=== PATIENT | female | born 1970 | race Caucasian/White ===

== ENCOUNTER → 2020-07-29 09:02 | Outpatient (BNVA) | payer MEDICARE, MEDICAID, SELFPAY | PROVIDERS: PCP Internal Medicine; Visit Provider Physician Assistant | DX: Z76.89 Persons encountering health services in other specified circumstances (principal) ==

== ENCOUNTER → 2020-07-31 08:09 | Outpatient (BNVA) | payer MEDICARE, MEDICAID, SELFPAY | PROVIDERS: PCP Internal Medicine; Visit Provider Surgery | DX: E66.9 Obesity, unspecified (principal); I10 Essential (primary) hypertension; K21.9 Gastro-esophageal reflux disease without esophagitis | CPT/HCPCS: Q3014 ==

== ENCOUNTER 2020-08-05 08:13 | Outpatient (REF) | payer MEDICARE, MEDICAID, SELFPAY ==
--- NOTE | 2020-08-05 08:52 | ECG_ITS ---
Test Reason : SOB, PREOP Blood Pressure : / mmHG Vent. Rate : 091 BPM Atrial Rate : 091 BPM P-R Int : 160 ms QRS Dur : 078 ms QT Int : 362 ms P-R-T Axes : 064 051 046 degrees QTc Int : 445 ms Normal sinus rhythm Normal ECG When compared with ECG of 02-MAR-2019 20:12, Heart rate has increased Referred By: Vasiliy Hardwick Electronically Signed By:ALMAZ GONZALEZ MD
--- NOTE | 2020-08-05 09:08 | XR_ITS ---
EXAMINATION: XR CHEST CLINICAL INFORMATION: Bariatric service evaluation. COMPARISON: Chest radiographs 03/02/2019, 02/25/2010 TECHNIQUE: 2 views of the chest were obtained. FINDINGS: Lungs are clear. The vascularity is normal. The heart is normal in size. The costophrenic sulci are well-defined. The hilar and mediastinal contours are normal. There are spinal stimulator electrodes overlying lower thoracic spine. XR/XR chest 2V IMPRESSION: Unremarkable examination.
[2020-08-05 10:33] LABS: Basophils Absolute Auto 0.1 X10*3/uL (0.0-0.2); Basophils Percent Auto 0.4 % (0-2); Eosinophils Absolute Auto 0.1 X10*3/uL (0.0-0.4); Eosinophils Percent Auto 0.6 % (0-4); Hematocrit 39.1 % (37-47); Hemoglobin 12.8 g/dl (12.0-16.0); Imm Gran Abs Auto 0.06 X10*3/uL (0.00-0.03); Imm Gran Pct Auto 0.4 % (0.0-0.4); Lymphocytes Absolute Auto 5.6 X10*3/uL (1.2-4.9); Lymphocytes Percent Auto 34.4 % (20-40); MANUAL DIFF FLAG SCAN; Mean Corpuscular HGB Conc 32.7 g/dl (31.0-35.0); Mean Corpuscular Hemoglobin 30.8 pg (27.0-33.0); Mean Corpuscular Volume 94.2 fL (80-98); Mean Platelet Volume 10.3 fL (9.4-12.3); Monocytes Absolute Auto 0.8 X10*3/uL (0.1-1.2); Monocytes Percent Auto 4.6 % (2-11); Neutrophils Absolute Auto 9.7 X10*3/uL (2.0-8.3); Neutrophils Percent Auto 59.6 % (45-73); Platelet Count 461 X10*3/uL (160-400); Red Blood Count 4.15 X10*6/uL (4.20-5.50); Red Cell Distribution Width 13.2 % (11.0-16.0); SCAN SMEAR FLAG 1; White Blood Count 16.3 X10*3/uL (4.8-10.8)
[2020-08-05 10:46] LABS: Estimated Average Glucose 114 mg/dL; Hemoglobin A1c % 5.6 %
[2020-08-05 11:20] LABS: Alanine Aminotransferase 28 U/L (0-31); Albumin Level 4.2 g/dL (3.5-5.0); Alkaline Phosphatase 104 U/L (39-117); Anion Gap 13 (12-20); Aspartate Amino Transferase 19 U/L (5-31); Bilirubin Total 0.5 mg/dL (0.0-1.0); Blood Urea Nitrogen 10 mg/dL (9-16); C Reactive Protein 2.08 mg/dL (< or = 0.50); Calcium 8.6 mg/dL (8.4-10.2); Carbon Dioxide 30 mmol/L (22-29); Chloride 102 mmol/L (96-108); Cholesterol 215 mg/dL; Estimated Glomerular Filt Rate > 60; Glucose Random 92 mg/dL (60-115); HDL Cholesterol 58 mg/dL; LDL Cholesterol Calculated 144 mg/dl; Potassium 4.4 mmol/l (3.3-5.1); Sodium 141 mmol/L (135-145); Total Protein 7.4 g/dL (6.5-8.0); Triglycerides 67 mg/dL
[2020-08-05 11:23] LABS: SLIDE REVIEW VERIFIED
[2020-08-05 11:41] LABS: TSH reflex Free T4 1.22 mIU/mL (0.32-4.0)
[2020-08-05 11:44] LABS: Folate 7.4 ng/mL (> or = 4.0); Vitamin B12 339 pg/mL (200-900)
[2020-08-06 12:08] LABS: Insulin Level Total 13.2 uIU/mL
[2020-08-06 12:33] LABS: PTHI 73 pg/mL (14-64)
[2020-08-09 11:19] LABS: Vitamin B1 6 nmol/L (8-30)
[2020-08-09 17:57] LABS: Vitamin A 44 mcg/dL (38-98)
== END 2020-08-05 08:14 | disposition home or self-care (01) ==
LOC: HO.LAB 08:13
PROVIDERS: PCP Internal Medicine; Visit Provider Surgery
DX: E66.9 Obesity, unspecified (principal); I10 Essential (primary) hypertension; K21.9 Gastro-esophageal reflux disease without esophagitis
CPT/HCPCS: 36415; 71046; 80053; 80061; 82607; 82746; 83036; 83525; 83970; 84425; 84443; 84590; 85025; 86140; 93005

== ENCOUNTER 2020-08-21 08:41 | Outpatient (REF) | payer MEDICARE, MEDICAID, SELFPAY ==
--- NOTE | 2020-08-21 08:54 | FL_ITS ---
EXAMINATION: XR GI SERIES CLINICAL INFORMATION: Obesity COMPARISON: None TECHNIQUE: Routine upper GI air-contrast study was performed. FINDINGS: Following oral administration of thick barium and effervescent granules in upright view there is normal propagation of bolus from the oral cavity through the pharynx and esophagus into stomach without any evidence of obstruction, narrowing or stricture. On placing patient prone and supine-lying, the course, caliber and peristalsis of the stomach, duodenal bulb and the sweep is normal. The mucosal pattern of the stomach, duodenal bulb and sweep is normal. There is transient gastroesophageal reflux but no hiatal hernia. FLUOROSCOPY TIME: 1.8 minutes DOSE AREA PRODUCT: 36.995 uGy-m2 (microgray-meter squared) Images: 50 FL/FL upper GI series IMPRESSION: Transient gastroesophageal reflux but no hiatal hernia. The rest of the upper GI exam appears unremarkable.
--- NOTE | 2020-08-21 08:54 | US_ITS ---
EXAMINATION: US COMPLETE ABDOMEN WITH LIVER ELASTOGRAPHY CLINICAL INFORMATION: Obesity. Preop. COMPARISON: None. TECHNIQUE: Real-time imaging of the abdominal viscera. Noninvasive ultrasound liver fibrosis assessment is performed using Ciarra ElastPQ point quantification shear wave elastography (pSWE) with a 5 MHz transducer. Multiple elastography samples are obtained. FINDINGS: PANCREAS: The visualized pancreatic head and body are normal in appearance. The pancreatic tail is obscured from visualization by the overlying bowel gas. ABDOMINAL AORTA: The proximal, middle, and distal aortic segments are normal in caliber. INFERIOR VENA CAVA: Visualized portions are normal. LIVER: The liver demonstrates normal size, contour and increased echogenicity. No focal lesion or intrahepatic biliary duct dilatation. The right lobe measures 13.5 cm in length. The left lobe measures 9.3 cm in length. Hepatopedal flow is seen in the portal vein on Doppler exam. Shear wave elastography provides a median stiffness of 1.30 m/s (reference: normal median stiffness is 0.81 - 1.22 m/s). The IQR/median stiffness to assess sampling precision is 0.28 (reference: optimal IQR/median stiffness is under 0.3). GALLBLADDER: There is a small dependent echogenic mobile stone measuring 0.8 x 0.5 0.8 cm. There is no wall thickening or pericholecystic fluid collection. COMMON BILE DUCT: Normal in caliber measuring 0.36 cm in diameter. RIGHT KIDNEY: Normal. No hydronephrosis. No renal calculi or focal parenchymal lesions. The kidney measures 10.4 cm in maximum dimension. LEFT KIDNEY: Normal. No hydronephrosis. No renal calculi or focal parenchymal lesions. The kidney measures 10.0 cm in maximum dimension. SPLEEN: Normal. The spleen measures 7.3 cm in maximum dimension. FREE FLUID: None. US/US abdomen comp w elastography IMPRESSION: 1. Diffusely echogenic liver without focal lesion. 2. Cholelithiasis without wall thickening. 3. Elastography: [id number] fibrosis.
== END 2020-08-21 08:42 | disposition home or self-care (01) ==
LOC: HO.US 08:41
PROVIDERS: PCP Internal Medicine; Visit Provider Surgery
DX: Z01.818 Encounter for other preprocedural examination (principal); K21.9 Gastro-esophageal reflux disease without esophagitis; E66.9 Obesity, unspecified; I10 Essential (primary) hypertension
CPT/HCPCS: 74240; 76705; 76981; Q3014

== ENCOUNTER 2020-08-23 08:04 | Outpatient (REF) | payer MEDICARE, MEDICAID, SELFPAY ==
[2020-08-23 09:06] LABS: MANUAL DIFF FLAG NO
[2020-08-23 09:15] LABS: Basophils Absolute Auto 0.1 X10*3/uL (0.0-0.2); Basophils Percent Auto 0.5 % (0-2); Eosinophils Absolute Auto 0.2 X10*3/uL (0.0-0.4); Eosinophils Percent Auto 1.7 % (0-4); Hematocrit 38.1 % (37-47); Hemoglobin 12.6 g/dl (12.0-16.0); Imm Gran Abs Auto 0.04 X10*3/uL (0.00-0.03); Imm Gran Pct Auto 0.4 % (0.0-0.4); Lymphocytes Absolute Auto 3.9 X10*3/uL (1.2-4.9); Lymphocytes Percent Auto 34.8 % (20-40); Mean Corpuscular HGB Conc 33.1 g/dl (31.0-35.0); Mean Corpuscular Hemoglobin 30.9 pg (27.0-33.0); Mean Corpuscular Volume 93.4 fL (80-98); Monocytes Absolute Auto 0.6 X10*3/uL (0.1-1.2); Monocytes Percent Auto 5.3 % (2-11); Neutrophils Absolute Auto 6.4 X10*3/uL (2.0-8.3); Neutrophils Percent Auto 57.3 % (45-73); Platelet Count 416 X10*3/uL (160-400); Red Blood Count 4.08 X10*6/uL (4.20-5.50); Red Cell Distribution Width 12.6 % (11.0-16.0); White Blood Count 11.2 X10*3/uL (4.8-10.8)
[2020-08-23 09:23] LABS: INTERNATIONAL NORM RATIO 1.1 (0.9-1.1); Prothrombin Time 13.4 SEC (10.8-13.0)
[2020-08-23 09:26] LABS: Partial Thromboplastin Time 34.5 SEC (24.1-38.0)
[2020-08-23 09:46] LABS: Alanine Aminotransferase 30 U/L (0-31); Albumin Level 3.8 g/dL (3.5-5.0); Alkaline Phosphatase 108 U/L (39-117); Anion Gap 9 (12-20); Aspartate Amino Transferase 19 U/L (5-31); Bilirubin Total 0.6 mg/dL (0.0-1.0); Blood Urea Nitrogen 12 mg/dL (9-16); C Reactive Protein 2.15 mg/dL (< or = 0.50); Calcium 8.9 mg/dL (8.4-10.2); Carbon Dioxide 33 mmol/L (22-29); Chloride 101 mmol/L (96-108); Estimated Glomerular Filt Rate > 60; Glucose Random 119 mg/dL (60-115); Potassium 3.8 mmol/l (3.3-5.1); Sodium 139 mmol/L (135-145)
[2020-08-24 15:28] LABS: H Pylori Breath Test DETECTED (NOT DETECTED)
== END 2020-08-23 08:05 | disposition home or self-care (01) ==
LOC: HO.LAB 08:04
PROVIDERS: PCP Internal Medicine; Visit Provider Surgery
DX: K80.20 Calculus of gallbladder without cholecystitis without obstruction (principal); E66.9 Obesity, unspecified; Z68.35 Body mass index [BMI] 35.0-35.9, adult; I10 Essential (primary) hypertension; K21.9 Gastro-esophageal reflux disease without esophagitis
CPT/HCPCS: 36415; 80053; 83013; 85025; 85610; 85730; 86140; 86850; 99211; 99212

== ENCOUNTER 2020-08-27 08:26 | Day surgery (SDC) | payer MEDICARE, MEDICAID, SELFPAY ==
--- NOTE | 2020-08-26 10:22 | HO.ANESPROP2 ---
Documented by User: Shelly Madera 08/26/20 10:30 HPI - Anesthesia Eval Consult details Narrative: 49yo F for Cholecystectomy Laparoscopic PMFSH Past Medical History Medical History (Updated 08/27/20 @ 10:32 by Cara Feldman) Anxiety BMI over 35 Depression Frequent headaches GERD (gastroesophageal reflux disease) Hypertension Obesity Sciatica Spinal cord stimulator status Family History Family History Mother Hypertension Osteoporosis Father Epilepsia Atrophic emphysema Son Asthma Daughter Asthma Daughter Panic attacks Anxiety Thyroid adenoma Surgical History Surgical History H/O arthroscopy of knee H/O laparoscopy S/P endometrial ablation Tubal ligation status Social History Social History Alcohol intake: never Smoking Status: Never smoker Use of substances other than those prescribed or required for medical reasons: No Have you been hit, kicked, punched, or otherwise hurt by someone within the past year? If so, by whom?: No Advance Directives: No Advance Directives Information Provided: No Meds Allergies Allergy/AdvReac Type Severity Reaction Status Date / Time amoxicillin Allergy Severe hives Verified 08/23/20 09:00 penicillin G Allergy Unknown hives all Verified 08/23/20 09:00 over body penicillin G procaine Allergy Unknown hives Verified 08/23/20 09:00 No Known Allergies Allergy Verified 08/23/20 09:00 [No Known Allergies*] Home Medications Medication Instructions Recorded Confirmed Type amitriptyline 75 mg tablet 75 mg PO BEDTIME 07/31/20 08/23/20 History Exam Exam Date and Time: August 26, 2020 1022 Pertinent Lab Results Pertinent Lab Results: Laboratory Tests 08/23/20 08:40 Blood Type A Positive Antibody Screen NEGATIVE Laboratory Tests 08/23/20 08/23/20 08:40 08:40 WBC 11.2 H Hgb 12.6 Hct 38.1 Plt Count 416 H Sodium 139 Potassium 3.8 Chloride 101 Carbon Dioxide 33 H BUN 12 Creatinine 0.68 Laboratory Tests 08/23/20 08/23/20 08:40 08:40 PT 13.4 H INR 1.1 APTT 34.5 Total Bilirubin 0.6 AST 19 ALT 30 Alkaline Phosphatase 108 C-Reactive Protein 2.15 H Total Protein 7.0 Albumin 3.8 Narrative Narrative: EKG 07/2020: Normal sinus rhythm Normal ECG Assessment and Plan Assessment Anesthesia Assessment: Chart Reviewed Documented by User: Cara Feldman 08/27/20 10:41 [facility] Past Medical History Medical History (Updated 08/27/20 @ 10:32 by Cara Feldman) Anxiety BMI over 35 Depression Frequent headaches GERD (gastroesophageal reflux disease) Hypertension Obesity Sciatica Spinal cord stimulator status Family History Family History Mother Hypertension Osteoporosis Father Epilepsia Atrophic emphysema Son Asthma Daughter Asthma Daughter Panic attacks Anxiety Thyroid adenoma Family history of problems with anesthesia: No Surgical History Surgical History H/O arthroscopy of knee H/O laparoscopy S/P endometrial ablation Tubal ligation status History of Problems with Anesthesia: No Social History Social History Alcohol intake: never Smoking Status: Never smoker Use of substances other than those prescribed or required for medical reasons: No Have you been hit, kicked, punched, or otherwise hurt by someone within the past year? If so, by whom?: No Advance Directives: No Advance Directives Information Provided: No Meds Allergies Allergy/AdvReac Type Severity Reaction Status Date / Time amoxicillin Allergy Severe hives Verified 08/23/20 09:00 penicillin G Allergy Unknown hives all Verified 08/23/20 09:00 over body penicillin G procaine Allergy Unknown hives Verified 08/23/20 09:00 No Known Allergies Allergy Verified 08/23/20 09:00 [No Known Allergies*] Home Medications Medication Instructions Recorded Confirmed Type amitriptyline 75 mg tablet 75 mg PO BEDTIME 07/31/20 08/23/20 History Exam Height,Weight and Vital Signs: Vital Signs Temp Pulse Resp BP Pulse Ox 08/27/20 08:44 97 F 73 18 124/78 99 Airway Mallampati Class: III TM Dist: >3cm Neck ROM: Limited Loose/Missing/Broken Teeth: No Heart: RRR Lungs: CTAB Assessment and Plan Assessment Anesthesia Assessment: Anesthesia Plan Discussed and Chart Reviewed Final Anesthetic Review NPO: Yes ASA Class: II Final Preanesthetic Review: No Changes in Pt Med Stat, Meds/Allgs Chart Reviewed, Consent Obtained/Reviewed and Anes Risks/Benef Reviewed Patient Risk: Intermediate Procedure Risk: Intermediate Anesthetic Plan Anesthetic Plan: GA Disposition: Standard PACU
--- NOTE | 2020-08-26 15:00 | MHC.SHP ---
Pre-Procedural Eval Section A The patient is an INPATIENT: No The History & Physical has been completed within 30 days and I have reviewed it.: No Section B Chief Complaint: cholecystitis Details of Present Illness: Cholelithiasis Relevant Family History (Specify if Yes): No Relevant Social History: None Present Medications: see Short Stay Collaborative assessment Medical History: No relevant PMH History of Previous Operations: No relevant previous surgery Allergies: Allergies Allergy/AdvReac Type Severity Reaction Status Date / Time amoxicillin Allergy Severe hives Verified 08/23/20 09:00 penicillin G Allergy Unknown hives all Verified 08/23/20 09:00 over body penicillin G procaine Allergy Unknown hives Verified 08/23/20 09:00 No Known Allergies Allergy Verified 08/23/20 09:00 [No Known Allergies*] Review of Systems Sugical H&P ROS: Negative: Constitution, Cardiovascular, Respiratory, Neurological, Psychiatric, Hem-Onc, Allergic/Immunologic, Gastrointestinal, Genitourinary, Musculoskeletal, Integumentary, Endocrine and Eyes/Ears/Nose/Throat Exam Surgical H&P Exam: Normal: HEENT, Normal: Heart, Normal: Lungs, Normal: Extremities, Normal: Abdomen, Normal: Skin and Normal: Neurological Plan Diagnosis/Plan: Unchanged I have reviewed the history and physical and performed a pertinent physical examination on my patient. No changes have occurred unless specified.
[2020-08-27] VITALS (11 sets, daily range): BP systolic 123–149; BP diastolic 74–90; PULSE 73–88; RESP 16–20; TEMP 36.1–36.7; O2SAT 97–100; BMI 35.2
[2020-08-27] MEDS: levoFLOXacin/D5W 500 MG/100 ML PIGGYBACK 100 MG IV (09:01)
[2020-08-27] MEDS: Lactated Ringers 1,000 ML 100 ML IVCONT (09:01)
--- NOTE | 2020-08-27 12:48 | P.BOP_ITS ---
Brief Operative Note Date of Service: 08/27/20 Pre-op diagnosis: Symptomatic cholelithiasis and comorbidities Post-op diagnosis: same Procedure: PROCEDURE DATE: 08/27/2020 PREOPERATIVE DIAGNOSIS: Symptomatic cholelithiasis, severe obesity with a body mass index of 35.9 kg/sq. meters and comorbidities including hypertension, GERD, headaches, spinal cord stenosis, depression, anxiety, liver steatosis, liver fibrosis POSTOPERATIVE DIAGNOSIS: Same as above and abdominal adhesions PROCEDURE: Laparoscopic cholecystectomy and laparoscopic lysis of adhesions Surgeon: Angel Hardwick M.D., Ph.D. Paper Cleaner: Hemalatha Martin PA-C Anesthesia: General endotracheal anesthesia Estimated blood loss: Minimal FINDINGS AND PROCEDURE: OPERATIVE INDICATIONS: The patient is a 49 year old female known to me who was initially seen in my office for evaluation for refractory morbid obesity. During the preoperative workup, the patient was found to have cholelithiasis which appears to be symptomatic. I recommended cholecystectomy before the gastric sleeve resection due to the higher risks of acute cholecystitis after bariatric surgery as a result of the rapid weight loss and secondly due to the potential complications of laparoscopic cholecystectomy or of the cholelithiasis itself. Risks and complications of the surgery were discussed with the patient in advance, particularly the postoperative bleeding, infection, DVT or PE, bile leak, major bile duct injury that may require additional surgical intervention, cardiac, pulmonary or renal complications among others. The patient understood the risks and was in agreement with the plan. PROCEDURE: After informed consent was obtained by the patient, the patient was transferred to the Operating Room and was placed in the supine position. The patient was given preoperative antibiotics and after successful induction of general anesthesia, pneumatic compression devices were placed. The patient was then prepped and draped in the usual sterile manner and abdominal access was established with [place]. The abdomen was insufflated with C02 to a pressure of 15 mmHg. A 5 mm Versi-step port was placed, slightly to the right and superior from the umbilicus. The 5 mm camera was introduced. I inspected the area where the port had been placed and there was no injury. The patient was then placed initially in a steep reverse Trendelenburg position and three additional ports were placed, specifically a 12 mm Versi-step port just to the right of the midline below the xiphoid process and two 5 mm Versi-step ports at the right upper quadrant and right flank. At that point the patient was placed in a steep reverse Trendelenburg position tilted to the left side. The gallbladder was retracted cephalad and laterally. There were adhesions between the omentum and the gallbladder wall that were taken down. The peritoneal attachments of the gallbladder at the triangle of Calot posteriorly and anteriorly were taken down. The cystic duct and artery were both seen. They were completely dissected free, skeletonized all the way to the infundibulum of the gallbladder . In a similar fashion we also cleaned the liver bed just behind the cystic artery to make sure there was no additional structures in this area. Once I confirmed that both structures were entering into the gallbladder and there were no other structures in the area, they were both clipped with two clips proximally, one distally and were cut in-between. I then using the electrocautery we slowly took down the gallbladder from the liver bed. Small areas of bleeding from the liver parenchyma were controlled with the cautery. After the gallbladder was completely detached from the liver bed, it was placed in an EndoCatch bag and was removed without difficulty from the xiphoid port. We then inspected the clips at the cystic duct and artery and were both in place. There was no active bleeding from the liver bed. At that point the patient was placed in supine position, we deflated the abdomen and we removed all ports under direct vision and no bleeding was noted from any of the port sites. The fascia of the 12 mm port was closed using a #1 Polysorb suture. 100cc 0.25% Bupivacaine and 10mg of Dexamethasone were used to infiltrate the fascial closure as well as all skin incisions. The wounds were irrigated with saline mixed with antibiotic solution and then the skin was closed with 4-0 Monnocryl subcuticular sutures antibiotic-coated. Steri-strips and OpSites were used to cover all incisions. The patient extubated and was transferred in stable condition to the Recovery Room for further care. I was present and performed all steps of the procedure. 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 There were no residents to assist with this case. Vasiliy Hardwick M.D., Ph.D. Surgeon: Vasiliy Hardwick MD Anesthesia: GETA, local and other (TAP block) Paper Cleaner: Hemalatha Martin Estimated blood loss (mL): 10 IV fluids (mL): 1,000 Urine output (mL): 0 (No [place] to record) Pathology: other (Gallbladder) Condition: stable Disposition: PACU
[2020-08-27] MEDS: fentaNYL citrate/PF 100 MCG/2 ML VIAL 50 MCG IVPUSH ×2 (13:23→13:28)
[2020-08-27] MEDS: oxyCODONE HCl Immed Release 5 MG TABLET PO (13:50)
--- NOTE | 2020-08-27 15:03 | PC.NURSE ---
DRESSING CDI PER REPORT, DENIES PAIN AT PRESENT AWARE OF ACETAMINOPHEN SCHEDULING AND NEXT DOSE DUE
== END 2020-08-27 14:55 ==
LOC: HO.SSS 08:27
PROVIDERS: PCP Internal Medicine; Visit Provider Surgery
PROC: 0FT44ZZ Resection of Gallbladder, Percutaneous Endoscopic Approach (ICD-10-PCS; CPT 47562; principal; 2020-08-27 10:00)
DX: K80.10 Calculus of gallbladder with chronic cholecystitis without obstruction (principal); K66.0 Peritoneal adhesions (postprocedural) (postinfection); E66.9 Obesity, unspecified; Z68.35 Body mass index [BMI] 35.0-35.9, adult; I10 Essential (primary) hypertension; K21.9 Gastro-esophageal reflux disease without esophagitis; K76.0 Fatty (change of) liver, not elsewhere classified; K74.00 Hepatic fibrosis, unspecified; M48.00 Spinal stenosis, site unspecified; F32.9 Major depressive disorder, single episode, unspecified; Z79.899 Other long term (current) drug therapy; Z88.0 Allergy status to penicillin
CPT/HCPCS: 47562; 86850; 86900; 86901; 88304; J0131; J1100; J1956; J2250; J2370; J2405; J3010

== ENCOUNTER → 2020-09-04 08:10 | Outpatient (BNVA) | payer MEDICARE, MEDICAID, SELFPAY | PROVIDERS: PCP Internal Medicine; Visit Provider Surgery | DX: E66.9 Obesity, unspecified (principal); Z68.34 Body mass index [BMI] 34.0-34.9, adult | CPT/HCPCS: 99212 ==

== ENCOUNTER → 2020-09-12 08:05 | Outpatient (BNVA) | payer OTHER, MEDICARE, SELFPAY | PROVIDERS: PCP Internal Medicine; Visit Provider Dietitian, Registered | DX: Z76.89 Persons encountering health services in other specified circumstances (principal) ==

== ENCOUNTER → 2020-09-19 08:05 | Outpatient (BNVA) | payer OTHER, SELFPAY | PROVIDERS: PCP Internal Medicine; Visit Provider Surgery | DX: A04.8 Other specified bacterial intestinal infections (principal); E66.9 Obesity, unspecified; Z68.34 Body mass index [BMI] 34.0-34.9, adult | CPT/HCPCS: Q3014 ==

== ENCOUNTER → 2020-10-11 08:15 | Outpatient (BNVA) | payer OTHER, SELFPAY | PROVIDERS: Visit Provider Surgery | DX: E66.9 Obesity, unspecified (principal); Z68.34 Body mass index [BMI] 34.0-34.9, adult | CPT/HCPCS: Q3014 ==

== ENCOUNTER → 2020-10-15 08:03 | Outpatient (BNVA) | payer MEDICARE, OTHER, SELFPAY | PROVIDERS: Visit Provider Dietitian, Registered ==

== ENCOUNTER → 2020-10-24 08:12 | Outpatient (BNVA) | payer MEDICARE, OTHER, SELFPAY | PROVIDERS: Visit Provider Dietitian, Registered ==

== ENCOUNTER → 2020-11-04 08:24 | Outpatient (BNVA) | payer OTHER, SELFPAY | PROVIDERS: Visit Provider Surgery | DX: E66.9 Obesity, unspecified (principal); Z68.34 Body mass index [BMI] 34.0-34.9, adult | CPT/HCPCS: Q3014 ==

== ENCOUNTER 2020-11-05 10:21 | Outpatient (REF) | payer OTHER, SELFPAY ==
[2020-11-06 15:27] LABS: H Pylori Breath Test NOT DETECTED (NOT DETECTED)
== END 2020-11-05 10:22 | disposition home or self-care (01) ==
LOC: HO.LNP 10:21
PROVIDERS: PCP Internal Medicine; Visit Provider Physician Assistant
DX: Z11.0 Encounter for screening for intestinal infectious diseases (principal); E66.9 Obesity, unspecified; I10 Essential (primary) hypertension; K21.9 Gastro-esophageal reflux disease without esophagitis
CPT/HCPCS: 83013; 99211

== ENCOUNTER → 2020-11-20 09:26 | Outpatient (BNVA) | payer OTHER, SELFPAY | PROVIDERS: PCP Internal Medicine; Visit Provider Dietitian, Registered ==

== ENCOUNTER → 2020-11-29 08:14 | Outpatient (BNVA) | payer OTHER, SELFPAY | PROVIDERS: PCP Internal Medicine; Visit Provider Surgery | DX: E66.9 Obesity, unspecified (principal); Z68.34 Body mass index [BMI] 34.0-34.9, adult; Z71.3 Dietary counseling and surveillance | CPT/HCPCS: Q3014 ==

== ENCOUNTER → 2020-12-12 13:37 | Outpatient (BNVA) | payer OTHER, SELFPAY | PROVIDERS: PCP Internal Medicine; Visit Provider Internal Medicine Endocrinology, Diabetes & Metabolism | DX: N25.81 Secondary hyperparathyroidism of renal origin (principal); E06.3 Autoimmune thyroiditis; E66.9 Obesity, unspecified | CPT/HCPCS: 99202 ==

== ENCOUNTER 2020-12-13 08:12 | Outpatient (REF) | payer OTHER, SELFPAY ==
[2020-12-13 10:03] LABS: Free T4 (Free Thyroxine) 0.83 ng/dL (0.71-1.85); Thyroid Stimulating Hormone 0.79 uIU/mL (0.32-4.0); Vitamin D 25-OH Total 41.7 ng/mL (>30)
[2020-12-13 10:04] LABS: Alanine Aminotransferase 22 U/L (0-31); Albumin Level 4.1 g/dL (3.5-5.0); Alkaline Phosphatase 106 U/L (39-117); Anion Gap 12 (12-20); Aspartate Amino Transferase 18 U/L (5-31); Blood Urea Nitrogen 13 mg/dL (9-16); Calcium 9.2 mg/dL (8.4-10.2); Carbon Dioxide 32 mmol/L (22-29); Chloride 100 mmol/L (96-108); Estimated Glomerular Filt Rate > 60; Glucose Random 112 mg/dL (60-115); Magnesium 2.1 mg/dL (1.6-2.6); Sodium 140 mmol/L (135-145); Total Protein 7.4 g/dL (6.5-8.0)
[2020-12-13 10:16] LABS: Bilirubin Total 0.5 mg/dL (0.0-1.0)
[2020-12-14 09:52] LABS: Sex Hormone Binding Globulin 19 nmol/L (17-124)
[2020-12-14 13:51] LABS: Immunoglobulin A 263 mg/dL (47-310)
[2020-12-15 02:32] LABS: Follicle Stimulating Hormone 87.9 mIU/mL; Prolactin 7.6 ng/mL
[2020-12-15 22:37] LABS: Transglutaminase Ab IgG 4 U/mL
[2020-12-16 14:02] LABS: Calcium (PTHI) 9.4 mg/dL (8.6-10.4); PTHI 72 pg/mL (14-64)
[2020-12-16 16:27] LABS: Adrenocorticotropic Hormone 17 pg/mL (6-50)
[2020-12-19 11:07] LABS: Alkaline Phosphatase Bone 16.9 mcg/L (5.6-29.0)
[2020-12-19 13:12] LABS: IGF-1 (Somatomedin C) 82 ng/mL (50-317); IGF-1 Z Score (Female) -1.1 SD (-2.0 - +2.0)
[2020-12-22 02:16] LABS: Estradiol Free 0.33 pg/mL; Estradiol, Ultrasensitive 14 pg/mL
[2020-12-22 23:06] LABS: Endomysial IgA Antibody Negative (Negative)
== END 2020-12-13 08:13 | disposition home or self-care (01) ==
LOC: HO.10HDL 08:12
PROVIDERS: Visit Provider Internal Medicine Endocrinology, Diabetes & Metabolism
DX: N25.81 Secondary hyperparathyroidism of renal origin (principal); E06.3 Autoimmune thyroiditis; E66.9 Obesity, unspecified
CPT/HCPCS: 36415; 80053; 81382; 82024; 82306; 82533; 82670; 82681; 82784; 83001; 83002; 83516; 83735; 83970; 84075; 84100; 84146; 84270; 84305; 84439; 84443; 86255; 86256

== ENCOUNTER → 2020-12-18 08:36 | Outpatient (BNVA) | payer OTHER, SELFPAY | PROVIDERS: PCP Internal Medicine; Visit Provider Surgery | DX: E66.9 Obesity, unspecified (principal); Z68.34 Body mass index [BMI] 34.0-34.9, adult | CPT/HCPCS: Q3014 ==

== ENCOUNTER 2020-12-24 09:01 | Outpatient (REF) | payer OTHER, SELFPAY ==
--- NOTE | ~2020-12-24 | US_ITS ---
EXAMINATION: US THYROID CLINICAL INFORMATION: Autoimmune thyroiditis. COMPARISON: None. TECHNIQUE: Linear transducer grayscale and color Doppler examination with attention to the region of the thyroid. FINDINGS: SIZE: Measurements of the thyroid lobes and nodules are given in sagittal, anteroposterior and transverse dimensions respectively. Right Thyroid Lobe: 4.7 x 2.1 x 2.1 cm, volume 10.4 mL. Parenchyma: The gland echotexture is homogeneous. Thyroid vascularity is increased. Left Thyroid Lobe: 4.8 x 1.7 x 2.1 cm, volume 9.1 mL. Parenchyma: The gland echotexture is homogeneous. Thyroid vascularity is increased. Isthmus: 0.5 cm in maximum AP dimension. Estimated total number of nodules greater than or equal to 1 cm: 1. Supply Chain Associate nodules are described as follows: 1. Location: Right inferior. Size: 0.4 x 0.3 x 0.4 cm, volume 0.024 mL. Nodule characteristics: Composition: Solid (2). Echogenicity: Hyperechoic (1). Shape: Not taller than wide (0). Margins: Smooth (0). Echogenic Foci: Peripheral calcifications (2). ACR TI-RADS total points: 5 ACR TI-RADS category: 4 2. Location: Right mid. Size: 1.1 x 0.6 x 0.9 cm, volume 0.31 mL. Nodule characteristics: Composition: Solid/almost completely solid (2). Echogenicity: Hypoechoic (2). Shape: Not taller than wide (0). Margins: Smooth (0). Echogenic Foci: None (0). ACR TI-RADS total points: 4 ACR TI-RADS category: 4 3. Location: Left superior. Size: 0.6 x 0.5 x 0.7 cm, volume 0.70 mL. Nodule characteristics: Composition: Solid (2). Echogenicity: Hypoechoic (2). Shape: Not taller than wide (0). Margins: Smooth (0). Echogenic Foci: None (0). ACR TI-RADS total points: 4 ACR TI-RADS category: 4 4. Location: Left mid. Size: 0.4 x 0.3 x 0.3 cm, volume 0.017 mL. Nodule characteristics: Composition: Solid (2). Echogenicity: Hypoechoic (2). Shape: Not taller than wide (0). Margins: Smooth (0). Echogenic Foci: None (0). ACR TI-RADS total points: 4 ACR TI-RADS category: 4 5. Location: Left mid. Size: 0.7 x 0.6 x 0.6 cm, volume 0.13 mL. Nodule characteristics: Composition: Solid (2). Echogenicity: Hypoechoic (2). Shape: Not taller than wide (0). Margins: Smooth (0). Echogenic Foci: None (0). ACR TI-RADS total points: 4 ACR TI-RADS category: 4 NODES: No lymphadenopathy is seen in the tissue surrounding the thyroid gland. US/US thyroid IMPRESSION: Homogeneous thyroid parenchyma appears slightly increased vascularity. Findings can be seen in the setting of an infectious or inflammatory process. Multiple small bilateral thyroid nodules. The largest nodule measures up to 1.1 cm within the mid right thyroid lobe with ultrasound characteristics consistent with TI-RADS Category 4. The additional smaller thyroid nodules also have ultrasound characteristics consistent with TI-RADS Category 4. ACR TI-RADS RECOMMENDATION REFERENCE: Ultrasound-guided fine-needle aspiration, followup ultrasound, no further follow up. * TR4 (4-6 points): FNA if more than or equal to 1.5 cm in maximum dimension, followup ultrasound in 1, 2, 3 and 5 years if 1 to 1.4 cm in maximum dimension. * TR3, TR4 or TR5 nodules that are below the size threshold for follow up receive no follow up.
== END 2020-12-24 09:02 | disposition home or self-care (01) ==
LOC: HO.US 09:01
PROVIDERS: PCP Internal Medicine; Visit Provider Internal Medicine Endocrinology, Diabetes & Metabolism
DX: E06.3 Autoimmune thyroiditis (principal)
CPT/HCPCS: 76536

== ENCOUNTER 2020-12-26 14:05 | Outpatient (REF) | payer OTHER, SELFPAY ==
[2020-12-26 15:14] LABS: MANUAL DIFF FLAG NO
[2020-12-26 15:26] LABS: Basophils Absolute Auto 0.1 X10*3/uL (0.0-0.2); Basophils Percent Auto 0.5 % (0-2); Eosinophils Absolute Auto 0.2 X10*3/uL (0.0-0.4); Eosinophils Percent Auto 1.8 % (0-4); Hematocrit 39.6 % (37-47); Hemoglobin 12.6 g/dl (12.0-16.0); Imm Gran Abs Auto 0.03 X10*3/uL (0.00-0.03); Imm Gran Pct Auto 0.2 % (0.0-0.4); Lymphocytes Absolute Auto 4.4 X10*3/uL (1.2-4.9); Lymphocytes Percent Auto 33.6 % (20-40); Mean Corpuscular HGB Conc 31.8 g/dl (31.0-35.0); Mean Corpuscular Hemoglobin 29.9 pg (27.0-33.0); Mean Corpuscular Volume 93.8 fL (80-98); Mean Platelet Volume 10.4 fL (9.4-12.3); Monocytes Absolute Auto 0.9 X10*3/uL (0.1-1.2); Monocytes Percent Auto 6.7 % (2-11); Neutrophils Absolute Auto 7.5 X10*3/uL (2.0-8.3); Neutrophils Percent Auto 57.2 % (45-73); Platelet Count 401 X10*3/uL (160-400); Red Blood Count 4.22 X10*6/uL (4.20-5.50); Red Cell Distribution Width 12.9 % (11.0-16.0); White Blood Count 13.1 X10*3/uL (4.8-10.8)
[2020-12-26 15:44] LABS: C Reactive Protein 1.71 mg/dL (< or = 0.50); Rheumatoid Factor < 15.0 IU/mL (<15.0)
[2020-12-26 16:25] LABS: Erythrocyte Sedimentation Rate 51 MM/HR (0-20)
[2020-12-27 08:51] LABS: Lyme Abs Screen <0.90 index
[2020-12-27 12:33] LABS: Antibody to SS-A Antigen <1.0 NEG AI (<1.0 NEG); Antibody to SS-B Antigen <1.0 NEG AI (<1.0 NEG)
[2020-12-27 14:57] LABS: IgA 270 mg/dL (47-310); IgG 1505 mg/dL (600-1640); IgM 115 mg/dL (50-300)
[2020-12-27 15:22] LABS: Cyclic Citrullinated Peptide <16 UNITS
[2020-12-27 22:11] LABS: Prot Elec - Alpha1 0.3 g/dL (0.2-0.3); Prot Elec - Alpha2 0.8 g/dL (0.5-0.9); Prot Elec - Beta 1 0.5 g/dL (0.4-0.6); Prot Elec - Beta 2 0.5 g/dL (0.2-0.5); Prot Elec - Gamma 1.4 g/dL (0.8-1.7); Prot Elec - Total Protein 7.5 g/dL (6.1-8.1)
[2020-12-27 22:42] LABS: Anti Nuclear Antibody Screen POSITIVE (NEGATIVE); Anti Nuclear Antibody Titer 1:40 titer
== END 2020-12-26 14:06 | disposition home or self-care (01) ==
LOC: HO.LAB 14:05
PROVIDERS: Visit Provider Student in an Organized Health Care Education/Training Program
DX: R79.82 Elevated C-reactive protein (CRP) (principal)
CPT/HCPCS: 36415; 82784; 84155; 84165; 85025; 85652; 86038; 86039; 86140; 86200; 86235; 86334; 86431; 86617; 86618; 99202

== ENCOUNTER 2020-12-27 10:34 | Outpatient (REF) | payer OTHER, SELFPAY ==
--- NOTE | ~2020-12-27 | XR_ITS ---
EXAMINATION: XR HAND, RIGHT XR HAND, LEFT CLINICAL INFORMATION: Elevated C-reactive protein COMPARISON: None TECHNIQUE: 3 views of each hand FINDINGS: Right Hand: Interphalangeal Joints: There is either a subchondral cyst or enthesopathic cyst along the radial head of the proximal phalanx at the PIP joint of the index finger. Favor enthesopathic. No marginal erosions. Remaining bones, joints and soft tissues unremarkable. Left Hand: The bones, joints and soft tissues are normal without erosions. XR/XR hand LT min 3V IMPRESSION: No evidence for inflammatory arthropathy. No definite osteoarthritis. Suspect enthesopathic cyst rather than subchondral cyst at the PIP joint of the index finger.
--- NOTE | ~2020-12-27 | XR_ITS ---
EXAMINATION: XR HAND, RIGHT XR HAND, LEFT CLINICAL INFORMATION: Elevated C-reactive protein COMPARISON: None TECHNIQUE: 3 views of each hand FINDINGS: Right Hand: Interphalangeal Joints: There is either a subchondral cyst or enthesopathic cyst along the radial head of the proximal phalanx at the PIP joint of the index finger. Favor enthesopathic. No marginal erosions. Remaining bones, joints and soft tissues unremarkable. Left Hand: The bones, joints and soft tissues are normal without erosions. XR/XR hand RT min 3V IMPRESSION: No evidence for inflammatory arthropathy. No definite osteoarthritis. Suspect enthesopathic cyst rather than subchondral cyst at the PIP joint of the index finger.
== END 2020-12-27 10:35 | disposition home or self-care (01) ==
LOC: HO.XRAY 10:34
PROVIDERS: PCP Internal Medicine; Visit Provider Student in an Organized Health Care Education/Training Program
DX: R79.82 Elevated C-reactive protein (CRP) (principal)
CPT/HCPCS: 73130

== ENCOUNTER 2021-01-09 07:09 | Outpatient (REF) | payer OTHER, SELFPAY ==
[2021-01-10 21:07] LABS: Adrenocorticotropic Hormone <5 pg/mL (6-50)
[2021-01-15 12:44] LABS: Dexamethasone 620 ng/dL
== END 2021-01-09 07:10 | disposition home or self-care (01) ==
LOC: HO.LAB 07:09
PROVIDERS: PCP Internal Medicine; Visit Provider Internal Medicine Endocrinology, Diabetes & Metabolism
DX: E66.9 Obesity, unspecified (principal)
CPT/HCPCS: 36415; 80299; 82024; 82533

== ENCOUNTER → 2021-01-10 12:11 | Outpatient (BNVA) | payer OTHER, SELFPAY | PROVIDERS: PCP Internal Medicine; Visit Provider Physician Assistant | DX: E66.9 Obesity, unspecified (principal); E06.3 Autoimmune thyroiditis; G47.33 Obstructive sleep apnea (adult) (pediatric); K21.9 Gastro-esophageal reflux disease without esophagitis; Z68.34 Body mass index [BMI] 34.0-34.9, adult | CPT/HCPCS: 99212 ==

== ENCOUNTER 2021-01-16 06:33 | Inpatient (IN) | payer OTHER, SELFPAY ==
[2021-01-10 14:11] VITALS: BMI 34.4
[2021-01-11 10:07] LABS: MANUAL DIFF FLAG NO
[2021-01-11 10:15] LABS: Basophils Absolute Auto 0.1 X10*3/uL (0.0-0.2); Basophils Percent Auto 0.6 % (0-2); Eosinophils Absolute Auto 0.3 X10*3/uL (0.0-0.4); Eosinophils Percent Auto 2.6 % (0-4); Hematocrit 38.7 % (37-47); Hemoglobin 12.2 g/dl (12.0-16.0); Imm Gran Abs Auto 0.02 X10*3/uL (0.00-0.03); Imm Gran Pct Auto 0.2 % (0.0-0.4); Lymphocytes Absolute Auto 4.1 X10*3/uL (1.2-4.9); Lymphocytes Percent Auto 37.7 % (20-40); Mean Corpuscular HGB Conc 31.5 g/dl (31.0-35.0); Mean Corpuscular Hemoglobin 29.5 pg (27.0-33.0); Mean Corpuscular Volume 93.7 fL (80-98); Mean Platelet Volume 10.9 fL (9.4-12.3); Monocytes Absolute Auto 0.6 X10*3/uL (0.1-1.2); Monocytes Percent Auto 5.2 % (2-11); Neutrophils Absolute Auto 5.8 X10*3/uL (2.0-8.3); Neutrophils Percent Auto 53.7 % (45-73); Platelet Count 380 X10*3/uL (160-400); Red Blood Count 4.13 X10*6/uL (4.20-5.50); White Blood Count 10.8 X10*3/uL (4.8-10.8)
[2021-01-11 10:16] LABS: INTERNATIONAL NORM RATIO 1.1 (0.9-1.1); Prothrombin Time 13.3 SEC (10.8-13.0)
[2021-01-11 10:19] LABS: Partial Thromboplastin Time 34.1 SEC (24.1-38.0)
[2021-01-11 10:29] LABS: Alanine Aminotransferase 20 U/L (0-31); Alkaline Phosphatase 95 U/L (39-117); Anion Gap 11 (12-20); Aspartate Amino Transferase 19 U/L (5-31); Bilirubin Total 0.2 mg/dL (0.0-1.0); Blood Urea Nitrogen 14 mg/dL (9-16); C Reactive Protein 1.63 mg/dL (< or = 0.50); Calcium 9.4 mg/dL (8.4-10.2); Carbon Dioxide 32 mmol/L (22-29); Chloride 102 mmol/L (96-108); Cholesterol 201 mg/dL; Estimated Average Glucose 120 mg/dL; Estimated Glomerular Filt Rate > 60; Glucose Random 105 mg/dL (60-115); HDL Cholesterol 48 mg/dL; Hemoglobin A1c % 5.8 %; LDL Cholesterol Calculated 133 mg/dl; Potassium 4.2 mmol/L (3.3-5.1); Sodium 141 mmol/L (135-145); Total Protein 7.2 g/dL (6.5-8.0); Triglycerides 104 mg/dL
[2021-01-11 10:52] LABS: TSH reflex Free T4 0.69 uIU/mL (0.32-4.0)
[2021-01-13 15:17] LABS: Insulin Level Total 14.5 uIU/mL
--- NOTE | 2021-01-14 10:01 | P.CONAN_ITS ---
Documented by User: Shelly Madera 01/14/21 10:03 HPI - Anesthesia Eval Consult details Narrative: 50yo F for Gastrectomy Sleeve s/p lap bhavya with GA-ETT 7 08/2020 [facility] Active Problems Active Problems: All Active Problems (Updated 01/10/21 @ 14:13 by Beryl Shepard) Vitamin B12 deficiency (Acute) Vitamin B1 deficiency (Acute) Vitamin D deficiency (Acute) Cholelithiasis (Acute) BMI 34.0-34.9,adult (Acute) H. pylori infection (Acute) BMI 34.0-34.9,adult (Acute) Obesity (BMI 30-39.9) (Acute) Jeannette's disease (Acute) Secondary hyperparathyroidism (Acute) MITZY (obstructive sleep apnea) (Acute) Autoimmune thyroiditis (Acute) Hyperparathyroidism (Acute) Leukocytosis (Acute) Elevated C-reactive protein (CRP) (Acute) BMI over 35 (Acute) Anxiety (Acute) Depression (Acute) Sciatica (Acute) GERD (gastroesophageal reflux disease) (Acute) Frequent headaches (Acute) Hypertension (Acute) Obesity (Acute) Past Medical History Medical History Anxiety Autoimmune thyroiditis BMI over 35 Depression Elevated C-reactive protein (CRP) Frequent headaches GERD (gastroesophageal reflux disease) Jeannette's disease Hyperparathyroidism Hypertension Leukocytosis Obesity Obesity (BMI 30-39.9) MITZY (obstructive sleep apnea) Sciatica Secondary hyperparathyroidism Spinal cord stimulator status Family History Family History Mother Hypertension Osteoporosis Father Epilepsia Atrophic emphysema Son Asthma Daughter Asthma Daughter Panic attacks Anxiety Thyroid adenoma Family history of problems with anesthesia: No Surgical History Surgical History H/O arthroscopy of knee H/O laparoscopy History of cholecystectomy Hx of mammogram S/P endometrial ablation Tubal ligation status History of Problems with Anesthesia: No Social History Social History Household Members: Family Are you a primary health care social worker to a significant other at home: No Do you presently have visiting nurse or other home services: No Alcohol intake: never Smoking Status: Never smoker Use of substances other than those prescribed or required for medical reasons: No Have you been hit, kicked, punched, or otherwise hurt by someone within the past year? If so, by whom?: No Are you DNR?: No Advance Directives Information Provided: No Recently lost weight without trying: No Eating poorly because of decreased appetite: No Nutrition Risks: No Nutritional Risk Patient : No Poor oral hygiene: No Meds Allergies Allergy/AdvReac Type Severity Reaction Status Date / Time amoxicillin Allergy Severe severe Verified 01/10/21 14:11 hives-total body penicillin G Allergy Severe severe Verified 01/10/21 14:11 hives-total body Home Medications Medication Instructions Recorded Confirmed Last Taken Type amitriptyline 75 mg tablet 75 mg PO BEDTIME 07/31/20 01/10/21 Unknown History Exam Exam Date and Time: January 14, 2021 1001 Height,Weight and Vital Signs: Height 5 ft 2 in Weight 85.275 kg Pertinent Lab Results Pertinent Lab Results: Laboratory Tests 01/11/21 01/11/21 01/11/21 09:10 09:10 09:10 WBC 10.8 RBC 4.13 L Hgb 12.2 Hct 38.7 MCV 93.7 MCH 29.5 MCHC 31.5 RDW 13.0 Plt Count 380 MPV 10.9 Immature Gran % (Auto) 0.2 Neut % (Auto) 53.7 Lymph % (Auto) 37.7 [facility] % (Auto) 5.2 Eos % (Auto) 2.6 Baso % (Auto) 0.6 Lymph # (Auto) 4.1 [facility] # (Auto) 0.6 Eos # (Auto) 0.3 Baso # (Auto) 0.1 Abs Immat Gran (auto) 0.02 Absolute Neuts (auto) 5.8 Absolute Nucleated RBC 0.000 Nucleated RBC % (auto) 0.0 PT 13.3 H INR 1.1 APTT 34.1 Sodium 141 Potassium 4.2 Chloride 102 Carbon Dioxide 32 H Anion Gap 11 L BUN 14 Creatinine 0.71 Estim Creat Clear Calc 96.0 Estimated GFR > 60 Random Glucose 105 Estimat Average Glucose Hemoglobin A1c % Total Insulin Calcium 9.4 Total Bilirubin 0.2 AST 19 ALT 20 Alkaline Phosphatase 95 C-Reactive Protein 1.63 H Total Protein 7.2 Albumin 4.0 Triglycerides 104 Cholesterol 201 LDL Cholesterol, Calc 133 HDL Cholesterol 48 TSH 0.69 Blood Type Antibody Screen 01/11/21 01/11/21 01/11/21 09:10 09:10 09:10 WBC RBC Hgb Hct MCV MCH MCHC RDW Plt Count MPV Immature Gran % (Auto) Neut % (Auto) Lymph % (Auto) [facility] % (Auto) Eos % (Auto) Baso % (Auto) Lymph # (Auto) [facility] # (Auto) Eos # (Auto) Baso # (Auto) Abs Immat Gran (auto) Absolute Neuts (auto) Absolute Nucleated RBC Nucleated RBC % (auto) PT INR APTT Sodium Potassium Chloride Carbon Dioxide Anion Gap BUN Creatinine Estim Creat Clear Calc Estimated GFR Random Glucose Estimat Average Glucose 120 Hemoglobin A1c % 5.8 Total Insulin 14.5 Calcium Total Bilirubin AST ALT Alkaline Phosphatase C-Reactive Protein Total Protein Albumin Triglycerides Cholesterol LDL Cholesterol, Calc HDL Cholesterol TSH Blood Type A Positive Antibody Screen NEGATIVE Narrative Narrative: EKG 07/2020 Vent. Rate : 091 BPM Atrial Rate : 091 BPM P-R Int : 160 ms QRS Dur : 078 ms QT Int : 362 ms P-R-T Axes : 064 051 046 degrees QTc Int : 445 ms Normal sinus rhythm Normal ECG When compared with ECG of 02-MAR-2019 20:12, Heart rate has increased Assessment and Plan Assessment Anesthesia Assessment: Chart Reviewed Documented by User: Kellee Allen 01/16/21 07:37 [facility] Past Medical History Medical History Anxiety Autoimmune thyroiditis BMI over 35 Depression Elevated C-reactive protein (CRP) Frequent headaches GERD (gastroesophageal reflux disease) Jeannette's disease Hyperparathyroidism Hypertension Leukocytosis Obesity Obesity (BMI 30-39.9) MITZY (obstructive sleep apnea) Sciatica Secondary hyperparathyroidism Spinal cord stimulator status Family History Family History Mother Hypertension Osteoporosis Father Epilepsia Atrophic emphysema Son Asthma Daughter Asthma Daughter Panic attacks Anxiety Thyroid adenoma Surgical History Surgical History H/O arthroscopy of knee H/O laparoscopy History of cholecystectomy Hx of mammogram S/P endometrial ablation Tubal ligation status Social History Social History Household Members: Family Are you a primary health care social worker to a significant other at home: No Do you presently have visiting nurse or other home services: No Alcohol intake: never Smoking Status: Never smoker Use of substances other than those prescribed or required for medical reasons: No Have you been hit, kicked, punched, or otherwise hurt by someone within the past year? If so, by whom?: No Are you DNR?: No Advance Directives Information Provided: No Recently lost weight without trying: No Eating poorly because of decreased appetite: No Nutrition Risks: No Nutritional Risk Patient : No Poor oral hygiene: No Meds Allergies Allergy/AdvReac Type Severity Reaction Status Date / Time amoxicillin Allergy Severe severe Verified 01/10/21 14:11 hives-total body penicillin G Allergy Severe severe Verified 01/10/21 14:11 hives-total body Home Medications Medication Instructions Recorded Confirmed Last Taken Type amitriptyline 75 mg tablet 75 mg PO BEDTIME 07/31/20 01/10/21 Unknown History Exam Airway Mallampati Class: II TM Dist: >3cm Loose/Missing/Broken Teeth: No Heart: RRR Lungs: CTA Assessment and Plan Assessment Anesthesia Assessment: Anesthesia Plan Discussed and Chart Reviewed Final Anesthetic Review NPO: Yes ASA Class: III Final Preanesthetic Review: Meds/Allgs Chart Reviewed, Consent Obtained/Reviewed and Anes Risks/Benef Reviewed Patient Risk: Intermediate Procedure Risk: Intermediate Anesthetic Plan Anesthetic Plan: GA Disposition: Standard PACU
--- NOTE | 2021-01-15 19:40 | MHC.SHP ---
Pre-Procedural Eval Section A The patient is an INPATIENT: Yes The History & Physical has been completed within 30 days and I have reviewed it.: Yes Section B Chief Complaint: obesity Details of Present Illness: Obesity Relevant Family History (Specify if Yes): No Relevant Social History: None Present Medications: see Short Stay Collaborative assessment Medical History: No relevant PMH History of Previous Operations: Relevant previous surgery/procedure and date(s) Allergies: Allergies Allergy/AdvReac Type Severity Reaction Status Date / Time amoxicillin Allergy Severe severe Verified 01/10/21 14:11 hives-total body penicillin G Allergy Severe severe Verified 01/10/21 14:11 hives-total body Review of Systems Sugical H&P ROS: Negative: Constitution, Cardiovascular, Respiratory, Neurological, Psychiatric, Hem-Onc, Allergic/Immunologic, Gastrointestinal, Genitourinary, Musculoskeletal, Integumentary, Endocrine and Eyes/Ears/Nose/Throat Exam Surgical H&P Exam: Normal: HEENT, Normal: Heart, Normal: Lungs, Normal: Extremities, Normal: Abdomen, Normal: Skin and Normal: Neurological Plan Diagnosis/Plan: Unchanged I have reviewed the history and physical and performed a pertinent physical examination on my patient. No changes have occurred unless specified.
[2021-01-16] VITALS (13 sets, daily range): BP systolic 108–180; BP diastolic 67–97; PULSE 69–94; RESP 12–20; TEMP 36–36.7; O2SAT 95–100
[2021-01-16 06:34] LABS: COVID-19 Test Negative (Negative)
[2021-01-16] MEDS: Lactated Ringers 1,000 ML 999 ML IV (06:51)
[2021-01-16] MEDS: Lactated Ringers 1,000 ML 100 ML IVCONT (06:52)
[2021-01-16] MEDS: levoFLOXacin/D5W 500 MG/100 ML PIGGYBACK 100 MG IV (06:56)
--- NOTE | 2021-01-16 07:41 | PC.NURSE ---
Patient came into [facility] with one leilani ring. Removed, placed in labeled patient clear bag, and put in her personal black duffel bag.
--- NOTE | 2021-01-16 10:36 | P.BOP_ITS ---
Brief Operative Note Date of Service: 01/16/21 Pre-op diagnosis: Obesity and comorbidities Post-op diagnosis: same (& diaphragmatic hernia) Procedure: INITIAL PATIENT BMI ON PRESENTATION AT OUR OFFICE: 35.9 kg/m2 LAST BMI BEFORE SURGERY: 35 kg/m2 COMORBIDITIES: The patient participated in an intensive weekly lifestyle intervention and exercise program during which the patient has lost between the initial office visit and the last preoperative visit 9 lbs, or 4.58% of initial actual body weight. The patient met the BMI-criteria for bariatric surgery based on the BMI on initial presentation. The patient should not be penalized for achieving such weight loss because it is not sustainable long-term without surgical intervention and it was achieved in preparation for bariatric surgery under my direction and based on my published research ([email or web address] and [email or web address]) that a 10% preoperative weight loss improves long-term weight loss after surgery and reduces perioperative complications. Insurance carriers such as [facility] have endorsed my recommendations and have included in their policies criteria to include a 10% preoperative weight loss requirement. PROCEDURE: Esophago-gastroscopy, laparoscopic repair of incarcerated diaphragmatic hernia, laparoscopic sleeve gastrectomy and laparoscopic gastropexy INDICATIONS: This is a 50 year-old female who was electively scheduled for laparoscopic, possibly open sleeve gastrectomy. The risks and complications of the procedure were discussed with the patient in advance, particularly the possibility of ; pulmonary embolism; staple line leak; bleeding; GERD; cardiac, pulmonary, or renal complications; as well as long-term problems such as insufficient weight loss, vitamin deficiency, strictures, or ulcers. The patient understood all the risks, and was in agreement to proceed with surgery. DESCRIPTION OF PROCEDURE: After informed consent was obtained from the patient, the patient was given preoperative antibiotics, and was transferred to the operating room. After successful induction of general anesthesia, pneumatic compressive devices were placed on both lower extremities. An upper endoscopy was performed next. The oropharynx and esophagus appeared to be within normal limits. There was a diaphragmatic hernia present of moderate size consistent with the findings of the preoperative upper GI. The stomach was entered. Then after all fluid and air were suctioned and the stomach was fully decompressed, the scope was withdrawn and secured in the mid esophagus. The patient was then prepped and draped in the usual sterile manner, and abdominal access was established at the right upper quadrant with the Cortney technique. A 12 mm blunt port was inserted, and the abdomen was insufflated with CO2 to a pressure of 15 mmHg. Under direct visualization, additional ports were placed, specifically two 5 mm Versi-step ports to the left upper quadrant, and a 5 mm Versi-Step port to the right upper quadrant. 1% lidocaine plan was used to infiltrate all port sites as well as all fascia defects. Following that, the patient was placed in a steep reverse Trendelenburg po sition. An additional 5 mm port was placed to the right flank for the Mediflex retractor that was used to retract the left lobe of the liver. The gastro-esophageal fat pad was opened with the ultrasonic device (Thunderbeat, Olympus) and the anterior esophagus and hiatus were exposed. The angle of His was opened with the ultrasonic device the fundus of the stomach from any diaphragmatic and splenic attachments. I then opened the gastrocolic ligament between the transverse colon and the greater curvature of the stomach with the ultrasonic device to enter the lesser sac and facilitate the ligation of the short gastric vessels. I started at a mid-point along the greater curvature and using the Thunderbeat, all short gastric vessels were divided all the way to the angle of His until the left jimenez was completely dissected at its entirety. I then divided the gastro-colic ligament distally to a distance of about 3-4 cm proximal to the esophagus. There was an obvious significant-sized hiatal hernia. I continued dissecting along the hiatus toward the left jimenez and the angle of His. I fully mobilized the fat pad that was incarcerated in the hernia. I then continued by dissecting even further into the posterior retro-esophageal space all the way to the angle of His. I continued to mobilize the esophagus into the mediastinum circumferentially. Both vagal nerves were seen and preserved. The right jimenez was also dissected free at its entirety. At that point, I was able to have at least 3 to 5 cm of esophagus into the abdomen. After I completely mobilized the esophagus from both the left and right jimenez and I had a good mobilization of the esophagus circumferentially, I closed the hernia defect with three interrupted #0 Surgidac sutures using the Endo Stitch device, two of which were placed posterior and one anterior to the esophagus. The stomach was then divided transversely with one Endo DULCE-45 purple and five DULCE-60 articulating orange loads using the AEON stapler and loads. Every effort was made that the gastric sleeve had a tubular shape and an even caliber throughout. Once the sleeve resection was completed, the staple line of the gastric sleeve was reinforced with Hemoclips. The resected stomach was retrieved without difficulty from the Cortney port. A gastropexy was then performed in order to prevent postoperative GERD and partial gastric volvulus. Several interrupted 2.0 Surgidac sutures were placed between the sleeve's staple line and the previously divided greater omentum and gastro-colic ligament using the Endo-Stitch device. An upper endoscopy was performed. There was no narrowing at the GE junction. The scope was easily advanced all the way to the pylorus which was clearly visualized. There was no narrowing anywhere and the sleeve's caliber was even throughout. The sleeve's staple line was inspected and there was no evidence of ischemia, bleeding or dehiscence. At that point the gastroscope was withdrawn from the patient?s mouth while we were decompressing the bowel and the stomach from any remaining air. I looked into the lesser sac to see how the sleeve was situating and it was situating well. There was no bleeding from the staple line, spleen, or short gastric vessels. The Mediflex retractor was removed, and the undersurface of the liver was inspected and there was no bleeding. The patient was placed in supine position. I closed the fascial defect of the 12 mm port site with a figure of eight #1 Polysorb suture. Then 100 cc 0.25 % Marcaine plain with 10 mg of Dexamethasone were used to infiltrate the fascial closure as well as all skin incisions. At this point, the abdomen was deflated, all ports were removed under direct vision, and no bleeding was noted from any of the port sites. The skin incisions were irrigated with saline and were closed with 4-0 absorbable monofilament sutures. Steri-Strips and OpSites were used to cover all incisions. The patient was extubated and was transferred in stable condition to the recovery room for further care. I was present and performed all jimenez parts of the procedure. Ms. Martin was the first responder. There were no residents to assist with this case. Angel Hardwick MD, PhD, FACS Surgeon: Vasiliy Hardwick MD Anesthesia: GETA, local and other (TAP block) Was an Voip Network Engineer used for this Procedure?: Yes Voip Network Engineer: Hemalatha Martin Estimated blood loss (mL): 10 IV fluids (mL): 2,500 Urine output (mL): 0 (No [place] to record) Pathology: other (Stomach) Condition: stable Disposition: PACU
--- NOTE | 2021-01-16 10:44 | PM.PNGS ---
Subjective Subjective Date of Service: 01/17/21 Interval history: Patient has mild incisional pain but was able to ambulate and use the incentive spirometer. Is tolerating phase 1 bariatric diet. Physical Exam Vital Signs: Vital Signs: Last Vital Signs Temp 98.1 F 01/16/21 06:23 Pulse 69 01/16/21 06:23 Resp 16 01/16/21 06:23 BP 108/67 01/16/21 06:23 Pulse Ox 98 01/16/21 06:23 Body Mass Index 34.4 GI: Inspection: Yes normal to inspection and Yes incision (clean, dry and intact) Extrem: Right lower extremity: normal to inspection (no calf tenderness) Left lower extremity: normal to inspection (no calf tenderness) Progress Note: A&P Assessment and plan (1) Obesity: (2) BMI over 35: Status: Acute (3) GERD (gastroesophageal reflux disease): Problem details: taking omeprazole Status: Acute (4) MITZY (obstructive sleep apnea): Problem details: uses CPAP Status: Acute (5) Hypertension: Status: Acute (6) Diaphragmatic hernia: Status: Acute (7) S/P laparoscopic sleeve gastrectomy: Status: Acute Assessment and Plan: s/p laparoscopic sleeve gastrectomy, diaphragmatic hernia repair and gastropexy Doing well. Tolerating phase 1 bariatric home. Will discharge home if am labs are OK (8) S/P repair of paraesophageal hernia: Status: Acute (9) Jeannette's disease: Status: Acute (10) Anxiety: Status: Acute (11) Depression: Status: Acute (12) Sciatica: (13) Liver fibrosis: Status: Acute (14) Frequent headaches: (15) Spinal stenosis: Fall Risk Details Current Medications: Current Medications Generic Name Dose Route Start Last Admin Trade Name Freq PRN Reason Stop Dose Admin Albuterol Sulfate 2.5 mg 01/16/21 07:37 Albuterol Sulfate (0.083%) 2.5 Mg/3 Ml Vial.Neb INHALE ONCE PRN Wheezing Fentanyl 50 mcg 01/16/21 07:37 Fentanyl Citrate/Pf 100 Mcg/2 Ml Vial IVPUSH Q5M PRN Pain, Severe (Pain Scale 7-10) Fentanyl 25 mcg 01/16/21 07:37 Fentanyl Citrate/Pf 100 Mcg/2 Ml Vial IVPUSH Q5M PRN Pain, Moderate (Pain Scale 4-6 Lactated Ringer's 1,000 mls @ 100 mls/hr 01/16/21 06:15 01/16/21 06:52 Lr IVCONT 100 mls/hr .Q10H JONN Administration Oxycodone HCl 10 mg 01/16/21 07:37 Oxycodone Hcl Immed Release 5 Mg Tablet PO ONCE PRN Pain, Severe (Pain Scale 7-10) Oxycodone HCl 5 mg 01/16/21 07:37 Oxycodone Hcl Immed Release 5 Mg Tablet PO ONCE PRN Pain, Severe (Pain Scale 7-10) Time Spent With Patient Time: Total time spent is greater than 50% in coordination of care (as documented) at patient's floor/unit and/or counseling patient: Time with patient: less than 15 minutes
--- NOTE | 2021-01-16 10:55 | P.DS_ITS ---
DS: Providers Provider Date of Service: 01/17/21 Date of admission: 01/16/21 06:33 Primary care physician: Nicki Rose MD DS: Diagnosis Discharge Diagnosis (1) BMI over 35: Status: Acute (2) GERD (gastroesophageal reflux disease): Status: Acute Problem details: taking omeprazole (3) MITZY (obstructive sleep apnea): Status: Acute Problem details: uses CPAP (4) Hypertension: Status: Acute (5) Diaphragmatic hernia: Status: Acute (6) S/P laparoscopic sleeve gastrectomy: Status: Acute (7) S/P repair of paraesophageal hernia: Status: Acute (8) Jeannette's disease: Status: Acute (9) Anxiety: Status: Acute (10) Depression: Status: Acute (11) Liver fibrosis: Status: Acute DS: Medications Discharge Medications Home Medications: Home Medications Medication Instructions Recorded Confirmed amitriptyline 75 mg tablet 75 mg PO BEDTIME 07/31/20 01/10/21 Previous Rx's Medication Instructions Recorded losartan 100 1 tab PO DAILY #90 tab 07/27/20 mg-hydrochlorothiazide 25 mg tablet atenolol 50 mg tablet 50 mg PO DAILY #90 tab 08/03/20 mecobalamin (vitamin B12) 1,000 1,000 mcg SUBLINGUAL DAILY #30 tab 08/21/20 mcg disintegrating tablet,sublingual thiamine HCl (vitamin B1) 100 mg 100 mg PO DAILY #30 tab 08/21/20 tablet ondansetron HCl 4 mg tablet 4 mg PO Q6H PRN #30 tab 08/22/20 omeprazole 40 mg capsule,delayed 40 mg PO DAILY #30 cap 09/19/20 release cholecalciferol (vitamin D3) 125 125 mcg PO DAILY #30 cap 12/12/20 mcg (5,000 unit) capsule calcium citrate 500 mg PO BID 30 Days #120 tab 01/06/21 dexamethasone 1 mg tablet 1 mg PO ONCE 1 Days #1 tab 01/06/21 pantoprazole 40 mg tablet,delayed 40 mg PO DAILY #30 tab 01/10/21 release polyethylene glycol 3350 17 gram 17 g PO DAILY #14 ea 01/10/21 oral powder packet sucralfate 100 mg/mL oral 10 ml PO BID #400 ml 01/10/21 suspension DS: Summary Time Spent with Patient Time attestation: ADMITTING DIAGNOSIS: morbid obesity, HTn, Hashimotos, GERD, MITZY, hyperparathyroid, depression/anxiety DISCHARGE DIAGNOSIS: same, s/p laparoscopic sleeve gastrectomy and repair diaphragmatic hernia PAST SURGICAL HISTORY: PROCEDURE: upper endoscopy, laparoscopic sleeve gastrectomy and repair of diaphragmatic hernia hernia DISCHARGE SUMMARY: History of Present Illness: The patient is a 50 year-old woman with a BMI of 35.9 kg/m2 and associated co- morbidities as described above. The patient had extensive work-up,lost 9 lbs preoperatively and was electively scheduled for laparoscopic, possible open sleeve gastrectomy and gastropexy. Risks and complications of the surgery were discussed with the patient in advance, particularly the possibility of , pulmonary embolism, anastomotic leak, bleeding, bowel injury, GERD, cardiac, renal or pulmonary complications. The patient understood all the risks and was in agreement with the surgical plan. Hospital Course: The patient underwent an uneventful laparoscopic sleeve gastrectomy with gastr opexy and repair of diaphragmatic hernia on the day of admission. Postoperatively, the patient was transferred to the surgical floor. The patient was on IV Acetaminophen and IV dilaudid for pain control. Patient was started on bariatric phase 1 diet POD #0. On postoperative day one, the patient was feeling well without nausea, vomiting, fevers, or tachycardia. The patient had some mild incisional pain. The abdomen was soft. On the morning of postoperative day one, the patient was continued on 1 ounce of water or ice every half hour. During the first day, the patient did fairly well, having some incisional pain, but able to ambulate adequately and to tolerate liquids well. Since the patient is doing well, we decided that the patient was ready to be discharged. The patient was given instructions to follow-up with me next week and to call my office for any fever over 101, persistent abdominal pain, nausea, vomiting, GERD, symptoms of DVT such as calf tenderness, or leg swelling, or pul monary embolism such as chest pain or shortness of breath. The patient was also instructed to drink 40-60 ounces of liquids per day using the 1-ounce cups. The patient was given prescription for Tylenol for pain, Zofran prn for nausea, and pantoprazole and carafate. The patient was encouraged to ambulate and use the incentive spirometer. The patient was allowed to shower, but no baths, and encouraged to stay active at home. All of these instructions were given to the patient personally. All questions were answered and the patient understood all instructions, the instructions were also given to the patient in print. Total time spent providing and/or coordinating discharge services: 15 Discharge coordination time: Less than 30 minutes Quality: Stroke Does the patient have a stroke diagnosis?: No Physical Exam Vital Signs: Vital Signs: Last Vital Signs Temp 97.9 F 01/16/21 10:35 Pulse 82 01/16/21 10:45 Resp 12 01/16/21 10:45 BP 162/91 H 01/16/21 10:45 Pulse Ox 95 01/16/21 10:45 Body Mass Index 34.4 DS: Data Data Completed and Pending Pending studies at discharge: Pending at discharge 01/16/21 09:22 Surgical [PTH] Routine Labs on day of discharge: Laboratory Results - last 24 hr 01/16/21 06:07 COVID-19 (CESAR) Negative COVID-19 Clin Com See Note Discharge Plan Discharge Anticipated Discharge Date/Time: 01/17/21 11:50 Patient Disposition: Home, Self-Care Discharge Diagnosis: POD # 1 S/P SLEEVE GASTRECTOMY Referrals: Nicki Carlos MD [Primary Care Provider] - 1 Week Discharge Medications: Continued losartan-hydrochlorothiazide 100-25 mg tablet 1 tab PO DAILY Qty: 90 RF: 1 Hold Instructions: Doctor's Order atenolol 50 mg tablet 50 mg PO DAILY Qty: 90 RF: 3 ondansetron HCl [Zofran] 4 mg tablet 4 mg PO Q6H PRN (Reason: nausea and vomiting) Qty: 30 RF: 0 amitriptyline 75 mg tablet 75 mg PO BEDTIME RF: 0 pantoprazole 40 mg tablet,delayed release (DR/EC) 40 mg PO DAILY Qty: 30 RF: 2 sucralfate 100 mg/mL suspension 10 ml PO BID Qty: 400 RF: 2 Held dexamethasone 1 mg tablet 1 mg PO ONCE 1 Days Qty: 1 RF: 0 Hold Instructions: Discuss when to restart with Dr Hardwick Discontinued calcium citrate 250 mg calcium tablet 500 mg PO BID 30 Days Qty: 120 RF: 4 mecobalamin (vitamin B12) 1,000 mcg tablet,disintegrating 1,000 mcg sublingual DAILY Qty: 30 RF: 2 thiamine HCl (vitamin B1) 100 mg tablet 100 mg PO DAILY Qty: 30 RF: 2 omeprazole 40 mg capsule,delayed release(DR/EC) 40 mg PO DAILY Qty: 30 RF: 2 cholecalciferol (vitamin D3) 125 mcg (5,000 unit) capsule 125 mcg PO DAILY Qty: 30 RF: 2 polyethylene glycol 3350 [Miralax] 17 gram powder in packet 17 g PO DAILY Qty: 14 RF: 0 Discharge Orders: Discharge Order (Routine); Ordered 01/17/21 Ordered By: Vasiliy Hardwick Diet: other Activity on Discharge: No heavy lifting Stand Alone Forms: Patient Portal Discharge page Activity Restrictions/Additional Instructions: No tub baths, sex or returning to work until discussed at first post op appointment. No exercise, alcohol, tobacco or illegal drug use. Continue to use incentive spirometer hourly while awake. Walk in home for 5- 10 minutes every 2 hours during the first week. Continue phase 1 diet today and start phase 2 diet tomorrow morning. Follow all instructions in the bariatric handbook and call with any questions. Care Plan Goals: weight loss Health Concerns: obesity Plan of Treatment: see idischarge instructions Assessment: stable after sleeve gastrectomy Discharge Date/Time: 01/17/21 10:32
[2021-01-16] MEDS: Famotidine/PF 20 MG/2 ML VIAL IVPUSH ×2 (10:56→21:03)
[2021-01-16 11:09] LABS: Hematocrit 37.7 % (37-47); Hemoglobin 12.1 g/dl (12.0-16.0)
[2021-01-16] MEDS: Lactated Ringers 1,000 ML 125 ML IVCONT ×2 (12:22→19:40)
[2021-01-16 13:16] LABS: Anion Gap 18 (12-20); Blood Urea Nitrogen 9 mg/dL (9-16); Calcium 8.7 mg/dL (8.4-10.2); Carbon Dioxide 23 mmol/L (22-29); Chloride 100 mmol/L (96-108); Creatinine Clr Calc Pharmacy 100.2; Estimated Glomerular Filt Rate > 60; Glucose Random 143 mg/dL (60-115); Potassium 3.8 mmol/L (3.3-5.1); Sodium 137 mmol/L (135-145)
[2021-01-16] MEDS: HYDROmorphone HCl 0.5 MG/0.5 ML SYRINGE 0.25 MG IVPUSH (16:52)
[2021-01-16] MEDS: ondansetron HCL 4 MG/2 ML VIAL IVPUSH (19:27)
[2021-01-16] MEDS: hydrALAZINE HCl 20 MG/ML VIAL 10 MG IVPUSH (19:40)
[2021-01-16] MEDS: 0.9 % Sodium Chloride Flush 3 ML SYRINGE IVFLUSH (21:03)
[2021-01-16] MEDS: Amitriptyline HCl 25 MG TABLET 75 MG PO (21:03)
[2021-01-17 00:08] VITALS: BP 177/79; PULSE 98; RESP 20; TEMP 36.5; O2SAT 100
[2021-01-17] MEDS: HYDROmorphone HCl 0.5 MG/0.5 ML SYRINGE 0.25 MG IVPUSH (00:22)
[2021-01-17] MEDS: hydrALAZINE HCl 20 MG/ML VIAL 10 MG IVPUSH (00:23)
[2021-01-17 01:23] VITALS: BP 113/53
[2021-01-17] MEDS: ondansetron HCL 4 MG/2 ML VIAL IVPUSH (03:39)
[2021-01-17] MEDS: Lactated Ringers 1,000 ML 125 ML IVCONT (03:39)
[2021-01-17 03:43] VITALS: BP 129/71; PULSE 95; RESP 20; TEMP 36.3; O2SAT 97
[2021-01-17 05:13] LABS: MANUAL DIFF FLAG NO
[2021-01-17 05:15] LABS: Basophils Percent Auto 0.1 % (0-2); Eosinophils Percent Auto 0.2 % (0-4); Hematocrit 38.2 % (37-47); Hemoglobin 12.4 g/dl (12.0-16.0); Imm Gran Abs Auto 0.05 X10*3/uL (0.00-0.03); Imm Gran Pct Auto 0.3 % (0.0-0.4); Lymphocytes Absolute Auto 2.6 X10*3/uL (1.2-4.9); Lymphocytes Percent Auto 16.6 % (20-40); Mean Corpuscular HGB Conc 32.5 g/dl (31.0-35.0); Mean Corpuscular Hemoglobin 30.2 pg (27.0-33.0); Mean Corpuscular Volume 92.9 fL (80-98); Mean Platelet Volume 10.5 fL (9.4-12.3); Monocytes Percent Auto 6.5 % (2-11); Neutrophils Absolute Auto 11.8 X10*3/uL (2.0-8.3); Neutrophils Percent Auto 76.3 % (45-73); Platelet Count 433 X10*3/uL (160-400); Red Blood Count 4.11 X10*6/uL (4.20-5.50); Red Cell Distribution Width 12.8 % (11.0-16.0); White Blood Count 15.5 X10*3/uL (4.8-10.8)
[2021-01-17 05:39] LABS: Anion Gap 18 (12-20); Blood Urea Nitrogen 7 mg/dL (9-16); Calcium 9.1 mg/dL (8.4-10.2); Carbon Dioxide 25 mmol/L (22-29); Chloride 100 mmol/L (96-108); Creatinine Clr Calc Pharmacy 104.9; Estimated Glomerular Filt Rate > 60; Glucose Random 105 mg/dL (60-115); Potassium 4.2 mmol/L (3.3-5.1); Sodium 139 mmol/L (135-145)
[2021-01-17] MEDS: levoFLOXacin/D5W 500 MG/100 ML PIGGYBACK 100 MG IV (06:27)
[2021-01-17 07:37] VITALS: O2SAT 99
[2021-01-17] MEDS: atenoloL 50 MG TABLET PO (07:39)
[2021-01-17] MEDS: Losartan Potassium 50 MG TABLET 100 MG PO (07:39)
[2021-01-17] MEDS: Famotidine/PF 20 MG/2 ML VIAL IVPUSH (07:39)
[2021-01-17 08:00] VITALS: BP 140/70; PULSE 90; RESP 16; TEMP 36.4; O2SAT 99
--- NOTE | 2021-01-17 09:02 | MHC.CM.PN ---
IMM 01/17/21, EMR REVIEWED, PT ADMITTED S/P SLEEVE GASTRECTOMY, CM MET W/PT WHO REPORTS SHE LIVES W/ SPOUSE AND ONE CHILD, CPAP IS ONLY DME, NO HOME SERVICES, PT DOES NOT ANTICIPATE ANY NEEDS AFTER D/C AND REPORTS SHE HAS FAMILY TO ASSIST AROUND THE HOUSE. PT VERIFIES PCP [facility] ON [address], PT OFFERED ASSISTANCE COMPLETING A HCP AND PT WOULD LIKE TO COMPLETE PRIOR TO D/C. D/C HOME TODAY SELF-CARE, FAMILY FRO TRANSPORT.
--- NOTE | 2021-01-17 10:21 | HO.POSTANES ---
Post Anesthesia Evaluation Post Anesthesia Evaluation Vital Signs: Vital Signs Temp Pulse Resp BP Pulse Ox 01/17/21 08:00 97.5 F 90 16 140/70 H 99 01/17/21 07:37 99 01/17/21 03:43 97.4 F 95 20 129/71 97 01/17/21 01:23 113/53 L 01/17/21 00:08 97.7 F 98 20 177/79 H 100 Anesthesia: General Endotracheal-GETA Mental Status: Awake Pain Control: Satisfactory Nausea/Vomiting: None Hydration: Adequate Anesthesia-Related Issues: No Anes. Related Issues
== END 2021-01-17 10:32 | disposition home or self-care (01) | DRG 620 ==
LOC: HO.SSSA 06:35 → HO.S3 10:54
PROVIDERS: Physician Assistant; Admitting Provider Surgery; PCP Internal Medicine; Visit Provider Surgery
PROC: 0DB64Z3 Excision of Stomach, Percutaneous Endoscopic Approach, Vertical (ICD-10-PCS; CPT 43845; principal; 2021-01-16 07:30)
DX: E66.01 Morbid (severe) obesity due to excess calories (principal); K44.0 Diaphragmatic hernia with obstruction, without gangrene; K21.9 Gastro-esophageal reflux disease without esophagitis; Z68.35 Body mass index [BMI] 35.0-35.9, adult; G47.33 Obstructive sleep apnea (adult) (pediatric); I10 Essential (primary) hypertension; F32.9 Major depressive disorder, single episode, unspecified; E06.3 Autoimmune thyroiditis; M48.00 Spinal stenosis, site unspecified; F41.9 Anxiety disorder, unspecified; Z20.822 Contact with and (suspected) exposure to COVID-19; Z88.0 Allergy status to penicillin; Z99.89 Dependence on other enabling machines and devices; Z96.82 Presence of neurostimulator; Z79.899 Other long term (current) drug therapy
CPT/HCPCS: 36415; 80048; 80053; 80061; 83036; 83525; 84443; 85014; 85018; 85025; 85610; 85730; 86140; 86850; 86900; 86901; 87635; 88307; 88341; 88342; 88360; 99024; A4649; J0131; J1100; J1170; J1956; J2250; J2405; J3010

== ENCOUNTER → 2021-01-21 13:46 | Outpatient (BNVA) | payer OTHER, SELFPAY | PROVIDERS: PCP Internal Medicine; Visit Provider Surgery | DX: E66.9 Obesity, unspecified (principal); Z68.32 Body mass index [BMI] 32.0-32.9, adult | CPT/HCPCS: 99212 ==

== ENCOUNTER → 2021-01-23 09:57 | Outpatient (BNVA) | payer OTHER, SELFPAY | PROVIDERS: Visit Provider Student in an Organized Health Care Education/Training Program | DX: R79.82 Elevated C-reactive protein (CRP) (principal) | CPT/HCPCS: 99212 ==

== ENCOUNTER 2021-02-12 23:57 | Emergency (ER) | payer OTHER, SELFPAY ==
--- NOTE | ~2021-02-12 | CT_ITS ---
EXAMINATION: CT ABDOMEN AND PELVIS WITH CONTRAST CLINICAL INFORMATION: Abdominal pain COMPARISON: None TECHNIQUE: Multidetector volumetric images were obtained from the superior aspect of the liver through the pubic symphysis following administration 85 mL of Omnipaque 350 intravenous contrast. Sagittal and coronal reformatted images were obtained on the technologist's workstation. Oral contrast: No This CT examination was performed using dose optimization techniques as appropriate, variously including the following: *Automated exposure control *Adjustment of mA and/or kV according to patient size (this includes techniques or standardized protocols for targeted exams where dose is matched to indication/reason for exam; i.e. extremities or head) *Use of iterative reconstruction technique DLP: 589 mGy-cm FINDINGS: LUNG BASES: The visualized lung bases are unremarkable. LIVER, GALLBLADDER, AND BILIARY TREE: The liver is normal in size, shape, and attenuation. A small focal region of hypoattenuation adjacent to the falciform ligament could be due to focal fatty infiltration or alterations in hepatic perfusion. Subcentimeter hypodensity in the superior liver is suggestive of a cyst. No biliary ductal dilatation is present. Patient is status post cholecystectomy. PANCREAS: Unremarkable. SPLEEN: Unremarkable. ADRENAL GLANDS: Unremarkable. KIDNEYS AND URETERS: The kidneys are normal in size, shape, and attenuation. No hydronephrosis, hydroureter, or obstructing calculi seen. No perinephric stranding. BLADDER: Minimally distended and grossly unremarkable. GASTROINTESTINAL TRACT: Multiple clips are present along the stomach. No evidence of bowel obstruction. No significant bowel wall thickening is seen. The appendix is unremarkable. No free fluid or free air is seen. ABDOMINAL WALL: Generator device is present in the left gluteal subcutaneous tissues with leads extending to the spine. LYMPH NODES: Normal. VASCULAR: Unremarkable. PELVIC VISCERA: Unremarkable. OSSEOUS STRUCTURES: Unremarkable. CT/CT abdomen pelvis w con IMPRESSION: No acute findings identified in the abdomen/pelvis.
[2021-02-13 00:12] VITALS: BP 153/80; PULSE 53; PULSE 60; RESP 18; TEMP 37.3; O2SAT 100; BMI 31.8
[2021-02-13] MEDS: 0.9 % Sodium Chloride 1,000 ML 999 ML IV ×2 (00:23→01:51)
[2021-02-13 00:24] LABS: MANUAL DIFF FLAG NO
[2021-02-13 00:25] LABS: Basophils Absolute Auto 0.1 X10*3/uL (0.0-0.2); Basophils Percent Auto 0.5 % (0-2); Eosinophils Absolute Auto 0.1 X10*3/uL (0.0-0.4); Eosinophils Percent Auto 1.1 % (0-4); Hematocrit 39.4 % (37-47); Hemoglobin 13.2 g/dl (12.0-16.0); Imm Gran Abs Auto 0.04 X10*3/uL (0.00-0.03); Imm Gran Pct Auto 0.3 % (0.0-0.4); Mean Corpuscular HGB Conc 33.5 g/dl (31.0-35.0); Mean Corpuscular Hemoglobin 30.2 pg (27.0-33.0); Mean Corpuscular Volume 90.2 fL (80-98); Mean Platelet Volume 11.1 fL (9.4-12.3); Monocytes Absolute Auto 0.9 X10*3/uL (0.1-1.2); Neutrophils Absolute Auto 8.4 X10*3/uL (2.0-8.3); Neutrophils Percent Auto 67.1 % (45-73); Platelet Count 352 X10*3/uL (160-400); Red Blood Count 4.37 X10*6/uL (4.20-5.50); Red Cell Distribution Width 13.2 % (11.0-16.0); White Blood Count 12.6 X10*3/uL (4.8-10.8)
[2021-02-13 01:42] LABS: Alanine Aminotransferase 26 U/L (0-31); Alkaline Phosphatase 95 U/L (39-117); Anion Gap 16 (12-20); Aspartate Amino Transferase 27 U/L (5-31); Bilirubin Direct 0.2 mg/dL (0.0-0.5); Blood Urea Nitrogen 8 mg/dL (9-16); Calcium 9.7 mg/dL (8.4-10.2); Carbon Dioxide 28 mmol/L (22-29); Chloride 100 mmol/L (96-108); Estimated Glomerular Filt Rate > 60; Glucose Random 147 mg/dL (60-115); Lipase 75 U/L (8-78); Potassium 3.1 mmol/L (3.3-5.1); Sodium 141 mmol/L (135-145); Total Protein 7.3 g/dL (6.5-8.0)
[2021-02-13 01:50] LABS: Bilirubin Total 0.8 mg/dL (0.0-1.0)
[2021-02-13] MEDS: ondansetron HCL 4 MG/2 ML VIAL IVPUSH (01:51)
[2021-02-13 01:52] VITALS: BP 153/84; PULSE 51; RESP 18; O2SAT 100
--- NOTE | 2021-02-13 02:32 | PC.NURSE ---
PT AMB TO BATHROOM ATTEMPTING TO OBTAIN URINE SAMPLE- UNABLE TO OBTAIN. REPORTS DIARRHEA. IVF INFUSING WITHOUT DIFFICULTY, DRINKING PO CONTRAST, TOLERATING WELL. AWAITING CT SCAN.
[2021-02-13] MEDS: iohexoL 350 MG/ML 100 ML INFUS..BTL 85 ML IV (03:01)
[2021-02-13] MEDS: Diatrizoate Meglumine, Sodium 30 ML SOLUTION 15 ML PO (03:01)
[2021-02-13] MEDS: Metoclopramide HCl 10 MG/2 ML VIAL IVPUSH (04:26)
--- NOTE | 2021-02-13 04:27 | PC.NURSE ---
PT AMB TO BATHROOM STEADY GAIT. REPORTS CONTINUED VOMITING. MEDICATED WITH REGLAN IVP PER MD ORDER. AWAITING IMPROVEMENT IN SYMPTOMS.
[2021-02-13 05:28] VITALS: BP 134/69; PULSE 84; RESP 16; TEMP 36.9; O2SAT 99
--- NOTE | 2021-02-13 05:30 | PC.NURSE ---
pt resting in bed skin pwd respirations even unlabored, no further vomiting, states unable to obtain urine sample. vss. po challenge initiated, aware.
[2021-02-13 05:40] LABS: IDNOW Serial# 9DD0AD1C
[2021-02-13 05:44] LABS: COVID-19 Test Positive (Negative)
--- NOTE | 2021-02-13 06:02 | ED_ITS ---
HPI - Nausea/Vomiting/Diarrhea General Chief complaint: Nausea/Vomiting/Diarrhea Stated complaint: vomiting Time Seen by Provider: 02/13/21 01:05 History of Present Illness HPI Narrative: Patient is a 50-year-old female with a history of recent gastric bypass about a month ago. Presented today with having generalized malaise weakness nausea vomiting. Denies any coughing congestion upper respiratory symptoms. No diarrhea. Patient from home. No chest pain or shortness of breath. No abdominal pain. No diarrhea. No recent antibiotics. No travel history. Related Data Home Medications Medication Instructions Recorded Confirmed amitriptyline 75 mg tablet 75 mg PO BEDTIME 07/31/20 01/10/21 Previous Rx's Medication Instructions Recorded atenolol 50 mg tablet 50 mg PO DAILY #90 tab 08/03/20 ondansetron HCl 4 mg tablet 4 mg PO Q6H PRN #30 tab 08/22/20 dexamethasone 1 mg tablet 1 mg PO ONCE 1 Days #1 tab 01/06/21 pantoprazole 40 mg tablet,delayed 40 mg PO DAILY #30 tab 01/10/21 release sucralfate 100 mg/mL oral 10 ml PO BID #400 ml 01/10/21 suspension hydrochlorothiazide 25 mg tablet 25 mg PO DAILY #30 tab 01/21/21 ondansetron HCl [Zofran] 4 mg PO Q8H PRN #10 tab 02/13/21 Allergies Allergy/AdvReac Type Severity Reaction Status Date / Time amoxicillin Allergy Severe severe Verified 01/23/21 10:05 hives-total body penicillin G Allergy Severe severe Verified 01/23/21 10:05 hives-total body Review of Systems Review of Systems: Constitutional: No Weight loss, No Fever, No Chills, No Night Sweats, No Fatigue, No Malaise ENT/Mouth: No Hearing loss, No Ear Pain, No Nasal Congestion, No Sinus Pain, No Hoarseness, No sore throat, No Rhinorrhea, No Swallowing Difficulty Eyes: No Eye Pain, No Swelling, No Redness, No Foreign Body, No Discharge, No Vision Changes Cardiovascular: No Chest Pain, No SOB, No Dyspnea on Exertion, No Orthopnea, No Edema, No Palpitations Respiratory: No Cough, No Sputum, No Wheezing, No Smoke Exposure, No Dyspnea Gastrointestinal: Positive Nausea, positive Vomiting, No Diarrhea, No Constipation, No abdominal Pain, No Hematochezia, No Melena Genitourinary: no irregular bleeding, No Dysuria, No Urinary Frequency, No Hematuria, No Urinary Incontinence, No Urgency, No Flank Pain, No Urinary Flow Changes, No Hesitancy Musculoskeletal: No joint pain, No Myalgias, No Joint Swelling Skin: No Skin Lesions, No rash Neuro: No Weakness, No Numbness, No Paresthesias, No Loss of Consciousness, No Dizziness, No Headache Psych: No Anxiety/Panic, No Depression, No SI/HI/AH/VH, No Social Issues, Heme/Lymph: No Bruising, No Bleeding,No Lymphadenopathy Endocrine: No Polyuria, No Polydipsia, No Temperature Intolerance [facility] Past Medical History Medical History Anxiety Autoimmune thyroiditis BMI 34.0-34.9,adult BMI 34.0-34.9,adult BMI over 35 Depression Elevated C-reactive protein (CRP) Frequent headaches GERD (gastroesophageal reflux disease) H. pylori infection Jeannette's disease Hyperparathyroidism Hypertension Leukocytosis Liver fibrosis Obesity Obesity (BMI 30-39.9) MITZY (obstructive sleep apnea) Sciatica Secondary hyperparathyroidism Spinal cord stimulator status Spinal stenosis Vitamin B1 deficiency Vitamin B12 deficiency Vitamin D deficiency Surgical History Cholelithiasis H/O arthroscopy of knee H/O laparoscopy History of cholecystectomy Hx of mammogram S/P endometrial ablation Tubal ligation status Family History Family History Mother Hypertension Osteoporosis Father Epilepsia Atrophic emphysema Son Asthma Daughter Asthma Daughter Panic attacks Anxiety Thyroid adenoma Social History Social History Household Members: Family Are you a primary primary health care nurse to a significant other at home: No Do you presently have visiting nurse or other home services: No Alcohol intake: never Patient Tobacco Use Status: Never used Tobacco Advance Directives: No Advance Directives Information Provided: No Patient : No service: No 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al status: disabled Physical Exam Vital Signs: Vital Signs: Last Vital Signs Temp 98.4 F 02/13/21 05:28 Pulse 84 02/13/21 05:28 Resp 16 02/13/21 05:28 BP 134/69 02/13/21 05:28 Pulse Ox 99 02/13/21 05:28 Body Mass Index 31.8 Appearance: Alert. Oriented X3. No acute distress. Eyes: Pupils equal, round and reactive to light. ENT: Pharynx normal. Neck: Normal inspection. Neck supple. No lymph nodes noted. No crepitus CVS: Normal heart rate and rhythm. Pulses normal. Normal S1 and S2 Respiratory: No respiratory distress. Breath sounds normal. No Wheezing. No rales Abdomen: Soft and nontender. No rigidity. No distention. good BS x4 Skin: Skin warm and dry. Normal skin color. Normal skin turgor. Extremities: No lower extremity edema. Neurovascular intact to all extremities. No Lacerations. No Rash Neuro: Oriented X 3. No motor deficit. No sensory deficit. Moving all ex termities. No slurred speech MDM - Nausea/Vomiting/Diarrhea MDM Narrative Medical decision making narrative: Well-appearing no acute distress. Patient's BUN and creatinine was 8 and 0.79. Patient's potassium slightly low at 3.1. White count is 12.6. No distress. CT scan showed no obstruction no abscess no perforation. No acute findings. Patient's COVID test however came back positive. Likely explaining some patient's GI symptoms. Will have patient discharged home. Zofran for nausea. Fluids for hydration. Currently in stable condition. Patient's O2 sat was normal. Vital signs stable. Ambulated well in the emergency department. Will discharge patient Medical Records Attestation: I reviewed the patient's medical records. Lab Data Attestation: I reviewed the patient's lab results. Result diagrams: 02/13/21 00:21 02/13/21 00:21 Labs: Lab Results 02/13/21 02/13/21 02/13/21 Range/Units 00: 00:21 05:26 WBC 12.6 H (4.8-10.8) X10*3/uL RBC 4.37 (4.20-5.50) X10*6/uL Hgb 13.2 (12.0-16.0) g/dl Hct 39.4 (37-47) % MCV 90.2 (80-98) fL MCH 30.2 (27.0-33.0) pg MCHC 33.5 (31.0-35.0) g/dl RDW 13.2 (11.0-16.0) % Plt Count 352 (160-400) X10*3/uL MPV 11.1 (9.4-12.3) fL Immature Gran % (Auto) 0.3 (0.0-0.4) % Neut % (Auto) 67.1 (45-73) % Lymph % (Auto) 24.0 (20-40) % [place] % (Auto) 7.0 (2-11) % Eos % (Auto) 1.1 (0-4) % Baso % (Auto) 0.5 (0-2) % Lymph # (Auto) 3.0 (1.2-4.9) X10*3/uL [place] # (Auto) 0.9 (0.1-1.2) X10*3/uL Eos # (Auto) 0.1 (0.0-0.4) X10*3/uL Baso # (Auto) 0.1 (0.0-0.2) X10*3/uL Abs Immat Gran (auto) 0.04 H (0.00-0.03) X10*3/uL Absolute Neuts (auto) 8.4 H (2.0-8.3) X10*3/uL Absolute Nucleated RBC 0.000 (0.0-0.012) X10*3/uL Nucleated RBC % (auto) 0.0 (0.0-0.2) /100WBC Sodium 141 (135-145) mmol/L Potassium 3.1 L D (3.3-5.1) mmol/L Chloride 100 (96-108) mmol/L Carbon Dioxide 28 (22-29) mmol/L Anion Gap 16 (12-20) BUN 8 L (9-16) mg/dL Creatinine 0.78 (0.5-1.4) mg/dL Estim Creat Clear Calc 84.0 Estimated GFR > 60 Random Glucose 147 H D (60-115) mg/dL Calcium 9.7 D (8.4-10.2) mg/dL Total Bilirubin 0.8 (0.0-1.0) mg/dL Direct Bilirubin 0.2 (0.0-0.5) mg/dL AST 27 D (5-31) U/L ALT 26 (0-31) U/L Alkaline Phosphatase 95 (39-117) U/L Total Protein 7.3 (6.5-8.0) g/dL Albumin 4.0 (3.5-5.0) g/dL Lipase 75 (8-78) U/L COVID-19 (CESAR) Positive A (Negative) COVID-19 Clin Com See Note Discharge Plan Discharge Clinical Impression: Vomiting, COVID-19 Patient Disposition: Home, Self-Care Instructions: Acute Nausea and Vomiting (ED), COVID-19 (Coronavirus Disease 2019) (ED) Prescriptions: New ondansetron HCl [Zofran] 4 mg tablet 4 mg PO Q8H PRN (Reason: nausea and vomiting) Qty: 10 RF: 0 No Action atenolol 50 mg tablet 50 mg PO DAILY Qty: 90 RF: 3 ondansetron HCl [Zofran] 4 mg tablet 4 mg PO Q6H PRN (Reason: nausea and vomiting) Qty: 30 RF: 0 dexamethasone 1 mg tablet 1 mg PO ONCE 1 Days Qty: 1 RF: 0 Hold Instructions: Discuss when to restart with Dr Hardwick amitriptyline 75 mg tablet 75 mg PO BEDTIME RF: 0 pantoprazole 40 mg tablet,delayed release (DR/EC) 40 mg PO DAILY Qty: 30 RF: 2 sucralfate 100 mg/mL suspension 10 ml PO BID Qty: 400 RF: 2 hydrochlorothiazide 25 mg tablet 25 mg PO DAILY Qty: 30 RF: 2
== END 2021-02-13 06:48 | disposition home or self-care (01) ==
PROVIDERS: Emergency Provider Emergency Medicine Emergency Medical Services
DX: U07.1 COVID-19 (principal); R53.1 Weakness; R11.2 Nausea with vomiting, unspecified
CPT/HCPCS: 36415; 74177; 80048; 80076; 83690; 85025; 87635; 96361; 96374; 96375; 99284; J2405; J2765; Q9967

== ENCOUNTER 2021-02-15 18:33 | Emergency (ER) | payer OTHER, SELFPAY ==
[2021-02-15 19:21] VITALS: BP 139/81; PULSE 77; RESP 20; TEMP 37.7; O2SAT 98; BMI 32.9
--- NOTE | 2021-02-15 21:09 | ED_ITS ---
HPI - General Adult General Chief complaint: Upper Respiratory Symptoms Stated complaint: DEHYDRATED, HIGH BP Time Seen by Provider: 02/15/21 21:04 Source: patient Mode of arrival: ambulatory Limitations: no limitations History of Present Illness HPI narrative: Patient diagnosed with COVID-19 yesterday for symptoms body aches nausea for last 2 days comes here as not able to eat anything or drink anything for last 24 hours called her PCP was her to go to a hospital to get IV patient denies any shortness of breath or significant cough saturating 98% at room air patient had a CT scan abdomen done yesterday which was negative Related Data Home Medications Medication Instructions Recorded Confirmed amitriptyline 75 mg tablet 75 mg PO BEDTIME 07/31/20 01/10/21 Previous Rx's Medication Instructions Recorded atenolol 50 mg tablet 50 mg PO DAILY #90 tab 08/03/20 ondansetron HCl 4 mg tablet 4 mg PO Q6H PRN #30 tab 08/22/20 dexamethasone 1 mg tablet 1 mg PO ONCE 1 Days #1 tab 01/06/21 pantoprazole 40 mg tablet,delayed 40 mg PO DAILY #30 tab 01/10/21 release sucralfate 100 mg/mL oral 10 ml PO BID #400 ml 01/10/21 suspension hydrochlorothiazide 25 mg tablet 25 mg PO DAILY #30 tab 01/21/21 ondansetron HCl [Zofran] 4 mg PO Q8H PRN #10 tab 02/13/21 Allergies Allergy/AdvReac Type Severity Reaction Status Date / Time amoxicillin Allergy Severe severe Verified 01/23/21 10:05 hives-total body penicillin G Allergy Severe severe Verified 01/23/21 10:05 hives-total body Review of Systems Review of Systems: Constitutional : No Weight loss, No Fever, No Chills ENT/Mouth : No sore throat, No Rhinorrhea Eyes: No Eye Pain, No Swelling Cardiovascular : No Chest Pain, no palpitations Respiratory : No Cough, No Sputum, no shortness of breath Gastrointestinal : + Nausea, No Vomiting, No Diarrhea, No abdominal Pain, no black stools Genitourinary : No Dysuria, No Urinary Frequency Musculoskeletal : No joint pain, No Myalgias, No Joint Swelling Skin : No Skin Lesions, No rash Neuro : ++ Weakness, No Numbness, No Dizziness, No Headache Psych : No Anxiety/Panic, No Depression Heme/Lymph: No Bruising, No Lymphadenopathy Endocrine : No Polyuria, No Polydipsia All other systems reviewed and are negative [facility] Past Medical History Medical History Anxiety Autoimmune thyroiditis BMI 34.0-34.9,adult BMI 34.0-34.9,adult BMI over 35 Depression Elevated C-reactive protein (CRP) Frequent headaches GERD (gastroesophageal reflux disease) H. pylori infection Jeannette's disease Hyperparathyroidism Hypertension Leukocytosis Liver fibrosis Obesity Obesity (BMI 30-39.9) MITZY (obstructive sleep apnea) Sciatica Secondary hyperparathyroidism Spinal cord stimulator status Spinal stenosis Vitamin B1 deficiency Vitamin B12 deficiency Vitamin D deficiency Surgical History Cholelithiasis H/O arthroscopy of knee H/O laparoscopy History of cholecystectomy Hx of mammogram S/P endometrial ablation Tubal ligation status Family History Family History Mother Hypertension Osteoporosis Father Epilepsia Atrophic emphysema Son Asthma Daughter Asthma Daughter Panic attacks Anxiety Thyroid adenoma Social History Social History Household Members: Family Are you a primary adult care provider to a significant other at home: No Do you presently have visiting nurse or other home services: No Alcohol intake: never Patient Tobacco Use Status: Never used Tobacco Advance Directives: No Advance Directives Information Provided: No Patient : No service: No 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al status: disabled Physical Exam Vital Signs: Vital Signs: Last Vital Signs Temp 97.3 F 02/15/21 22:00 Pulse 63 02/15/21 22:00 Resp 16 02/15/21 22:00 BP 169/80 H 02/15/21 22:00 Pulse Ox 100 02/15/21 22:00 Body Mass Index 32.9 Appearance: Alert. Oriented X3. No acute distress. Eyes: PERRLA, No Nystagmus ENT: Pharynx normal. Oral Mucosa dry Neck: Normal inspection. Neck supple. CVS: Normal heart rate and rhythm. Pulses normal. Respiratory: No respiratory distress. Equal air entry bilateral, no wheezing/rales/rhonchi Abdomen: Soft and nontender. Bowel sounds are present, no mass palpable, no CVA tenderness Skin: Skin warm and dry. Normal skin color. Normal skin turgor. Extremities: No lower extremity edema. No calf tenderness Neuro: Oriented X 3. No motor deficit. No sensory deficit.No cerebellar signs , cranial nerves II-XII intact Medical Decision Making MDM Narrative Medical decision making narrative: Patient with mild hypokalemia after vomiting from COVID which was replaced in the ER. Will discharge patient home advised to take extra bananas or OJ Lab Data Lab results reviewed: Yes I reviewed the patient's lab results. Result diagrams: 02/15/21 21:24 02/15/21 21:24 Labs: Lab Results 02/15/21 02/15/21 Range/Units 21:24 21:24 WBC 14.1 H (4.8-10.8) X10*3/uL RBC 4.71 (4.20-5.50) X10*6/uL Hgb 14.2 (12.0-16.0) g/dl Hct 41.5 (37-47) % MCV 88.1 (80-98) fL MCH 30.1 (27.0-33.0) pg MCHC 34.2 (31.0-35.0) g/dl RDW 13.0 (11.0-16.0) % Plt Count 330 (160-400) X10*3/uL MPV 10.4 (9.4-12.3) fL Immature Gran % (Auto) 0.3 (0.0-0.4) % Neut % (Auto) 71.4 (45-73) % Lymph % (Auto) 20.2 (20-40) % Glascock % (Auto) 7.5 (2-11) % Eos % (Auto) 0.2 (0-4) % Baso % (Auto) 0.4 (0-2) % Lymph # (Auto) 2.9 (1.2-4.9) X10*3/uL Glascock # (Auto) 1.1 (0.1-1.2) X10*3/uL Eos # (Auto) 0.0 (0.0-0.4) X10*3/uL Baso # (Auto) 0.1 (0.0-0.2) X10*3/uL Abs Immat Gran (auto) 0.04 H (0.00-0.03) X10*3/uL Absolute Neuts (auto) 10.1 H (2.0-8.3) X10*3/uL Absolute Nucleated RBC 0.000 (0.0-0.012) X10*3/uL Nucleated RBC % (auto) 0.0 (0.0-0.2) /100WBC Sodium 139 (135-145) mmol/L Potassium 2.9 L (3.3-5.1) mmol/L Chloride 95 L (96-108) mmol/L Carbon Dioxide 30 H (22-29) mmol/L Anion Gap 17 (12-20) BUN 9 (9-16) mg/dL Creatinine 0.80 (0.5-1.4) mg/dL Estim Creat Clear Calc 83.3 Estimated GFR > 60 Random Glucose 118 H (60-115) mg/dL Calcium 8.9 D (8.4-10.2) mg/dL Magnesium 1.6 (1.6-2.6) mg/dL Discharge Plan Discharge Clinical Impression: Acute hypokalemia, COVID-19 Patient Disposition: Home, Self-Care Instructions: Acute Nausea and Vomiting (ED), COVID-19 (Coronavirus Disease 2019) (ED) Additional Instructions: Drink plenty of fluids take medication for nausea Have extra bananas and orange juice daily 3 Follow-up with PCP if not better Prescriptions: No Action atenolol 50 mg tablet 50 mg PO DAILY Qty: 90 RF: 3 ondansetron HCl [Zofran] 4 mg tablet 4 mg PO Q6H PRN (Reason: nausea and vomiting) Qty: 30 RF: 0 dexamethasone 1 mg tablet 1 mg PO ONCE 1 Days Qty: 1 RF: 0 Hold Instructions: Discuss when to restart with Dr Hardwick ondansetron HCl [Zofran] 4 mg tablet 4 mg PO Q8H PRN (Reason: nausea and vomiting) Qty: 10 RF: 0 amitriptyline 75 mg tablet 75 mg PO BEDTIME RF: 0 pantoprazole 40 mg tablet,delayed release (DR/EC) 40 mg PO DAILY Qty: 30 RF: 2 sucralfate 100 mg/mL suspension 10 ml PO BID Qty: 400 RF: 2 hydrochlorothiazide 25 mg tablet 25 mg PO DAILY Qty: 30 RF: 2
[2021-02-15] MEDS: ondansetron HCL 4 MG/2 ML VIAL IVPUSH (21:25)
[2021-02-15] MEDS: 0.9 % Sodium Chloride 1,000 ML 999 ML IVCONT (21:25)
[2021-02-15 21:30] LABS: MANUAL DIFF FLAG NO
[2021-02-15 21:33] LABS: Basophils Absolute Auto 0.1 X10*3/uL (0.0-0.2); Basophils Percent Auto 0.4 % (0-2); Eosinophils Percent Auto 0.2 % (0-4); Hematocrit 41.5 % (37-47); Hemoglobin 14.2 g/dl (12.0-16.0); Imm Gran Abs Auto 0.04 X10*3/uL (0.00-0.03); Imm Gran Pct Auto 0.3 % (0.0-0.4); Lymphocytes Absolute Auto 2.9 X10*3/uL (1.2-4.9); Lymphocytes Percent Auto 20.2 % (20-40); Mean Corpuscular HGB Conc 34.2 g/dl (31.0-35.0); Mean Corpuscular Hemoglobin 30.1 pg (27.0-33.0); Mean Corpuscular Volume 88.1 fL (80-98); Mean Platelet Volume 10.4 fL (9.4-12.3); Monocytes Absolute Auto 1.1 X10*3/uL (0.1-1.2); Monocytes Percent Auto 7.5 % (2-11); Neutrophils Absolute Auto 10.1 X10*3/uL (2.0-8.3); Neutrophils Percent Auto 71.4 % (45-73); Platelet Count 330 X10*3/uL (160-400); Red Blood Count 4.71 X10*6/uL (4.20-5.50); White Blood Count 14.1 X10*3/uL (4.8-10.8)
[2021-02-15 21:59] LABS: Anion Gap 17 (12-20); Blood Urea Nitrogen 9 mg/dL (9-16); Calcium 8.9 mg/dL (8.4-10.2); Carbon Dioxide 30 mmol/L (22-29); Chloride 95 mmol/L (96-108); Creatinine Clr Calc Pharmacy 83.3; Estimated Glomerular Filt Rate > 60; Glucose Random 118 mg/dL (60-115); Potassium 2.9 mmol/L (3.3-5.1); Sodium 139 mmol/L (135-145)
[2021-02-15 22:00] VITALS: BP 169/80; PULSE 63; RESP 16; TEMP 36.3; O2SAT 100
[2021-02-15] MEDS: Potassium Bicarbonate/Cit AC 25 MEQ TABLET.EFF 50 MEQ PO (22:51)
[2021-02-15 22:54] LABS: Magnesium 1.6 mg/dL (1.6-2.6)
== END 2021-02-16 00:03 | disposition home or self-care (01) ==
PROVIDERS: Emergency Provider Internal Medicine; PCP Internal Medicine
DX: U07.1 COVID-19 (principal); E87.6 Hypokalemia
CPT/HCPCS: 36415; 80048; 83735; 85025; 96361; 96374; 99284; J2405

== ENCOUNTER → 2021-02-21 06:47 | Outpatient (BNVA) | payer OTHER, SELFPAY | PROVIDERS: PCP Internal Medicine; Visit Provider Surgery | DX: E66.9 Obesity, unspecified (principal); Z68.30 Body mass index [BMI] 30.0-30.9, adult | CPT/HCPCS: 99212 ==

== ENCOUNTER 2021-03-11 06:33 | Outpatient (REF) | payer OTHER, SELFPAY ==
[2021-03-11 07:01] LABS: MANUAL DIFF FLAG NO
[2021-03-11 07:03] LABS: Basophils Percent Auto 0.4 % (0-2); Eosinophils Absolute Auto 0.2 X10*3/uL (0.0-0.4); Hematocrit 35.8 % (37-47); Hemoglobin 11.9 g/dl (12.0-16.0); Imm Gran Abs Auto 0.03 X10*3/uL (0.00-0.03); Imm Gran Pct Auto 0.3 % (0.0-0.4); Lymphocytes Absolute Auto 4.2 X10*3/uL (1.2-4.9); Lymphocytes Percent Auto 41.1 % (20-40); Mean Corpuscular HGB Conc 33.2 g/dl (31.0-35.0); Mean Corpuscular Hemoglobin 30.4 pg (27.0-33.0); Mean Corpuscular Volume 91.3 fL (80-98); Monocytes Absolute Auto 0.5 X10*3/uL (0.1-1.2); Monocytes Percent Auto 4.4 % (2-11); Neutrophils Absolute Auto 5.3 X10*3/uL (2.0-8.3); Neutrophils Percent Auto 51.8 % (45-73); Platelet Count 392 X10*3/uL (160-400); Red Blood Count 3.92 X10*6/uL (4.20-5.50); Red Cell Distribution Width 14.2 % (11.0-16.0); White Blood Count 10.2 X10*3/uL (4.8-10.8)
[2021-03-11 07:30] LABS: Alanine Aminotransferase 54 U/L (0-31); Albumin Level 3.7 g/dL (3.5-5.0); Alkaline Phosphatase 89 U/L (39-117); Anion Gap 15 (12-20); Aspartate Amino Transferase 37 U/L (5-31); Bilirubin Total 0.7 mg/dL (0.0-1.0); Blood Urea Nitrogen 11 mg/dL (9-16); Calcium 9.5 mg/dL (8.4-10.2); Carbon Dioxide 30 mmol/L (22-29); Chloride 104 mmol/L (96-108); Cholesterol 189 mg/dL; Estimated Glomerular Filt Rate > 60; Glucose Random 133 mg/dL (60-115); HDL Cholesterol 50 mg/dL; LDL Cholesterol Calculated 121 mg/dl; Potassium 3.7 mmol/L (3.3-5.1); Sodium 145 mmol/L (135-145); Total Protein 6.9 g/dL (6.5-8.0); Triglycerides 94 mg/dL
[2021-03-11 07:35] LABS: Osmolality, Serum 306 mosm/kg (281-305)
[2021-03-11 08:02] LABS: SARS COV2 IgG Negative (Negative)
[2021-03-11 08:44] LABS: Potassium Urine Random 40.9 mmol/L
[2021-03-11 08:53] LABS: Osmolality Urine 873 mosm/kg (373-1093)
[2021-03-14 05:31] LABS: Vitamin B1 <6 nmol/L (8-30)
== END 2021-03-11 06:34 | disposition home or self-care (01) ==
LOC: HO.LAB 06:33
PROVIDERS: PCP Internal Medicine; Visit Provider Internal Medicine
DX: Z20.822 Contact with and (suspected) exposure to COVID-19 (principal); D64.9 Anemia, unspecified; E78.5 Hyperlipidemia, unspecified; E51.9 Thiamine deficiency, unspecified; E87.6 Hypokalemia
CPT/HCPCS: 36415; 80053; 80061; 83930; 83935; 84133; 84425; 85025; 86769

== ENCOUNTER 2021-03-14 08:51 | Outpatient (REF) | payer OTHER, SELFPAY ==
[2021-03-14 10:55] LABS: Alanine Aminotransferase 53 U/L (0-31); Albumin Level 3.8 g/dL (3.5-5.0); Alkaline Phosphatase 84 U/L (39-117); Anion Gap 15 (12-20); Aspartate Amino Transferase 33 U/L (5-31); Bilirubin Total 0.5 mg/dL (0.0-1.0); Blood Urea Nitrogen 11 mg/dL (9-16); Calcium 9.1 mg/dL (8.4-10.2); Carbon Dioxide 30 mmol/L (22-29); Chloride 103 mmol/L (96-108); Estimated Glomerular Filt Rate > 60; Glucose Random 118 mg/dL (60-115); Magnesium 1.9 mg/dL (1.6-2.6); Phosphorus 2.6 mg/dL (2.7-4.5); Potassium 3.5 mmol/L (3.3-5.1); Sodium 144 mmol/L (135-145)
[2021-03-14 11:09] LABS: Vitamin D 25-OH Total 34.8 ng/mL (>30)
[2021-03-18 08:38] LABS: Calcium (PTHI) 7.6 mg/dL (8.6-10.4); PTHI 91 pg/mL (14-64)
[2021-03-19 02:27] LABS: VITAMIN D (1,25 OH) D3 30 pg/mL; Vit D (1,25-Dihydroxy) Total 30 pg/mL (18-72); Vitamin D (1,25 OH) D2 <8 pg/mL
[2021-03-19 15:46] LABS: Alkaline Phosphatase Bone 13.6 mcg/L (5.6-29.0)
== END 2021-03-14 08:52 | disposition home or self-care (01) ==
LOC: HO.LAB 08:51
PROVIDERS: PCP Internal Medicine; Visit Provider Internal Medicine Endocrinology, Diabetes & Metabolism
DX: E06.3 Autoimmune thyroiditis (principal); N25.81 Secondary hyperparathyroidism of renal origin; E66.9 Obesity, unspecified; Z68.31 Body mass index [BMI] 31.0-31.9, adult; Z71.3 Dietary counseling and surveillance
CPT/HCPCS: 36415; 80053; 82306; 82652; 83735; 83970; 84075; 84100; 99212

== ENCOUNTER 2021-03-17 11:34 | Outpatient (REF) | payer OTHER, SELFPAY ==
[2021-03-17 13:24] LABS: Creatinine, mg/dL 187.42
[2021-03-17 15:45] LABS: Creatinine, 24Hr Urine 0.8 G/Day (1.0-2.0); Total Volume 24 Hour Urine 425 mL
[2021-03-19 18:36] LABS: Calcium, 24 Hr Urine 15 mg/24 h; Calcium/Creatinine Ratio 20 mg/g creat (30-275); Creatinine 24Hr Urine 0.76 g/24 h (0.50-2.15)
== END 2021-03-17 11:35 | disposition home or self-care (01) ==
LOC: HO.LNP 11:34
PROVIDERS: Visit Provider Internal Medicine Endocrinology, Diabetes & Metabolism
DX: N25.81 Secondary hyperparathyroidism of renal origin (principal)
CPT/HCPCS: 82340; 82570

== ENCOUNTER → 2021-04-02 06:59 | Outpatient (BNVA) | payer OTHER, SELFPAY | PROVIDERS: PCP Internal Medicine; Visit Provider Surgery | DX: E66.3 Overweight (principal); Z68.29 Body mass index [BMI] 29.0-29.9, adult | CPT/HCPCS: 99212 ==

== ENCOUNTER → 2021-05-21 08:01 | Outpatient (BNVA) | payer OTHER, SELFPAY | PROVIDERS: PCP Internal Medicine; Visit Provider Surgery ==

== ENCOUNTER 2021-06-11 11:34 | Outpatient (REF) | payer OTHER, SELFPAY | END 2021-06-11 11:35 | disposition home or self-care (01) | LOC: HO.LAB 11:34 | PROVIDERS: Visit Provider Internal Medicine | DX: Z20.822 Contact with and (suspected) exposure to COVID-19 (principal) | CPT/HCPCS: C9803; U0003; U0005 ==

== ENCOUNTER 2021-07-16 09:35 | Outpatient (REF) | payer OTHER, SELFPAY ==
--- NOTE | ~2021-07-16 | MM_ITS ---
EXAMINATION: MM SCREENING DIGITAL BREAST TOMOSYNTHESIS, BILATERAL CLINICAL INFORMATION: Screening. Asymptomatic. The lifetime risk of breast cancer based on the Tyrer-Cuzick Model is 6%. COMPARISON: Mammography: 04/08/2020, 11/08/2018, 10/27/2017 TECHNIQUE: Digital breast tomosynthesis is performed in both the craniocaudal and mediolateral oblique views along with computer-aided detection (CAD). Synthesized 2D images are generated from the tomosynthesis. FINDINGS: There are scattered areas of fibroglandular density (ACR BI-RADS breast composition Category b). There are no significant masses, abnormal calcifications, or other abnormalities. MM/MM tomosynthesis screening BI IMPRESSION: No mammographic evidence of malignancy. ASSESSMENT: BI-RADS 1: Negative RECOMMENDATION: Routine annual mammography screening. This patient's information was entered into a reminder system with a target due date for their next mammogram.
== END 2021-07-16 09:36 | disposition home or self-care (01) ==
LOC: HO.MAMMO 09:35
PROVIDERS: Visit Provider Internal Medicine
DX: Z12.31 Encounter for screening mammogram for malignant neoplasm of breast (principal)
CPT/HCPCS: 77063; 77067

== ENCOUNTER 2021-08-26 09:07 | Outpatient (REF) | payer OTHER, SELFPAY ==
[2021-08-26 10:49] LABS: T4 Thyroxine 5.5 ug/dL (4.5-12.0); TSH reflex Free T4 0.62 uIU/mL (0.32-4.0); Vitamin D 25-OH Total 29.5 ng/mL (>30)
[2021-08-26 11:06] LABS: Alanine Aminotransferase 45 U/L (0-31); Albumin Level 3.8 g/dL (3.5-5.0); Alkaline Phosphatase 106 U/L (39-117); Anion Gap 13 (12-20); Aspartate Amino Transferase 32 U/L (5-31); Bilirubin Total 0.5 mg/dL (0.0-1.0); Blood Urea Nitrogen 7 mg/dL (9-16); Calcium 9.6 mg/dL (8.4-10.2); Carbon Dioxide 30 mmol/L (22-29); Chloride 105 mmol/L (96-108); Estimated Glomerular Filt Rate > 60; Glucose Random 97 mg/dL (60-115); Potassium 4.7 mmol/L (3.3-5.1); Sodium 143 mmol/L (135-145); Total Protein 6.9 g/dL (6.5-8.0)
[2021-09-04 17:27] LABS: Renin 0.21 ng/mL/h (0.25-5.82)
== END 2021-08-26 09:08 | disposition home or self-care (01) ==
LOC: HO.10HDL 09:07
PROVIDERS: Absent Provider Internal Medicine Hypertension Specialist; Visit Provider Registered Nurse
DX: Z79.899 Other long term (current) drug therapy (principal)
CPT/HCPCS: 36415; 80053; 82088; 82306; 84244; 84436; 84443

== ENCOUNTER 2021-08-26 10:13 | Outpatient (REF) | payer OTHER, SELFPAY ==
--- NOTE | ~2021-08-26 | XR_ITS ---
EXAMINATION: XR SINUSES CLINICAL INFORMATION: Sinusitis. COMPARISON: None TECHNIQUE: 3 views of the sinuses were obtained. FINDINGS: Paranasal sinuses appear clear without air-fluid levels. No fractures are identified. No radiodense foreign bodies. XR/XR sinus min 3V IMPRESSION: Unremarkable examination.
== END 2021-08-26 10:14 | disposition home or self-care (01) ==
LOC: HO.XRAY 10:13
PROVIDERS: PCP Internal Medicine; Visit Provider Otolaryngology
DX: J32.9 Chronic sinusitis, unspecified (principal)
CPT/HCPCS: 70220

== ENCOUNTER → 2021-10-06 15:10 | Outpatient (BNVA) | payer OTHER, SELFPAY | PROVIDERS: PCP Internal Medicine; Visit Provider Nurse Practitioner Family | DX: M47.27 Other spondylosis with radiculopathy, lumbosacral region (principal); M46.1 Sacroiliitis, not elsewhere classified; M54.50 Low back pain, unspecified; M51.36 Other intervertebral disc degeneration, lumbar region; G89.4 Chronic pain syndrome; Z96.82 Presence of neurostimulator | CPT/HCPCS: 99212 ==

== ENCOUNTER → 2021-10-13 10:41 | Outpatient (BNVA) | payer OTHER, SELFPAY | PROVIDERS: PCP Internal Medicine; Visit Provider Anesthesiology | DX: M47.27 Other spondylosis with radiculopathy, lumbosacral region (principal); M46.1 Sacroiliitis, not elsewhere classified; M54.50 Low back pain, unspecified; M51.36 Other intervertebral disc degeneration, lumbar region; G89.4 Chronic pain syndrome; Z96.82 Presence of neurostimulator | CPT/HCPCS: 99212 ==

== ENCOUNTER 2021-11-04 06:07 | Outpatient (REF) | payer OTHER, SELFPAY ==
--- NOTE | ~2021-11-04 | FL_ITS ---
EXAMINATION: XR FLUOROSCOPY WITH IMAGES CLINICAL INFORMATION: M51.36 - Other intervertebral disc degeneration, lumbar COMPARISON: CT pelvis 02/13/2021 TECHNIQUE: Fluoroscopy performed by Dr. Marc Bonilla. Fluoroscopy time: 0.2 minutes DAP: 2.57 Gycm2 Images: 5 FINDINGS: Initial spot images demonstrate spinal needle entering sacral hiatus with contrast in the sacral epidural space. Other spot images demonstrate a separate spinal needle seen extending beyond the anterior cortex lower coccyx with contrast along the anterior coccygeal contour. No visible vascular communication. FL/FL guidance in treatment room IMPRESSION: Fluoroscopy for pain management procedures.
== END 2021-11-04 06:08 | disposition home or self-care (01) ==
LOC: HO.RADIR 06:07
PROVIDERS: Visit Provider Anesthesiology
DX: M51.36 Other intervertebral disc degeneration, lumbar region (principal); M54.50 Low back pain, unspecified; M47.27 Other spondylosis with radiculopathy, lumbosacral region; M46.1 Sacroiliitis, not elsewhere classified; G89.4 Chronic pain syndrome; I10 Essential (primary) hypertension; E06.3 Autoimmune thyroiditis; E21.3 Hyperparathyroidism, unspecified; E51.9 Thiamine deficiency, unspecified; E53.8 Deficiency of other specified B group vitamins; E55.9 Vitamin D deficiency, unspecified; R79.82 Elevated C-reactive protein (CRP); F41.8 Other specified anxiety disorders; Z96.82 Presence of neurostimulator; Z88.1 Allergy status to other antibiotic agents; Z88.0 Allergy status to penicillin
CPT/HCPCS: 62323; 64999; J3300; Q9967

== ENCOUNTER 2021-11-28 06:31 | Outpatient (REF) | payer OTHER, SELFPAY ==
[2021-11-28 06:54] LABS: MANUAL DIFF FLAG NO
[2021-11-28 07:25] LABS: Basophils Percent Auto 0.4 % (0-2); Eosinophils Absolute Auto 0.1 X10*3/uL (0.0-0.4); Eosinophils Percent Auto 0.8 % (0-4); Hematocrit 37.5 % (37.0-47.0); Hemoglobin 11.8 g/dl (12.0-16.0); Imm Gran Abs Auto 0.02 X10*3/uL (0.00-0.03); Imm Gran Pct Auto 0.2 % (0.0-0.4); Lymphocytes Absolute Auto 4.5 X10*3/uL (1.2-4.9); Lymphocytes Percent Auto 41.9 % (20-40); Mean Corpuscular HGB Conc 31.5 g/dl (31.0-35.0); Mean Corpuscular Hemoglobin 30.6 pg (27.0-33.0); Mean Corpuscular Volume 97.2 fL (80.0-98.0); Mean Platelet Volume 9.8 fL (9.4-12.3); Monocytes Absolute Auto 0.5 X10*3/uL (0.1-1.2); Monocytes Percent Auto 4.6 % (2-11); Neutrophils Absolute Auto 5.5 x10*3/uL (2.0-8.3); Neutrophils Percent Auto 52.1 % (45-73); Platelet Count 362 X10*3/uL (160-400); Red Blood Count 3.86 X10*6/uL (4.20-5.50); Red Cell Distribution Width 13.1 % (11.0-16.0); White Blood Count 10.6 X10*3/uL (4.8-10.8)
[2021-11-28 07:51] LABS: Albumin Level 3.8 g/dL (3.5-5.0); C Reactive Protein 0.59 mg/dL (< or = 0.50)
[2021-11-28 07:56] LABS: Rheumatoid Factor < 15.0 IU/mL (<15.0)
[2021-11-28 07:58] LABS: Alanine Aminotransferase 36 U/L (0-31); Albumin Level 3.7 g/dL (3.5-5.0); Alkaline Phosphatase 101 U/L (39-117); Anion Gap 10 (12-20); Aspartate Amino Transferase 22 U/L (5-31); Bilirubin Total 0.6 mg/dL (0.0-1.0); Blood Urea Nitrogen 14 mg/dL (9-16); Calcium 8.9 mg/dL (8.4-10.2); Carbon Dioxide 33 mmol/L (22-29); Chloride 102 mmol/L (96-108); Cholesterol 175 mg/dL; Estimated Glomerular Filt Rate > 60; Glucose Fasting 93 mg/dL (60-99); HDL Cholesterol 53 mg/dL; LDL Cholesterol Calculated 107 mg/dl; Phosphorus 3.6 mg/dL (2.7-4.5); Potassium 4.2 mmol/L (3.3-5.1); Sodium 141 mmol/L (135-145); Total Protein 6.5 g/dL (6.5-8.0); Triglycerides 76 mg/dL
[2021-11-28 08:02] LABS: Erythrocyte Sedimentation Rate 29 MM/HR (0-20)
[2021-11-28 08:12] LABS: Free T4 (Free Thyroxine) 0.94 ng/dL (0.71-1.85); Thyroid Stimulating Hormone 0.92 uIU/mL (0.32-4.0)
[2021-11-28 08:24] LABS: Vitamin D 25-OH Total 33.1 ng/mL (>30)
[2021-11-28 08:43] LABS: Folate 4.3 ng/mL (> or = 4.0); Vitamin B12 282 pg/mL (200-900)
[2021-11-28 09:00] LABS: Phosphorus Urine Random 170.7 mg/dL
[2021-12-01 09:32] LABS: Calcium, Ionized 4.7 mg/dL (4.8-5.6)
[2021-12-01 13:25] LABS: Calcium (PTHI) 9.1 mg/dL (8.6-10.4); PTHI 86 pg/mL (16-77)
[2021-12-01 14:52] LABS: Anti Nuclear Antibody Screen NEGATIVE (NEGATIVE)
[2021-12-01 17:46] LABS: Cyclic Citrullinated Peptide <16 UNITS
[2021-12-03 13:41] LABS: Vitamin D 25-OH, D2 <4 ng/mL; Vitamin D 25-OH, D3 34 ng/mL; Vitamin D 25-OH, Total 34 ng/mL (30-100)
[2021-12-03 23:22] LABS: Intrinsic Factor Antibodies Negative (Negative)
[2021-12-06 13:35] LABS: Parietal Cell Antibody <=20.0 Unit (<=20.0)
== END 2021-11-28 06:32 | disposition home or self-care (01) ==
LOC: HO.LAB 06:31
PROVIDERS: Absent Provider Internal Medicine Endocrinology, Diabetes & Metabolism; PCP Internal Medicine; Visit Provider Internal Medicine
DX: E06.3 Autoimmune thyroiditis (principal); N25.81 Secondary hyperparathyroidism of renal origin; E78.5 Hyperlipidemia, unspecified; I10 Essential (primary) hypertension; K21.9 Gastro-esophageal reflux disease without esophagitis; R79.82 Elevated C-reactive protein (CRP); E53.8 Deficiency of other specified B group vitamins; E21.3 Hyperparathyroidism, unspecified; E55.9 Vitamin D deficiency, unspecified
CPT/HCPCS: 36415; 80053; 80061; 82040; 82306; 82310; 82330; 82607; 82746; 83516; 83970; 84100; 84105; 84439; 84443; 85025; 85652; 86038; 86039; 86140; 86200; 86340; 86431

== ENCOUNTER → 2021-12-01 09:06 | Outpatient (BNVA) | payer OTHER, SELFPAY | PROVIDERS: PCP Internal Medicine; Visit Provider Internal Medicine Endocrinology, Diabetes & Metabolism | DX: N25.81 Secondary hyperparathyroidism of renal origin (principal) | CPT/HCPCS: 99212 ==

== ENCOUNTER → 2021-12-05 09:56 | Outpatient (BNVA) | payer OTHER, SELFPAY | PROVIDERS: PCP Internal Medicine; Referring Provider Internal Medicine; Visit Provider Nurse Practitioner | DX: Z01.818 Encounter for other preprocedural examination (principal); K59.04 Chronic idiopathic constipation | CPT/HCPCS: 99202 ==

== ENCOUNTER → 2021-12-09 08:48 | Outpatient (BNVA) | payer OTHER, SELFPAY | PROVIDERS: PCP Internal Medicine; Visit Provider Orthopaedic Surgery | DX: G56.03 Carpal tunnel syndrome, bilateral upper limbs (principal) | CPT/HCPCS: 99202 ==

== ENCOUNTER → 2021-12-15 09:18 | Outpatient (BNVA) | payer OTHER, SELFPAY | PROVIDERS: PCP Internal Medicine; Visit Provider Anesthesiology | DX: M47.27 Other spondylosis with radiculopathy, lumbosacral region (principal); M46.1 Sacroiliitis, not elsewhere classified; M54.50 Low back pain, unspecified; M51.36 Other intervertebral disc degeneration, lumbar region; G89.4 Chronic pain syndrome; Z96.82 Presence of neurostimulator | CPT/HCPCS: 99212 ==

== ENCOUNTER 2021-12-29 09:51 | Day surgery (SDC) | payer OTHER, SELFPAY ==
[2021-12-29 10:04] VITALS: BP 148/91; PULSE 70; RESP 16; TEMP 36.4; O2SAT 98; BMI 28.1
--- NOTE | 2021-12-29 10:50 | MHC.SHP ---
Pre-Procedural Eval Section A Date of Service: 12/29/21 The patient is an INPATIENT: No Changes since office visit: No Cold of Flu in the past 2 weeks, No New Medical Problems, No Changes in Medication and No Patient answered all questions The History & Physical has been completed within 30 days and I have reviewed it.: Yes Section B Chief Complaint: carpal tunnel Allergies: Allergies Allergy/AdvReac Type Severity Reaction Status Date / Time amoxicillin Allergy Severe severe Verified 12/15/21 09:30 hives-total body penicillin G Allergy Severe severe Verified 12/15/21 09:30 hives-total body Penicillins AdvReac Mild Abdominal Verified 12/15/21 09:30 Pain Plan I have reviewed the history and physical and performed a pertinent physical examination on my patient. No changes have occurred unless specified.
--- NOTE | 2021-12-29 10:50 | W.PM.OPN ---
Operative Note Operative Note Date of Service: 12/29/21 Narrative: Preop diagnosis: 1. right Carpal tunnel syndrome Postop diagnosis: same Procedure: 1. right Carpal tunnel release Surgeon: Roxanne De León MD Anesthesia: local block using 1% lidocaine with epinephrine Findings: Thickened transverse carpal ligament. EBL: Less than 5 mL Specimens: None Complications: None Disposition: Brought to recovery room in stable condition Plan: Follow-up for 10-14 days for wound check and suture removal Indications: The patient is 51 years old, with right carpal tunnel syndrome that has been unresponsive to nonoperative management. The risks and benefits of operative treatment including but not limited to risk of damage to blood vessels, nerves, tendons, infection, persistent pain, persistent symptoms, or possible need for additional surgery were discussed with the patient and the patient wishes to proceed with surgery. Procedure: Once consent was obtained a local block was performed using a combination of 1% lidocaine with epinephrine. The patient was then brought back to the operating suite and placed on the operative table in supine position. A tourniquet was applied to the proximal aspect of the right upper extremity and the limb was prepped and draped in a standard surgical fashion. Once assured that we had a good block, a 1.5 cm longitudinal incision was made centered over the carpal tunnel. The incision was made through the skin to the subcutaneous tissues using a #15 blade. Dissection was made down to the level of the transverse carpal ligament with care being taken to protect the palmar cutaneous nerve. Once the transverse carpal ligament was clearly visualized, a longitudinal incision was made in the transverse carpal ligament 1st using a #15 blade, then using tenotomy scissors under direct visualization. Care was taken to look for and protect the motor branch of the median nerve when seen in this area. Once satisfied with our carpal tunnel release the wound was copiously irrigated with normal saline and hemostasis was obtained with a brief period of local pressure. The skin edges were reapproximated with some 5.0 nylon suture material and a sterile dressing was applied. The patient appears to have tolerated the procedure well and with no complications. All digits were well vascularized at the conclusion of the case.
[2021-12-29 11:24] VITALS: BP 184/96; PULSE 69; RESP 20; TEMP 36.6; O2SAT 97
[2021-12-29 11:37] VITALS: BP 163/92
== END 2021-12-29 11:37 | disposition home or self-care (01) ==
PROVIDERS: PCP Internal Medicine; Visit Provider Orthopaedic Surgery
PROC: (CPT 64721; principal; 2021-12-29 11:20)
DX: G56.01 Carpal tunnel syndrome, right upper limb (principal); G47.33 Obstructive sleep apnea (adult) (pediatric); R20.0 Anesthesia of skin; I10 Essential (primary) hypertension; K74.00 Hepatic fibrosis, unspecified; K21.9 Gastro-esophageal reflux disease without esophagitis; Z88.0 Allergy status to penicillin; E06.3 Autoimmune thyroiditis; E87.6 Hypokalemia; F33.0 Major depressive disorder, recurrent, mild; E66.9 Obesity, unspecified; Z68.28 Body mass index [BMI] 28.0-28.9, adult; Z98.84 Bariatric surgery status
CPT/HCPCS: 64721; J0171

== ENCOUNTER 2022-01-01 09:41 | Outpatient (REF) | payer OTHER, SELFPAY ==
[2022-01-02 13:10] LABS: BV Int Neg Control Negative (Negative); BV Int Pos Control Positive (Positive)
== END 2022-01-01 09:42 | disposition home or self-care (01) ==
LOC: HO.LAB 09:41
PROVIDERS: PCP Internal Medicine; Visit Provider Advanced Practice Midwife
DX: Z20.2 Contact with and (suspected) exposure to infections with a predominantly sexual mode of transmission (principal); N89.8 Other specified noninflammatory disorders of vagina; R23.2 Flushing
CPT/HCPCS: 87480; 87510; 87660; 99212

== ENCOUNTER → 2022-01-13 08:52 | Outpatient (BNVA) | payer OTHER, SELFPAY | PROVIDERS: PCP Internal Medicine; Visit Provider Orthopaedic Surgery | DX: G56.03 Carpal tunnel syndrome, bilateral upper limbs (principal) | CPT/HCPCS: 99212 ==

== ENCOUNTER → 2022-01-21 12:30 | Outpatient (BNVA) | payer OTHER, SELFPAY | PROVIDERS: PCP Internal Medicine; Visit Provider Physician Assistant | DX: G56.01 Carpal tunnel syndrome, right upper limb (principal) | CPT/HCPCS: 99212 ==

== ENCOUNTER → 2022-02-05 13:02 | Outpatient (BNVA) | payer OTHER, SELFPAY | PROVIDERS: PCP Internal Medicine; Visit Provider Nurse Practitioner | DX: Z12.11 Encounter for screening for malignant neoplasm of colon (principal); K59.04 Chronic idiopathic constipation; K21.9 Gastro-esophageal reflux disease without esophagitis | CPT/HCPCS: 99212 ==

== ENCOUNTER 2022-02-18 10:52 | Outpatient (REF) | payer OTHER, SELFPAY ==
[2022-02-18 15:56] LABS: CT PCR NOT DETECTED (Not Detect.); NG PCR NOT DETECTED (Not Detect.)
[2022-02-19 08:22] LABS: BV Int Neg Control Negative (Negative); BV Int Pos Control Positive (Positive)
== END 2022-02-18 10:53 | disposition home or self-care (01) ==
LOC: HO.LAB 10:52
PROVIDERS: Visit Provider Advanced Practice Midwife
DX: R10.2 Pelvic and perineal pain (principal); Z20.2 Contact with and (suspected) exposure to infections with a predominantly sexual mode of transmission
CPT/HCPCS: 87480; 87491; 87510; 87591; 87660

== ENCOUNTER → 2022-03-02 08:03 | Outpatient (BNVA) | payer OTHER, SELFPAY | PROVIDERS: PCP Internal Medicine; Visit Provider Anesthesiology | DX: M47.27 Other spondylosis with radiculopathy, lumbosacral region (principal); M46.1 Sacroiliitis, not elsewhere classified; M51.36 Other intervertebral disc degeneration, lumbar region; G89.4 Chronic pain syndrome; Z96.82 Presence of neurostimulator | CPT/HCPCS: 99212 ==

== ENCOUNTER 2022-04-21 06:19 | Outpatient (REF) | payer OTHER, SELFPAY ==
--- NOTE | ~2022-04-21 | FL_ITS ---
EXAMINATION: XR FLUOROSCOPY WITH IMAGES CLINICAL INFORMATION: Caudal ROJAS injection. COMPARISON: 11/04/2021. TECHNIQUE: Fluoroscopy performed by Dr. Marc Bonilla. Fluoroscopy time: 0.5 minutes. Cumulative Dose: 13.1 mGy. DAP: 3.54 Gy-cm2. Images: 5. FINDINGS: Images demonstrate needles in place both caudal to the sacrococcygeal region and anterior to the coccyx. FL/FL guidance in treatment room IMPRESSION: Intraoperative fluoroscopy for pain management procedure.
== END 2022-04-21 06:20 | disposition home or self-care (01) ==
LOC: HO.RADIR 06:19
PROVIDERS: Visit Provider Anesthesiology
DX: M47.27 Other spondylosis with radiculopathy, lumbosacral region (principal); M46.1 Sacroiliitis, not elsewhere classified; M54.50 Low back pain, unspecified; M51.36 Other intervertebral disc degeneration, lumbar region; G89.4 Chronic pain syndrome; Z96.82 Presence of neurostimulator; M19.049 Primary osteoarthritis, unspecified hand; M16.9 Osteoarthritis of hip, unspecified; M35.00 Sjogren syndrome, unspecified; M17.0 Bilateral primary osteoarthritis of knee
CPT/HCPCS: 62321; 64999; 99202; 99212; J3300

== ENCOUNTER 2022-05-28 10:09 | Outpatient (REF) | payer OTHER, SELFPAY ==
--- NOTE | ~2022-05-28 | XR_ITS ---
EXAMINATION: BILATERAL KNEE. CLINICAL INFORMATION: Myopathy, unspecified COMPARISON: None TECHNIQUE: Standing AP view of both knees. Standing bilateral lateral view. Riva view of bilateral patella. FINDINGS: The right and left knee show minor degenerative lipping of the femur and tibia at the medial femoral tibial joint with slight narrowing of the medial femoral tibial joint. The patellofemoral joints are normal. No bone erosion. No soft tissue calcification. No joint effusion. XR/XR knee standing BI IMPRESSION: Minor degenerative change of the medial femoral tibial joint of both knees.
--- NOTE | ~2022-05-28 | XR_ITS ---
EXAMINATION: BILATERAL KNEE. CLINICAL INFORMATION: Myopathy, unspecified COMPARISON: None TECHNIQUE: Standing AP view of both knees. Standing bilateral lateral view. [place] view of bilateral patella. FINDINGS: The right and left knee show minor degenerative lipping of the femur and tibia at the medial femoral tibial joint with slight narrowing of the medial femoral tibial joint. The patellofemoral joints are normal. No bone erosion. No soft tissue calcification. No joint effusion. XR/XR knee RT 2V IMPRESSION: Minor degenerative change of the medial femoral tibial joint of both knees.
--- NOTE | ~2022-05-28 | XR_ITS ---
EXAMINATION: BILATERAL KNEE. CLINICAL INFORMATION: Myopathy, unspecified COMPARISON: None TECHNIQUE: Standing AP view of both knees. Standing bilateral lateral view. Fill[place] view of bilateral patella. FINDINGS: The right and left knee show minor degenerative lipping of the femur and tibia at the medial femoral tibial joint with slight narrowing of the medial femoral tibial joint. The patellofemoral joints are normal. No bone erosion. No soft tissue calcification. No joint effusion. XR/XR knee LT 2V IMPRESSION: Minor degenerative change of the medial femoral tibial joint of both knees.
--- NOTE | ~2022-05-28 | XR_ITS ---
EXAMINATION: XR BILATERAL HIPS WITH AP PELVIS CLINICAL INFORMATION: Myopathy, unspecified COMPARISON: None TECHNIQUE: Cone-down AP and oblique view of each hip FINDINGS: No fracture. No dislocation. No focal bone lesion. The left hip has minor degenerative spurring of the superior lateral acetabular rim. Right hip joint space is normal. No bone erosion. No soft tissue calcification. XR/XR hips SUREKHA min 3V IMPRESSION: Minor degenerative change of the left hip. Normal right hip.
== END 2022-05-28 10:10 | disposition home or self-care (01) ==
LOC: HO.XRAY 10:09
PROVIDERS: PCP Internal Medicine; Visit Provider Student in an Organized Health Care Education/Training Program
DX: M17.0 Bilateral primary osteoarthritis of knee (principal); R79.82 Elevated C-reactive protein (CRP); M35.00 Sjogren syndrome, unspecified; M16.9 Osteoarthritis of hip, unspecified; G72.9 Myopathy, unspecified
CPT/HCPCS: 73522; 73560; 73565

== ENCOUNTER → 2022-05-29 08:05 | Outpatient (BNVA) | payer OTHER, SELFPAY | PROVIDERS: PCP Internal Medicine; Visit Provider Student in an Organized Health Care Education/Training Program | DX: G62.9 Polyneuropathy, unspecified (principal); M25.50 Pain in unspecified joint; M35.00 Sjogren syndrome, unspecified | CPT/HCPCS: 99212 ==

== ENCOUNTER 2022-05-29 08:59 | Outpatient (REF) | payer OTHER, SELFPAY ==
[2022-05-29 10:36] LABS: MANUAL DIFF FLAG NO
[2022-05-29 10:48] LABS: Basophils Absolute Auto 0.1 X10*3/uL (0.0-0.2); Basophils Percent Auto 0.8 % (0-2); Eosinophils Absolute Auto 0.1 X10*3/uL (0.0-0.4); Eosinophils Percent Auto 1.3 % (0-4); Hematocrit 39.3 % (37.0-47.0); Hemoglobin 12.6 g/dl (12.0-16.0); Imm Gran Abs Auto 0.03 X10*3/uL (0.00-0.03); Imm Gran Pct Auto 0.3 % (0.0-0.4); Lymphocytes Absolute Auto 4.8 X10*3/uL (1.2-4.9); Lymphocytes Percent Auto 44.2 % (20-40); Mean Corpuscular HGB Conc 32.1 g/dl (31.0-35.0); Mean Corpuscular Hemoglobin 30.7 pg (27.0-33.0); Mean Corpuscular Volume 95.9 fL (80.0-98.0); Mean Platelet Volume 10.2 fL (9.4-12.3); Monocytes Absolute Auto 0.7 X10*3/uL (0.1-1.2); Monocytes Percent Auto 6.5 % (2-11); Neutrophils Absolute Auto 5.1 x10*3/uL (2.0-8.3); Neutrophils Percent Auto 46.9 % (45-73); Platelet Count 436 X10*3/uL (160-400); Red Cell Distribution Width 13.1 % (11.0-16.0); White Blood Count 10.8 X10*3/uL (4.8-10.8)
[2022-05-29 10:53] LABS: Appearance Urine Clear; Color Urine Yellow; Glucose Urine UA Negative (Negative); Leukocyte Esterase Urine Trace (Negative); Nitrite Urine Negative (Negative); UMIC TRIGGER UA YES; Urine Blood Negative (Negative); Urine Ketones Trace mg/dL (Negative); Urine Protein Negative (Neg-Trace)
[2022-05-29 10:59] LABS: C Reactive Protein 0.14 mg/dL (< or = 0.50); Rheumatoid Factor < 15.0 IU/mL (<15.0)
[2022-05-29 11:08] LABS: Bacteria Urine None Seen (None Seen); Calcium Oxalate Crystals Urine Present; Hyaline Casts Urine 0-2 /LPF (0-2); WBC Urine 0-5 /HPF (0-5)
[2022-05-29 11:12] LABS: Creatinine Urine 228.08 mg/dL; Protein/Creatinine Ratio, Ur 0.09 (<0.2); Total Protein Urine Random 20 mg/dL (<12)
[2022-05-29 11:35] LABS: Erythrocyte Sedimentation Rate 21 MM/HR (0-20)
[2022-06-01 16:21] LABS: Anti Nuclear Antibody Screen NEGATIVE (NEGATIVE)
[2022-06-01 17:01] LABS: Cyclic Citrullinated Peptide <16 UNITS
[2022-06-02 22:52] LABS: Anti DNA DS Antibody <1 IU/mL; Antibody to SS-A Antigen <1.0 NEG AI (<1.0 NEG); Antibody to SS-B Antigen <1.0 NEG AI (<1.0 NEG); SM/Ribonucleoprotein Ab <1.0 NEG AI (<1.0 NEG); Smith Protein <1.0 NEG AI (<1.0 NEG)
== END 2022-05-29 09:00 | disposition home or self-care (01) ==
LOC: HO.10HDL 08:59
PROVIDERS: Visit Provider Student in an Organized Health Care Education/Training Program
DX: G72.9 Myopathy, unspecified (principal); M16.9 Osteoarthritis of hip, unspecified; M35.00 Sjogren syndrome, unspecified; M17.0 Bilateral primary osteoarthritis of knee; R79.82 Elevated C-reactive protein (CRP)
CPT/HCPCS: 36415; 81001; 82550; 84156; 85025; 85652; 86038; 86039; 86140; 86200; 86225; 86235; 86431

== ENCOUNTER 2022-06-03 09:17 | Outpatient (REF) | payer OTHER, SELFPAY ==
[2022-06-03 11:08] LABS: Alanine Aminotransferase 36 U/L (0-31); Albumin Level 3.9 g/dL (3.5-5.0); Alkaline Phosphatase 104 U/L (39-117); Anion Gap 16 (12-20); Aspartate Amino Transferase 22 U/L (5-31); Bilirubin Total 0.4 mg/dL (0.0-1.0); Blood Urea Nitrogen 10 mg/dL (9-16); Carbon Dioxide 29 mmol/L (22-29); Chloride 101 mmol/L (96-108); Cholesterol 225 mg/dL; Estimated Glomerular Filt Rate > 60; Glucose Fasting 64 mg/dL (60-99); HDL Cholesterol 79 mg/dL; LDL Cholesterol Calculated 124 mg/dl; Sodium 142 mmol/L (135-145); Total Protein 6.9 g/dL (6.5-8.0); Triglycerides 113 mg/dL
[2022-06-03 11:18] LABS: Thyroid Stimulating Hormone 0.62 uIU/mL (0.32-4.0); Vitamin D 25-OH Total 17.4 ng/mL (>30)
[2022-06-04 12:22] LABS: Calcium (PTHI) 9.4 mg/dL (8.6-10.4); PTHI 75 pg/mL (16-77)
== END 2022-06-03 09:18 | disposition home or self-care (01) ==
LOC: HO.10HDL 09:17
PROVIDERS: Absent Provider Internal Medicine; Visit Provider Internal Medicine Endocrinology, Diabetes & Metabolism
DX: Z00.00 Encounter for general adult medical examination without abnormal findings (principal); E21.0 Primary hyperparathyroidism; N25.81 Secondary hyperparathyroidism of renal origin; E78.5 Hyperlipidemia, unspecified; E06.3 Autoimmune thyroiditis
CPT/HCPCS: 36415; 80053; 80061; 82306; 83970; 84443

== ENCOUNTER 2022-06-03 10:19 | Outpatient (REF) | payer OTHER, SELFPAY ==
--- NOTE | ~2022-06-03 | US_ITS ---
EXAMINATION: US PELVIS CLINICAL INFORMATION: Pelvic and perineal pain. COMPARISON: CT 02/13/2021. Ultrasound 01/03/2020 TECHNIQUE: Ultrasound of the pelvis is performed using both transabdominal and transvaginal transducers along with Doppler. Transvaginal imaging is performed due to inadequate visualization transabdominally. FINDINGS: Uterus: The uterus is anteverted, retroflexed and measures 6.8 x 4.8 x 4.9 cm. Nabothian cysts are noted. The double wall endometrial thickness is 5 mm. The uterus is smooth in contour and has somewhat heterogeneous echogenicity. Fibroids are again noted. 1. Anterior uterine body measuring 2.3 x 1.6 x 1.8 cm. This remains heterogeneous, similar to prior. 2. Anterior uterine body measuring 1.5 x 1.2 x 1.5 cm. This is similar. 3. Uterine fundus, not previously characterized. This measures 1.2 x 1 x 1 cm. Adnexa: The right ovary is not visualized. The left ovary is seen measuring 1.6 x 1.2 x 1.5 cm. No adnexal mass. No pelvic free fluid. US/US pelvic and transvaginal IMPRESSION: Multiple small uterine fibroids are again noted. No endometrial thickening. No adnexal mass.
== END 2022-06-03 10:20 | disposition home or self-care (01) ==
LOC: HO.US 10:19
PROVIDERS: Visit Provider Advanced Practice Midwife
DX: R10.2 Pelvic and perineal pain (principal); N25.81 Secondary hyperparathyroidism of renal origin
CPT/HCPCS: 76830; 76856; 99212

== ENCOUNTER → 2022-06-08 08:33 | Outpatient (BNVA) | payer OTHER, SELFPAY | PROVIDERS: PCP Internal Medicine; Visit Provider Anesthesiology | DX: M47.27 Other spondylosis with radiculopathy, lumbosacral region (principal); M46.1 Sacroiliitis, not elsewhere classified; M54.50 Low back pain, unspecified; M51.36 Other intervertebral disc degeneration, lumbar region; Z96.82 Presence of neurostimulator; G89.4 Chronic pain syndrome | CPT/HCPCS: Q3014 ==

== ENCOUNTER 2022-06-22 07:21 | Day surgery (SDC) | payer OTHER, SELFPAY ==
[2022-06-16 12:56] VITALS: BMI 27.6
--- NOTE | 2022-06-19 12:19 | HO.ANESPROP2 ---
Documented by User: Shelly Madera NP 06/19/22 12:24 HPI - Anesthesia Eval Consult details Narrative: 51yo F for Colonoscopy s/p gastric sleeve 2020 with GA-ETT 7 PMFSH Active Problems Active Problems: All Active Problems (Updated 06/16/22 @ 12:55 by Beryl Shepard RN) BMI over 35 (Acute) Diaphragmatic hernia (Acute) S/P laparoscopic sleeve gastrectomy (Acute) S/P repair of paraesophageal hernia (Acute) BMI 32.0-32.9,adult (Acute) COVID-19 (Acute) COVID-19 (Acute) Obesity (Acute) BMI greater than 30 (Acute) Overweight (Acute) Myofascial low back pain (Acute) Sacroiliitis (Acute) Lumbosacral spondylosis with radiculopathy (Acute) Chronic pain syndrome (Acute) Presence of neurostimulator (Acute) Degenerative disc disease, lumbar (Acute) Chronic idiopathic constipation (Acute) Carpal tunnel syndrome of right wrist (Acute) Carpal tunnel syndrome of left wrist (Acute) Vaginal odor (Acute) Vaginal discharge (Acute) Hot flashes (Acute) Allergies (Acute) Bilateral primary osteoarthritis of knee (Acute) Hip osteoarthritis (Acute) Sicca syndrome (Acute) CRP elevated (Acute) Myopathy (Acute) Osteoarthritis, hand (Acute) Peripheral neuropathy (Acute) 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) Polyarthralgia (Acute) Physical exam (Acute) Screen for colon cancer (Acute) Left knee pain (Acute) Positive ALLISON (antinuclear antibody) (Acute) Essential hypertension (Acute) Mild recurrent major depression (Acute) Hypophosphatemia (Acute) Hypokalemia (Acute) Liver fibrosis (Acute) Jeannette's disease (Acute) Secondary hyperparathyroidism (Acute) MITZY (obstructive sleep apnea) (Acute) Autoimmune thyroiditis (Acute) Anxiety (Acute) Depression (Acute) GERD (gastroesophageal reflux disease) (Acute) Hypertension (Acute) Past Medical History Medical History Anxiety Autoimmune thyroiditis BMI 34.0-34.9,adult BMI 34.0-34.9,adult BMI over 35 Depression Elevated C-reactive protein (CRP) Essential hypertension Frequent headaches GERD (gastroesophageal reflux disease) H. 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 Hypertension Hypokalemia Hypophosphatemia Left knee pain Leukocytosis Liver fibrosis Mild recurrent major depression Obesity (BMI 30-39.9) MITZY (obstructive sleep apnea) Physical exam Polyarthralgia Positive ALLISON (antinuclear antibody) Sciatica Screen for colon cancer Secondary hyperparathyroidism Spinal cord stimulator status Spinal stenosis Vitamin B1 deficiency Vitamin B12 deficiency Vitamin D deficiency Family History Family History Mother Hypertension Osteoporosis Father Epilepsia Atrophic emphysema Son Asthma Daughter Asthma Daughter Panic attacks Anxiety Thyroid adenoma Maternal Aunt History of breast cancer Family/Other Colon cancer Paternal Aunt Uterine cancer Family history of problems with anesthesia: No Surgical History Surgical History Cholelithiasis H/O arthroscopy of knee H/O gastric sleeve H/O laparoscopy History of carpal tunnel release History of cholecystectomy Hx of mammogram S/P endometrial ablation Tubal ligation status History of Problems with Anesthesia: No Social History Social History (Updated 06/16/22 @ 13:01 by Beryl Shepard RN) Household Members: Family Housing: Apartment Are you a primary dialysis patient care technician to a significant other at home: No Do you presently have visiting nurse or other home services: No Alcohol intake: never Patient Tobacco Use Status: Never used Tobacco e-Cigarette/Vaping Use: Never Used Second Hand Smoke Exposure: No Advance Directives: No Advance Directives Information Provided: Yes service: No 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al status: disabled 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 Meds Allergies Allergy/AdvReac Type Severity Reaction Status Date / Time amoxicillin Allergy Severe severe Verified 06/08/22 08:34 hives-total body Penicillins AdvReac Mild Abdominal Verified 06/08/22 08:34 Pain Home Medications Medication Instructions Recorded Confirmed Last Taken Type amitriptyline 75 mg tablet 75 mg PO BEDTIME 07/31/20 04/21/22 Unknown History propylene glycol 1 %-glycerin 0.3 1 drp ophthalmic (eye) BID 02/05/22 04/21/22 Unknown History % eye drops (Artificial Tears (glycerin-peg)) venlafaxine 37.5 mg 37.5 mg PO DAILY 04/21/22 04/21/22 Unknown History capsule,extended release 24 hr (Effexor XR) magnesium oxide 400 mg (241.3 mg 400 mg PO DAILY 06/03/22 Unknown History magnesium) tablet prednisone 10 mg tablet 0 mg PO 06/03/22 Unknown History Exam Exam Date and Time: June 19, 2022 1219 Height,Weight and Vital Signs: Height 5 ft 3 in Weight 70.76 kg Pertinent Lab Results Pertinent Lab Results: Laboratory Tests 05/29/22 06/03/22 09:00 09:20 WBC 10.8 Hgb 12.6 Hct 39.3 Plt Count 436 H Sodium 142 Potassium 4.0 Chloride 101 Carbon Dioxide 29 BUN 10 Creatinine 0.69 Assessment and Plan Assessment Anesthesia Assessment: Chart Reviewed Final Anesthetic Review Family History of Problems with Anesthesia: No History of Problems with Anesthesia: No Documented by User: Soumya Rojas MD 06/22/22 07:56 [facility] Past Medical History Medical History Anxiety Autoimmune thyroiditis BMI 34.0-34.9,adult BMI 34.0-34.9,adult BMI over 35 Depression Elevated C-reactive protein (CRP) Essential hypertension Frequent headaches GERD (gastroesophageal reflux disease) H. 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 Hypertension Hypokalemia Hypophosphatemia Left knee pain Leukocytosis Liver fibrosis Mild recurrent major depression Obesity (BMI 30-39.9) MITZY (obstructive sleep apnea) Physical exam Polyarthralgia Positive ALLISON (antinuclear antibody) Sciatica Screen for colon cancer Secondary hyperparathyroidism Spinal cord stimulator status Spinal stenosis Vitamin B1 deficiency Vitamin B12 deficiency Vitamin D deficiency Functional capacity: independent ambulation Patient : No Family History Family History Mother Hypertension Osteoporosis Father Epilepsia Atrophic emphysema Son Asthma Daughter Asthma Daughter Panic attacks Anxiety Thyroid adenoma Maternal Aunt History of breast cancer Family/Other Colon cancer Paternal Aunt Uterine cancer Surgical History Surgical History Cholelithiasis H/O arthroscopy of knee H/O gastric sleeve H/O laparoscopy History of carpal tunnel release History of cholecystectomy Hx of mammogram S/P endometrial ablation Tubal ligation status Social History Social History (Updated 06/16/22 @ 13:01 by Beryl Shepard RN) Household Members: Family Housing: Apartment Are you a primary dialysis patient care technician to a significant other at home: No Do you presently have visiting nurse or other home services: No Alcohol intake: never Patient Tobacco Use Status: Never used Tobacco e-Cigarette/Vaping Use: Never Used Second Hand Smoke Exposure: No Advance Directives: No Advance Directives Information Provided: Yes service: No 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al status: disabled 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 Meds Allergies Allergy/AdvReac Type Severity Reaction Status Date / Time amoxicillin Allergy Severe severe Verified 06/08/22 08:34 hives-total body Penicillins AdvReac Mild Abdominal Verified 06/08/22 08:34 Pain Home Medications Medication Instructions Recorded Confirmed Last Taken Type amitriptyline 75 mg tablet 75 mg PO BEDTIME 07/31/20 04/21/22 Unknown History propylene glycol 1 %-glycerin 0.3 1 drp ophthalmic (eye) BID 02/05/22 04/21/22 Unknown History % eye drops (Artificial Tears (glycerin-peg)) venlafaxine 37.5 mg 37.5 mg PO DAILY 04/21/22 04/21/22 Unknown History capsule,extended release 24 hr (Effexor XR) magnesium oxide 400 mg (241.3 mg 400 mg PO DAILY 06/03/22 Unknown History magnesium) tablet prednisone 10 mg tablet 0 mg PO 06/03/22 Unknown History
[2022-06-22 07:52] VITALS: BMI 29.2
--- NOTE | 2022-06-22 08:03 | P.HPSUR_ITS ---
Pre-Procedural Eval Section A Date of Service: 06/22/22 The patient is an INPATIENT: No The History & Physical has been completed within 30 days and I have reviewed it.: No Section B Chief Complaint: screening,constipation Details of Present Illness: Colon cancer screening from a chronic constipation Relevant Family History (Specify if Yes): Yes Relevant Social History: None Present Medications: see Short Stay Collaborative assessment Medical History: Significant History (Anxiety Autoimmune thyroiditis BMI 34.0- 34.9,adult BMI 34.0-34.9,adult BMI over 35 Depression Elevated C-reactive protein (CRP) Essential hypertension Frequent headaches GERD (gastroesophageal reflux disease) H. pylori infection Jeannette's disease Hyperparathyroidism Hypertension Hypokalemia Hypoph) History of Previous Operations: Relevant previous surgery/procedure and date(s) (Cholelithiasis H/O arthroscopy of knee H/O gastric sleeve H/O laparoscopy History of carpal tunnel release History of cholecystectomy Hx of mammogram S/P endometrial ablation Tubal ligation status) Allergies: Allergies Allergy/AdvReac Type Severity Reaction Status Date / Time amoxicillin Allergy Severe severe Verified 06/08/22 08:34 hives-total body Penicillins AdvReac Mild Abdominal Verified 06/08/22 08:34 Pain Review of Systems Sugical H&P ROS: Negative: Constitution, Cardiovascular and Respiratory and Yes, Specify: Gastrointestinal (Chronic constipation) Exam Surgical H&P Exam: Normal: Heart, Normal: Lungs and Normal: Extremities Plan Diagnosis/Plan: Unchanged I have reviewed the history and physical and performed a pertinent physical examination on my patient. No changes have occurred unless specified.
[2022-06-22 08:08] VITALS: BP 163/93; PULSE 81; RESP 16; TEMP 36.2; O2SAT 98
[2022-06-22] MEDS: Lactated Ringers 1,000 ML 100 ML IVCONT (08:21)
--- NOTE | 2022-06-22 08:46 | P.BOP_ITS ---
Brief Operative Note Date of Service: 06/22/22 Pre-op diagnosis: Colon cancer screening, chronic constipation Post-op diagnosis: other (Melanosis coli, hemorrhoids) Procedure: COLONOSCOPY TILL CECUM WITH BIOPSIES Consent: Indications for the procedure and potential complications of bleeding, perforation, reaction to medications and missed diagnosis were discussed with the patient and informed consent was obtained. Instrument: Olympus PCF H 190 L variable stiffness pediatric colonoscope Monitoring: Vital signs and clinical assessment, intermittent blood pressure monitoring, continuous EKG monitoring, Pulse oximetry and Carbon Dioxide monitoring were done throughout the procedure. Colon withdrawl time was 18 minutes. Procedure: The patient was placed in the left lateral decubitis position and pre-procedure medications were administered. After a digital rectal examination of the ano-rectum, the video colonoscope was inserted into the rectum and advanced through the colon to the cecum. The colonoscope was slowly withdrawn in a retrograde panoramic fashion and the colon mucosa was carefully examined including a retroflexed view of the rectum. Findings and interventions are described below. Procedure Difficulty: Colon was long and tortuous and there was spasm and some loop formation. No maneuvers were required Findings: Terminal Ileum: Not evaluated Cecum: Normal Ascending Colon: Mild diffuse melanosis coli throughout the colon. Transverse Colon: Mild diffuse melanosis coli throughout the colon. A focal area of erythema overying a fold at 110 cms - biopsied. Descending Colon: Mild diffuse melanosis coli throughout the colon - random biopsies obtained from the left colon. Sigmoid Colon: Mild diffuse melanosis coli throughout the colon. Rectum: Normal Ano-rectum: Moderate internal hemorrhoids Colon preparation: Good after some irrigation Impression and Post Procedure Diagnosis: Colonoscopy Findings: No polyps were detected. A focal area of erythema overying a fold at 110 cms - biopsied. Mild diffuse melanosis coli throughout the colon - random biopsies obtained from the left colon. Moderate hemorrhoids on retroflexed exam. Plan: Await pathology results Patient has an appointment on 07/10/22 in the [facility] with Mary Goncalves NP.. Repeat Colonoscopy interval based on path results - in 5 years due to positive family hx (adult colonoscope for future colonoscopies). Above findings were reviewed with the patient and Melanosis Coli handout was given in the discharge area Surgeon: Felicity Tatum MD Anesthesia: MAC (Dr Ortiz & Dr Rojas) Was an Masonry Contractor used for this Procedure?: Yes Masonry Contractor: Rose Mary Lott Estimated blood loss (mL): 0 Pathology: other (A. transverse colon bxs @ 110 cm, R/O polyp B. random left colon bxs, R/O melanosis coli) Condition: stable Disposition: PACU
--- NOTE | 2022-06-22 08:55 | W.PM.OPN ---
Operative Note Operative Note Date of Service: 06/22/22 Narrative: Pre-op diagnosis: Colon cancer screening, chronic constipation Post-op diagnosis:?other (Melanosis coli, hemorrhoids) Procedure: COLONOSCOPY TILL CECUM WITH BIOPSIES Consent: Indications for the procedure and potential complications of bleeding, perforation, reaction to medications and missed diagnosis were discussed with the patient and informed consent was obtained. Instrument: Olympus PCF H 190 L variable stiffness pediatric colonoscope Monitoring: Vital signs and clinical assessment, intermittent blood pressure monitoring, continuous EKG monitoring, Pulse oximetry and Carbon Dioxide monitoring were done throughout the procedure. Colon withdrawl time was 18 minutes. Procedure: The patient was placed in the left lateral decubitis position and pre-procedure medications were administered. After a digital rectal examination of the ano-rectum, the video colonoscope was inserted into the rectum and advanced through the colon to the cecum. The colonoscope was slowly withdrawn in a retrograde panoramic fashion and the colon mucosa was carefully examined including a retroflexed view of the rectum. Findings and interventions are described below. Procedure Difficulty:? Colon was long and tortuous and there was spasm and some loop formation.? No maneuvers were required Findings: Terminal Ileum: Not evaluated Cecum:? Normal Ascending Colon:? Mild diffuse melanosis coli throughout the colon. Transverse Colon:? Mild diffuse melanosis coli throughout the colon. A focal area of erythema overying a fold at 110 cms - biopsied. Descending Colon:? Mild diffuse melanosis coli throughout the colon - random biopsies obtained from the left colon. Sigmoid Colon:? Mild diffuse melanosis coli throughout the colon. Rectum:? Normal Ano-rectum:? Moderate internal hemorrhoids Colon preparation:? Good after some irrigation Impression and Post Procedure Diagnosis: Colonoscopy Findings: No polyps were detected. A focal area of erythema overying a fold at 110 cms - biopsied. Mild diffuse melanosis coli throughout the colon - random biopsies obtained from the left colon. Moderate hemorrhoids on retroflexed exam. Plan: Await pathology results Patient has an appointment on 07/10/22 in the GI Clinic with Mary Goncalves NP.. Repeat Colonoscopy interval based on path results - in 5 years due to positive family hx (adult colonoscope for future colonoscopies). Above findings were reviewed with the patient and Melanosis Coli handout was given in the discharge area Surgeon: Felicity Tatum MD Anesthesia:?MAC (Dr Ortiz & Dr Rojas) Was an Telesales Supervisor used for this Procedure?:?Yes Telesales Supervisor:?Rose Mary Lott Estimated blood loss (mL):?0 Pathology:?other (A. transverse colon bxs @ 110 cm, R/O polyp? B. random left colon bxs, R/O melanosis coli) Condition:?stable Disposition:?PACU
--- NOTE | 2022-06-22 09:30 | HO.ANESPROP2 ---
[facility] Active Problems Active Problems: All Active Problems (Updated 06/16/22 @ 12:55 by Beryl Shepard RN) BMI over 35 (Acute) Diaphragmatic hernia (Acute) S/P laparoscopic sleeve gastrectomy (Acute) S/P repair of paraesophageal hernia (Acute) BMI 32.0-32.9,adult (Acute) COVID-19 (Acute) COVID-19 (Acute) Obesity (Acute) BMI greater than 30 (Acute) Overweight (Acute) Myofascial low back pain (Acute) Sacroiliitis (Acute) Lumbosacral spondylosis with radiculopathy (Acute) Chronic pain syndrome (Acute) Presence of neurostimulator (Acute) Degenerative disc disease, lumbar (Acute) Chronic idiopathic constipation (Acute) Carpal tunnel syndrome of right wrist (Acute) Carpal tunnel syndrome of left wrist (Acute) Vaginal odor (Acute) Vaginal discharge (Acute) Hot flashes (Acute) Allergies (Acute) Bilateral primary osteoarthritis of knee (Acute) Hip osteoarthritis (Acute) Sicca syndrome (Acute) CRP elevated (Acute) Myopathy (Acute) Osteoarthritis, hand (Acute) Peripheral neuropathy (Acute) 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) Polyarthralgia (Acute) Physical exam (Acute) Screen for colon cancer (Acute) Left knee pain (Acute) Positive ALLISON (antinuclear antibody) (Acute) Essential hypertension (Acute) Mild recurrent major depression (Acute) Hypophosphatemia (Acute) Hypokalemia (Acute) Liver fibrosis (Acute) Jeannette's disease (Acute) Secondary hyperparathyroidism (Acute) MITZY (obstructive sleep apnea) (Acute) Autoimmune thyroiditis (Acute) Anxiety (Acute) Depression (Acute) GERD (gastroesophageal reflux disease) (Acute) Hypertension (Acute) Past Medical History Medical History Anxiety Autoimmune thyroiditis BMI 34.0-34.9,adult BMI 34.0-34.9,adult BMI over 35 Depression Elevated C-reactive protein (CRP) Essential hypertension Frequent headaches GERD (gastroesophageal reflux disease) H. 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 Hypertension Hypokalemia Hypophosphatemia Left knee pain Leukocytosis Liver fibrosis Mild recurrent major depression Obesity (BMI 30-39.9) MITZY (obstructive sleep apnea) Physical exam Polyarthralgia Positive ALLISON (antinuclear antibody) Sciatica Screen for colon cancer Secondary hyperparathyroidism Spinal cord stimulator status Spinal stenosis Vitamin B1 deficiency Vitamin B12 deficiency Vitamin D deficiency Functional capacity: independent ambulation Patient : No Family History Family History Mother Hypertension Osteoporosis Father Epilepsia Atrophic emphysema Son Asthma Daughter Asthma Daughter Panic attacks Anxiety Thyroid adenoma Maternal Aunt History of breast cancer Family/Other Colon cancer Paternal Aunt Uterine cancer Family history of problems with anesthesia: No Surgical History Surgical History Cholelithiasis H/O arthroscopy of knee H/O gastric sleeve H/O laparoscopy History of carpal tunnel release History of cholecystectomy Hx of mammogram S/P endometrial ablation Tubal ligation status History of Problems with Anesthesia: No Social History Social History (Updated 06/16/22 @ 13:01 by Beryl Shepard RN) Household Members: Family Housing: Apartment Are you a primary pet care technician to a significant other at home: No Do you presently have visiting nurse or other home services: No Alcohol intake: never Patient Tobacco Use Status: Never used Tobacco e-Cigarette/Vaping Use: Never Used Second Hand Smoke Exposure: No Use of substances other than those prescribed or required for medical reasons: No Are you DNR?: No Advance Directives: No Advance Directives Information Provided: Yes Patient : No service: No 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al status: disabled 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 Meds Allergies Allergy/AdvReac Type Severity Reaction Status Date / Time amoxicillin Allergy Severe severe Verified 06/08/22 08:34 hives-total body Penicillins AdvReac Mild Abdominal Verified 06/08/22 08:34 Pain Active Medications: Current Medications Lactated Ringer's (Lr) 1,000 mls @ 100 mls/hr IVCONT .Q10H JONN Last Admin: 06/22/22 08:21 Dose: 100 mls/hr Home Medications Medication Instructions Recorded Confirmed Last Taken Type amitriptyline 75 mg tablet 75 mg PO BEDTIME 07/31/20 04/21/22 Unknown History propylene glycol 1 %-glycerin 0.3 1 drp ophthalmic (eye) BID 02/05/22 04/21/22 Unknown History % eye drops (Artificial Tears (glycerin-peg)) venlafaxine 37.5 mg 37.5 mg PO DAILY 04/21/22 04/21/22 06/22/22 History capsule,extended release 24 hr (Effexor XR) magnesium oxide 400 mg (241.3 mg 400 mg PO DAILY 06/03/22 Unknown History magnesium) tablet prednisone 10 mg tablet 0 mg PO 06/03/22 Unknown History Exam Exam Date and Time: June 22, 2022 0930 Height,Weight and Vital Signs: Height 5 ft 3 in Weight 74.843 kg Last Vital Signs Temp 97.1 F 06/22/22 08:08 Pulse 81 06/22/22 08:08 Resp 16 06/22/22 08:08 BP 163/93 H 06/22/22 08:08 Pulse Ox 98 06/22/22 08:08 O2 Del Method 06/22/22 08:08 Airway Mallampati Class: III TM Dist: >3cm Heart: RRR Lungs: CTA Assessment and Plan Final Anesthetic Review Family History of Problems with Anesthesia: No History of Problems with Anesthesia: No ASA Class: III Final Preanesthetic Review: No Changes in Pt Med Stat, Meds/Allgs Chart Reviewed and Consent Obtained/Reviewed Patient Risk: Intermediate Procedure Risk: Low Anesthetic Plan Anesthetic Plan: MAC: Disposition: Standard PACU
[2022-06-22 09:41] VITALS: BP 146/92; PULSE 98; RESP 16; TEMP 36.3; O2SAT 96
--- NOTE | 2022-06-22 09:43 | HO.POSTANES ---
Post Anesthesia Evaluation Post Anesthesia Evaluation Vital Signs: Vital Signs Temp Pulse Resp BP Pulse Ox O2 Del Method 06/22/22 08:08 97.1 F 81 16 163/93 H 98 Room Air Anesthesia: Monitored Mental Status: Awake Nausea/Vomiting: None Hydration: Adequate Anesthesia-Related Issues: No Anes. Related Issues
[2022-06-22 09:56] VITALS: BP 156/86; PULSE 84; RESP 16; O2SAT 96
[2022-06-22 10:12] VITALS: BP 156/86; PULSE 85; RESP 16; TEMP 36.7; O2SAT 98
== END 2022-06-22 10:55 | disposition home or self-care (01) ==
PROVIDERS: PCP Internal Medicine; Visit Provider Internal Medicine Gastroenterology
PROC: 0DJD8ZZ Inspection of Lower Intestinal Tract, Via Natural or Artificial Opening Endoscopic (ICD-10-PCS; CPT 45378; principal; 2022-06-22 08:50)
DX: Z12.11 Encounter for screening for malignant neoplasm of colon (principal); K59.04 Chronic idiopathic constipation; K63.89 Other specified diseases of intestine; K64.8 Other hemorrhoids; I10 Essential (primary) hypertension; K21.9 Gastro-esophageal reflux disease without esophagitis; E06.3 Autoimmune thyroiditis; G47.33 Obstructive sleep apnea (adult) (pediatric); E66.9 Obesity, unspecified; E87.6 Hypokalemia; R79.82 Elevated C-reactive protein (CRP); F33.0 Major depressive disorder, recurrent, mild; F41.1 Generalized anxiety disorder; Z68.34 Body mass index [BMI] 34.0-34.9, adult; Z79.899 Other long term (current) drug therapy; Z88.0 Allergy status to penicillin; Z90.49 Acquired absence of other specified parts of digestive tract; Z98.84 Bariatric surgery status
CPT/HCPCS: 45380; 88305

== ENCOUNTER → 2022-07-10 07:58 | Outpatient (BNVA) | payer OTHER, SELFPAY | PROVIDERS: PCP Internal Medicine; Visit Provider Student in an Organized Health Care Education/Training Program | DX: K21.9 Gastro-esophageal reflux disease without esophagitis (principal); K59.04 Chronic idiopathic constipation; R11.2 Nausea with vomiting, unspecified; M70.62 Trochanteric bursitis, left hip | CPT/HCPCS: 20610; 99212 ==

== ENCOUNTER 2022-07-20 09:06 | Outpatient (REF) | payer OTHER, SELFPAY ==
--- NOTE | ~2022-07-20 | MM_ITS ---
EXAMINATION: MM SCREENING DIGITAL BREAST TOMOSYNTHESIS, BILATERAL CLINICAL INFORMATION: Screening. Asymptomatic. COMPARISON: Mammography: 07/16/2021, 04/08/2020, 11/08/2018 TECHNIQUE: Digital breast tomosynthesis is performed in both the craniocaudal and mediolateral oblique views along with computer-aided detection (CAD). Synthesized 2D images are generated from the tomosynthesis. FINDINGS: There are scattered areas of fibroglandular density (ACR BI-RADS breast composition Category b). There are no significant masses, abnormal calcifications, or other abnormalities. Breast tissue composition borders on predominantly fatty. Background stromal markings are normal. No developing density. No architectural abnormality. No significant changes. MM/MM tomosynthesis screening BI IMPRESSION: No mammographic evidence of malignancy. ASSESSMENT: BI-RADS 1: Negative RECOMMENDATION: Routine annual mammography screening. This patient's information was entered into a reminder system with a target due date for their next mammogram.
== END 2022-07-20 09:07 | disposition home or self-care (01) ==
LOC: HO.MAMMO 09:06
PROVIDERS: PCP Internal Medicine; Visit Provider Internal Medicine
DX: Z12.31 Encounter for screening mammogram for malignant neoplasm of breast (principal)
CPT/HCPCS: 77063; 77067

== ENCOUNTER → 2022-07-21 11:31 | Outpatient (BNVA) | payer OTHER, SELFPAY | PROVIDERS: PCP Internal Medicine; Visit Provider Advanced Practice Midwife | DX: R10.2 Pelvic and perineal pain (principal); R23.2 Flushing; D21.9 Benign neoplasm of connective and other soft tissue, unspecified; Z71.2 Person consulting for explanation of examination or test findings | CPT/HCPCS: 99212 ==

== ENCOUNTER → 2022-08-04 08:17 | Outpatient (BNVA) | payer OTHER, SELFPAY | PROVIDERS: PCP Internal Medicine; Visit Provider Physician Assistant Surgical | DX: E66.9 Obesity, unspecified (principal); Z98.84 Bariatric surgery status; Z68.30 Body mass index [BMI] 30.0-30.9, adult | CPT/HCPCS: 99212 ==

== ENCOUNTER → 2022-08-13 08:07 | Outpatient (BNVA) | payer OTHER, SELFPAY | PROVIDERS: PCP Internal Medicine; Visit Provider Student in an Organized Health Care Education/Training Program | DX: M79.7 Fibromyalgia (principal); M70.62 Trochanteric bursitis, left hip; R35.1 Nocturia | CPT/HCPCS: 99212 ==

== ENCOUNTER 2022-08-21 07:57 | Outpatient (REF) | payer OTHER, SELFPAY ==
[2022-08-21 10:53] LABS: Appearance Urine Clear; Color Urine Yellow; Glucose Urine UA Negative (Negative); Leukocyte Esterase Urine Small (1+) (Negative); Nitrite Urine Negative (Negative); Specific Gravity - Urine 1.015 (1.005-1.025); UMIC TRIGGER UACC YES; Urine Blood Negative (Negative); Urine Ketones Negative (Negative); Urine Protein Negative (Neg-Trace)
[2022-08-21 10:55] LABS: MANUAL DIFF FLAG NO
[2022-08-21 11:00] LABS: Basophils Absolute Auto 0.1 X10*3/uL (0.0-0.2); Basophils Percent Auto 0.8 % (0-2); Eosinophils Absolute Auto 0.2 X10*3/uL (0.0-0.4); Eosinophils Percent Auto 1.7 % (0-4); Hematocrit 36.7 % (37.0-47.0); Hemoglobin 11.8 g/dl (12.0-16.0); Imm Gran Abs Auto 0.01 X10*3/uL (0.00-0.03); Imm Gran Pct Auto 0.1 % (0.0-0.4); Lymphocytes Absolute Auto 3.4 X10*3/uL (1.2-4.9); Lymphocytes Percent Auto 35.4 % (20-40); Mean Corpuscular HGB Conc 32.2 g/dl (31.0-35.0); Mean Corpuscular Hemoglobin 31.1 pg (27.0-33.0); Mean Corpuscular Volume 96.8 fL (80.0-98.0); Mean Platelet Volume 9.9 fL (9.4-12.3); Monocytes Absolute Auto 0.6 X10*3/uL (0.1-1.2); Monocytes Percent Auto 6.5 % (2-11); Neutrophils Absolute Auto 5.3 x10*3/uL (2.0-8.3); Neutrophils Percent Auto 55.5 % (45-73); Platelet Count 377 X10*3/uL (160-400); Red Blood Count 3.79 X10*6/uL (4.20-5.50); Red Cell Distribution Width 12.9 % (11.0-16.0); White Blood Count 9.5 X10*3/uL (4.8-10.8)
[2022-08-21 11:11] LABS: Bacteria Urine None Seen (None Seen); Hyaline Casts Urine 0-2 /LPF (0-2); RBC Urine 0-2 /HPF (0-2); Squamous Epithelial Cell Urine 0-2 /HPF (0-2); UACC Culture Trigger YES; WBC Urine 0-5 /HPF (0-5)
[2022-08-21 11:48] LABS: Erythrocyte Sedimentation Rate 26 MM/HR (0-20)
[2022-08-21 14:25] LABS: Alanine Aminotransferase 30 U/L (0-31); Albumin Level 3.8 g/dL (3.5-5.0); Alkaline Phosphatase 110 U/L (39-117); Anion Gap 10 (12-20); Aspartate Amino Transferase 30 U/L (5-31); Bilirubin Total 0.4 mg/dL (0.0-1.0); Blood Urea Nitrogen 11 mg/dL (9-16); C Reactive Protein 0.27 mg/dL (< or = 0.50); Calcium 8.9 mg/dL (8.4-10.2); Carbon Dioxide 31 mmol/L (22-29); Chloride 103 mmol/L (96-108); Cholesterol 211 mg/dL; Estimated Glomerular Filt Rate > 60; Glucose Fasting 95 mg/dL (60-99); HDL Cholesterol 57 mg/dL; LDL Cholesterol Calculated 129 mg/dl; Potassium 4.3 mmol/L (3.3-5.1); Sodium 140 mmol/L (135-145); TSH reflex Free T4 0.87 uIU/mL (0.32-4.0); Total Protein 6.5 g/dL (6.5-8.0); Triglycerides 127 mg/dL; Vitamin D 25-OH Total 17.3 ng/mL (>30)
[2022-08-24 23:28] LABS: Calcium (PTHI) 6.1 mg/dL (8.6-10.4); PTHI 59 pg/mL (16-77)
== END 2022-08-21 07:58 | disposition home or self-care (01) ==
LOC: HO.10HDL 07:57
PROVIDERS: Absent Provider Internal Medicine Endocrinology, Diabetes & Metabolism; Visit Provider Internal Medicine
DX: E55.9 Vitamin D deficiency, unspecified (principal); M79.7 Fibromyalgia; N25.81 Secondary hyperparathyroidism of renal origin; I10 Essential (primary) hypertension; E78.00 Pure hypercholesterolemia, unspecified
CPT/HCPCS: 36415; 80053; 80061; 81001; 82306; 83970; 84443; 85025; 85652; 86140; 87086

== ENCOUNTER → 2022-10-02 08:16 | Outpatient (BNVA) | payer OTHER, SELFPAY | PROVIDERS: PCP Internal Medicine; Visit Provider Internal Medicine Endocrinology, Diabetes & Metabolism | DX: N25.81 Secondary hyperparathyroidism of renal origin (principal) | CPT/HCPCS: 99212 ==

== ENCOUNTER 2022-10-02 08:58 | Outpatient (REF) | payer OTHER, SELFPAY ==
[2022-10-02 12:01] LABS: Albumin Level 3.8 g/dL (3.5-5.0)
[2022-10-02 12:17] LABS: Vitamin D 25-OH Total 16.1 ng/mL (>30)
[2022-10-05 13:23] LABS: Calcium (PTHI) 9.2 mg/dL (8.6-10.4); PTHI 64 pg/mL (16-77)
== END 2022-10-02 08:59 | disposition home or self-care (01) ==
LOC: HO.10HDL 08:58
PROVIDERS: Visit Provider Internal Medicine Endocrinology, Diabetes & Metabolism
DX: N25.81 Secondary hyperparathyroidism of renal origin (principal)
CPT/HCPCS: 36415; 82040; 82306; 83970

== ENCOUNTER → 2022-10-13 08:23 | Outpatient (REF) | payer OTHER, SELFPAY ==
--- NOTE | ~2022-10-13 | NM_ITS ---
EXAMINATION: RADIONUCLIDE SOLID FOOD GASTRIC EMPTYING 4-HOUR STUDY CLINICAL INFORMATION: Nausea with vomiting, unspecified. COMPARISON: No previous gastric emptying study is available for comparison. TECHNIQUE: A standard meal consisting of 4 oz of Egg Beaters brand tagged with 880 microcuries Tc-99m Sulfur Colloid, 8 oz water and 2 slices of toast with jelly was administered orally to the patient. Images were obtained using a dual head gamma camera in the anterior and posterior projections over of the stomach immediately post ingestion and at hourly intervals up to 3 hours post ingestion. Images were not obtained at 4 hours due to the minimal retention at 3 hours. The anterior and posterior counts at each time interval were averaged using the geometric mean and expressed as percentage of the immediate post ingestion counts. FINDINGS: There is good visualization of activity in the stomach immediately post ingestion. As the study progresses, there is good clearance of activity from the stomach and visualization of progressively increasing small bowel activity. By the end of the study, there is almost no retention noted in the stomach. Retention in the stomach at each time interval was: 1 hour 23% (normal 37%-90%) 2 hours 3% (normal 30%-60%) 3 hours 2% 4 hours (Not Obtained) (normal 0%-10%) NM/NM gastric emptying study IMPRESSION: No abnormal retention of solid food is noted. Gastric emptying is more rapid than normal, a finding of uncertain clinical significance.
== END ==
LOC: HO.NUCMED 08:23
PROVIDERS: PCP Internal Medicine; Visit Provider Nurse Practitioner
DX: R11.2 Nausea with vomiting, unspecified (principal)
CPT/HCPCS: 78264; A9541

== ENCOUNTER 2022-11-10 08:59 | Outpatient (REF) | payer OTHER, SELFPAY ==
--- NOTE | ~2022-11-10 | XR_ITS ---
EXAMINATION: XR HAND, LEFT CLINICAL INFORMATION: Pain. COMPARISON: Radiographs dated 04/28/2021. TECHNIQUE: PA, lateral, and oblique views of the left hand. FINDINGS: The bones and soft tissues are normal. No fracture. Alignment is anatomic. Joint spaces are maintained. No erosions or soft tissue calcifications. XR/XR hand LT min 3V IMPRESSION: Normal left hand.
== END 2022-11-10 09:00 | disposition home or self-care (01) ==
LOC: HO.HOSX 08:59
PROVIDERS: Visit Provider Physician Assistant
DX: G56.02 Carpal tunnel syndrome, left upper limb (principal)
CPT/HCPCS: 73130; 99212

== ENCOUNTER 2022-12-11 10:08 | Emergency (ER) | payer OTHER, SELFPAY ==
[2022-12-11 10:20] VITALS: BP 142/80; PULSE 79; RESP 16; TEMP 36.6; O2SAT 99; BMI 32.7
--- NOTE | 2022-12-11 11:08 | ED.GENADULT ---
HPI - General Adult General Chief complaint: General Medical Stated complaint: dehydration Time Seen by Provider: 12/11/22 10:39 Source: patient Mode of arrival: ambulatory Limitations: no limitations History of Present Illness HPI narrative: 52-year-old female with a PMHx of Jeannette's disease, carpal tunnel, and fibromyalgia presents to the ED c/o dehydration and worsening left wrist carpal tunnel pain x few days. Reports has been having increased thirst & decreased urination with concentrated urine. Also reports feeling fatigued. Admits has known carpal tunnel in left wrist, scheduled for outpatient stimulation testing. Reports has been helping with washing dishes at restaurant which exacerbated her left wrist pain. Denies urinary urgency, frequency, dysuria, hematuria, chest pain, SOB, fever, chills, change in bowel habits, nausea/vomiting/diarrhea. Denies known history of diabetes Onset (ago): day(s) Related Data Home Medications Medication Instructions Recorded Confirmed amitriptyline 75 mg tablet 75 mg PO BEDTIME 07/31/20 10/02/22 propylene glycol 1 %-glycerin 0.3 1 drp ophthalmic (eye) BID 02/05/22 08/14/22 % eye drops (Artificial Tears (glycerin-peg)) magnesium oxide 400 mg (241.3 mg 400 mg PO DAILY 06/03/22 10/02/22 magnesium) tablet venlafaxine 150 mg 150 mg PO QAM 07/10/22 10/02/22 capsule,extended release 24 hr lurasidone 20 mg tablet (Latuda) 20 mg PO DAILY PRN 07/21/22 10/02/22 Previous Rx's Medication Instructions Recorded calcium citrate 500 mg PO BID 30 days #120 tabs 01/19/22 meclizine 25 mg tablet 25 mg PO DAILY PRN motion sickness 07/06/22 30 days #30 tabs linaclotide 290 mcg capsule 290 mcg PO QAM #30 caps 07/22/22 (Linzess) celecoxib 100 mg capsule See Rx Instructions .Route 09/23/22 .COMPLEX #60 caps ergocalciferol (vitamin D2) 1,250 1,250 mcg PO QWEEK #4 caps 10/02/22 mcg (50,000 unit) capsule GRAB BAR for bathroom with suction #1 ea 10/05/22 cups tizanidine 2 mg tablet 2 mg PO Q8H PRN for muscle spasm 10/12/22 #270 tabs atenolol 50 mg tablet 50 mg PO DAILY #90 tabs 11/01/22 losartan 50 mg tablet 50 mg PO DAILY 90 days #90 tabs 11/01/22 pantoprazole 40 mg tablet,delayed 40 mg PO DAILY #90 tabs 11/04/22 release Allergies Allergy/AdvReac Type Severity Reaction Status Date / Time amoxicillin Allergy Severe severe Verified 11/10/22 09:31 hives-total body lamotrigine [From Lamictal] AdvReac Intermediate Itching Verified 11/10/22 09:31 Penicillins AdvReac Mild Abdominal Verified 11/10/22 09:31 Pain prednisone AdvReac Mild Itching Verified 11/10/22 09:31 Review of Systems Review of Systems: Constitutional: No Fever, No Chills ENT/Mouth: No Ear Pain, No Sinus Pain, No sore throat, No Rhinorrhea, No Swallowing Difficulty Cardiovascular: No Chest Pain, No SOB Respiratory: No Cough, No Sputum Gastrointestinal: No Nausea, No Vomiting, No Diarrhea, No Constipation, No Abdominal pain Genitourinary: No Dysuria, No Urinary Frequency, No Hematuria, No Urinary Incontinence/retention, No Flank Pain Musculoskeletal: + joint pain, No Myalgias, + Joint Swelling Skin: No Skin Lesions, No rash Neuro: No Weakness, No Numbness, + Paresthesias of left palm Yes all other systems are reviewed and are negative Constitutional: Constitutional: Reports as per [facility] Past Medical History Attestation statement: The following information was validated with the patient. Medical History Anxiety Autoimmune thyroiditis Depression Elevated C-reactive protein (CRP) Essential hypertension Fibroids Frequent headaches GERD (gastroesophageal reflux disease) H. 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 Hypokalemia Hypophosphatemia Left knee pain Leukocytosis Liver fibrosis Migraine Obesity (BMI 30-39.9) MITZY (obstructive sleep apnea) Polyarthralgia Positive ALLISON (antinuclear antibody) Sciatica Secondary hyperparathyroidism Spinal cord stimulator status Spinal stenosis Vitamin B1 deficiency Vitamin B12 deficiency Vitamin D deficiency Surgical History Cholelithiasis H/O arthroscopy of knee H/O gastric sleeve H/O laparoscopy History of carpal tunnel release History of cholecystectomy Hx of mammogram S/P endometrial ablation Tubal ligation status Family History Family History Mother Hypertension Osteoporosis Father Epilepsia Atrophic emphysema Son Asthma Daughter Asthma Daughter Panic attacks Anxiety Thyroid adenoma Maternal Aunt History of breast cancer Family/Other Colon cancer Paternal Aunt Uterine cancer Social History Social History Household Members: Family Housing: Apartment Are you a primary housekeeper caregiver to a significant other at home: No Do you presently have visiting nurse or other home services: No Alcohol intake: never Patient Tobacco Use Status: Never used Tobacco e-Cigarette/Vaping Use: Never Used Second Hand Smoke Exposure: No Advance Directives: No Advance Directives Information Provided: Yes service: No 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al status: disabled 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 Physical Exam ED Vital Signs: Vital Signs - 24 hr 12/11/22 10:20 Temperature 97.9 F Pulse Rate 79 Respiratory Rate 16 Blood Pressure 142/80 H Pulse Oximetry 99 Oxygen Delivery Method Room Air BMI result Body Mass Index 32.7 Const General: cooperative, healthy appearing and no acute distress Orientation/consciousness: patient oriented x3 Limitations: no limitations HENMT Head: Yes normal to inspection and Yes atraumatic Ears: hearing grossly normal bilaterally General nose exam: Normal external nose present Face and sinus: Yes normal facial exam Eyes General: appearance normal, both eyes and all related structures EOM: EOMs intact bilaterally Neck Neck: Yes normal visual inspection and Yes no meningeal signs Resp Effort & Inspection: normal respiratory effort and no respiratory distress Auscultation: clear to auscultation bilaterally Cardio Rate: regular rate Heart sounds: S1 normal heart sound present and S2 normal heart sound present Peripheral pulses: radial pulses present GI Inspection: Yes normal to inspection Palpation (GI): Soft to palpation, nontender, no guarding and not rigid Skin Rashes: no rashes Wounds: no wounds Neuro General: patient oriented x3, tone normal, moves all extremities, no meningeal signs, no focal motor deficits and CN's II-XI intact bilaterally Cranial nerves: Yes CN's II-XII intact bilaterally Gait exam (Neuro): Normal gait present Extrem Other: left wrist without noted deformity. No erythema/warmth. Mildly tender to palpation. ROM intact. Strength intact. Neurovascular intact General: Yes normal to inspection Course Course Course Narrative: -[id number]--no leukocytosis. H&H stable. Labs otherwise reassuring. Hemoglobin A1c 5.6 -UA not infected Results discussed with patient including worrisome signs and symptoms and strict return precautions, and when to return to the emergency department. They verbalized understanding and feel safe for discharge at this time. Medications Administered Discontinued Medications Generic Name Dose Route Start Last Admin Trade Name Freq PRN Reason Stop Dose Admin Sodium Chloride 1,000 mls @ 999 mls/hr 12/11/22 11:30 12/11/22 13:10 Ns IV 12/11/22 12:30 Infused .Q1H1M JONN Infusion Ketorolac Tromethamine 15 mg 12/11/22 11:17 12/11/22 11:51 Ketorolac Tromethamine 15 Mg/Ml Vial IVPUSH 12/11/22 11:18 15 mg ONCE ONE Administration Medical Decision Making Medical Decision Making [place] Narrative: 52-year-old female with a PMHx of Jeannette's disease, carpal tunnel, and fibromyalgia presents to the ED c/o dehydration with increased thirst and decreased urination and worsening left wrist pain x few days. On exam vital signs stable, NAD, nontoxic appearing the physical exams above. Concern for dehydration vs viral syndrome vs ? Diabetes. Concern for carpal tunnel flare. Low suspicion for septic joint/arthritis or fracture Plan: Labs, UA, IVF, Toradol, re-evaluate Please refer to course for remaining clinical decision making, interpretation of labs/imaging results, and discussions with consultants and/or family members. Differential Diagnosis Differential Diagnoses: The differential diagnosis associated with the presentation includes As above Admission/Observation Consideration of admission/observation: Escalation of care including admission/observation considered Lab Data [place] Lab Attestation statement: I reviewed the patient's lab results. 12/11/22 11:52 12/11/22 11:52 Labs: Lab Results 12/11/22 12/11/22 12/11/22 Range/Units 11:52 11:52 11:52 WBC 9.1 (4.8-10.8) X10*3/uL RBC 3.70 L (4.20-5.50) X10*6/uL Hgb 11.3 L (12.0-16.0) g/dl Hct 35.1 L (37.0-47.0) % MCV 94.9 (80.0-98.0) fL MCH 30.5 (27.0-33.0) pg MCHC 32.2 (31.0-35.0) g/dl RDW 13.2 (11.0-16.0) % Plt Count 345 (160-400) X10*3/uL MPV 10.0 (9.4-12.3) fL Immature Gran % (Auto) 0.2 (0.0-0.4) % Neut % (Auto) 48.3 (45-73) % Lymph % (Auto) 39.7 (20-40) % [place] % (Auto) 7.9 (2-11) % Eos % (Auto) 3.1 (0-4) % Baso % (Auto) 0.8 (0-2) % Lymph # (Auto) 3.6 (1.2-4.9) X10*3/uL [place] # (Auto) 0.7 (0.1-1.2) X10*3/uL Eos # (Auto) 0.3 (0.0-0.4) X10*3/uL Baso # (Auto) 0.1 (0.0-0.2) X10*3/uL Abs Immat Gran (auto) 0.02 (0.00-0.03) X10*3/uL Absolute Neuts (auto) 4.4 (2.0-8.3) x10*3/uL Absolute Nucleated RBC 0.000 (0.0-0.012) X10*3/uL Nucleated RBC % (auto) 0.0 (0.0-0.2) /100WBC Sodium 140 (135-145) mmol/L Potassium 4.7 (3.3-5.1) mmol/L Chloride 108 (96-108) mmol/L Carbon Dioxide 25 (22-29) mmol/L Anion Gap 12 (12-20) BUN 8 L (9-16) mg/dL Creatinine 0.65 (0.5-1.4) mg/dL Estim Creat Clear Calc 99.9 Estimated GFR > 60 Random Glucose 95 (60-115) mg/dL Estimat Average Glucose 114 mg/dL Hemoglobin A1c % 5.6 % Calcium 8.7 (8.4-10.2) mg/dL Magnesium 2.2 (1.6-2.6) mg/dL Total Bilirubin 0.5 (0.0-1.0) mg/dL Direct Bilirubin < 0.2 (0.0-0.5) mg/dL AST 22 (5-31) U/L ALT 14 (0-31) U/L Alkaline Phosphatase 113 (39-117) U/L Total Protein 6.5 (6.5-8.0) g/dL Albumin 3.6 (3.5-5.0) g/dL Urine Color Urine Appearance Urine pH (5.0-9.0) Ur Specific [place] (1.005-1.025) Urine Protein (Neg-Trace) mg/dL Urine Glucose (UA) (Negative) mg/dL Urine Ketones (Negative) mg/dL Urine Blood (Negative) Urine Nitrite (Negative) Ur Leukocyte Esterase (Negative) Urine RBC (0-2) /HPF Urine WBC (0-5) /HPF Ur Squamous Epith Cells (0-2) /HPF Urine Bacteria (None Seen) Hyaline Casts (0-2) /LPF 12/11/22 Range/Units 11:52 WBC (4.8-10.8) X10*3/uL RBC (4.20-5.50) X10*6/uL Hgb (12.0-16.0) g/dl Hct (37.0-47.0) % MCV (80.0-98.0) fL MCH (27.0-33.0) pg MCHC (31.0-35.0) g/dl RDW (11.0-16.0) % Plt Count (160-400) X10*3/uL MPV (9.4-12.3) fL Immature Gran % (Auto) (0.0-0.4) % Neut % (Auto) (45-73) % Lymph % (Auto) (20-40) % [place] % (Auto) (2-11) % Eos % (Auto) (0-4) % Baso % (Auto) (0-2) % Lymph # (Auto) (1.2-4.9) X10*3/uL [place] # (Auto) (0.1-1.2) X10*3/uL Eos # (Auto) (0.0-0.4) X10*3/uL Baso # (Auto) (0.0-0.2) X10*3/uL Abs Immat Gran (auto) (0.00-0.03) X10*3/uL Absolute Neuts (auto) (2.0-8.3) x10*3/uL Absolute Nucleated RBC (0.0-0.012) X10*3/uL Nucleated RBC % (auto) (0.0-0.2) /100WBC Sodium (135-145) mmol/L Potassium (3.3-5.1) mmol/L Chloride (96-108) mmol/L Carbon Dioxide (22-29) mmol/L Anion Gap (12-20) BUN (9-16) mg/dL Creatinine (0.5-1.4) mg/dL Estim Creat Clear Calc Estimated GFR Random Glucose (60-115) mg/dL Estimat Average Glucose mg/dL Hemoglobin A1c % % Calcium (8.4-10.2) mg/dL Magnesium (1.6-2.6) mg/dL Total Bilirubin (0.0-1.0) mg/dL Direct Bilirubin (0.0-0.5) mg/dL AST (5-31) U/L ALT (0-31) U/L Alkaline Phosphatase (39-117) U/L Total Protein (6.5-8.0) g/dL Albumin (3.5-5.0) g/dL Urine Color Yellow Urine Appearance Clear Urine pH 6.5 (5.0-9.0) Ur Specific [place] 1.015 (1.005-1.025) Urine Protein Negative (Neg-Trace) mg/dL Urine Glucose (UA) Negative (Negative) mg/dL Urine Ketones Negative (Negative) mg/dL Urine Blood Negative (Negative) Urine Nitrite Negative (Negative) Ur Leukocyte Esterase Small (1+) H (Negative) Urine RBC 0-2 (0-2) /HPF Urine WBC 0-5 (0-5) /HPF Ur Squamous Epith Cells 3-5 (0-2) /HPF Urine Bacteria None Seen (None Seen) Hyaline Casts 0-2 (0-2) /LPF Radiology Impression Discussion of test interpretation with radiology: I have reviewed the radiologist's reading. External Record Review External record reviewed: Inpatient record, Office record, Outpatient record, Prior outpatient labs, Prior outpatient radiology, Primary care record and Outside ED record Discharge Plan Discharge Clinical Impression: Carpal tunnel syndrome, Fatigue Patient Disposition: Home, Self-Care Instructions: Fatigue (ED), Carpal Tunnel Surgery (DC) Additional Instructions: Your blood work and urine are reassuring. Place of close follow-up with her doctor Increase fluid intake. Drink water, Gatorade, Pedialyte Continue to wear your wrist brace at home, follow up with her doctor If symptoms persist or worsen return to the ED Prescriptions: No Action calcium citrate 250 mg calcium tablet 500 mg PO BID 30 Days Qty: 120 5RF meclizine 25 mg tablet 25 mg PO DAILY PRN (Reason: motion sickness) 30 Days Qty: 30 1RF Linzess 290 mcg capsule 290 mcg PO QAM Qty: 30 6RF celecoxib 100 mg capsule See Rx Instructions .ROUTE .COMPLEX Qty: 60 8RF Dose Instruction: TAKE 1 CAPSULE BY MOUTH TWICE A DAY Rx Instructions: TAKE 1 CAPSULE BY MOUTH TWICE A DAY (DME) GRAB BAR for bathroom with suction cups See Rx Instructions .Route .MEDSUPPLY Qty: 1 0RF Rx Instructions: As directed tizanidine 2 mg tablet 2 mg PO Q8H PRN (Reason: for muscle spasm) Qty: 270 0RF losartan 50 mg tablet 50 mg PO DAILY 90 Days Qty: 90 1RF atenolol 50 mg tablet 50 mg PO DAILY Qty: 90 0RF pantoprazole 40 mg tablet,delayed release (DR/EC) 40 mg PO DAILY Qty: 90 2RF amitriptyline 75 mg tablet 75 mg PO BEDTIME magnesium oxide 400 mg (241.3 mg magnesium) tablet 400 mg PO DAILY Artificial Tears(glycerin-peg) 1-0.3 % drops 1 drp ophthalmic (eye) BID ergocalciferol (vitamin D2) 1,250 mcg (50,000 unit) capsule 1,250 mcg PO QWEEK Qty: 4 11RF Latuda 20 mg tablet 20 mg PO DAILY PRN venlafaxine 150 mg capsule,extended release 24hr 150 mg PO QAM Referrals: Nas Suh MD [Primary Care Provider] - 5 days Interventions: ED Discharge Assessment Last Done: 12/11/22 13:44 Discharge Date/Time: 12/11/22 13:45
[2022-12-11] MEDS: Ketorolac Tromethamine 15 MG/ML VIAL IVPUSH (11:51)
[2022-12-11] MEDS: 0.9 % Sodium Chloride 1,000 ML 999 ML IV (11:51)
[2022-12-11 11:58] LABS: MANUAL DIFF FLAG NO
[2022-12-11 12:01] LABS: Basophils Absolute Auto 0.1 X10*3/uL (0.0-0.2); Basophils Percent Auto 0.8 % (0-2); Eosinophils Absolute Auto 0.3 X10*3/uL (0.0-0.4); Eosinophils Percent Auto 3.1 % (0-4); Hematocrit 35.1 % (37.0-47.0); Hemoglobin 11.3 g/dl (12.0-16.0); Imm Gran Abs Auto 0.02 X10*3/uL (0.00-0.03); Imm Gran Pct Auto 0.2 % (0.0-0.4); Lymphocytes Absolute Auto 3.6 X10*3/uL (1.2-4.9); Lymphocytes Percent Auto 39.7 % (20-40); Mean Corpuscular HGB Conc 32.2 g/dl (31.0-35.0); Mean Corpuscular Hemoglobin 30.5 pg (27.0-33.0); Mean Corpuscular Volume 94.9 fL (80.0-98.0); Monocytes Absolute Auto 0.7 X10*3/uL (0.1-1.2); Monocytes Percent Auto 7.9 % (2-11); Neutrophils Absolute Auto 4.4 x10*3/uL (2.0-8.3); Neutrophils Percent Auto 48.3 % (45-73); Platelet Count 345 X10*3/uL (160-400); Red Cell Distribution Width 13.2 % (11.0-16.0); White Blood Count 9.1 X10*3/uL (4.8-10.8)
[2022-12-11 12:03] LABS: Appearance Urine Clear; Color Urine Yellow; Glucose Urine UA Negative (Negative); Leukocyte Esterase Urine Small (1+) (Negative); Nitrite Urine Negative (Negative); PH 6.5 (5.0-9.0); Specific Gravity - Urine 1.015 (1.005-1.025); UMIC TRIGGER UACC YES; Urine Blood Negative (Negative); Urine Ketones Negative (Negative); Urine Protein Negative (Neg-Trace)
[2022-12-11 12:10] LABS: Estimated Average Glucose 114 mg/dL; Hemoglobin A1c % 5.6 %
[2022-12-11 12:14] LABS: Bacteria Urine None Seen (None Seen); Hyaline Casts Urine 0-2 /LPF (0-2); RBC Urine 0-2 /HPF (0-2); UACC Culture Trigger YES; WBC Urine 0-5 /HPF (0-5)
[2022-12-11 12:21] LABS: Alanine Aminotransferase 14 U/L (0-31); Albumin Level 3.6 g/dL (3.5-5.0); Alkaline Phosphatase 113 U/L (39-117); Anion Gap 12 (12-20); Aspartate Amino Transferase 22 U/L (5-31); Bilirubin Direct < 0.2 mg/dL (0.0-0.5); Bilirubin Total 0.5 mg/dL (0.0-1.0); Blood Urea Nitrogen 8 mg/dL (9-16); Calcium 8.7 mg/dL (8.4-10.2); Carbon Dioxide 25 mmol/L (22-29); Chloride 108 mmol/L (96-108); Creatinine Clr Calc Pharmacy 99.9; Estimated Glomerular Filt Rate > 60; Glucose Random 95 mg/dL (60-115); Magnesium 2.2 mg/dL (1.6-2.6); Potassium 4.7 mmol/L (3.3-5.1); Sodium 140 mmol/L (135-145); Total Protein 6.5 g/dL (6.5-8.0)
== END 2022-12-11 13:45 | disposition home or self-care (01) ==
PROVIDERS: Physician Assistant; Emergency Provider Emergency Medicine; PCP Internal Medicine
DX: G56.02 Carpal tunnel syndrome, left upper limb (principal); E86.0 Dehydration; M25.532 Pain in left wrist; R35.0 Frequency of micturition; Z79.899 Other long term (current) drug therapy
CPT/HCPCS: 36415; 80048; 80076; 81001; 81003; 83036; 83735; 85025; 87086; 96361; 96374; 99283; 99284; J1885

== ENCOUNTER 2023-01-07 12:01 | Outpatient (REF) | payer OTHER, SELFPAY ==
--- NOTE | 2023-01-07 08:15 | EMG_ITS ---
Left median and ulnar motor and sensory studies were performed. Left radial sensory studies were performed and paraspinal muscles were tested with a needle. IMPRESSION: Mild to moderate left median neuropathy across carpal tunnel. MD JENNIFER Irizarry/ARDEN / [phone]
== END 2023-01-07 12:02 | disposition home or self-care (01) ==
LOC: HO.NEURO 12:01
PROVIDERS: PCP Internal Medicine; Visit Provider Physician Assistant
DX: R20.0 Anesthesia of skin (principal); R20.2 Paresthesia of skin
CPT/HCPCS: 95886; 95909

== ENCOUNTER → 2023-01-25 14:03 | Outpatient (BNVA) | payer OTHER, SELFPAY | PROVIDERS: PCP Internal Medicine; Visit Provider Physician Assistant Surgical | DX: E66.9 Obesity, unspecified (principal); Z68.31 Body mass index [BMI] 31.0-31.9, adult; K21.9 Gastro-esophageal reflux disease without esophagitis; Z98.84 Bariatric surgery status | CPT/HCPCS: 99212 ==

== ENCOUNTER 2023-01-28 08:06 | Outpatient (REF) | payer OTHER, SELFPAY ==
[2023-01-28 10:43] LABS: MANUAL DIFF FLAG NO
[2023-01-28 10:45] LABS: Basophils Absolute Auto 0.1 X10*3/uL (0.0-0.2); Basophils Percent Auto 0.7 % (0-2); Eosinophils Absolute Auto 0.2 X10*3/uL (0.0-0.4); Eosinophils Percent Auto 2.6 % (0-4); Hematocrit 37.5 % (37.0-47.0); Imm Gran Abs Auto 0.02 X10*3/uL (0.00-0.03); Imm Gran Pct Auto 0.2 % (0.0-0.4); Lymphocytes Absolute Auto 2.9 X10*3/uL (1.2-4.9); Lymphocytes Percent Auto 36.2 % (20-40); Mean Corpuscular Hemoglobin 29.9 pg (27.0-33.0); Mean Corpuscular Volume 93.5 fL (80.0-98.0); Mean Platelet Volume 10.5 fL (9.4-12.3); Monocytes Absolute Auto 0.6 X10*3/uL (0.1-1.2); Monocytes Percent Auto 6.9 % (2-11); Neutrophils Absolute Auto 4.3 x10*3/uL (2.0-8.3); Neutrophils Percent Auto 53.4 % (45-73); Platelet Count 381 X10*3/uL (160-400); Red Blood Count 4.01 X10*6/uL (4.20-5.50); White Blood Count 8.1 X10*3/uL (4.8-10.8)
[2023-01-28 11:29] LABS: Alanine Aminotransferase 17 U/L (0-31); Albumin Level 3.9 g/dL (3.5-5.0); Alkaline Phosphatase 126 U/L (39-117); Anion Gap 11 (12-20); Aspartate Amino Transferase 17 U/L (5-31); Bilirubin Total 0.4 mg/dL (0.0-1.0); Blood Urea Nitrogen 11 mg/dL (9-16); Carbon Dioxide 28 mmol/L (22-29); Chloride 106 mmol/L (96-108); Cholesterol 204 mg/dL; Estimated Glomerular Filt Rate > 60; Glucose Fasting 95 mg/dL (60-99); HDL Cholesterol 62 mg/dL; LDL Cholesterol Calculated 124 mg/dl; Potassium 4.4 mmol/L (3.3-5.1); Sodium 141 mmol/L (135-145); Total Protein 7.2 g/dL (6.5-8.0); Triglycerides 94 mg/dL
[2023-01-28 11:31] LABS: Vitamin D 25-OH Total 30.2 ng/mL (>30)
[2023-01-28 11:33] LABS: TSH reflex Free T4 0.45 uIU/mL (0.32-4.0)
[2023-01-28 11:48] LABS: Folate 6.5 ng/mL (> or = 4.0); Insulin 6 uU/mL (2-29); Vitamin B12 296 pg/mL (200-900)
[2023-02-02 22:57] LABS: PTHI 135 pg/mL (16-77)
== END 2023-01-28 08:07 | disposition home or self-care (01) ==
LOC: HO.10HDL 08:06
PROVIDERS: Internal Medicine Endocrinology, Diabetes & Metabolism; Physician Assistant Surgical; Visit Provider Internal Medicine
DX: N25.81 Secondary hyperparathyroidism of renal origin (principal); E78.00 Pure hypercholesterolemia, unspecified; I10 Essential (primary) hypertension; E55.9 Vitamin D deficiency, unspecified; Z98.84 Bariatric surgery status
CPT/HCPCS: 36415; 80053; 80061; 82306; 82607; 82746; 83525; 83970; 84443; 85025

== ENCOUNTER → 2023-02-03 14:35 | Outpatient (BNVA) | payer OTHER, SELFPAY | PROVIDERS: PCP Internal Medicine; Referring Provider Internal Medicine; Visit Provider Nurse Practitioner | DX: K59.04 Chronic idiopathic constipation (principal); K21.9 Gastro-esophageal reflux disease without esophagitis; R11.2 Nausea with vomiting, unspecified; Z79.899 Other long term (current) drug therapy | CPT/HCPCS: 99212 ==

== ENCOUNTER → 2023-02-10 10:16 | Outpatient (BNVA) | payer OTHER, SELFPAY | PROVIDERS: PCP Internal Medicine; Visit Provider Orthopaedic Surgery | DX: G56.03 Carpal tunnel syndrome, bilateral upper limbs (principal) | CPT/HCPCS: 99212 ==

== ENCOUNTER 2023-03-01 09:46 | Day surgery (SDC) | payer OTHER, SELFPAY ==
[2023-03-01 10:05] VITALS: BP 154/78; PULSE 72; RESP 20; TEMP 36.6; O2SAT 98; BMI 32.6
--- NOTE | 2023-03-01 11:52 | MHC.SHP ---
Pre-Procedural Eval Section A Date of Service: 03/01/23 The patient is an INPATIENT: No Changes since office visit: No Cold of Flu in the past 2 weeks, No New Medical Problems, No Changes in Medication and No Patient answered all questions The History & Physical has been completed within 30 days and I have reviewed it.: Yes Section B Chief Complaint: Carpal tunnel syndrome, left upper limb Allergies: Allergies Allergy/AdvReac Type Severity Reaction Status Date / Time amoxicillin Allergy Severe severe Verified 02/10/23 10:35 hives-total body lamotrigine [From Lamictal] AdvReac Intermediate Itching Verified 02/10/23 10:35 Penicillins AdvReac Mild Abdominal Verified 02/10/23 10:35 Pain prednisone AdvReac Mild Itching Verified 02/10/23 10:35 Plan I have reviewed the history and physical and performed a pertinent physical examination on my patient. No changes have occurred unless specified. Time Spent With Patient Time: Total time managing care of this patient today ____ minutes.
--- NOTE | 2023-03-01 11:52 | W.PM.OPN ---
Operative Note Operative Note Date of Service: 03/01/23 Narrative: Preop diagnosis: 1. left Carpal tunnel syndrome Postop diagnosis: same Procedure: 1. left Carpal tunnel release Surgeon: Roxanne De León MD Anesthesia: local block using 1% lidocaine with epinephrine Findings: Thickened transverse carpal ligament. EBL: Less than 5 mL Specimens: None Complications: None Disposition: Brought to recovery room in stable condition Plan: Follow-up for 10-14 days for wound check and suture removal Indications: The patient is 52 years old, with left carpal tunnel syndrome that has been unresponsive to nonoperative management. The risks and benefits of operative treatment including but not limited to risk of damage to blood vessels, nerves, tendons, infection, persistent pain, persistent symptoms, or possible need for additional surgery were discussed with the patient and the patient wishes to proceed with surgery. Procedure: Once consent was obtained a local block was performed using a combination of 1% lidocaine with epinephrine. The patient was then brought back to the operating suite and placed on the operative table in supine position. The left upper extremity was prepped and draped in a standard surgical fashion. Once assured that we had a good block, a 2.0 cm longitudinal incision was made centered over the carpal tunnel. The incision was made through the skin to the subcutaneous tissues using a #15 blade. Dissection was made down to the level of the transverse carpal ligament with care being taken to protect the palmar cutaneous nerve. Once the transverse carpal ligament was clearly visualized, a longitudinal incision was made in the transverse carpal ligament 1st using a #15 blade, then using tenotomy scissors under direct visualization. Care was taken to look for and protect the motor branch of the median nerve when seen in this area. Once satisfied with our carpal tunnel release the wound was copiously irrigated with normal saline and hemostasis was obtained with a brief period of local pressure. The skin edges were reapproximated with some 5.0 nylon suture material and a sterile dressing was applied. The patient appears to have tolerated the procedure well and with no complications. All digits were well vascularized at the conclusion of the case.
[2023-03-01 13:03] VITALS: BP 161/81; PULSE 115; RESP 16; O2SAT 99
== END 2023-03-01 13:11 | disposition home or self-care (01) ==
PROVIDERS: PCP Internal Medicine; Visit Provider Orthopaedic Surgery
PROC: (CPT 64721; principal; 2023-03-01 11:30)
DX: G56.02 Carpal tunnel syndrome, left upper limb (principal); R20.0 Anesthesia of skin; I10 Essential (primary) hypertension; E06.3 Autoimmune thyroiditis; G47.33 Obstructive sleep apnea (adult) (pediatric); E66.9 Obesity, unspecified; Z68.32 Body mass index [BMI] 32.0-32.9, adult; Z98.84 Bariatric surgery status; Z90.49 Acquired absence of other specified parts of digestive tract; Z98.51 Tubal ligation status; Z88.1 Allergy status to other antibiotic agents
CPT/HCPCS: 64721; J0171

== ENCOUNTER → 2023-03-04 09:46 | Outpatient (BNVA) | payer OTHER, SELFPAY | PROVIDERS: PCP Internal Medicine; Visit Provider Physician Assistant | DX: M46.1 Sacroiliitis, not elsewhere classified (principal) | CPT/HCPCS: 99202 ==

== ENCOUNTER → 2023-03-10 09:55 | Outpatient (BNVA) | payer OTHER, SELFPAY | PROVIDERS: PCP Internal Medicine; Visit Provider Internal Medicine Endocrinology, Diabetes & Metabolism | DX: N25.81 Secondary hyperparathyroidism of renal origin (principal) | CPT/HCPCS: 99212 ==

== ENCOUNTER 2023-03-16 10:01 | Outpatient (AMB) | payer OTHER, SELFPAY ==
[2023-03-16 10:08] VITALS: BMI 32.6
--- NOTE | 2023-03-16 10:08 | MHC.OFFVIS ---
Intake Vital Signs 03/16/23 10:08 Height 5 ft 2 in Weight 178 lb BMI 32.6 Intake Visit Reasons: PO L CTR 03/01/23 AR Intake Note: Jacqueline 52 yr old female presents today for her P/O visit of her left hand CTR from 03/01/[address] De León. States she n longer has numbness or tingling. Patient is concern because she has a little redness by incision but no drainage. Sutures removed in office and steri strips placed. Allergies amoxicillin Allergy (Severe, Verified 03/16/23 10:10) severe hives-total body lamotrigine [From Lamictal] Adverse Reaction (Intermediate, Verified 03/16/23 10:10) Itching Penicillins Adverse Reaction (Mild, Verified 03/16/23 10:10) Abdominal Pain prednisone Adverse Reaction (Mild, Verified 03/16/23 10:10) Itching HPI PO L CTR 03/01/23 [place] HPI Details Jacqueline is a 52 year old right hand dominant woman who presents S/P left carpal tunnel release, DOS: 03/01/23. She says she is doing well and her sensation has improved, along with good resolution of her nighttime symptoms. She has some mild discomfort with ROM but this is tolerable. She has some redness along her incision, but denies any drainage or other evidence of infection. She has Fibromyalgia, and she is allergic to penicillin PFSH Medical History Anxiety Autoimmune thyroiditis Depression Elevated C-reactive protein (CRP) Essential hypertension Fibroids Frequent headaches GERD (gastroesophageal reflux disease) H. 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 Hypokalemia Hypophosphatemia Left knee pain Leukocytosis Liver fibrosis Migraine Obesity (BMI 30-39.9) MITZY (obstructive sleep apnea) Polyarthralgia Positive ALLISON (antinuclear antibody) Sciatica Secondary hyperparathyroidism Spinal cord stimulator status Spinal stenosis Vitamin B1 deficiency Vitamin B12 deficiency Vitamin D deficiency Surgical History Cholelithiasis H/O arthroscopy of knee H/O gastric sleeve H/O laparoscopy History of carpal tunnel release History of cholecystectomy Hx of mammogram S/P endometrial ablation Tubal ligation status Family History Mother Hypertension Osteoporosis Father Epilepsia Atrophic emphysema Son Asthma Daughter Asthma Daughter Panic attacks Anxiety Thyroid adenoma Maternal Aunt History of breast cancer Family/Other Colon cancer Paternal Aunt Uterine cancer Social History Household Members: Family Housing: Apartment Are you a primary healthcare network pricing consultant to a significant other at home: No Do you presently have visiting nurse or other home services: No Alcohol intake: never 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 There is some mild erythema just at the incision site, but this could be routine healing. Sutures removed and Steri-Strips applied Mild tenderness about the incision site She can make a fist and extend all her digits Sensation is intact to all fingers of her left hand. Good APB muscle belly firing Cap refill is brisk Assessment & Plan Assessment & Plan (1) Carpal tunnel syndrome of right wrist: Code(s): G56.01 - Carpal tunnel syndrome, right upper limb (2) Carpal tunnel syndrome of left wrist: Code(s): G56.02 - Carpal tunnel syndrome, left upper limb Plan Assessment and plan: 1. Left carpal tunnel syndrome, S/P release DOS: 03/01/23 Pre-operative symptoms intermittent, but daily, worse at night Now with normal sensation and good resolution of her nighttime symptoms The patient appears to be doing well post-operatively I educated her about the post-operative course She has some mild erythema and tenderness about the incision. There is no drainage. She has Fibromyalgia so it is unclear if this is related somehow Out of an abundance of caution I prescribed a 5-day course of PO Keflex, as she is allergic to Penicillin I educated her on the symptoms of infection, if she develops increases erythema, pain, warmth, or drainage she should contact the clinic or attend the ED I discussed activity modifications, she is to lift nothing heavier than a cellphone for the next two weeks She will perform gentle ROM exercises at home She should avoid any underwater activities for the next 5 days She should gently massage about the incision site to reduce the risk of hypersensitivity She can follow up prn 2. Right carpal tunnel syndrome, S/P release DOS: 12/29/21 Pre-operatively with dense numbness With good resolution of his symptoms Scribed for Roxanne De León MD by Harley Mak, director medical science, on 03/16/23 at 10:30 AM, EST. Medications: New cephalexin 500 mg PO Q8H 15 caps 0RF Coding Level of Care Code Global (30440) Diagnoses Carpal tunnel syndrome of right wrist G56.01 Carpal tunnel syndrome of left wrist G56.02
== END 2023-03-16 10:27 | disposition home or self-care (01) ==
PROVIDERS: PCP Internal Medicine; Visit Provider Orthopaedic Surgery
DX: G56.01 Carpal tunnel syndrome, right upper limb (principal); G56.02 Carpal tunnel syndrome, left upper limb
CPT/HCPCS: 99024

== ENCOUNTER → 2023-03-16 10:01 | Outpatient (BNVA) | payer OTHER, SELFPAY | PROVIDERS: PCP Internal Medicine; Visit Provider Orthopaedic Surgery ==

== ENCOUNTER 2023-05-05 08:58 | Outpatient (AMB) | payer OTHER, SELFPAY ==
--- NOTE | 2023-05-05 08:59 | MHC.OFFVIS ---
Intake Vital Signs 05/05/23 09:06 Height 5 ft 2 in Weight 12 lb BMI 2.2 BP 134/72 Blood Pressure Location Lt brachial Position Sitting Respiration 18 Pulse 76 Pulse Source Pulse Oximeter Pulse Oximetry (%) 96 Oxygen Delivery Method Room Air Intake Visit Reasons: Follow Up/Sacroiliitis, not elsewhere classified Intake Note: patient comes in for follow up. Allergies amoxicillin Allergy (Severe, Verified 05/05/23 09:06) severe hives-total body lamotrigine [From Lamictal] Adverse Reaction (Intermediate, Verified 05/05/23 09:06) Itching Penicillins Adverse Reaction (Mild, Verified 05/05/23 09:06) Abdominal Pain prednisone Adverse Reaction (Mild, Verified 05/05/23 09:06) Itching HPI HPI Comments History of Present Illness Details Jacqueline is in my office today with complains on pain in the left hip. She reports that lateral rotation of the hip exacerbates her pain. She reports that field producer try to perform trigger point injection in vicinity of the trochanteric bursa 3 months ago but this did not improve her pain. After evaluation of hip x-ray which was done in 2021 I offered her intra-articular left hip injection she has spinal cord stimulation in the left buttock implanted. That could be on my way to perform injection properly. I informed the patient about this situation and she agreed to try. Previously she received caudal ROJAS with catheter and ganglion impar injection which was performed for her 1 week ago in May of 2022.? This is yet another injection she received in the past procedures like this with good results.? She was tested in the past for the presence of sacroiliac joint pathology-Jakub test and pelvic compression tests were negative for pain increase in the axial lower lumbar versus sacral spine.? I will schedule her for the above described injection as soon as possible without sedation. She reports that spinal cord stimulator continues to work a and she has actually very good results of the [employer] spinal cord stimulation, she reports that spinal cord stimulator helps pain which radiating into the left lower extremity.? She continues to charge her battery she requests me to perform the injection which was done to her during the procedure spinal cord stimulator. ? History of multiple attempts of treating this patient with multiple injections with [email or web address], history of treating her procedures with multiple sessions of physical therapy, history of multiple medications including antidepressants, muscle relaxants and NSAIDs to treat her condition. Last injection which was done for her in this office was medial branch blocks which was not at all successful for relieve of her condition , in the past she had transforaminal and interlaminar epidural steroid injections as well as sacroiliac joint injections. Those were not helping. Her pain started 10 years ago it is a chronic pain.? She was in the past examined by a neurosurgeon and no surgery was recommended for her. She tried several opioid medications including Vicodin, [place], Percocet and tramadol. She reports that all of these medications make her feel foggy and mentally cloudy. They also exacerbate her depression. ? THE MIDLINE ANATOMICAL POSITION OF THE LEADS DID NOT CORRESPOND TO PHYSIOLOGICAL FUNCTION OF THE LEADS AND THE POSITION OF THE LEADS IN THE ON CENTRALLY AND POSTERIORLY POSITION IN MIDLINE RESULTED IN THE RIGHT-SIDED STIMULATION. MOST OF THE PAIN OF THE PATIENT IS ON THE LEFT SIDE. WE WERE TAKING LEAD SEQUENTIALLY TO THE LEFT TO ACHIEVE ABOVE LIST [facility] Medical History Anxiety Autoimmune thyroiditis Depression Elevated C-reactive protein (CRP) Essential hypertension Fibroids Frequent headaches GERD (gastroesophageal reflux disease) H. 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 Hypokalemia Hypophosphatemia Left knee pain Leukocytosis Liver fibrosis Migraine Obesity (BMI 30-39.9) MITZY (obstructive sleep apnea) Polyarthralgia Positive ALLISON (antinuclear antibody) Sciatica Secondary hyperparathyroidism Spinal cord stimulator status Spinal stenosis Vitamin B1 deficiency Vitamin B12 deficiency Vitamin D deficiency Surgical History Cholelithiasis H/O arthroscopy of knee H/O gastric sleeve H/O laparoscopy History of carpal tunnel release History of cholecystectomy Hx of mammogram S/P endometrial ablation Tubal ligation status Family History Mother Hypertension Osteoporosis Father Epilepsia Atrophic emphysema Son Asthma Daughter Asthma Daughter Panic attacks Anxiety Thyroid adenoma Maternal Aunt History of breast cancer Family/Other Colon cancer Paternal Aunt Uterine cancer Social History Household Members: Family Housing: Apartment Are you a primary rn wound care to a significant other at home: No Do you presently have visiting nurse or other home services: No Alcohol intake: never 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 Cognitive needs: No Hearing needs: No Vision needs: No Review of Systems Const All systems reviewed & are unremarkable except as noted in HPI and below ENT Reports Normal hearing present Neuro Reports Normal hearing present and Denies Sensory deficit (Neuro) Physical Exam Const General: cooperative, healthy appearing, comfortable and no acute distress Nutritional Appearance: well nourished and obese Orientation/consciousness: patient oriented x3 Limitations: no limitations HEENT Head: Yes normal to inspection, Yes normocephalic and Yes atraumatic Ears: hearing grossly normal bilaterally General nose exam: Normal external nose present Face and sinus: Yes normal facial exam Eyes General: appearance normal, both eyes and all related structures Pupils: Equal, round and reactive pupils present EOM: EOMs intact bilaterally Neck Other: Patient has many verrucous lesions in the neck. Neck: Yes normal visual inspection, Yes full ROM, Yes no lymphadenopathy and Yes no JVD Resp Effort & Inspection: normal respiratory effort, able to speak in complete sentences, no cough and symmetric chest movement Cardio Jugular venous distension: no JVD Rate: regular rate Rhythm: regular rhythm Heart sounds: S1 normal heart sound present, S2 normal heart sound present, no gallops and no murmurs Peripheral pulses: Peripheral pulses 2+ throughout GI Inspection: Yes normal to inspection and No distended Palpation (GI): Soft to palpation and No hepatosplenomegaly present General: Yes no CVA tenderness Back/Spine/Pelvis Other: Able to transition from sit to stand unassisted. Ambulates with bilaterally normal heel strike and toe off. Sitting down exacerbates patient's pain and she attempts to reposition herself in the chair frequently. Significant TTP in the projection of the left SIJ, middle lower back and sacrum tenderness. Positive Jakub?s test and Stinchfield test on the left. Positive pelvic compression test. Palpation of the lumbar paraspinal causes mild to moderate tenderness in the projection of the mid to lower portion of the lumbar spine on the left. Back: no CVA tenderness Cervical Spine: normal cervical lordosis and cervical ROM normal Thoracic/Lumbar Spine: thoracic and lumbar spine normal to inspection, thoraco-lumbar ROM normal, No kyphosis, Lasegue's sign positive on the left, paraspinal muscle tenderness on the left, No Thoracic/lumbar scoliosis, No thoracic spinal tenderness, No lumbar spinal tenderness and straight leg raise positive left at 40 degrees Pelvis: no pain with lateral compression, buttock tenderness, no unilateral elevation of iliac crest and no sciatic notch tenderness Sacroiliac joints: on the left Sacrum: no erythema, no swelling and tenderness Coccyx: Coccyx tenderness present Skin General skin exam: no rashes or lesions noted and scars lower back well-healed Neuro General: patient oriented x3, gait normal, moves all extremities, Normal light touch and pain sensation, no focal motor deficits and deep tendon reflexes 2+ bilaterally Cranial nerves: Yes Equal, round and reactive pupils present, Yes Bilaterally intact EOM present and Yes Normal hearing present Cognition (Neuro): normal cognition Gait exam (Neuro): Normal gait present Motor exam (neuro): 5/5 motor strength present throughout Sensory Exam: No Sensory deficit (Neuro) Extrem General: Yes full ROM, Yes capillary refill normal and Yes no clubbing, cyanosis or edema Psych Appearance: grossly normal and well kempt Mental Status: mental status grossly normal Speech and movement: Normal speech and movement present and Clear speech present Affect: normal affect Attitude: cooperative Thought process: Normal thought process present Thought content: Normal thought content present Insight: Good insight present (Psych) Judgement: Good judgement present (Psych) Results Reviewed Results Reviewed: Hip x-ray in 2021. No fracture. No dislocation. No focal bone lesion. The left hip has minor degenerative spurring of the superior lateral acetabular rim. Right hip joint space is normal. No bone erosion. No soft tissue calcification. Assessment & Plan Assessment & Plan (1) Lumbosacral spondylosis with radiculopathy: Code(s): M47.27 - Other spondylosis with radiculopathy, lumbosacral region (2) Sacroiliitis: Code(s): M46.1 - Sacroiliitis, not elsewhere classified (3) Myofascial low back pain: Code(s): M54.50 - Low back pain, unspecified (4) Degenerative disc disease, lumbar: Code(s): M51.36 - Other intervertebral disc degeneration, lumbar region (5) Presence of neurostimulator: Code(s): Z96.82 - Presence of neurostimulator (6) Chronic pain syndrome: Code(s): G89.4 - Chronic pain syndrome (7) Osteoarthritis of left hip: Code(s): M16.12 - Unilateral primary osteoarthritis, left hip (8) Left hip pain: Code(s): M25.552 - Pain in left hip Plan Today she reports pain in the left groin with radiation down the left leg pain exacerbates with rotation of the hip medially and laterally. On x-ray as above demonstrated mild arthritis which could have progressed since 2021 when x-ray was done. I will schedule her for left intra-articular hip injection. Patient reports that she was diagnosed by fibromyalgia with her field producer. She received 3 months ago trigger point injection with steroids done by field producer. I will try intra-articular steroid injection however she has a battery implanted on the left side. That could be difficult to advance the needle to the intra-articular space on the hip. In the past this patient had good results of epidural steroid injection caudal and ganglion impar injection. This injection lasts for her for several months. Performed again 3. caudal ROJAS with catheter + ganglion impar injection. She reports improvement with her pain. She reported initially pain exacerbation due to weather changes as well as soreness at the site of the injections. Continues to use [employer] spinal cord stimulator for radicular pain. She keeps charging the battery. She reports that the right lower extremity pain is helped with the spinal cord stimulation. Coding Level of Care Code Est Pt Level 4 (59100) Diagnoses Lumbosacral spondylosis with radiculopathy M47.27 Sacroiliitis M46.1 Myofascial low back pain M54.50 Degenerative disc disease, lumbar M51.36 Presence of neurostimulator Z96.82 Chronic pain syndrome G89.4 Osteoarthritis of left hip M16.12 Left hip pain M25.552
[2023-05-05 09:06] VITALS: BP 134/72; PULSE 76; RESP 18; O2SAT 96
== END 2023-05-05 09:26 | disposition home or self-care (01) ==
PROVIDERS: PCP Internal Medicine; Visit Provider Anesthesiology
DX: M16.12 Unilateral primary osteoarthritis, left hip (principal); M47.27 Other spondylosis with radiculopathy, lumbosacral region; M46.1 Sacroiliitis, not elsewhere classified; M54.50 Low back pain, unspecified; M51.36 Other intervertebral disc degeneration, lumbar region; Z96.82 Presence of neurostimulator; G89.4 Chronic pain syndrome; M25.552 Pain in left hip
CPT/HCPCS: 99214

== ENCOUNTER → 2023-05-05 08:58 | Outpatient (BNVA) | payer OTHER, SELFPAY | PROVIDERS: PCP Internal Medicine; Visit Provider Anesthesiology | DX: M16.12 Unilateral primary osteoarthritis, left hip (principal); M25.552 Pain in left hip; G89.4 Chronic pain syndrome; M46.1 Sacroiliitis, not elsewhere classified; M54.50 Low back pain, unspecified; M51.36 Other intervertebral disc degeneration, lumbar region; M47.27 Other spondylosis with radiculopathy, lumbosacral region; Z96.82 Presence of neurostimulator | CPT/HCPCS: 99212 ==

== ENCOUNTER 2023-06-08 06:20 | Outpatient (REF) | payer OTHER, SELFPAY | END 2023-06-08 06:21 | disposition home or self-care (01) | LOC: CF 06:20 | PROVIDERS: Visit Provider Anesthesiology | DX: M16.12 Unilateral primary osteoarthritis, left hip (principal); M47.27 Other spondylosis with radiculopathy, lumbosacral region; M46.1 Sacroiliitis, not elsewhere classified; M54.50 Low back pain, unspecified; M51.36 Other intervertebral disc degeneration, lumbar region; G89.4 Chronic pain syndrome; Z96.82 Presence of neurostimulator | CPT/HCPCS: 20610; J2795; J3301 ==

== ENCOUNTER 2023-06-08 13:45 | Outpatient (AMB) | payer OTHER, SELFPAY ==
[2023-06-08 14:06] VITALS: BP 136/82; PULSE 78; RESP 18; O2SAT 98; BMI 33.3
--- NOTE | 2023-06-08 14:06 | MHC.OFFVIS ---
Intake Vital Signs 06/08/23 14:06 06/08/23 14:36 Height 5 ft 2 in 5 ft 2 in Weight 182 lb 182 lb BMI 33.3 33.3 BP 136/82 140/76 H Blood Pressure Location Rt brachial Lt brachial Position Sitting Sitting Respiration 18 18 Pulse 78 74 Pulse Source Pulse Oximeter Pulse Oximeter Pulse Oximetry (%) 98 97 Oxygen Delivery Method Room Air Room Air Comment pre-op post-op Intake Visit Reasons: L INTRA-ARTICULAR HIP INJ/LOCAL Allergies amoxicillin Allergy (Severe, Verified 06/08/23 14:08) severe hives-total body lamotrigine [From Lamictal] Adverse Reaction (Intermediate, Verified 06/08/23 14:08) Itching Penicillins Adverse Reaction (Mild, Verified 06/08/23 14:08) Abdominal Pain prednisone Adverse Reaction (Mild, Verified 06/08/23 14:08) Itching PFSH Medical History Anxiety Autoimmune thyroiditis Depression Elevated C-reactive protein (CRP) Essential hypertension Fibroids Frequent headaches GERD (gastroesophageal reflux disease) H. 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 Hypokalemia Hypophosphatemia Left knee pain Leukocytosis Liver fibrosis Migraine Obesity (BMI 30-39.9) MITZY (obstructive sleep apnea) Polyarthralgia Positive ALLISON (antinuclear antibody) Sciatica Secondary hyperparathyroidism Spinal cord stimulator status Spinal stenosis Vitamin B1 deficiency Vitamin B12 deficiency Vitamin D deficiency Surgical History Cholelithiasis H/O arthroscopy of knee H/O gastric sleeve H/O laparoscopy History of carpal tunnel release History of cholecystectomy Hx of mammogram S/P endometrial ablation Tubal ligation status Family History Mother Hypertension Osteoporosis Father Epilepsia Atrophic emphysema Son Asthma Daughter Asthma Daughter Panic attacks Anxiety Thyroid adenoma Maternal Aunt History of breast cancer Family/Other Colon cancer Paternal Aunt Uterine cancer Social History Household Members: Family Housing: Apartment Are you a primary intensive care medicine specialist to a significant other at home: No Do you presently have visiting nurse or other home services: No Alcohol intake: never 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 Cognitive needs: No Hearing needs: No Vision needs: No Physical Exam Vital Signs: Last Vital Signs Pulse 74 06/08/23 14:36 Resp 18 06/08/23 14:36 BP 140/76 H 06/08/23 14:36 Pulse Ox 97 06/08/23 14:36 Oxygen Delivery Method Room Air 06/08/23 14:36 BMI result Body Mass Index 33.3 Results Reviewed Results Reviewed: 06/08/23 13:57 Lidocaine HCl 2 % MPF [Xylocaine 2 % MPF] 5 ml .ROUTE .STK-MED ONE Assessment & Plan Assessment & Plan (1) Lumbosacral spondylosis with radiculopathy: Code(s): M47.27 - Other spondylosis with radiculopathy, lumbosacral region (2) Sacroiliitis: Code(s): M46.1 - Sacroiliitis, not elsewhere classified (3) Myofascial low back pain: Code(s): M54.50 - Low back pain, unspecified (4) Degenerative disc disease, lumbar: Code(s): M51.36 - Other intervertebral disc degeneration, lumbar region (5) Presence of neurostimulator: Code(s): Z96.82 - Presence of neurostimulator (6) Chronic pain syndrome: Code(s): G89.4 - Chronic pain syndrome (7) Osteoarthritis of left hip: Code(s): M16.12 - Unilateral primary osteoarthritis, left hip Plan: Left hip steroid injection Informed consent was explained to the patient. All questions were explained and? answered.? The patient was taken inside the operating room where she was positioned RIGHT lateral decubitus on the operating table.? Time-out was performed delineating correct site, side, the nature of the procedure, patient's allergy, preoperative antibiotic if needed.? All operating room staff was participating in OR time-out procedure.? The patient stated his name. Non dependent LEFT hip was prepped with ChloraPrep and draped with sterile towels.? C-arm was brought over the operating field and the picture of bilateral hip joints were obtained on the screen.? The smaller joint was chosen as the target for the injection.? The trochanter position was noted on the screen.? The projection of the trochanter to the skin was noted, the direction of the femoral neck was noted.? The skin was anesthetized using 2% lidocaine at the trochanter area.? 22 gauge 5in needle was inserted through the skin and advanced to the hip joint silhouette on intermittent lateral and anterior posterior view.? Several attempts up to 4 were made to advance the needle into intra-articular space. However we found that intra-articular space probably is too narrow to accommodate even the needle. I was not able to advance the needle into intra-articular space. Although the image of the needle was seen in the projection of the outside portion of the intra-articular space the contrast spread continued to be collected just outside of the intra-articular space. No arthrogram was obtained. The injection was performed in periarticular fashion of ropivacaine 0.5% 4 cc and Kenalog 40 mg. Upon completion of the injection needle was removed sterile Band-Aid was applied. The patient tolerated procedure well. The risks of yatrogenic hyperglycemia were explained to the patient. The patient was taking outside of the operating room where she recovered uneventfully. (8) Left hip pain: Code(s): M25.552 - Pain in left hip Plan Today she reports pain in the left groin with radiation down the left leg pain exacerbates with rotation of the hip medially and laterally. On x-ray as above demonstrated mild arthritis which could have progressed since 2021 when x-ray was done. I will schedule her for left intra-articular hip injection. Patient reports that she was diagnosed by fibromyalgia with her nursing service director. She received 3 months ago trigger point injection with steroids done by nursing service director. I will try intra-articular steroid injection however she has a battery implanted on the left side. That could be difficult to advance the needle to the intra-articular space on the hip. In the past this patient had good results of epidural steroid injection caudal and ganglion impar injection. This injection lasts for her for several months. Performed again 3. caudal ROJAS with catheter + ganglion impar injection. She reports improvement with her pain. She reported initially pain exacerbation due to weather changes as well as soreness at the site of the injections. Continues to use [employer] spinal cord stimulator for radicular pain. She keeps charging the battery. She reports that the right lower extremity pain is helped with the spinal cord stimulation. Orders: Orders [place] guidance in treatment room 06/08/23 M25.552 - Pain in left hip Coding Level of Care Code Procedure Only Diagnoses Lumbosacral spondylosis with radiculopathy M47.27 Sacroiliitis M46.1 Myofascial low back pain M54.50 Degenerative disc disease, lumbar M51.36 Presence of neurostimulator Z96.82 Chronic pain syndrome G89.4 Osteoarthritis of left hip M16.12 Left hip pain M25.552
[2023-06-08 14:36] VITALS: BP 140/76; PULSE 74; RESP 18; O2SAT 97; BMI 33.3
== END 2023-06-08 14:41 | disposition home or self-care (01) ==
LOC: HO.PMCPRC 13:46
PROVIDERS: PCP Internal Medicine; Visit Provider Anesthesiology
DX: M16.12 Unilateral primary osteoarthritis, left hip (principal); M25.552 Pain in left hip
CPT/HCPCS: 20610; 77002

== ENCOUNTER 2023-06-25 08:01 | Outpatient (AMB) | payer OTHER, SELFPAY ==
[2023-06-25 08:05] VITALS: BP 124/70; PULSE 70; TEMP 36.2; O2SAT 97; BMI 34.2
--- NOTE | 2023-06-25 08:05 | MHC.OFFVIS ---
Intake Vital Signs 06/25/23 08:05 Height 5 ft 2 in Weight 186 lb 15.232 oz BMI 34.2 BP 124/70 Blood Pressure Location Rt brachial Position Sitting Pulse 70 Pulse Source Pulse Oximeter Temp 97.2 F Temp Source Skin Pulse Oximetry (%) 97 Oxygen Delivery Method Room Air Intake Visit Reasons: FA Intake Note: Pt presents today for follow up. She was last seen on 08/13/22 and she was referred to PT and urology. Pt has since been evaluated by urology, but cancelled PT appt x2 due to illness and inclement weather back in October. General Internist And Physician Leader Required: No Accompanied by: Self / Same As Patient Allergies amoxicillin Allergy (Severe, Verified 06/25/23 08:11) severe hives-total body lamotrigine [From Lamictal] Adverse Reaction (Intermediate, Verified 06/25/23 08:11) Itching Penicillins Adverse Reaction (Mild, Verified 06/25/23 08:11) Abdominal Pain prednisone Adverse Reaction (Mild, Verified 06/25/23 08:11) Itching Medication List - Last Reconciled 06/25/23 by Darryn De Souza MD amitriptyline 75 mg PO BEDTIME atenolol 50 mg PO DAILY celecoxib TAKE 1 CAPSULE BY MOUTH TWICE A DAY ergocalciferol (vitamin D2) 1,250 mcg PO QWEEK [GRAB BAR for bathroom with suction cups As directed] hydroxyzine HCl 25 mg PO BID linaclotide (Linzess) 290 mcg PO QAM losartan 50 mg PO DAILY 90 days lurasidone mg PO magnesium oxide 400 mg PO DAILY 30 days meclizine 25 mg PO DAILY PRN 30 days metoclopramide HCl 5 mg PO QID pantoprazole 40 mg PO DAILY propylene glycol-glycerin 1-0.3 % (Artificial Tears (glycerin-peg)) 1 drp ophthalmic (eye) BID venlafaxine ER 150 mg PO QAM HPI HPI Comments History of Present Illness Details 52-year-old female with fibromyalgia returns for follow-up. She was last seen 08/2022. She was evaluated by Pain Management this month and had left hip steroid injection, she cannot tell whether it is helping. She had right carpal tunnel release surgery with improvement. She follows up regularly with her sleep specialist and is compliant with her CPAP. She no longer has frequent nighttime urination. She follows up regularly with her psychiatrist and psychotherapist. Initial history: 51-year-old female with a past medical history of anxiety, depression, chronic pain syndrome S/p spinal cold stimulator and numerous procedures by pain management presents for evaluation of elevated CRP. Patient was evaluated by Dr. Treviño last year and was deemed not to have and inflammatory arthritis condition, rather OA. Patient complains today of diffuse pain in both hands especially left thumb, both hips, both knees, as well as multiple tender areas in her back thighs chest. She also complains of dry eyes for which she uses artificial tears twice daily without significant relief as well as dry mouth for which she drinks plenty of water but continues to have a dry mouth. She has to wake up in the middle of the night for dry mouth, drinks water but then she has to wake up to urinate which interrupts her sleep. She uses a CPAP machine for sleep apnea. 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 pylori infection Vitamin D deficiency Vitamin B1 deficiency Vitamin B12 deficiency Anxiety Depression Spinal cord stimulator status Sciatica GERD (gastroesophageal reflux disease) Frequent headaches Surgical History History of carpal tunnel release H/O gastric sleeve Hx of mammogram History of cholecystectomy Tubal ligation status H/O laparoscopy S/P endometrial ablation H/O arthroscopy of knee Cholelithiasis Family History Mother Hypertension Osteoporosis Father Epilepsia Atrophic emphysema Son Asthma Daughter Asthma Daughter Panic attacks Anxiety Thyroid adenoma Maternal Aunt History of breast cancer Family/Other Colon cancer Paternal Aunt Uterine cancer Social History Household Members: Family Housing: Apartment Are you a primary nurse behavioral health care to a significant other at home: No Do you presently have visiting nurse or other home services: No Alcohol intake: never 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 Cognitive needs: No Hearing needs: No Vision needs: No Review of Systems Const Reports weakness Musc Reports arthralgias Neuro Reports paresthesias and Reports weakness Psych Reports abnormal sleep pattern and Reports anxiety Physical Exam Vital Signs: Last Vital Signs Temp 97.2 F 06/25/23 08:05 Pulse 70 06/25/23 08:05 BP 124/70 06/25/23 08:05 Pulse Ox 97 06/25/23 08:05 Oxygen Delivery Method Room Air 06/25/23 08:05 BMI result Body Mass Index 34.2 Const General: tired appearing Orientation/consciousness: patient oriented x3 Resp Effort & Inspection: normal respiratory effort and able to speak in complete sentences Skin General skin exam: no rashes or lesions noted Neuro General: patient oriented x3 Extrem Other: Multiple fibromyalgia tender points Assessment & Plan Assessment & Plan (1) Fibromyalgia, primary: Code(s): M79.7 - Fibromyalgia Plan: This is a 52-year-old female with fibromyalgia who returns for follow-up. Patient follows up regularly with a psychiatrist and a psychotherapist. She uses her CPAP machine consistently. She follows up with Pain Management as well. She is on amitriptyline and venlafaxine. She is still not able to exercise due to muscle pain. She is also worried about disruption of the wires in her back from her stimulator. Advised patient to discuss it with Dr. Bonilla. I suggested low-impact exercises such as aquatherapy. Follow-up as needed Plan I spent 15 minutes reviewing patient's chart, evaluating patient, counseling patient and documenting in the chart Coding Level of Care Code Est Pt Level 3 (12840) Diagnoses Fibromyalgia, primary M79.7
== END 2023-06-25 08:21 | disposition home or self-care (01) ==
PROVIDERS: PCP Internal Medicine; Visit Provider Student in an Organized Health Care Education/Training Program
DX: M79.7 Fibromyalgia (principal)
CPT/HCPCS: 99213

== ENCOUNTER → 2023-06-25 08:01 | Outpatient (BNVA) | payer OTHER, SELFPAY | PROVIDERS: PCP Internal Medicine; Visit Provider Student in an Organized Health Care Education/Training Program | DX: M79.7 Fibromyalgia (principal) | CPT/HCPCS: 99212 ==

== ENCOUNTER 2023-07-12 08:12 | Outpatient (AMB) | payer OTHER, SELFPAY ==
--- NOTE | 2023-07-12 08:22 | A.OFFVIS_ITS ---
Intake Vital Signs 07/12/23 08:37 Height 5 ft 2 in Weight 187 lb 4 oz BMI 34.2 BP 140/80 H Blood Pressure Location Lt brachial Position Sitting Respiration 16 Pulse 82 Pulse Source Pulse Oximeter Pulse Oximetry (%) 96 Oxygen Delivery Method Room Air Intake Visit Reasons: L INTRA-ARTICULAR HIP INJ 06/08/23 Allergies amoxicillin Allergy (Severe, Verified 07/12/23 08:38) severe hives-total body lamotrigine [From Lamictal] Adverse Reaction (Intermediate, Verified 07/12/23 08:38) Itching Penicillins Adverse Reaction (Mild, Verified 07/12/23 08:38) Abdominal Pain prednisone Adverse Reaction (Mild, Verified 07/12/23 08:38) Itching HPI HPI Comments History of Present Illness Details Jacqueline is in my office today after therapeutic left hip intra- articular steroid injection attempt which was performed on 06/08/2023. The procedure was technically very difficult several needle approaches were required in the order to place the needle inside the capsule of the joint, unfortunately I did not receive arthrogram, so I would presume that injection was performed in periarticular fashion. She reports full month of complete pain relief she reports her pain today is 2/10. I explained situation to her. I do not mind to perform those injections for her provided they are lasting more than 3 months, however if it is not we need to consider THR. I agreed with her that I will send her for the referral to orthopedics office. She has very narrow intra- articular space which probably is evident of severe left hip osteoarthritis. Prior: Complains on pain in the left hip. She reports that lateral rotation of the hip exacerbates her pain. She reports that livestock farm manager try to perform trigger point injection in vicinity of the trochanteric bursa 3 months ago but this did not improve her pain. After evaluation of hip x-ray which was done in 2021 I offered her intra-articular left hip injection she has spinal cord stimulation in the left buttock implanted. That could be on my way to perform injection properly. I informed the patient about this situation and she agreed to try. Previously she received caudal ROJAS with catheter and ganglion impar injection which was performed for her 1 week ago in May of 2022.? This is yet another injection she received in the past procedures like this with good results.? She was tested in the past for the presence of sacroiliac joint pathology- Jakub test and pelvic compression tests were negative for pain increase in the axial lower lumbar versus sacral spine.? I will schedule her for the above described injection as soon as possible without sedation. She reports that spinal cord stimulator continues to work a and she has actually very good results of the Medtronic spinal cord stimulation, she reports that spinal cord stimulator helps pain which radiating into the left lower extremity.? She continues to charge her battery she requests me to perform the injection which was done to her during the procedure spinal cord stimulator. ? History of multiple attempts of treating this patient with multiple injections with Mediameeting and Spine, history of treating her procedures with multiple sessions of physical therapy, history of multiple medications including antidepressants, muscle relaxants and NSAIDs to treat her condition. Last injection which was done for her in this office was medial branch blocks which was not at all successful for relieve of her condition , in the past she had transforaminal and interlaminar epidural steroid injections as well as sacroiliac joint injections. Those were not helping. Her pain started 10 years ago it is a chronic pain.? She was in the past examined by a neurosurgeon and no surgery was recommended for her. She tried several opioid medications including Vicodin, [place], Percocet and tramadol. She reports that all of these medications make her feel foggy and mentally cloudy. They also exacerbate her depression. ? THE MIDLINE ANATOMICAL POSITION OF THE LEADS DID NOT CORRESPOND TO PHYSIOLOGICAL FUNCTION OF THE LEADS AND THE POSITION OF THE LEADS IN THE ON CENTRALLY AND POSTERIORLY POSITION IN MIDLINE RESULTED IN THE RIGHT-SIDED STIMULATION. MOST OF THE PAIN OF THE PATIENT IS ON THE LEFT SIDE. 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 pylori infection Vitamin D deficiency Vitamin B1 deficiency Vitamin B12 deficiency Anxiety Depression Spinal cord stimulator status Sciatica GERD (gastroesophageal reflux disease) Frequent headaches Surgical History History of carpal tunnel release H/O gastric sleeve Hx of mammogram History of cholecystectomy Tubal ligation status H/O laparoscopy S/P endometrial ablation H/O arthroscopy of knee Cholelithiasis Family History Mother Hypertension Osteoporosis Father Epilepsia Atrophic emphysema Son Asthma Daughter Asthma Daughter Panic attacks Anxiety Thyroid adenoma Maternal Aunt History of breast cancer Family/Other Colon cancer Paternal Aunt Uterine cancer Social History Household Members: Family Housing: Apartment Are you a primary child day care provider to a significant other at home: No Do you presently have visiting nurse or other home services: No Alcohol intake: never 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 Cognitive needs: No Hearing needs: No Vision needs: No Review of Systems Const All systems reviewed & are unremarkable except as noted in HPI and below ENT Reports Normal hearing present Neuro Reports Normal hearing present and Denies Sensory deficit (Neuro) Physical Exam Vital Signs: Last Vital Signs Pulse 82 07/12/23 08:37 Resp 16 07/12/23 08:37 BP 140/80 H 07/12/23 08:37 Pulse Ox 96 07/12/23 08:37 Oxygen Delivery Method Room Air 07/12/23 08:37 BMI result Body Mass Index 34.2 Const General: cooperative, healthy appearing, comfortable and no acute distress Nutritional Appearance: well nourished and obese Orientation/consciousness: patient oriented x3 Limitations: no limitations HEENT Head: Yes normal to inspection, Yes normocephalic and Yes atraumatic Ears: hearing grossly normal bilaterally General nose exam: Normal external nose present Face and sinus: Yes normal facial exam Eyes General: appearance normal, both eyes and all related structures Pupils: Equal, round and reactive pupils present EOM: EOMs intact bilaterally Neck Other: Patient has many verrucous lesions in the neck. Neck: Yes normal visual inspection, Yes full ROM, Yes no lymphadenopathy and Yes no JVD Resp Effort & Inspection: normal respiratory effort, able to speak in complete sentences, no cough and symmetric chest movement Cardio Jugular venous distension: no JVD Rate: regular rate Rhythm: regular rhythm Heart sounds: S1 normal heart sound present, S2 normal heart sound present, no gallops and no murmurs Peripheral pulses: Peripheral pulses 2+ throughout GI Inspection: Yes normal to inspection and No distended Palpation (GI): Soft to palpation and No hepatosplenomegaly present General: Yes no CVA tenderness Back/Spine/Pelvis Other: Able to transition from sit to stand unassisted. Ambulates with bilaterally normal heel strike and toe off. Sitting down exacerbates patient's pain and she attempts to reposition herself in the chair frequently. Significant TTP in the projection of the left SIJ, middle lower back and sacrum tenderness. Positive Jakub?s test and Stinchfield test on the left. Positive pelvic compression test. Palpation of the lumbar paraspinal causes mild to moderate tenderness in the projection of the mid to lower portion of the lumbar spine on the left. Back: no CVA tenderness Cervical Spine: normal cervical lordosis and cervical ROM normal Thoracic/Lumbar Spine: thoracic and lumbar spine normal to inspection, thoraco- lumbar ROM normal, No kyphosis, Lasegue's sign positive on the left, paraspinal muscle tenderness on the left, No Thoracic/lumbar scoliosis, No thoracic spinal tenderness, No lumbar spinal tenderness and straight leg raise positive left at 40 degrees Pelvis: no pain with lateral compression, buttock tenderness, no unilateral elevation of iliac crest and no sciatic notch tenderness Sacroiliac joints: on the left Sacrum: no erythema, no swelling and tenderness Coccyx: Coccyx tenderness present Skin General skin exam: no rashes or lesions noted and scars lower back well-healed Neuro General: patient oriented x3, gait normal, moves all extremities, Normal light touch and pain sensation, no focal motor deficits and deep tendon reflexes 2+ bilaterally Cranial nerves: Yes Equal, round and reactive pupils present, Yes Bilaterally intact EOM present and Yes Normal hearing present Cognition (Neuro): normal cognition Gait exam (Neuro): Normal gait present Motor exam (neuro): 5/5 motor strength present throughout Sensory Exam: No Sensory deficit (Neuro) Extrem General: Yes full ROM, Yes capillary refill normal and Yes no clubbing, cyanosis or edema Psych Appearance: grossly normal and well kempt Mental Status: mental status grossly normal Speech and movement: Normal speech and movement present and Clear speech present Affect: normal affect Attitude: cooperative Thought process: Normal thought process present Thought content: Normal thought content present Insight: Good insight present (Psych) Judgement: Good judgement present (Psych) Assessment & Plan Assessment & Plan (1) Lumbosacral spondylosis with radiculopathy: Code(s): M47.27 - Other spondylosis with radiculopathy, lumbosacral region (2) Sacroiliitis: Code(s): M46.1 - Sacroiliitis, not elsewhere classified (3) Myofascial low back pain: Code(s): M54.50 - Low back pain, unspecified (4) Degenerative disc disease, lumbar: Code(s): M51.36 - Other intervertebral disc degeneration, lumbar region (5) Presence of neurostimulator: Code(s): Z96.82 - Presence of neurostimulator (6) Chronic pain syndrome: Code(s): G89.4 - Chronic pain syndrome (7) Osteoarthritis of left hip: Code(s): M16.12 - Unilateral primary osteoarthritis, left hip (8) Left hip pain: Code(s): M25.552 - Pain in left hip Plan Very good results of the left hip steroid injection although the injectate was spread in periarticular fashion. She has very narrow intra-articular space. I explained situation to her. I do not mind to perform this injections to her provided that pain relief lasts more than 3 months. However I think consideration has to be made for examination with orthopedic surgeon in conjunction of THR. she reports pain in the left groin with radiation down the left leg pain exac erbates with rotation of the hip medially and laterally. On x-ray as above demonstrated mild arthritis which could have progressed since 2021 when x-ray was done. Patient reports that she was diagnosed by fibromyalgia with her livestock farm manager. She received 3 months ago trigger point injection with steroids done by livestock farm manager. I will try intra-articular steroid injection however she has a battery implanted on the left side. That could be difficult to advance the needle to the intra-articular space on the hip. In the past this patient had good results of epidural steroid injection caudal and ganglion impar injection. This injection lasts for her for several months. Performed again 3. caudal ROJAS with catheter + ganglion impar injection. She reports improvement with her pain. She reported initially pain exacerbation due to weather changes as well as soreness at the site of the injections. Continues to use Medtronic spinal cord stimulator for radicular pain. She keeps charging the battery. She reports that the right lower extremity pain is helped with the spinal cord stimulation. Orders: Referrals Orthopedics Referral M16.12 - Unilateral primary osteoarthritis, left hip, M25.552 - Pain in left hip Coding Level of Care Code Est Pt Level 3 (63636) Diagnoses Lumbosacral spondylosis with radiculopathy M47.27 Sacroiliitis M46.1 Myofascial low back pain M54.50 Degenerative disc disease, lumbar M51.36 Presence of neurostimulator Z96.82 Chronic pain syndrome G89.4 Osteoarthritis of left hip M16.12 Left hip pain M25.552
[2023-07-12 08:37] VITALS: BP 140/80; PULSE 82; RESP 16; O2SAT 96; BMI 34.2
== END 2023-07-12 08:43 | disposition home or self-care (01) ==
PROVIDERS: PCP Internal Medicine; Visit Provider Anesthesiology
DX: M47.27 Other spondylosis with radiculopathy, lumbosacral region (principal); M46.1 Sacroiliitis, not elsewhere classified; M54.50 Low back pain, unspecified; M51.36 Other intervertebral disc degeneration, lumbar region; Z96.82 Presence of neurostimulator; G89.4 Chronic pain syndrome; M16.12 Unilateral primary osteoarthritis, left hip; M25.552 Pain in left hip
CPT/HCPCS: 99213

== ENCOUNTER → 2023-07-12 08:12 | Outpatient (BNVA) | payer OTHER, SELFPAY | PROVIDERS: PCP Internal Medicine; Visit Provider Anesthesiology | DX: M47.27 Other spondylosis with radiculopathy, lumbosacral region (principal); M46.1 Sacroiliitis, not elsewhere classified; M54.50 Low back pain, unspecified; M51.36 Other intervertebral disc degeneration, lumbar region; G89.4 Chronic pain syndrome; M16.12 Unilateral primary osteoarthritis, left hip; Z96.82 Presence of neurostimulator | CPT/HCPCS: 99212 ==

== ENCOUNTER 2023-08-23 08:46 | Outpatient (AMB) | payer OTHER, SELFPAY ==
--- NOTE | 2023-08-23 08:54 | MHC.OFFVIS ---
Intake Intake Visit Reasons: [place]-Pain in left hip Intake Note: Jacqueline is a 52 year old female presents today for a new problem visit for her left hip pain. Patient reports having ongoing pain for a couple months. NO hx of injury. No hx of physical therapy. She states having a injection which gave her mild relief. Hx of CTR with Dr De León in February 2023. Allergies amoxicillin Allergy (Severe, Verified 08/23/23 09:00) severe hives-total body lamotrigine [From Lamictal] Adverse Reaction (Intermediate, Verified 08/23/23 09:00) Itching Penicillins Adverse Reaction (Mild, Verified 08/23/23 09:00) Abdominal Pain prednisone Adverse Reaction (Mild, Verified 08/23/23 09:00) Itching HPI Newprob-Pain in left hip HPI Details 52-year-old female who presents to the office today for evaluation of left hip pain for about 2 months. She states she has pain in the lateral aspect of her hip which is aggravated with stair use, running and sitting on floor. She also c/o deep groin pain. She denies any previous injury and has not had physical therapy in the past. She had an injection in the past which provided her relief for about 2 days. She has a history of CTR with Dr. De León in February 2023. She has a stimulator in her back. 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 pylori infection Vitamin D deficiency Vitamin B1 deficiency Vitamin B12 deficiency Anxiety Depression Spinal cord stimulator status Sciatica GERD (gastroesophageal reflux disease) Frequent headaches Surgical History History of carpal tunnel release H/O gastric sleeve Hx of mammogram History of cholecystectomy Tubal ligation status H/O laparoscopy S/P endometrial ablation H/O arthroscopy of knee Cholelithiasis Family History Mother Hypertension Osteoporosis Father Epilepsia Atrophic emphysema Son Asthma Daughter Asthma Daughter Panic attacks Anxiety Thyroid adenoma Maternal Aunt History of breast cancer Family/Other Colon cancer Paternal Aunt Uterine cancer Social History Household Members: Family Housing: Apartment Are you a primary zoo caretaker to a significant other at home: No Do you presently have visiting nurse or other home services: No Alcohol intake: never Comment: Oxycodone 5 mg PO given at 13:50. Pain 6/10 with OOB/movement. 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 Cognitive needs: No Hearing needs: No Vision needs: No Review of Systems Const All systems reviewed & are unremarkable except as noted in HPI and below Physical Exam Extrem Other: Left hip: Normal to inspection, ambulates with a slight limp. Has mild discomfort with internal and extension rotation of hip. No significant stiffness. Mild discomfort with hip flexion against resistance. NVI. Results Reviewed Results Reviewed: Xrays were obtained in the office today and personally reviewed by me of the left hip show mild oa Assessment & Plan Assessment & Plan (1) Osteoarthritis of left hip: Code(s): M16.12 - Unilateral primary osteoarthritis, left hip Qualifiers: Osteoarthritis type: primary Qualified Code(s): M16.12 - Unilateral primary osteoarthritis, left hip Plan Given her continued limitations with activities and failed conservative treatment, we will have her meet with Dr. Medina to determine if she is a candidate for a DOT. Orders: Orders XR hip LT w PEL1V Today M25.559 - Pain in unspecified hip Patient Instructions: Scribed for Socrates Anderson PA-C, by Steffen Almeida medical reviewer, on 08/23/2023 at 9:15 AM EDDIE. Socrates Kong PA-C, have personally reviewed and agree with the information entered by the scribe. Coding Level of Care Code Est Pt Level 3 (76996) Diagnoses Primary osteoarthritis of left hip M16.12 Osteoarthritis type: primary
== END 2023-08-23 09:38 | disposition home or self-care (01) ==
PROVIDERS: PCP Internal Medicine; Visit Provider Physician Assistant
DX: M16.12 Unilateral primary osteoarthritis, left hip (principal)
CPT/HCPCS: 99213

== ENCOUNTER 2023-08-23 10:51 | Outpatient (REF) | payer OTHER, SELFPAY ==
--- NOTE | ~2023-08-23 | XR_ITS ---
EXAMINATION: Pelvis and left hip series CLINICAL INFORMATION: Pain in the hip COMPARISON: Prior x-ray the pelvis and left hip May 2022. TECHNIQUE: Two views of the left hip. Single view the pelvis FINDINGS: Left hip: Small marginal osteophytes at the femoral head neck junction. No joint space narrowing. Overall minimal arthrosis unchanged. Pelvis: Left hip as above. Right hip normal. Remaining bone and joints in the pelvis are normal. There is a transitional lumbosacral junction incidentally noted. Electronic device with wires overlie the left pelvis and lower lumbar sacral spine. XR/XR hip LT w PEL1V IMPRESSION: LEFT HIP: Minimal arthrosis unchanged. PELVIS: Left hip as above. No additional bone or joint abnormality
== END 2023-08-23 10:52 | disposition home or self-care (01) ==
LOC: HO.HOSX 10:51
PROVIDERS: Visit Provider Physician Assistant
DX: M16.12 Unilateral primary osteoarthritis, left hip (principal); M25.512 Pain in left shoulder; Z96.82 Presence of neurostimulator
CPT/HCPCS: 73502; 99212

== ENCOUNTER 2023-09-13 11:08 | Outpatient (AMB) | payer OTHER, SELFPAY ==
[2023-09-13 11:11] VITALS: BMI 34.2
--- NOTE | 2023-09-13 11:11 | MHC.OFFVIS ---
Intake Vital Signs 09/13/23 11:11 Height 5 ft 2 in Weight 187 lb BMI 34.2 Intake Visit Reasons: ov- left Discuss DOT Intake Note: Jacqueline is a 52 year old female who presents today for a follow up of her left hip, she was last seen with Socrates who states that patient has failed conservative treatment and would like to discuss DOT. Allergies amoxicillin Allergy (Severe, Verified 09/13/23 11:14) severe hives-total body lamotrigine [From Lamictal] Adverse Reaction (Intermediate, Verified 09/13/23 11:14) Itching Penicillins Adverse Reaction (Mild, Verified 09/13/23 11:14) Abdominal Pain prednisone Adverse Reaction (Mild, Verified 09/13/23 11:14) Itching HPI ov- left Discuss DOT HPI Details Jacqueline is a 52 year old woman who presents to discuss her left hip OA. She complains of pain in her left hip with daily activity, localized to the groin though with some pain to the lateral aspect. She found limited relief from PT, and only ~1 month of relief from a hip joint injection done by Dr. Bonilla on 06/08/23. SHe describes groin pain with daily activity. She feels she cannot play with her grandchildren and had pain with her ADL's. Standing from a seated position, getting into and out of cars. 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 pylori infection Vitamin D deficiency Vitamin B1 deficiency Vitamin B12 deficiency Anxiety Depression Spinal cord stimulator status Sciatica GERD (gastroesophageal reflux disease) Frequent headaches Surgical History History of carpal tunnel release H/O gastric sleeve Hx of mammogram History of cholecystectomy Tubal ligation status H/O laparoscopy S/P endometrial ablation H/O arthroscopy of knee Cholelithiasis Family History Mother Hypertension Osteoporosis Father Epilepsia Atrophic emphysema Son Asthma Daughter Asthma Daughter Panic attacks Anxiety Thyroid adenoma Maternal Aunt History of breast cancer Family/Other Colon cancer Paternal Aunt Uterine cancer Social History Household Members: Family Housing: Apartment Are you a primary career development coordinator to a significant other at home: No Do you presently have visiting nurse or other home services: No Alcohol intake: never Comment: Oxycodone 5 mg PO given at 13:50. Pain 6/10 with OOB/movement. 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 Cognitive needs: No Hearing needs: No Vision needs: No Review of Systems Const All systems reviewed & are unremarkable except as noted in HPI and below Physical Exam Vital Signs: BMI result Body Mass Index 34.2 Const General: no acute distress, alert and awake Orientation/consciousness: patient oriented x3 HEENT Head: Yes normocephalic and Yes atraumatic Eyes EOM: EOMs intact bilaterally Resp Effort & Inspection: normal respiratory effort and able to speak in complete sentences Cardio Jugular venous distension: no JVD Skin General skin exam: turgor normal Rashes: no rashes Neuro General: patient oriented x3 Extrem Other: + gait antalgia +impingement +Stinchfield 20 deg IR with FADIR Psych Appearance: grossly normal Affect: normal affect Attitude: cooperative Results Reviewed Results Reviewed: I personally reviewed relevant radiographs. Moderate left hip OA with acetabular subchondral sclerosis Assessment & Plan Assessment & Plan (1) Osteoarthritis of left hip: Code(s): M16.12 - Unilateral primary osteoarthritis, left hip Qualifiers: Osteoarthritis type: primary Qualified Code(s): M16.12 - Unilateral primary osteoarthritis, left hip Plan: This is a 52 yo F with moderate left hip OA and ongoing pain for at least 2 years but it has become unbearable for her over the past year. She has tried NSAIDs and injections and PT and, at best, she has had relief for only brief periods. She is most frustrated by her inability to play with her grandkids and feels that she cannot exercise and is gaining weight. I reviewed options with her including surgery. She feels she has exhausted all her non surgical options and I am inclined to agree with her. Her arthritis is moderate which I discussed with her but she is adamant that the quality of her life is suffering. Given these I recommend left DOT. I discussed the risks benefits and alternatives including but not limited to the risk of pain, infection, stiffness, need for further surgery as well as potential medical complications such as blood clots, pulmonary embolism and cardiac complications. I explained the monica-operative process and the risk of dislocation ,leg length discrepancy and aseptic loosening. She expressed understanding and we will proceed forward accordingly. Plan Scribed for Jayden Medina MD by Harley Mak, certified medical coding specialist, on 09/13/23 at 11:15 AM, EST. Coding Level of Care Code Est Pt Level 4 (66261) Diagnoses Primary osteoarthritis of left hip M16.12 Osteoarthritis type: primary
== END 2023-09-13 12:23 | disposition home or self-care (01) ==
PROVIDERS: PCP Internal Medicine; Visit Provider Orthopaedic Surgery
DX: M16.12 Unilateral primary osteoarthritis, left hip (principal)
CPT/HCPCS: 99214

== ENCOUNTER → 2023-09-13 11:08 | Outpatient (BNVA) | payer OTHER, SELFPAY | PROVIDERS: PCP Internal Medicine; Visit Provider Orthopaedic Surgery | DX: M16.12 Unilateral primary osteoarthritis, left hip (principal) | CPT/HCPCS: 99212 ==

== ENCOUNTER → 2023-10-11 12:53 | Outpatient (BNVA) | payer OTHER, SELFPAY | PROVIDERS: PCP Internal Medicine; Visit Provider Orthopaedic Surgery ==

== ENCOUNTER 2023-10-13 14:55 | Outpatient (AMB) | payer OTHER, SELFPAY ==
--- NOTE | 2023-10-13 15:05 | MHC.OFFVIS ---
Intake Vital Signs 10/13/23 15:10 Height 5 ft 2 in Weight 189 lb 2.506 oz BMI 34.6 BP 147/81 H Blood Pressure Location Lt brachial Position Sitting Pulse 83 Intake Visit Reasons: GERD, CIC Intake Note: Patient presents to in office visit today in follow up of GERD and CIC. CC: Patient states she still has epigastric pain some times. Denies other GI symptoms today. Homemaking Rehabilitation Consultant Required: No Allergies amoxicillin Allergy (Severe, Verified 10/13/23 15:23) severe hives-total body lamotrigine [From Lamictal] Adverse Reaction (Intermediate, Verified 10/13/23 15:23) Itching Penicillins Adverse Reaction (Mild, Verified 10/13/23 15:23) Abdominal Pain prednisone Adverse Reaction (Mild, Verified 10/13/23 15:23) Itching HPI GERD, CIC HPI Details Assessment & Plan (1) Chronic idiopathic constipation: ?Code(s): K59.04 - Chronic idiopathic constipation ?Plan: She is here with a male family member who is supportive. She ran out of the Linzess and continues to have pain in the epigastric area with eating and early satiety. Her CIC is severe. Despite the GES being normal, the delay may be in the small bowels and we will restart the Linzess and start reglan 5mg qidachs. If this does not help may need EGD. ROV 2 weeks. (2) GERD (gastroesophageal reflux disease): ?Code(s): K21.9 - Gastro-esophageal reflux disease without esophagitis ?Qualifiers: ?Esophagitis presence:?esophagitis presence not specified? Qualified Code(s):?K21.9 - Gastro-esophageal reflux disease without esophagitis (3) Nausea and vomiting: ?Code(s): R11.2 - Nausea with vomiting, unspecified ? ? ? Medications: New metoclopramide HCl (Reglan) ?? provi esperanza aware of possi ble interactions a nd is monitoring.C 5 mg? PO QIDACHS 1 20 tabs 3RF R11.2 - Nausea wit h vomiting, unspec ified ? Refilled linaclotide (Linze ss) 290 mcg? PO QAM 30 caps 6RF K59.04 - Chronic i diopathic constipa tion ? pantoprazole 40 mg? PO DAILY 90 tabs 2RF K21.9 - Gastro-eso phageal reflux dis ease without esoph agitis TODAY'S VISIT She is taking the metoclopramide faithfully, and it has not effected the pain in her epigastrum, but she is moving her bowels better along with the Linzess 290 micro g. Since restoring her bowel motility she has also had less heartburn although she still will have breakthrough at times even taking her pantoprazole every day. This is to be expected depending on what is going on with the bowels and what she is eaten. 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 ? While this is possible I think we should do an endoscopy at this point to really see what is going on as the differential diagnosis could include an esophageal ulcer/gastric ulcer, musculoskeletal causes, gallbladder is ruled out since she is status post cholecystectomy. She is agreeable to this plan. For now we are going to not make any other changes in her medicines except to try to get her on some simethicone since she still has a lot of gas pains the get trapped in her belly. I am uncertain if her insurance will cover it so I write out for her the [id number] equivalent so that she can get that is inexpensively as possible. Going forward depending on her response we can also consider things like Creon. SONIA 4 weeks. 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 pylori infection Vitamin D deficiency Vitamin B1 deficiency Vitamin B12 deficiency Anxiety Depression Spinal cord stimulator status Sciatica GERD (gastroesophageal reflux disease) Frequent headaches Surgical History (Updated 10/13/23 @ 15:11 by AILEEN Porter) S/P repair of paraesophageal hernia S/P laparoscopic sleeve gastrectomy History of carpal tunnel release H/O gastric sleeve Hx of mammogram History of cholecystectomy Tubal ligation status H/O laparoscopy S/P endometrial ablation H/O arthroscopy of knee Cholelithiasis Family History Mother Hypertension Osteoporosis Father Epilepsia Atrophic emphysema Son Asthma Daughter Asthma Daughter Panic attacks Anxiety Thyroid adenoma Maternal Aunt History of breast cancer Family/Other Colon cancer Paternal Aunt Uterine cancer Social History Household Members: Family Housing: Apartment Are you a primary career development associate to a significant other at home: No Do you presently have visiting nurse or other home services: No Alcohol intake: never Comment: Oxycodone 5 mg PO given at 13:50. Pain 6/10 with OOB/movement. 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 Cognitive needs: No Hearing needs: No Vision needs: No Review of Systems Const Denies fatigue, Denies fever(s), Denies night sweats, Denies poor appetite and Denies weight loss Eyes Details: glasses Reports requires corrective lenses ENT Reports Normal hearing present, Denies dental pain, Denies dysphagia, Denies hearing loss, Denies mouth pain, Denies odynophagia, Denies throat swelling, Denies tongue swelling and Reports other (Dentition adequate) Card Reports no additional complaints Resp Reports no additional complaints GI Details: Reports abdominal pain, Denies melena, Reports bloating, Denies hematochezia, Reports constipation, Denies GI cramping, Denies dysphagia, Denies excessive flatus, Denies early satiety, Reports heartburn, Denies diarrhea, Denies nausea, Denies odynophagia, Denies vomiting and Denies hematemesis Skin/Breast Denies pruritus, Denies lesions, Denies rash and Denies jaundice Neuro Reports Normal hearing present and Denies Abnormal speech present Endo Denies fatigue Aller/Immun Denies throat swelling and Denies tongue swelling Physical Exam Vital Signs: Last Vital Signs Pulse 83 10/13/23 15:10 BP 147/81 H 10/13/23 15:10 BMI result Body Mass Index 34.6 Const General: cooperative, no acute distress, well developed and well groomed Nutritional Appearance: well nourished and obese Orientation/consciousness: oriented to person, oriented to place and oriented to time Limitations: No language barrier HEENT Head: Yes normocephalic and Yes atraumatic Eyes General: appearance normal, both eyes and all related structures Pupils: Equal, round and reactive pupils present Neck Neck: Yes normal visual inspection and Yes no lymphadenopathy Thyroid: Thyroid normal Resp Effort & Inspection: normal respiratory effort and able to speak in complete sentences Auscultation: clear to auscultation bilaterally Cardio Rate: regular rate Rhythm: regular rhythm Heart sounds: Normal, physiologic split S2 sound present Peripheral pulses: radial pulses present and posterior tibial pulses present GI Inspection: No distended, No Abdominal panniculus present and Yes obesity Palpation (GI): Soft to palpation, nontender, no guarding, not rigid and No hepatosplenomegaly present Percussion: Yes normal to percussion Auscultation: normal bowel sounds Rectal Exam - Female: deferred Skin General skin exam: no rashes or lesions noted, turgor normal, skin not dry, no jaundice, No spider nevi and no striae Rashes: no rashes Nails: normal Neuro General: oriented to person, oriented to place and oriented to time Cranial nerves: Yes Equal, round and reactive pupils present and Yes Normal hearing present Speech: No Abnormal speech present Extrem General: Yes normal to inspection, No clubbing, No cyanosis and No edema Psych Appearance: grossly normal and well kempt Mental Status: mental status grossly normal Speech and movement: Normal speech and movement present Affect: normal affect Attitude: cooperative Thought process: Normal thought process present and not confabulating Thought content: Normal thought content present Insight: Limited insight present (Psych) Judgement: Limited judgement present (Psych) Assessment & Plan Assessment & Plan (1) GERD (gastroesophageal reflux disease): Code(s): K21.9 - Gastro-esophageal reflux disease without esophagitis Qualifiers: Esophagitis presence: esophagitis presence not specified Qualified Code(s): K21.9 - Gastro-esophageal reflux disease without esophagitis (2) Chronic idiopathic constipation: Code(s): K59.04 - Chronic idiopathic constipation (3) Upper abdominal pain: Code(s): R10.10 - Upper abdominal pain, unspecified Plan She is taking the metoclopramide faithfully, and it has not effected the pain in her epigastrum, but she is moving her bowels better along with the Linzess 290 micro g. Since restoring her bowel motility she has also had less heartburn although she still will have breakthrough at times even taking her pantoprazole every day. This is to be expected depending on what is going on with the bowels and what she is eaten. 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 ? While this is possible I think we should do an endoscopy at this point to really see what is going on as the differential diagnosis could include an esophageal ulcer/gastric ulcer, musculoskeletal causes, gallbladder is ruled out since she is status post cholecystectomy. She is agreeable to this plan. For now we are going to not make any other changes in her medicines except to try to get her on some simethicone since she still has a lot of gas pains the get trapped in her belly. I am uncertain if her insurance will cover it so I write out for her the [id number] equivalent so that she can get that is inexpensively as possible. Going forward depending on her response we can also consider things like Luis. SONIA 4 weeks. Orders: Orders EGD with Dolan - GI Use Only 10/13/23 R10.10 - Upper abdominal pain, unspecified Medications: New simethicone after meals 180 mg PO QID 30 days 120 caps 3RF Refilled linaclotide (Linzess) 290 mcg PO QAM 30 caps 6RF K59.04 - Chronic idiopathic constipation pantoprazole 40 mg PO DAILY 90 tabs 2RF K21.9 - Gastro-esophageal reflux disease without esophagitis metoclopramide HCl 5 mg PO QID 120 tabs 6RF R11.2 - Nausea with vomiting, unspecified Coding Level of Care Code Est Pt Level 3 (32092) Diagnoses Gastroesophageal reflux disease, unspecified whether esophagitis present K21.9 Esophagitis presence: esophagitis presence not specified Chronic idiopathic constipation K59.04 Upper abdominal pain R10.10
[2023-10-13 15:10] VITALS: BP 147/81; PULSE 83; BMI 34.6
== END 2023-10-13 16:02 | disposition home or self-care (01) ==
PROVIDERS: PCP Internal Medicine; Visit Provider Nurse Practitioner
DX: K21.9 Gastro-esophageal reflux disease without esophagitis (principal); K59.04 Chronic idiopathic constipation; R10.10 Upper abdominal pain, unspecified
CPT/HCPCS: 99213

== ENCOUNTER → 2023-10-13 14:55 | Outpatient (BNVA) | payer OTHER, SELFPAY | PROVIDERS: PCP Internal Medicine; Visit Provider Nurse Practitioner | DX: K21.9 Gastro-esophageal reflux disease without esophagitis (principal); K59.04 Chronic idiopathic constipation; R10.10 Upper abdominal pain, unspecified | CPT/HCPCS: 99212 ==

== ENCOUNTER 2023-10-18 09:41 | Day surgery (SDC) | payer OTHER, SELFPAY ==
--- NOTE | 2023-10-15 09:28 | P.CONAN_ITS ---
Documented by User: Shelly Madera NP 10/15/23 09:29 HPI - Anesthesia Eval Consult details Narrative: 52yo F for Upper Endoscopy PMFSH Active Problems Active Problems: All Active Problems (Updated 10/13/23 @ 15:51 by AILEEN Porter) Upper abdominal pain (Acute) Osteoarthritis of left hip (Acute) Carpal tunnel syndrome of left wrist (Acute) Vitamin D deficiency (Acute) Migraine (Acute) Fibroids (Acute) Fibromyalgia, primary (Acute) Trochanteric bursitis, left hip (Acute) Obesity (Acute) BMI greater than 30 (Acute) Myofascial low back pain (Acute) Sacroiliitis (Acute) Lumbosacral spondylosis with radiculopathy (Acute) Chronic pain syndrome (Acute) Presence of neurostimulator (Acute) Degenerative disc disease, lumbar (Acute) Chronic idiopathic constipation (Acute) Carpal tunnel syndrome of right wrist (Acute) Carpal tunnel syndrome of left wrist (Acute) Vaginal odor (Acute) Hot flashes (Acute) Bilateral primary osteoarthritis of knee (Acute) Hip osteoarthritis (Acute) Sicca syndrome (Acute) CRP elevated (Acute) Myopathy (Acute) Osteoarthritis, hand (Acute) Peripheral neuropathy (Acute) 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) Positive ALLISON (antinuclear antibody) (Acute) Essential hypertension (Acute) Mild recurrent major depression (Acute) Hypophosphatemia (Acute) Liver fibrosis (Acute) Secondary hyperparathyroidism (Acute) MITZY (obstructive sleep apnea) (Acute) Autoimmune thyroiditis (Acute) Anxiety (Acute) Depression (Acute) GERD (gastroesophageal reflux disease) (Acute) Past Medical History Medical History (Updated 10/13/23 @ 15:51 by AILEEN Porter) Left hip pain First degree burn injury Osteoarthritis Fibromyalgia Nocturia Nausea and vomiting Polyarthralgia Allergies Physical exam Vaginal discharge Screen for colon cancer Left knee pain Overweight Hypokalemia COVID-19 COVID-19 BMI 32.0-32.9,adult Diaphragmatic hernia BMI over 35 Obesity (BMI 30-39.9) Jeannette's disease Migraine Fibroids History of COVID-19 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 pylori infection Vitamin D deficiency Vitamin B1 deficiency Vitamin B12 deficiency Anxiety Depression Spinal cord stimulator status Sciatica GERD (gastroesophageal reflux disease) Frequent headaches Family History Family History Mother Hypertension Osteoporosis Father Epilepsia Atrophic emphysema Son Asthma Daughter Asthma Daughter Panic attacks Anxiety Thyroid adenoma Maternal Aunt History of breast cancer Family/Other Colon cancer Paternal Aunt Uterine cancer Family history of problems with anesthesia: No Surgical History Surgical History (Updated 10/13/23 @ 15:11 by AILEEN Porter) S/P repair of paraesophageal hernia S/P laparoscopic sleeve gastrectomy History of carpal tunnel release H/O gastric sleeve Hx of mammogram History of cholecystectomy Tubal ligation status H/O laparoscopy S/P endometrial ablation H/O arthroscopy of knee Cholelithiasis History of Problems with Anesthesia: No Social History Social History Household Members: Family Housing: Apartment Are you a primary child care specialist to a significant other at home: No Do you presently have visiting nurse or other home services: No Alcohol intake: never Comment: Oxycodone 5 mg PO given at 13:50. Pain 6/10 with OOB/movement. Patient Tobacco Use Status: Never used Tobacco e-Cigarette/Vaping Use: Never Used Second Hand Smoke Exposure: No Use of substances other than those prescribed or required for medical reasons: No Are you DNR?: No Advance Directives: No Advance Directives Information Provided: Yes service: No 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al status: disabled 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 Cognitive needs: No Hearing needs: No Vision needs: No Meds Allergies Allergy/AdvReac Type Severity Reaction Status Date / Time amoxicillin Allergy Severe severe Verified 10/13/23 15:23 hives-total body lamotrigine [From Lamictal] AdvReac Intermediate Itching Verified 10/13/23 15:23 Penicillins AdvReac Mild Abdominal Verified 10/13/23 15:23 Pain prednisone AdvReac Mild Itching Verified 10/13/23 15:23 Home Medications Medication Instructions Recorded Confirmed Last Taken Type amitriptyline 75 mg tablet 75 mg PO BEDTIME 07/31/20 06/25/23 Unknown History propylene glycol 1 %-glycerin 0.3 1 drp ophthalmic (eye) BID 02/05/22 06/25/23 Unknown History % eye drops (Artificial Tears (glycerin-peg)) venlafaxine 150 mg 150 mg PO QAM 07/10/22 06/25/23 03/01/23 History capsule,extended release 24 hr hydroxyzine HCl 25 mg tablet 25 mg PO BID 06/25/23 06/25/23 Unknown History amantadine HCl 100 mg tablet 100 mg PO DAILY 10/13/23 Unknown History lurasidone 60 mg tablet mg PO 10/13/23 Unknown History Assessment and Plan Assessment Anesthesia Assessment: Chart Reviewed Final Anesthetic Review Family History of Problems with Anesthesia: No History of Problems with Anesthesia: No Documented by User: Nadia Barnard MD 10/18/23 10:44 [facility] Past Medical History Medical History (Updated 10/13/23 @ 15:51 by AILEEN Porter) Left hip pain First degree burn injury Osteoarthritis Fibromyalgia Nocturia Nausea and vomiting Polyarthralgia Allergies Physical exam Vaginal discharge Screen for colon cancer Left knee pain Overweight Hypokalemia COVID-19 COVID-19 BMI 32.0-32.9,adult Diaphragmatic hernia BMI over 35 Obesity (BMI 30-39.9) Jeannette's disease Migraine Fibroids History of COVID-19 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 pylori infection Vitamin D deficiency Vitamin B1 deficiency Vitamin B12 deficiency Anxiety Depression Spinal cord stimulator status Sciatica GERD (gastroesophageal reflux disease) Frequent headaches Family History Family History Mother Hypertension Osteoporosis Father Epilepsia Atrophic emphysema Son Asthma Daughter Asthma Daughter Panic attacks Anxiety Thyroid adenoma Maternal Aunt History of breast cancer Family/Other Colon cancer Paternal Aunt Uterine cancer Surgical History Surgical History (Updated 10/13/23 @ 15:11 by AILEEN Porter) S/P repair of paraesophageal hernia S/P laparoscopic sleeve gastrectomy History of carpal tunnel release H/O gastric sleeve Hx of mammogram History of cholecystectomy Tubal ligation status H/O laparoscopy S/P endometrial ablation H/O arthroscopy of knee Cholelithiasis Social History Social History Household Members: Family Housing: Apartment Are you a primary child care specialist to a significant other at home: No Do you presently have visiting nurse or other home services: No Alcohol intake: never Comment: Oxycodone 5 mg PO given at 13:50. Pain 6/10 with OOB/movement. Patient Tobacco Use Status: Never used Tobacco e-Cigarette/Vaping Use: Never Used Second Hand Smoke Exposure: No Use of substances other than those prescribed or required for medical reasons: No Are you DNR?: No Advance Directives: No Advance Directives Information Provided: Yes service: No 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al status: disabled 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 Cognitive needs: No Hearing needs: No Vision needs: No Meds Allergies Allergy/AdvReac Type Severity Reaction Status Date / Time amoxicillin Allergy Severe severe Verified 10/13/23 15:23 hives-total body lamotrigine [From Lamictal] AdvReac Intermediate Itching Verified 10/13/23 15:23 Penicillins AdvReac Mild Abdominal Verified 10/13/23 15:23 Pain prednisone AdvReac Mild Itching Verified 10/13/23 15:23 Home Medications Medication Instructions Recorded Confirmed Last Taken Type amitriptyline 75 mg tablet 75 mg PO BEDTIME 07/31/20 06/25/23 Unknown History propylene glycol 1 %-glycerin 0.3 1 drp ophthalmic (eye) BID 02/05/22 06/25/23 Unknown History % eye drops (Artificial Tears (glycerin-peg)) venlafaxine 150 mg 150 mg PO QAM 07/10/22 06/25/23 03/01/23 History capsule,extended release 24 hr hydroxyzine HCl 25 mg tablet 25 mg PO BID 06/25/23 06/25/23 Unknown History amantadine HCl 100 mg tablet 100 mg PO DAILY 10/13/23 Unknown History lurasidone 60 mg tablet mg PO 10/13/23 Unknown History Exam Airway Mallampati Class: II TM Dist: >3cm Neck ROM: Full Heart: rrr Lungs: cta Assessment and Plan Assessment Anesthesia Assessment: Anesthesia Plan Discussed Final Anesthetic Review NPO: Yes ASA Class: III Final Preanesthetic Review: No Changes in Pt Med Stat, Meds/Allgs Chart Reviewed and Consent Obtained/Reviewed Patient Risk: Intermediate Procedure Risk: Intermediate Anesthetic Plan Anesthetic Plan: MAC: Disposition: Standard PACU
[2023-10-18 10:01] VITALS: BMI 35.0
[2023-10-18 10:15] VITALS: BP 153/93; PULSE 80; RESP 18; TEMP 37.2; O2SAT 97
[2023-10-18 10:20] VITALS: BMI 35.0
[2023-10-18] MEDS: Lactated Ringers 1,000 ML 100 ML IVCONT (10:27)
--- NOTE | 2023-10-18 10:58 | MHC.SHP ---
Pre-Procedural Eval Section A - 24 Hr Update-Section A only Date of Service: 10/18/23 The patient is an INPATIENT: No Changes since office visit: Yes Patient answered all questions; No Cold of Flu in the past 2 weeks, No New Medical Problems and No Changes in Medication The patient has been examined within 24 hours of the surgical procedure. The History & Physical has been completed within 30 days and I have reviewed it.: Yes Section B - Complete if H&P > 30 days Chief Complaint: Upper abdominal pain, unspecified Allergies: Allergies Allergy/AdvReac Type Severity Reaction Status Date / Time amoxicillin Allergy Severe severe Verified 10/13/23 15:23 hives-total body lamotrigine [From Lamictal] AdvReac Intermediate Itching Verified 10/13/23 15:23 Penicillins AdvReac Mild Abdominal Verified 10/13/23 15:23 Pain prednisone AdvReac Mild Itching Verified 10/13/23 15:23 Plan Diagnosis/Plan: Unchanged I have reviewed the history and physical and performed a pertinent physical examination on my patient. No changes have occurred unless specified. Time Spent With Patient Time: Total time managing care of this patient today ____ minutes.
--- NOTE | 2023-10-18 11:06 | P.OP_ITS ---
Operative Note Operative Note Date of Service: 10/18/23 Narrative: FLEXIBLE TRANSORAL UPPER GASTROINTESTINAL ENDOSCOPY WITH BIOPSIES Pre-op diagnosis: GERD, epigastric pain. Pt complained of intermittent episodes of difficulty swallowing her saliva and denied dysphagia to liquids or solid food Post-op diagnosis: GERD, gastritis Endoscopist:? Felicity Tatum MD Anesthesia:?MAC Consent: Indications for the procedure and potential complications of bleeding, perforation, reaction to medications and missed diagnosis were discussed with the patient and informed consent was obtained. Instrument: Olympus GIF H 190 mid size upper endoscope Monitoring: Vital signs and clinical assessment, continuous EKG monitoring, Pulse oximetry, Carbon Dioxide monitoring and blood pressure monitoring were done throughout the procedure. Procedure: The patient was placed in the left lateral decubitis position and pre-procedure medications were administered and a bite block was placed. The endoscope was inserted into the mouth and advanced under direct vision to the third part of duodenum. A careful inspection was made as the upper endoscope was withdrawn including a retroflexed examination of the proximal stomach; Findings and interventions are described below. Findings: Larynx: Normal Esophagus: Mildly tortuous esophagus with increased tertiary contrations without stricture or ring. Biopsies were obtained from proximal esophagus to check for EOE. GE junction at 36 cms. No esophagitis or Kulkarni's. Stomach: Mild gastric erythema with a few linear erosions in the gastric body. Biopsies were obtained from the gastric antrum and body. Grade 2 flap valve on retroflexed examination of the cardia. Duodenum: Normal bulb and descending duodenum. Biopsies were obtained from 3rd part of the duodenum to check for celiac sprue Intervention: Biopsies as noted above Impression and Post Procedure Diagnosis: Endoscopy Findings: ESOPHAGUS: Mildly tortuous esophagus with increased tertiary contrations without stricture or ring. Biopsies were obtained from proximal esophagus to check for EOE. STOMACH: Mild gastric erythema with a few linear erosions in the gastric body. DUODENUM: Normal - biopsied to check for celiac sprue. Plan: Await pathology results Patient has an appointment on 11/12/23 in the [facility] with Mary Goncalves NP. Above findings were reviewed with the patient and GERD handout was given in the discharge area. BIOPSIES SHOWED: A. Small bowel, biopsy: Small bowel mucosa with preserved villi and no specific change; no evidence of celiac disease. B. Gastric antrum, biopsy: Gastric antral mucosa with congestion, mild reactive changes, and minimal chronic inactive gastritis; negative for H pylori, intestinal metaplasia and dy splasia. C. Gastric body, biopsy: Gastric body mucosa with congestion and minimal chronic inactive gastritis; negative for H pylori, intestinal metaplasia and dysplasia. D. Esophagus, proximal, biopsy: Squamous mucosa with no specific change; no evidence of eosinophilic esophagitis
[2023-10-18 11:23] VITALS: BP 135/79; PULSE 84; RESP 16; TEMP 36.1; O2SAT 96
[2023-10-18 11:38] VITALS: BP 149/83; PULSE 89; RESP 14; O2SAT 97
[2023-10-18 11:53] VITALS: BP 170/86; PULSE 77; RESP 15; O2SAT 98
[2023-10-18 12:08] VITALS: BP 162/79; PULSE 78; RESP 16; TEMP 36.6; O2SAT 98
== END 2023-10-18 12:49 | disposition home or self-care (01) ==
PROVIDERS: PCP Internal Medicine; Visit Provider Internal Medicine Gastroenterology
PROC: 0DJ08ZZ Inspection of Upper Intestinal Tract, Via Natural or Artificial Opening Endoscopic (ICD-10-PCS; CPT 43235; principal; 2023-10-18 13:30)
DX: R10.10 Upper abdominal pain, unspecified (principal); K21.9 Gastro-esophageal reflux disease without esophagitis; K29.50 Unspecified chronic gastritis without bleeding; K22.89 Other specified disease of esophagus; K59.04 Chronic idiopathic constipation; M79.7 Fibromyalgia; I10 Essential (primary) hypertension; E87.6 Hypokalemia; E66.9 Obesity, unspecified; Z68.34 Body mass index [BMI] 34.0-34.9, adult; G47.33 Obstructive sleep apnea (adult) (pediatric); Z90.49 Acquired absence of other specified parts of digestive tract; Z98.84 Bariatric surgery status; Z90.3 Acquired absence of stomach [part of]; Z79.899 Other long term (current) drug therapy; Z88.0 Allergy status to penicillin; Z88.1 Allergy status to other antibiotic agents; Z88.8 Allergy status to other drugs, medicaments and biological substances; Z86.16 Personal history of COVID-19
CPT/HCPCS: 43239; 88305; 88313; 88342; J2704; J3010

== ENCOUNTER → 2023-10-18 09:41 | Outpatient (BNV) | payer OTHER, SELFPAY | PROVIDERS: PCP Internal Medicine; Visit Provider Internal Medicine Gastroenterology | DX: K21.9 Gastro-esophageal reflux disease without esophagitis (principal); R10.13 Epigastric pain; K29.70 Gastritis, unspecified, without bleeding | CPT/HCPCS: 43239 ==

== ENCOUNTER 2023-10-29 | Outpatient (REF) | payer OTHER, SELFPAY ==
[2023-10-30 11:03] LABS: Creatinine, mg/dL 72.23
[2023-10-30 12:30] LABS: Creatinine, 24Hr Urine 1.2 G/Day (1.0-2.0); Total Volume 24 Hour Urine 1725 mL
[2023-11-02 17:19] LABS: Calcium, 24 Hr Urine 159 mg/24 h; Calcium/Creatinine Ratio 126 mg/g creat (30-275); Creatinine 24Hr Urine 1.26 g/24 h (0.50-2.15)
== END 2023-10-29 00:01 | disposition home or self-care (01) ==
LOC: HO.LNP
PROVIDERS: Visit Provider Internal Medicine Endocrinology, Diabetes & Metabolism
DX: N25.81 Secondary hyperparathyroidism of renal origin (principal)
CPT/HCPCS: 82340; 82570

== ENCOUNTER 2023-11-01 12:01 | Outpatient (REF) | payer OTHER, SELFPAY | END 2023-11-01 12:02 | disposition home or self-care (01) | LOC: HO.MAMMO 12:01 | PROVIDERS: PCP Internal Medicine; Visit Provider Internal Medicine | DX: Z12.31 Encounter for screening mammogram for malignant neoplasm of breast (principal) | CPT/HCPCS: 77063; 77067 ==

== ENCOUNTER → 2023-11-01 12:30 | Outpatient (BNV) | payer OTHER, SELFPAY | PROVIDERS: PCP Internal Medicine; Visit Provider Radiology Diagnostic Radiology | DX: Z12.31 Encounter for screening mammogram for malignant neoplasm of breast (principal) | CPT/HCPCS: 77063; 77067 ==

== ENCOUNTER 2023-11-06 07:05 | Outpatient (REF) | payer OTHER, SELFPAY ==
[2023-11-06 08:24] LABS: Parathyroid Hormone Intact 286.4 pg/mL (8.7-77.1)
[2023-11-06 08:37] LABS: Vitamin D 25-OH Total 17.2 ng/mL (>30)
== END 2023-11-06 07:06 | disposition home or self-care (01) ==
LOC: HO.LAB 07:05
PROVIDERS: Absent Provider Internal Medicine Endocrinology, Diabetes & Metabolism; PCP Internal Medicine; Visit Provider Internal Medicine
DX: N25.81 Secondary hyperparathyroidism of renal origin (principal)
CPT/HCPCS: 36415; 82306; 83970

== ENCOUNTER 2023-11-08 16:37 | Outpatient (AMB) | payer OTHER, SELFPAY ==
--- NOTE | 2023-11-08 16:40 | A.OFFVIS_ITS ---
Intake Vital Signs 11/08/23 16:41 Height 5 ft 2 in Weight 193 lb 1.999 oz BMI 35.3 BP 152/84 H Blood Pressure Location Rt brachial Position Sitting Pulse 83 Pulse Source Pulse Oximeter Intake Visit Reasons: Secondary hyperparathyroidism-confirmed Intake Note: Patient presents today for Secondary Hyperparathyroidism follow up. Life Skills Coach Required: No Accompanied by: grandchild Allergies amoxicillin Allergy (Severe, Verified 11/08/23 16:42) severe hives-total body lamotrigine [From Lamictal] Adverse Reaction (Intermediate, Verified 11/08/23 16:42) Itching Penicillins Adverse Reaction (Mild, Verified 11/08/23 16:42) Abdominal Pain prednisone Adverse Reaction (Mild, Verified 11/08/23 16:42) Itching Medication List - Last Reconciled 11/08/23 by Reddy William MD amantadine HCl 100 mg PO DAILY amitriptyline 75 mg PO BEDTIME atenolol 50 mg PO DAILY celecoxib TAKE 1 CAPSULE BY MOUTH TWICE A DAY ergocalciferol (vitamin D2) 1,250 mcg PO QWEEK [GRAB BAR for bathroom with suction cups As directed] hydroxyzine HCl 25 mg PO BID linaclotide (Linzess) 290 mcg PO QAM losartan 50 mg PO DAILY 90 days lurasidone mg PO magnesium oxide 400 mg PO DAILY 30 days meclizine 25 mg PO DAILY PRN 30 days metoclopramide HCl 5 mg PO QID pantoprazole 40 mg PO DAILY propylene glycol-glycerin 1-0.3 % (Artificial Tears (glycerin-peg)) 1 drp ophthalmic (eye) BID [Raised toilet seat As directed] simethicone 180 mg PO QID 30 days venlafaxine ER 150 mg PO QAM walker Folding Front wheeled walker HPI HPI Comments History of Present Illness Details 52-year-old female today for follow-up visit for hyperparathyroidism evaluation. Patient is feeling better she had sleeve gastrectomy on 01/16/2021, She has been taking any vitamin-D IU since bariatric surgery.Not sure of dose of vitamin D She has past medical history of obesity, multiple vitamin deficiencies including vitamin-D. sleep apnea, Jeannette's disease. Denies prior fragility fractures, positive GERD, denies FH of fractures or osteoporosis, denies nephrolithiasis, denies steroids used, never smoker. She has negative History of head or neck irradiation. She does not take calcium but she has at least 2-3 servings of calcium every day in the diet. Calcium trended since 2007 to 2019 range is 8.4-9.5 mg/dL Albumin trended since 2004 range 3.9-5.2 grams/deciliter She had genetic testing for celiac disease on 12/16/2020 she is heterozygous DQ 8 2 X increased risk for celiac disease could this is a relatively risk moderate Currently on ergocalciferol 50,000-units once a week Laboratory Tests 06/03/20 06/03/20 08/05/20 07:10 07:10 08:50 Creatinine Calcium AST ALT Albumin Triglycerides Cholesterol LDL Cholesterol, C alc HDL Cholesterol 25-OH Vitamin D To radha TSH Free T4 TSH 3rd Generation 1.38 Free Estradiol Total Estradiol FSH Luteinizing Hormon e Prolactin Sex Hormone Bind G lob Somatomedin-C PTH Intact 73 H Calcium (PTH Intac t) 9.0 Cortisol ACTH Endomysial Ab Tite r Endomysial IgA Ab Thyroglobulin Anti body 527 H Thyroid Peroxidase Ab <1 Tiss Transglutamin IgG 12/13/20 12/13/20 12/13/20 08:32 08:32 08:32 Creatinine Calcium AST ALT Albumin Triglycerides Cholesterol LDL Cholesterol, C alc HDL Cholesterol 25-OH Vitamin D To radha 41.7 TSH 0.79 Free T4 0.83 TSH 3rd Generation Free Estradiol 0.33 Total Estradiol 14 FSH 87.9 Luteinizing Hormon e 56.0 Prolactin 7.6 Sex Hormone Bind G lob 19 Somatomedin-C 82 PTH Intact 72 H Calcium (PTH Intac t) 9.4 Cortisol ACTH 17 Endomysial Ab Tite r Endomysial IgA Ab Thyroglobulin Anti body Thyroid Peroxidase Ab Tiss Transglutamin IgG 12/13/20 12/13/20 01/09/21 08:32 08:32 08:03 Creatinine Calcium AST ALT Albumin Triglycerides Cholesterol LDL Cholesterol, C alc HDL Cholesterol 25-OH Vitamin D To radha TSH Free T4 TSH 3rd Generation Free Estradiol Total Estradiol FSH Luteinizing Hormon e Prolactin Sex Hormone Bind G lob Somatomedin-C PTH Intact Calcium (PTH Intac t) Cortisol 12.6 ACTH <5 L Endomysial Ab Tite r TNP Endomysial IgA Ab Negative Thyroglobulin Anti body Thyroid Peroxidase Ab Tiss Transglutamin IgG 4 01/09/21 01/11/21 03/11/21 08:03 09:10 06:40 Creatinine 0.71 Calcium 9.5 D AST 37 H ALT 54 H Albumin 3.7 Triglycerides 94 Cholesterol 189 LDL Cholesterol, C alc 121 HDL Cholesterol 50 25-OH Vitamin D To radha TSH 0.69 Free T4 TSH 3rd Generation Free Estradiol Total Estradiol FSH Luteinizing Hormon e Prolactin Sex Hormone Bind G lob Somatomedin-C PTH Intact Calcium (PTH Intac t) Cortisol 0.8 L ACTH Endomysial Ab Tite r Endomysial IgA Ab Thyroglobulin Anti body Thyroid Peroxidase Ab Tiss Transglutamin IgG Laboratory Tests 09/14/18 09/14/18 10/05/19 08:45 08:45 08:28 Calcium 9.0 8.9 8.7 Albumin 25-OH Vitamin D To radha 12.8 10.2 TSH Free T4 0.91 Free T3 TSH 3rd Generation 0.72 0.52 PTH Intact 52 Calcium (PTH Intac t) Thyroglobulin Anti body Thyroid Peroxidase Ab 10/05/19 06/03/20 06/03/20 08:28 07:10 07:10 Calcium 8.8 Albumin 4.0 25-OH Vitamin D To radha TSH Free T4 Free T3 2.7 TSH 3rd Generation 1.38 PTH Intact Calcium (PTH Intac t) Thyroglobulin Anti body 527 H Thyroid Peroxidase Ab <1 08/05/20 08/05/20 08/23/20 08:50 08:50 08:40 Calcium 8.6 8.9 Albumin 4.2 3.8 25-OH Vitamin D To radha TSH 1.22 Free T4 Free T3 TSH 3rd Generation PTH Intact 73 H Calcium (PTH Intac t) 9.0 Thyroglobulin Anti body Thyroid Peroxidase Ab . 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 pylori infection Vitamin D deficiency Vitamin B1 deficiency Vitamin B12 deficiency Anxiety Depression Spinal cord stimulator status Sciatica GERD (gastroesophageal reflux disease) Frequent headaches Surgical History S/P repair of paraesophageal hernia S/P laparoscopic sleeve gastrectomy History of carpal tunnel release H/O gastric sleeve Hx of mammogram History of cholecystectomy Tubal ligation status H/O laparoscopy S/P endometrial ablation H/O arthroscopy of knee Cholelithiasis Family History Mother Hypertension Osteoporosis Father Epilepsia Atrophic emphysema Son Asthma Daughter Asthma Daughter Panic attacks Anxiety Thyroid adenoma Maternal Aunt History of breast cancer Family/Other Colon cancer Paternal Aunt Uterine cancer Social History Household Members: Family Housing: Apartment Are you a primary workforce investment act career manager to a significant other at home: No Do you presently have visiting nurse or other home services: No Alcohol intake: never Comment: Oxycodone 5 mg PO given at 13:50. Pain 6/10 with OOB/movement. 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 Cognitive needs: No Hearing needs: No Vision needs: No Physical Exam Vital Signs: BMI result Body Mass Index 35.3 Assessment & Plan Assessment & Plan (1) Secondary hyperparathyroidism: Code(s): N25.81 - Secondary hyperparathyroidism of renal origin Plan: This is a 53-year-old female with a history of gastric sleeve surgery with resultant vitamin-D deficiency and secondary hyperparathyroidism currently taking calcium and vitamin-D 49863 IU/wk supplementation. IU . Less likely but possible is the presence of normocalcemic primary hyperparathyroidism but this cannot be established until patient is vitamin-D replete for some time and still has persistent elevation PTH Plan is to increase the ergocalciferol 91630 IU twice a week. 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: Code(s): E21.0 - Primary hyperparathyroidism Plan: See plan For secondary hyperparathyroidism Orders: Orders Albumin Level 3 Months E21.0 - Primary hyperparathyroidism Vitamin D 25-OH Total 3 Months E21.0 - Primary hyperparathyroidism Parathyroid Hormone Intact 3 Months E21.0 - Primary hyperparathyroidism Calcium 3 Months E21.0 - Primary hyperparathyroidism Medications: Changed From ergocalciferol (vitamin D2) 1,250 mcg PO QWEEK 12 caps 3RF E55.9 - Vitamin D deficiency, unspecified To ergocalciferol (vitamin D2) 1,250 mcg PO 2XW 12 caps 3RF E55.9 - Vitamin D deficiency, unspecified Coding Level of Care Code Est Pt Level 3 (24043) Diagnoses Secondary hyperparathyroidism N25.81 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
[2023-11-08 16:41] VITALS: BP 152/84; PULSE 83; BMI 35.3
== END 2023-11-08 16:53 | disposition home or self-care (01) ==
PROVIDERS: PCP Internal Medicine; Visit Provider Internal Medicine Endocrinology, Diabetes & Metabolism
DX: N25.81 Secondary hyperparathyroidism of renal origin (principal); E21.0 Primary hyperparathyroidism
CPT/HCPCS: 99213

== ENCOUNTER → 2023-11-08 16:37 | Outpatient (BNVA) | payer OTHER, SELFPAY | PROVIDERS: PCP Internal Medicine; Visit Provider Internal Medicine Endocrinology, Diabetes & Metabolism | DX: N25.81 Secondary hyperparathyroidism of renal origin (principal); E21.0 Primary hyperparathyroidism | CPT/HCPCS: 99212 ==

== ENCOUNTER 2023-11-17 14:26 | Outpatient (AMB) | payer OTHER, SELFPAY ==
[2023-11-17 14:35] VITALS: BP 130/78; PULSE 84; O2SAT 97; BMI 34.8
--- NOTE | 2023-11-17 14:35 | A.OFFPC_ITS ---
Vital Signs 11/17/23 14:35 Height 5 ft 2 in Weight 190 lb 2 oz BMI 34.8 BP 130/78 Blood Pressure Location Lt brachial Position Sitting Pulse 84 Pulse Source Pulse Oximeter Pulse Oximetry (%) 97 Oxygen Delivery Method Room Air Intake Visit Reasons: Milly mcclelland/ Dr. Medina Sliding Joint Maker Required: No Accompanied by: Self / Same As Patient Allergies amoxicillin Allergy (Severe, Verified 11/17/23 15:34) severe hives-total body lamotrigine [From Lamictal] Adverse Reaction (Intermediate, Verified 11/17/23 15:34) Itching Penicillins Adverse Reaction (Mild, Verified 11/17/23 15:34) Abdominal Pain prednisone Adverse Reaction (Mild, Verified 11/17/23 15:34) Itching Medication List - Last Reconciled 11/17/23 by Nas Suh MD amantadine HCl 100 mg PO DAILY amitriptyline 75 mg PO BEDTIME atenolol 50 mg PO DAILY celecoxib TAKE 1 CAPSULE BY MOUTH TWICE A DAY ergocalciferol (vitamin D2) 1,250 mcg PO 2XW [GRAB BAR for bathroom with suction cups As directed] hydroxyzine HCl 25 mg PO BID linaclotide (Linzess) 290 mcg PO QAM losartan 50 mg PO DAILY 90 days lurasidone 60 mg PO DAILY magnesium oxide 400 mg PO DAILY 30 days meclizine 25 mg PO DAILY PRN 30 days metoclopramide HCl 5 mg PO QID pantoprazole 40 mg PO DAILY propylene glycol-glycerin 1-0.3 % (Artificial Tears (glycerin-peg)) 1 drp ophthalmic (eye) BID [Raised toilet seat As directed] simethicone 180 mg PO QID 30 days venlafaxine ER 150 mg PO QAM walker Folding Front wheeled walker Tobacco use date assessed: 11/17/23 Dental Screening Dental Screen Date: 11/17/23 Did you have a dental visit in the last 12 months?: Yes Did you have a dental problem in the last 6 months where you did not have access to dental care?: No Was dental information given to patient?: Patient has dentist HPI Milly mcclelland/ Dr. Medina HPI Details Patient comes in today at the request of Dr. Jayden Medina for a preoperative medical examination for clearance for surgery She is scheduled for a total left hip arthroplasty under general anesthesia on 12/01/2023 Patient states that aside from her increasing hip pain, she feels okay She denies any headaches or dizziness Denies any chest pains, no SOB No nausea/vomiting, no abdominal pain No change in bowel habits noted [facility] Medical History (Updated 11/17/23 @ 15:24 by Nas Suh MD) Left hip pain First degree burn injury Osteoarthritis Fibromyalgia Nocturia Nausea and vomiting Polyarthralgia Allergies Physical exam Vaginal discharge Screen for colon cancer Left knee pain Overweight Hypokalemia COVID-19 COVID-19 BMI 32.0-32.9,adult Diaphragmatic hernia BMI over 35 Obesity (BMI 30-39.9) Jeannette's disease Migraine Fibroids History of COVID-19 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 pylori infection Vitamin D deficiency Vitamin B1 deficiency Vitamin B12 deficiency Anxiety Depression Spinal cord stimulator status Sciatica GERD (gastroesophageal reflux disease) Frequent headaches Surgical History (Updated 11/23/23 @ 02:18 by Nsa Suh MD) S/P repair of paraesophageal hernia S/P laparoscopic sleeve gastrectomy History of carpal tunnel release H/O gastric sleeve Hx of mammogram History of cholecystectomy Tubal ligation status H/O laparoscopy S/P endometrial ablation H/O arthroscopy of knee Cholelithiasis Family History Mother Hypertension Osteoporosis Father Epilepsia Atrophic emphysema Son Asthma Daughter Asthma Daughter Panic attacks Anxiety Thyroid adenoma Maternal Aunt History of breast cancer Family/Other Colon cancer Paternal Aunt Uterine cancer Social History Household Members: Family Housing: Apartment Are you a primary child day care teacher to a significant other at home: No Do you presently have visiting nurse or other home services: No Alcohol intake: never Comment: Oxycodone 5 mg PO given at 13:50. Pain 6/10 with OOB/movement. 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 1. Little interest or pleasure in doing things: not at all 2. Feeling down, depressed, or hopeless: not at all 3. Trouble falling or staying asleep, or sleeping too much: not at all 4. Feeling tired or having little energy: not at all 5. Poor appetite or overeating: not at all 6. Feeling bad about yourself - or that you are a failure or have let yourself or your family down: not at all 7. Trouble concentrating on things, such as reading the newspaper or watching television: not at all 8. Moving or speaking so slowly that other people could have noticed. Or the opposite - being so fidgety or restless that you have been moving around a lot more than usual: not at all 9. Thoughts that you would be better off or of hurting yourself in some way: not at all Total score: 0 Depression Screening Interpretation: Negative Depression Screening Done: Yes 96929 - PHQ-9 Billing: Yes Source: Developed by Drs. Reddy Oconnell, Libra Gaspar, Lake Martínez and colleagues, with an educational roberto from [employer]. Thrive Questionnaire Date Thrive assessed: 11/17/23 I am a: Patient What is your living situation today?: I have a steady place to live Within the past 12 months, did the food you bought not last and you didn't have the money to get more?: Never true Within the past 12 months, did you worry whether your food would run out before you got money to buy more?: Never true Do you have trouble paying for medicines?: No Do you have trouble getting transportation to medical appointments?: No Do you have trouble paying your heating and electricity bill?: No Do you have trouble taking care of your child, family member or friend?: No Do you have trouble with day-to-day activities such as bathing, preparing meals, shopping, managing finances, etc.?: No Are you currently unemployed and looking for a job?: No Are you interested in more education?: No Please select the resources that you would like help with: None Currently or been in a relationship where the following occur: no concerns reported THRIVE Score: 0 AUDIT C Alcohol Use Questionnaire (AUDIT-C) 1. How often do you have a drink containing alcohol?: Never 3. How often do you have six or more drinks on one occasion?: Never Total Score: 0 Score Reviewed/Action Taken: Yes ELISA-7 AMB Questionnaire ELISA-7 Date ELISA - 7 assessed: 11/17/23 Feeling nervous, anxious, or on edge: 0 = Not at all Not being able to stop or control worryin = Not at all Worrying too much about different things: 0 = Not at all Trouble relaxin = Not at all Being so restless that it is hard to sit still: 0 = Not at all Becoming easily annoyed or irritable: 0 = Not at all Feeling afraid as if something awful might happen: 0 = Not at all Total ELISA-7 score (0-4 normal; 5-9 mild; 10-14 moderate; 15-21 severe): 0 Source: Developed by Drs. Reddy Oconnell, Libra Gaspar, Lake Martínez and colleagues, with an educational roberto from [employer]. Review of Systems Const Denies chills, Reports fatigue, Denies fever(s) and Denies headache(s) ENT Denies dysphagia, Denies dizziness, Denies otalgia, Denies headache(s), Reports neck pain, Denies odynophagia, Denies sinus pain and Denies sore throat Card Denies chest pain, Denies palpitations and Denies dyspnea Resp Denies cough, Denies dyspnea and Denies wheezing GI Denies abdominal pain, Denies constipation, Denies dysphagia, Denies heartburn, Denies diarrhea, Denies nausea, Denies odynophagia and Denies vomiting Denies difficulty voiding, Denies nocturia and Denies dysuria Musc Reports back pain, Reports myalgias (diffuse, on and off), Reports arthralgias (involving multiple joints, but increased over left hip recently), Reports neck pain and Reports stiffness Skin/Breast Denies rash Neuro Denies dizziness and Denies headache(s) Psych Reports depression Endo Reports fatigue and Denies palpitations Aller/Immun Denies wheezing Physical exam (Primary Care) Vital Signs: Last Vital Signs Pulse 84 11/17/23 14:35 BP 130/78 11/17/23 14:35 Pulse Ox 97 11/17/23 14:35 Oxygen Delivery Method Room Air 11/17/23 14:35 BMI result Body Mass Index 34.8 Tobacco/Smoking Status: Tobacco use Status Tobacco use date assessed 11/17/23 11/17/23 14:44 Patient Tobacco Use Status Never used Tobacco 11/17/23 14:44 e-Cigarette/Vaping Use Never Used 11/17/23 14:44 PHQ-9: PHQ-9 Score PHQ-9: Total score 0 11/17/23 15:21 Depression Screening Interpretation: Negative Thrive Assessment: Date of Thrive Assessment Date Thrive assessed 11/17/23 11/17/23 14:44 Currently or been in a relationship where the following occur: no concerns reported Const General: no acute distress and alert HENMT Ears: TM's normal bilaterally and EAC's normal Throat: Yes posterior oropharynx normal and Yes tonsils normal (no TP congestion noted) Neck Neck: Yes no lymphadenopathy and Yes supple Thyroid: Thyroid normal Resp Auscultation: clear to auscultation bilaterally, no rales and no wheezes Cardio Rate: regular rate Rhythm: regular rhythm Heart sounds: no murmurs GI Palpation (GI): Soft to palpation and nontender Auscultation: normal bowel sounds Back/Spine/Pelvis Cervical Spine: cervical muscular tenderness and Cervical spine tenderness Thoracic/Lumbar Spine: lumbar spinal tenderness Skin Rashes: no rashes Extrem General: Yes no clubbing, cyanosis or edema Left lower extremity: hip/thigh Details: tenderness Location: of the hip Assessment and Plan Assessment & Plan (1) Preoperative examination: Code(s): Z01.818 - Encounter for other preprocedural examination Plan: Patient currently presents with acceptable risks for planned intermediate cardiac risk procedure Will send her for preop labs and EKG LATANYA to help complete her preoperative evaluation (2) Osteoarthritis of left hip: Code(s): M16.12 - Unilateral primary osteoarthritis, left hip Qualifiers: Osteoarthritis type: primary Qualified Code(s): M16.12 - Unilateral primary osteoarthritis, left hip Plan: She is scheduled for a total left hip arthroplasty under general anesthesia on 12/01/[address] Jayden Medina (3) Essential hypertension: Code(s): I10 - Essential (primary) hypertension Plan: Reinforced low sodium diet - goal is systolic BP of at least 130 mm or less Continue Losartan 50 mg QD and Atenolol 50 mg QD (4) MITZY (obstructive sleep apnea): Comment: uses CPAP Code(s): G47.33 - Obstructive sleep apnea (adult) (pediatric) Plan: Continue using her CPAP device when sleeping at night Follow up with Sleep Medicine as scheduled (5) Migraine: Code(s): G43.909 - Migraine, unspecified, not intractable, without status migrainosus Qualifiers: Migraine type: unspecified Status migrainosus presence: without status migrainosus Intractability: not intractable Qualified Code(s): G43.909 - Migraine, unspecified, not intractable, without status migrainosus Plan: Controlled on prophylactic Rx Reinforced avoidance of potential migraine triggers Continue Amitriptyline 75 mg Q HS for headache prophylaxis (6) GERD (gastroesophageal reflux disease): Code(s): K21.9 - Gastro-esophageal reflux disease without esophagitis Qualifiers: Esophagitis presence: esophagitis presence not specified Qualified Code(s): K21.9 - Gastro-esophageal reflux disease without esophagitis Plan: Dietary restrictions reinforced Continue Pantoprazole 40 mg QD (7) Jeannette's disease: Code(s): E06.3 - Autoimmune thyroiditis Plan: Her serum TSH was normal when last checked in January 2023 Will recheck TFTs LATANYA for follow up (8) Secondary hyperparathyroidism: Code(s): N25.81 - Secondary hyperparathyroidism of renal origin Plan: Resulting primarily from her gastric sleeve surgery in 2020, as well as Vitamin D deficiency Continue Vitamin D2 1250 mcg twice a week and Calcium Citrate 500 mg BID Follow up with endocrinology as scheduled - she is currently being worked up further by Dr. William to see if any other interventions are indicated (9) Vitamin D deficiency: Code(s): E55.9 - Vitamin D deficiency, unspecified Plan: Continue Vitamin D 1250 mcg BIW (10) Lumbosacral spondylosis with radiculopathy: Code(s): M47.27 - Other spondylosis with radiculopathy, lumbosacral region Plan: Reinforced activity and weight-lifting restrictions States that she currently has an SCS, which helps with her chronic low back pain Follow up with pain management as scheduled (11) Fibromyalgia: Code(s): M79.7 - Fibromyalgia Plan: Reinforced regular exercise and physical activity to help manage her fibromyalgia symptoms Continue Tizanidine 2 mg Q 8 hours PRN Follow up with rheumatology as scheduled (12) Chronic idiopathic constipation: Code(s): K59.04 - Chronic idiopathic constipation Plan: Encouraged increased oral fluids and dietary fiber Continue Linzess 290 mcg QD Follow up with GI as scheduled (13) Depression: Code(s): F32.9 - Major depressive disorder, single episode, unspecified Qualifiers: Depression Type: major depressive disorder Major depression recurrence: recurrent Active/Remission status: currently active Major depression episode severity: unspecified Qualified Code(s): F33.9 - Major depressive disorder, r ecurrent, unspecified Plan: Continue Latuda 60 mg QD and Venlafaxine ER 150 mg QD Follow up with psychiatry as scheduled (14) Obesity (BMI 30-39.9): Comment: S/P sleeve gastrectomy in 2020 Code(s): E66.9 - Obesity, unspecified Plan: Reinforced diet/exercise as tolerated/lose weight Follow up with weight management as scheduled Plan Patient's clearance will be completed and provided once all the results of her labs and EKG are available for review Follow up in 3 months Orders: Orders Prothrombin Time INR 11/17/23 M16.12 - Unilateral primary osteoarthritis, left hip, Z01.818 - Encounter for other preprocedural examination, Z79.01 - termination clerk (current) use of anticoagulants Partial Thromboplastin Time 11/17/23 M16.12 - Unilateral primary osteoarthritis, left hip, Z01.818 - Encounter for other preprocedural examination Complete Blood Count Auto Diff 11/17/23 D64.9 - Anemia, unspecified, Z01.818 - Encounter for other preprocedural examination Comprehensive Met. Panel 11/17/23 Z01.818 - Encounter for other preprocedural examination TSH reflex Free T4 11/17/23 E78.00 - Pure hypercholesterolemia, unspecified, Z01.818 - Encounter for other preprocedural examination UA CC w/rflx Micro + Cult 11/17/23 R30.0 - Dysuria, Z01.818 - Encounter for other preprocedural examination ECG 12 lead EKG 11/17/23 M16.12 - Unilateral primary osteoarthritis, left hip Coding Level of Care Code Est Pt Level 4 (06116) Diagnoses Preoperative examination Z01.818 Primary osteoarthritis of left hip M16.12 Osteoarthritis type: primary Essential hypertension I10 MITZY (obstructive sleep apnea) G47.33 Migraine without status migrainosus, not intractable, unspecified migraine type G43.909 Migraine type: unspecified Status migrainosus presence: without status migrainosus Intractability: not intractable Gastroesophageal reflux disease, unspecified whether esophagitis present K21.9 Esophagitis presence: esophagitis presence not specified Jeannette's disease E06.3 Secondary hyperparathyroidism N25.81 Vitamin D deficiency E55.9 Lumbosacral spondylosis with radiculopathy M47.27 Fibromyalgia M79.7 Chronic idiopathic constipation K59.04 Episode of recurrent major depressive disorder, unspecified depression episode severity F33.9 Depression Type: major depressive disorder Major depression recurrence: recurrent Active/Remission status: currently active Major depression episode severity: unspecified Obesity (BMI 30-39.9) E66.9
== END 2023-11-17 15:29 | disposition home or self-care (01) ==
PROVIDERS: PCP Internal Medicine; Visit Provider Internal Medicine
DX: M16.12 Unilateral primary osteoarthritis, left hip (principal); F33.9 Major depressive disorder, recurrent, unspecified; N25.81 Secondary hyperparathyroidism of renal origin; I10 Essential (primary) hypertension; G47.33 Obstructive sleep apnea (adult) (pediatric); G43.909 Migraine, unspecified, not intractable, without status migrainosus; Z01.818 Encounter for other preprocedural examination; K21.9 Gastro-esophageal reflux disease without esophagitis; E06.3 Autoimmune thyroiditis; E55.9 Vitamin D deficiency, unspecified; M47.27 Other spondylosis with radiculopathy, lumbosacral region; M79.7 Fibromyalgia
CPT/HCPCS: 99214

== ENCOUNTER 2023-11-23 08:47 | Outpatient (REF) | payer OTHER, SELFPAY ==
[2023-11-23 09:04] LABS: MANUAL DIFF FLAG NO
--- NOTE | 2023-11-23 09:06 | ECG_ITS ---
Test Reason : preop Blood Pressure : / mmHG Vent. Rate : 076 BPM Atrial Rate : 076 BPM P-R Int : 188 ms QRS Dur : 088 ms QT Int : 394 ms P-R-T Axes : 056 045 040 degrees QTc Int : 443 ms Normal sinus rhythm Normal ECG When compared with ECG of 05-AUG-2020 09:03, No significant change was found Referred By: Nas Suh Electronically Signed By:CHONG SAM
[2023-11-23 09:24] LABS: Basophils Absolute Auto 0.1 X10*3/uL (0.0-0.2); Basophils Percent Auto 0.8 % (0-2); Eosinophils Absolute Auto 0.4 X10*3/uL (0.0-0.4); Eosinophils Percent Auto 3.6 % (0-4); Hematocrit 38.5 % (37.0-47.0); Hemoglobin 12.6 g/dl (12.0-16.0); Imm Gran Abs Auto 0.03 X10*3/uL (0.00-0.03); Imm Gran Pct Auto 0.3 % (0.0-0.4); Lymphocytes Absolute Auto 3.5 X10*3/uL (1.2-4.9); Lymphocytes Percent Auto 32.1 % (20-40); Mean Corpuscular HGB Conc 32.7 g/dl (31.0-35.0); Mean Corpuscular Hemoglobin 29.6 pg (27.0-33.0); Mean Corpuscular Volume 90.4 fL (80.0-98.0); Mean Platelet Volume 9.7 fL (9.4-12.3); Monocytes Absolute Auto 0.8 X10*3/uL (0.1-1.2); Monocytes Percent Auto 7.4 % (2-11); Neutrophils Absolute Auto 6.1 x10*3/uL (2.0-8.3); Neutrophils Percent Auto 55.8 % (45-73); Platelet Count 401 X10*3/uL (160-400); Red Blood Count 4.26 X10*6/uL (4.20-5.50); Red Cell Distribution Width 13.7 % (11.0-16.0)
[2023-11-23 09:40] LABS: Partial Thromboplastin Time 28.6 SEC (26.0-36.8)
[2023-11-23 09:43] LABS: Prothrombin Time 12.5 SEC (11.1-13.3)
[2023-11-23 10:04] LABS: Appearance Urine Cloudy; Color Urine Dark Yellow; Glucose Urine UA Negative (Negative); Leukocyte Esterase Urine Moderate (2+) (Negative); Nitrite Urine Negative (Negative); PH 6.5 (5.0-9.0); Specific Gravity - Urine 1.015 (1.005-1.025); UMIC TRIGGER UACC YES; Urine Blood Negative (Negative); Urine Ketones Negative (Negative); Urine Protein Negative (Neg-Trace)
[2023-11-23 10:11] LABS: Alanine Aminotransferase 16 U/L (0-31); Alkaline Phosphatase 152 U/L (39-117); Anion Gap 9 (12-20); Aspartate Amino Transferase 18 U/L (5-31); Bilirubin Total 0.4 mg/dL (0.0-1.0); Blood Urea Nitrogen 7 mg/dL (9-16); Calcium 8.9 mg/dL (8.4-10.2); Carbon Dioxide 30 mmol/L (22-29); Chloride 104 mmol/L (96-108); Estimated Glomerular Filt Rate > 60; Glucose Random 112 mg/dL (60-115); Potassium 3.4 mmol/L (3.3-5.1); Sodium 140 mmol/L (135-145); Total Protein 7.7 g/dL (6.5-8.0)
[2023-11-23 10:16] LABS: Bacteria Urine 1+ (None Seen); Hyaline Casts Urine 0-2 /LPF (0-2); RBC Urine 0-2 /HPF (0-2); UACC Culture Trigger YES
[2023-11-23 10:18] LABS: TSH reflex Free T4 0.95 uIU/mL (0.32-4.0); Vitamin D 25-OH Total 23.3 ng/mL (>30)
== END 2023-11-23 08:48 | disposition home or self-care (01) ==
LOC: HO.LAB 08:47
PROVIDERS: PCP Internal Medicine; Visit Provider Internal Medicine
DX: Z01.818 Encounter for other preprocedural examination (principal); M16.12 Unilateral primary osteoarthritis, left hip; N25.81 Secondary hyperparathyroidism of renal origin; E55.9 Vitamin D deficiency, unspecified; D64.9 Anemia, unspecified; E78.00 Pure hypercholesterolemia, unspecified; Z79.01 Long term (current) use of anticoagulants
CPT/HCPCS: 36415; 80053; 81001; 81003; 82306; 84443; 85025; 85610; 85730; 87086; 93005

== ENCOUNTER → 2023-11-23 09:06 | Outpatient (BNV) | payer OTHER, SELFPAY | PROVIDERS: PCP Internal Medicine; Visit Provider Internal Medicine | DX: Z01.818 Encounter for other preprocedural examination (principal) | CPT/HCPCS: 93010 ==

== ENCOUNTER 2023-11-25 10:45 | Outpatient (AMB) | payer OTHER, SELFPAY ==
--- NOTE | 2023-11-25 10:49 | MHC.OFFVIS ---
Intake Vital Signs 11/25/23 10:52 Height 5 ft 2 in Weight 190 lb BMI 34.7 Intake Visit Reasons: pre-op left DOT 12/01/23 with NE Intake Note: Jacqueline is a 53 year old female who presents today for a pre op appointment for her left DOT 12/01/23 NE. Allergies amoxicillin Allergy (Severe, Verified 11/25/23 10:54) severe hives-total body cat dander [cats] Allergy (Verified 11/25/23 10:54) Difficulty Breathing mold Allergy (Verified 11/25/23 10:54) Difficulty Breathing oxycodone [From Percocet] Allergy (Verified 11/25/23 10:54) Itching lamotrigine [From Lamictal] Adverse Reaction (Intermediate, Verified 11/25/23 10:54) Itching Penicillins Adverse Reaction (Mild, Verified 11/25/23 10:54) Abdominal Pain prednisone Adverse Reaction (Mild, Verified 11/25/23 10:54) Itching HPI pre-op left DOT 12/01/23 with NE HPI Details 53-year-old right hand dominant female who presents in the office today for her preoperative history and physical exam prior to a left total hip arthroplasty to be performed on 12/01/[address] Jayden Medina. Patient has an allergy history, as follows: -Amoxicillin; severe hives-total body -Cat dander; difficulty breathing -Mold; difficulty breathing -Oxycodone; itching -Lamotrigine; itching -Penicillin; abdominal pain -Prednisone; itching Patient is currently taking, as follows: -Amantadine HCI 100 mg PO daily -Amitriptyline 75 mg PO bedtime -Atenolol 50 mg PO daily -Hydroxyzine HCI 25 mg PO BID -Linaclotide 290 mcg PO QAM -Losartan 50 mg PO daily -Lurasidone 60 mg PO daily -Magnesium oxide 400 mg PO daily -Meclizine 25 mg PO daily PRN -Metoclopramide HCI 5 mg PO QID PRN -Pantoprazole 40 mg PO daily -Propylene glycol-glycerin 1-0.3% 1 drop ophthalmic BID -Simethicone 180 mg PO QID -Venlafaxine ER 150 mg PO QAM Patient has a medical history, as follows: -Myopathy -Sicca syndrome -Chronic idiopathic constipation -Presences of neurostimulator; 11/2019 -Spondylosis of lumbosacral spine with radiculopathy -Mild recurrent major depression -Vitamin D deficency -Migraine -Fibroids -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 pylori infection -Vitamin B1 deficiency -Vitamin B12 deficiency -Jeannette's disease Patient has a surgical history, as follows: -History of esophagogastroduodenoscopy (EGD) -H/O colonoscopy -History of carpal tunnel release; 12/29/21-right 03/01/2023- Left -H/O gastric sleeve; January 2021 -S/P repair of paraesophageal hernia -S/P laparoscopic sleeve gastrectomy -Hx of mammogram -History of cholecystectomy; 08/2020 -Tubal ligation status -H/O laparoscopy -S/P endometrial ablation -H/O arthroscopy of knee; 2006 [facility] Medical History Arthritis Back pain Bipolar 1 disorder Left hip pain First degree burn injury Osteoarthritis Migraine Fibromyalgia Nocturia Fibroids History of COVID-19 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 pylori infection Vitamin D deficiency Vitamin B1 deficiency Vitamin B12 deficiency Anxiety Depression Spinal cord stimulator status Sciatica GERD (gastroesophageal reflux disease) Frequent headaches Surgical History (Updated 11/24/23 @ 11:47 by Emma George RN) History of esophagogastroduodenoscopy (EGD) H/O colonoscopy History of carpal tunnel release H/O gastric sleeve S/P repair of paraesophageal hernia S/P laparoscopic sleeve gastrectomy Hx of mammogram History of cholecystectomy Tubal ligation status H/O laparoscopy S/P endometrial ablation H/O arthroscopy of knee Family History Mother Hypertension Osteoporosis Father Epilepsia Atrophic emphysema Son Asthma Daughter Asthma Daughter Panic attacks Anxiety Thyroid adenoma Maternal Aunt History of breast cancer Family/Other Colon cancer Paternal Aunt Uterine cancer Social History Household Members: Family Housing: Apartment Are you a primary technical healthcare consultant to a significant other at home: No Do you presently have visiting nurse or other home services: No Alcohol intake: never Comment: Oxycodone 5 mg PO given at 13:50. Pain 6/10 with OOB/movement. 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 Cognitive needs: No Hearing needs: No Vision needs: No Review of Systems Const All systems reviewed & are unremarkable except as noted in HPI and below Physical Exam Vital Signs: BMI result Body Mass Index 34.7 Const General: cooperative, healthy appearing, comfortable, no acute distress, well developed, alert and awake Orientation/consciousness: patient oriented x3 HEENT Head: Yes normal to inspection, Yes normocephalic and Yes atraumatic Eyes General: appearance normal, both eyes and all related structures EOM: EOMs intact bilaterally Neck Neck: Yes normal visual inspection and Yes no lymphadenopathy Resp Effort & Inspection: normal respiratory effort and able to speak in complete sentences Cardio Jugular venous distension: no JVD Rate: regular rate Peripheral pulses: Peripheral pulses 2+ throughout GI Inspection: Yes normal to inspection Palpation (GI): Soft to palpation Skin General skin exam: no rashes or lesions noted Rashes: no rashes Neuro General: patient oriented x3 Extrem Other: + gait antalgia +impingement +Stinchfield 20 deg IR with FADIR Psych Appearance: grossly normal Mental Status: mental status grossly normal Affect: normal affect Attitude: cooperative Assessment & Plan Assessment & Plan (1) Osteoarthritis of left hip: Code(s): M16.12 - Unilateral primary osteoarthritis, left hip Qualifiers: Osteoarthritis type: primary Qualified Code(s): M16.12 - Unilateral primary osteoarthritis, left hip Plan Ms. Garsia is a 53-year-old right hand dominant female who presents in the office today for her preoperative history and physical exam prior to a left total hip arthroplasty to be performed on 12/01/[address] Jayden Medina. Patient has an allergy history, as follows: -Amoxicillin; severe hives-total body -Cat dander; difficulty breathing -Mold; difficulty breathing -Oxycodone; itching -Lamotrigine; itching -Penicillin; abdominal pain -Prednisone; itching Patient is currently taking, as follows: -Amantadine HCI 100 mg PO daily -Amitriptyline 75 mg PO bedtime -Atenolol 50 mg PO daily -Hydroxyzine HCI 25 mg PO BID -Linaclotide 290 mcg PO QAM -Losartan 50 mg PO daily -Lurasidone 60 mg PO daily -Magnesium oxide 400 mg PO daily -Meclizine 25 mg PO daily PRN -Metoclopramide HCI 5 mg PO QID PRN -Pantoprazole 40 mg PO daily -Propylene glycol-glycerin 1-0.3% 1 drop ophthalmic BID -Simethicone 180 mg PO QID -Venlafaxine ER 150 mg PO QAM Patient has a medical history, as follows: -Myopathy -Sicca syndrome -Chronic idiopathic constipation -Presences of neurostimulator; 11/2019 -Spondylosis of lumbosacral spine with radiculopathy -Mild recurrent major depression -Vitamin D deficency -Migraine -Fibroids -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 pylori infection -Vitamin B1 deficiency -Vitamin B12 deficiency -Jeannette's disease Patient has a surgical history, as follows: -History of esophagogastroduodenoscopy (EGD) -H/O colonoscopy -History of carpal tunnel release; 12/29/21-right 03/01/2023- Left -H/O gastric sleeve; January 2021 -S/P repair of paraesophageal hernia -S/P laparoscopic sleeve gastrectomy -Hx of mammogram -History of cholecystectomy; 08/2020 -Tubal ligation status -H/O laparoscopy -S/P endometrial ablation -H/O arthroscopy of knee; 2006 I discussed in detail the procedure and what to expect pre and post operatively. We discussed the risks, benefits and alternatives to the surgery as well as the rehabilitation course. The risks; which include, but are not limited to infection, bleeding, nerve injury, ongoing pain, swelling, and stiffness, perioperative risk of injury to bones and soft tissues, and blood clots. I have answered all questions and with their understanding they have consented to move forward with a left total hip arthroplasty to be performed on 12/01/[address] Jayden Medina. Follow up will be at the post operative appointment on 12/16/2023 or sooner if needed. Jesse [phone] Please call after surgery Orders: Orders PT Evaluation and Treatment 11/22/23 Z96.642 - Presence of left artificial hip joint Patient Instructions: Scribed by Rose Mary Abernathy medical office coordinator, for Lamar Butterfield PA-C on 11/25/2023 at 10:48 am, EST. Coding Level of Care Code Global (97013) Diagnoses Primary osteoarthritis of left hip M16.12 Osteoarthritis type: primary
[2023-11-25 10:52] VITALS: BMI 34.7
== END 2023-11-25 12:17 | disposition home or self-care (01) ==
PROVIDERS: PCP Internal Medicine; Visit Provider Physician Assistant
DX: M16.12 Unilateral primary osteoarthritis, left hip (principal)
CPT/HCPCS: 99024

== ENCOUNTER → 2023-11-25 10:45 | Outpatient (BNVA) | payer OTHER, SELFPAY | PROVIDERS: PCP Internal Medicine; Visit Provider Physician Assistant | DX: Z01.818 Encounter for other preprocedural examination (principal); M16.12 Unilateral primary osteoarthritis, left hip | CPT/HCPCS: 99212 ==

== ENCOUNTER 2023-12-01 08:58 | Inpatient (IN) | payer OTHER, SELFPAY ==
[2023-11-24 12:02] VITALS: BP 113/67; PULSE 83; RESP 18; O2SAT 97; BMI 35.1
--- NOTE | 2023-11-24 12:25 | HO.ANESPROP2 ---
HPI - Anesthesia Eval Consult details Narrative: 53yo F for Left Hip Total Replacement No recent illness. Mild symptoms of seasonal allergic No CP/SOB within limits of hip pain MITZY. CPAP QHS Spinal Stim. Gen pack left buttock. Will bring remote DOS. Diaphragm hernia s/p repair. Rare GERD symptoms. ppi daily History of gastric sleeve surgery with resultant vitamin-D deficiency and secondary hyperparathyroidism. Follows [facility] [place] encocrine. Mineral supplements. [facility] Active Problems Active Problems: All Active Problems (Updated 11/24/23 @ 11:44 by Emma George RN) Preoperative examination (Acute) Upper abdominal pain (Acute) Osteoarthritis of left hip (Acute) Carpal tunnel syndrome of left wrist (Acute) Fibromyalgia, primary (Acute) Trochanteric bursitis, left hip (Acute) Peripheral neuropathy (Acute) Osteoarthritis, hand (Acute) Myopathy (Acute) CRP elevated (Acute) Sicca syndrome (Acute) Hip osteoarthritis (Acute) Bilateral primary osteoarthritis of knee (Acute) Hot flashes (Acute) Vaginal odor (Acute) Carpal tunnel syndrome of left wrist (Acute) Carpal tunnel syndrome of right wrist (Acute) Chronic idiopathic constipation (Acute) Degenerative disc disease, lumbar (Acute) Presence of neurostimulator (Acute) Chronic pain syndrome (Acute) Lumbosacral spondylosis with radiculopathy (Acute) Sacroiliitis (Acute) Myofascial low back pain (Acute) Mild recurrent major depression (Acute) BMI greater than 30 (Acute) Obesity (Acute) Vitamin D deficiency (Acute) Migraine (Acute) Fibroids (Acute) 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) Positive ALLISON (antinuclear antibody) (Acute) Essential hypertension (Acute) Hypophosphatemia (Acute) Liver fibrosis (Acute) Secondary hyperparathyroidism (Acute) MITZY (obstructive sleep apnea) (Acute) Autoimmune thyroiditis (Acute) Anxiety (Acute) Depression (Acute) GERD (gastroesophageal reflux disease) (Acute) Past Medical History Medical History Arthritis Back pain Bipolar 1 disorder Left hip pain First degree burn injury Osteoarthritis Migraine Fibromyalgia Nocturia Fibroids History of COVID-19 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 pylori infection Vitamin D deficiency Vitamin B1 deficiency Vitamin B12 deficiency Anxiety Depression Spinal cord stimulator status Sciatica GERD (gastroesophageal reflux disease) Frequent headaches Family History Family History Mother Hypertension Osteoporosis Father Epilepsia Atrophic emphysema Son Asthma Daughter Asthma Daughter Panic attacks Anxiety Thyroid adenoma Maternal Aunt History of breast cancer Family/Other Colon cancer Paternal Aunt Uterine cancer Family history of problems with anesthesia: Yes (MOM with PONV) Surgical History Surgical History History of esophagogastroduodenoscopy (EGD) H/O colonoscopy History of carpal tunnel release H/O gastric sleeve S/P repair of paraesophageal hernia S/P laparoscopic sleeve gastrectomy Hx of mammogram History of cholecystectomy Tubal ligation status H/O laparoscopy S/P endometrial ablation H/O arthroscopy of knee History of Problems with Anesthesia: No Social History Social History Household Members: Spouse Housing: Apartment Are you a primary rn medicare to a significant other at home: No Do you presently have visiting nurse or other home services: No Alcohol intake: never Comment: Oxycodone 5 mg PO given at 13:50. Pain 6/10 with OOB/movement. 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 Cognitive needs: No Hearing needs: No Vision needs: No Meds Allergies Allergy/AdvReac Type Severity Reaction Status Date / Time amoxicillin Allergy Severe severe Verified 12/01/23 09:09 hives-total body cat dander [cats] Allergy Difficulty Verified 12/01/23 09:09 Breathing mold Allergy Difficulty Verified 12/01/23 09:09 Breathing oxycodone [From Percocet] Allergy Itching Verified 12/01/23 09:09 lamotrigine [From Lamictal] AdvReac Intermediate Itching Verified 12/01/23 09:09 Penicillins AdvReac Mild Abdominal Verified 12/01/23 09:09 Pain prednisone AdvReac Mild Itching Verified 12/01/23 09:09 Home Medications Medication Instructions Recorded Confirmed Last Taken Type amitriptyline 75 mg tablet 75 mg PO BEDTIME 07/31/20 11/24/23 11/30/23 History propylene glycol 1 %-glycerin 0.3 1 drp ophthalmic (eye) BID 02/05/22 11/24/23 11/30/23 History % eye drops (Artificial Tears (glycerin-peg)) venlafaxine 150 mg 150 mg PO DAILY 07/10/22 12/01/23 12/01/23 08:30 History capsule,extended release 24 hr hydroxyzine HCl 25 mg tablet 25 mg PO BID 06/25/23 11/24/23 11/30/23 History amantadine HCl 100 mg tablet 100 mg PO DAILY 10/13/23 11/24/23 12/01/23 08:30 History lurasidone 60 mg tablet 60 mg PO DAILY 11/17/23 11/24/23 12/01/23 08:30 History metoclopramide HCl 5 mg tablet 5 mg PO QID PRN Nausea 11/24/23 11/24/23 Unknown History Exam Height,Weight and Vital Signs: Height 5 ft 2 in Weight 87.09 kg Last Vital Signs Pulse 83 11/24/23 12:02 Resp 18 11/24/23 12:02 BP 113/67 11/24/23 12:02 Pulse Ox 97 11/24/23 12:02 O2 Del Method Room Air 11/24/23 12:02 Airway TM Dist: >3cm Neck ROM: Full (occassional neck pain d/t muscle spasm) Loose/Missing/Broken Teeth: No Heart: RRR Lungs: CTAB Assessment and Plan Assessment Anesthesia Assessment: Anesthesia Plan Discussed and PAT Visit Final Anesthetic Review Family History of Problems with Anesthesia: Yes (MOM with PONV) History of Problems with Anesthesia: No
[2023-12-01] VITALS (14 sets, daily range): BP systolic 111–158; BP diastolic 61–97; PULSE 71–87; RESP 10–18; TEMP 36.1–36.8; O2SAT 95–99
--- NOTE | ~2023-12-01 | XR_ITS ---
EXAMINATION: XR PELVIS CLINICAL INFORMATION: Post left hip replacement COMPARISON: Previous x-ray August 2023 TECHNIQUE: AP view of the pelvis. FINDINGS: New left hip replacement in satisfactory position. No fracture or dislocation. Postoperative changes to the soft tissues. Normal right hip. XR/XR pelvis 1-2V IMPRESSION: Satisfactory appearance of left hip replacement.
--- NOTE | 2023-12-01 09:02 | PHA.MEDREC ---
Pharmacy Consult ? Medication Reconciliation Pharmacy has completed the medication reconciliation. Reviewed med rec done by nursing
[2023-12-01] MEDS: Lactated Ringers 1,000 ML 100 ML IVCONT ×2 (09:47→17:12)
--- NOTE | 2023-12-01 10:00 | MHC.SHP ---
Pre-Procedural Eval Section A - 24 Hr Update-Section A only Date of Service: 12/01/23 The patient is an INPATIENT: No Changes since office visit: No Cold of Flu in the past 2 weeks, No New Medical Problems, No Changes in Medication and No Patient answered all questions The patient has been examined within 24 hours of the surgical procedure. The History & Physical has been completed within 30 days and I have reviewed it.: Yes Section B - Complete if H&P > 30 days Chief Complaint: LTHA Allergies: Allergies Allergy/AdvReac Type Severity Reaction Status Date / Time amoxicillin Allergy Severe severe Verified 12/01/23 09:09 hives-total body cat dander [cats] Allergy Difficulty Verified 12/01/23 09:09 Breathing mold Allergy Difficulty Verified 12/01/23 09:09 Breathing oxycodone [From Percocet] Allergy Itching Verified 12/01/23 09:09 lamotrigine [From Lamictal] AdvReac Intermediate Itching Verified 12/01/23 09:09 Penicillins AdvReac Mild Abdominal Verified 12/01/23 09:09 Pain prednisone AdvReac Mild Itching Verified 12/01/23 09:09 Plan I have reviewed the history and physical and performed a pertinent physical examination on my patient. No changes have occurred unless specified. Time Spent With Patient Time: Total time managing care of this patient today ____ minutes.
--- NOTE | 2023-12-01 13:42 | P.BOP_ITS ---
Brief Operative Note Date of Service: 12/01/23 Pre-op diagnosis: Left hip OA Post-op diagnosis: same Procedure: Left DOT Implants: [place] Tr[place]2 44 [place] Accolade2 #2 127 deg with + 0 32 Ceramic head Surgeon: Jayden Medina MD Anesthesia: GETA and local Was an Engineering Supervisor used for this Procedure?: Yes Engineering Supervisor: Lamar Butterfield Estimated blood loss (mL): 250 IV fluids (mL): 850 Pathology: other Condition: stable Disposition: PACU
--- NOTE | 2023-12-01 16:45 | PC.NURSE ---
Addendum entered by Nani Grant RN 12/01/23 16:52: PACU staff brought patient glassess and clothes Original Note: patient glassess not with patient at the time of transfer,[facility] PACU nurse looked for it in PACU but did not find them,patient is saying nurse downstairs put her glassess in a ziplock bag,RN sent another message to [facility] [employer] [facility] to look again.
[2023-12-01] MEDS: Simethicone 80 MG TAB.CHEW 160 MG PO ×2 (17:11→20:20)
[2023-12-01] MEDS: 0.9 % Sodium Chloride Flush 3 ML SYRINGE IVFLUSH (17:12)
--- NOTE | 2023-12-01 17:13 | PC.NURSE ---
Clarified with Kami KHAN Clindamycin dose ordered po,will be changed to IV ,awaiting new order
--- NOTE | 2023-12-01 18:14 | PC.NURSE ---
Patient has not urge to void,denies any discomfort,would like to wait 1 more hour ,will monitor
[2023-12-01] MEDS: Amitriptyline HCl 25 MG TABLET 75 MG PO (19:41)
[2023-12-01] MEDS: hydrOXYzine HCL 25 MG TABLET PO (19:41)
[2023-12-01] MEDS: Celecoxib 200 MG CAPSULE PO (19:41)
[2023-12-01] MEDS: Docusate Sodium 100 MG CAPSULE PO (19:41)
[2023-12-01] MEDS: oxyCODONE HCl ER 10 MG TAB.ER.12H PO (19:42)
[2023-12-01] MEDS: oxyCODONE HCl Immed Release 5 MG TABLET PO (19:43)
[2023-12-01] MEDS: ondansetron HCL 4 MG/2 ML VIAL IVPUSH (20:17)
[2023-12-01] MEDS: Artificial Tears 15 ML DROPS 1 DROP EYE-BOTH (20:19)
[2023-12-01] MEDS: Clindamycin Phosphate/D5W 900 MG/50 ML PIGGYBACK 50 MG IV (22:23)
[2023-12-02] VITALS (9 sets, daily range): BP systolic 111–147; BP diastolic 53–67; PULSE 81–104; RESP 16–18; TEMP 36.1–36.9; O2SAT 93–100
[2023-12-02] MEDS: oxyCODONE HCl Immed Release 5 MG TABLET PO ×3 (03:15→19:39)
[2023-12-02] MEDS: Lactated Ringers 1,000 ML 100 ML IVCONT (06:14)
[2023-12-02 06:59] LABS: MANUAL DIFF FLAG NO
[2023-12-02 07:03] LABS: Basophils Percent Auto 0.2 % (0-2); Hematocrit 30.5 % (37.0-47.0); Hemoglobin 9.7 g/dl (12.0-16.0); Imm Gran Abs Auto 0.09 X10*3/uL (0.00-0.03); Imm Gran Pct Auto 0.5 % (0.0-0.4); Lymphocytes Absolute Auto 2.2 X10*3/uL (1.2-4.9); Lymphocytes Percent Auto 12.5 % (20-40); Mean Corpuscular HGB Conc 31.8 g/dl (31.0-35.0); Mean Corpuscular Volume 94.4 fL (80.0-98.0); Mean Platelet Volume 10.1 fL (9.4-12.3); Monocytes Absolute Auto 1.4 X10*3/uL (0.1-1.2); Neutrophils Absolute Auto 14.1 x10*3/uL (2.0-8.3); Neutrophils Percent Auto 78.8 % (45-73); Platelet Count 350 X10*3/uL (160-400); Red Blood Count 3.23 X10*6/uL (4.20-5.50); Red Cell Distribution Width 13.8 % (11.0-16.0); White Blood Count 17.9 X10*3/uL (4.8-10.8)
[2023-12-02 07:17] LABS: Anion Gap 10 (12-20); Blood Urea Nitrogen 9 mg/dL (9-16); Calcium 8.3 mg/dL (8.4-10.2); Carbon Dioxide 29 mmol/L (22-29); Chloride 104 mmol/L (96-108); Creatinine Clr Calc Pharmacy 104.1; Estimated Glomerular Filt Rate > 60; Glucose Fasting 131 mg/dL (60-99); Sodium 139 mmol/L (135-145)
[2023-12-02] MEDS: Lurasidone HCl 20 MG TABLET 60 MG PO (08:19)
[2023-12-02] MEDS: Venlafaxine HCl ER 150 MG CAP.ER.24H PO (08:19)
[2023-12-02] MEDS: Magnesium Oxide 400 MG TABLET PO (08:19)
[2023-12-02] MEDS: Simethicone 80 MG TAB.CHEW 160 MG PO ×3 (08:19→20:27)
[2023-12-02] MEDS: Losartan Potassium 50 MG TABLET PO (08:19)
[2023-12-02] MEDS: Omeprazole 20 MG CAPSULE.DR PO (08:19)
[2023-12-02] MEDS: Docusate Sodium 100 MG CAPSULE PO ×2 (08:19→20:27)
[2023-12-02] MEDS: amantadine HCL 100 MG CAPSULE PO (08:19)
[2023-12-02] MEDS: atenoloL 50 MG TABLET PO (08:19)
[2023-12-02] MEDS: Celecoxib 200 MG CAPSULE PO ×2 (08:19→20:27)
[2023-12-02] MEDS: hydrOXYzine HCL 25 MG TABLET PO ×2 (08:20→20:26)
[2023-12-02] MEDS: oxyCODONE HCl ER 10 MG TAB.ER.12H PO ×2 (08:20→20:27)
[2023-12-02] MEDS: 0.9 % Sodium Chloride Flush 3 ML SYRINGE IVFLUSH ×2 (08:20→20:28)
[2023-12-02] MEDS: Artificial Tears 15 ML DROPS 1 DROP EYE-BOTH ×2 (08:22→20:27)
--- NOTE | 2023-12-02 08:58 | PM.PNORT ---
Subjective Subjective Date of Service: 12/02/23 Interval history: POD1 s/p LTHA Patient is resting in bed comfortably No overnight events Pain is managed No additional complaints Physical Exam Vital Signs: Vital Signs: Last Vital Signs Temp 96.9 F 12/02/23 07:25 Pulse 86 12/02/23 07:25 Resp 16 12/02/23 07:25 BP 139/67 12/02/23 07:25 Pulse Ox 99 12/02/23 07:25 O2 Del Method Nasal Cannula 12/02/23 07:25 O2 Flow Rate 1 12/02/23 07:25 FiO2 55 12/01/23 15:30 Oxygen Flow Rate 2 12/01/23 14:39 BMI result Body Mass Index 35.1 Const: General: cooperative, healthy appearing and no acute distress Resp: Effort & Inspection: normal respiratory effort and able to speak in complete sentences Cardio: Rate: regular rate Peripheral pulses: Peripheral pulses 2+ throughout GI: Palpation (GI): Soft to palpation Skin: Lesions: no lesions Rashes: no rashes Extrem: Other: left hip dressing is c/d/i. Able to dorsi/plantar flex. Calf is supple and nontender. Sensation intact. Pedal pulse intact. Procedures Date of Service Date of Service: 12/02/23 Progress Note: A&P Assessment and plan (1) Status post total replacement of left hip: Status: Acute Plan Continue pain mgmnt Begin ASA for dvt ppx begin PT/OT for LTHA Dispo planning-Pending PT eval, pain mgmnt Time Spent With Patient Time: Total time managing care of this patient today ____ minutes. Quality Stroke Does the patient have a stroke diagnosis?: No VTE Prior VTE?: No VTE Risk Level:: Medical - moderate - high VTE Device Contraindication: N/A - Device Ordered VTE Drug Contraindication: N/A - Med Ordered
--- NOTE | 2023-12-02 12:31 | P.CONHOSP_ITS ---
History of Present Illness Data of Consult Service Date: 12/02/23 Requesting physician: Jayden Medina Primary Care Provider: Nas Suh MD HPI 53-year-old female with past medical history significant for sleep apnea on CPAP, hypertension, GERD, spinal stenosis with chronic back pain, history of anxiety, depression admitted under orthopedic service, underwent left total hip arthroplasty on November 30, postoperatively has good pain control, participating in physical therapy, tolerating diet denies nausea, no abdominal pain no diarrhea, was lightheaded when 1st got up from bed,but now denies lightheadedness or dizziness, denies worsening of chronic back pain, denies shortness of breath, offers no acute complaints. Review of Systems 2 Review of Systems: General no headache ,no dizziness no fever chills. CVS no chest pain, no palpitation. Respiratory no cough, no sob. 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 pylori infection Vitamin D deficiency Vitamin B1 deficiency Vitamin B12 deficiency Anxiety Depression Spinal cord stimulator status Sciatica GERD (gastroesophageal reflux disease) Frequent headaches Family History Mother Hypertension Osteoporosis Father Epilepsia Atrophic emphysema Son Asthma Daughter Asthma Daughter Panic attacks Anxiety Thyroid adenoma Maternal Aunt History of breast cancer Family/Other Colon cancer Paternal Aunt Uterine cancer Surgical History History of esophagogastroduodenoscopy (EGD) H/O colonoscopy History of carpal tunnel release H/O gastric sleeve S/P repair of paraesophageal hernia S/P laparoscopic sleeve gastrectomy Hx of mammogram History of cholecystectomy Tubal ligation status H/O laparoscopy S/P endometrial ablation H/O arthroscopy of knee Social History Household Members: Spouse Housing: Apartment Are you a primary child care assistant to a significant other at home: No Do you presently have visiting nurse or other home services: No Alcohol intake: never Comment: Oxycodone 5 mg PO given at 13:50. Pain 6/10 with OOB/movement. Patient Tobacco Use Status: Never used Tobacco e-Cigarette/Vaping Use: Never Used Second Hand Smoke Exposure: No Use of substances other than those prescribed or required for medical reasons: No Currently Displaying Signs/Symptoms of Drug Intoxication Withdrawal: No Have you been hit, kicked, punched, or otherwise hurt by someone within the past year? If so, by whom?: No Do you feel safe in your current relationship?: Yes Is there a partner from a previous relationship who is making you feel unsafe now?: No Are you made to feel afraid or neglected: No Religion Healthcare Practices: protestant Advance Directives: Yes Advance Directives Information Provided: No Advance Directives on File: Yes Advance Directives Date on File: 01/20/21 Do you have thoughts of harming others: None Do you have a plan to hurt others: No Plan Recently lost weight without trying: No Eating poorly because of decreased appetite: No Nutrition Risks: No Nutritional Risk Patient : No : No Poor oral hygiene: No service: No 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al status: disabled 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 Cognitive needs: No Hearing needs: No Vision needs: No Meds Allergies Allergy/AdvReac Type Severity Reaction Status Date / Time amoxicillin Allergy Severe severe Verified 12/01/23 09:09 hives-total body cat dander [cats] Allergy Difficulty Verified 12/01/23 09:09 Breathing mold Allergy Difficulty Verified 12/01/23 09:09 Breathing oxycodone [From Percocet] Allergy Itching Verified 12/01/23 09:09 lamotrigine [From Lamictal] AdvReac Intermediate Itching Verified 12/01/23 09:09 Penicillins AdvReac Mild Abdominal Verified 12/01/23 09:09 Pain prednisone AdvReac Mild Itching Verified 12/01/23 09:09 Active Medications: Current Medications Acetaminophen (Acetaminophen 325 Mg Tablet) 650 mg PO Q6H PRN PRN Reason: Pain, Mild (Pain Scale 1-3) Amantadine HCl (Amantadine Hcl 100 Mg Capsule) 100 mg PO DAILY [facility] Last Admin: 12/02/23 08:19 Dose: 100 mg Amitriptyline HCl (Amitriptyline Hcl 25 Mg Tablet) 75 mg PO BEDTIME [facility] Last Admin: 12/01/23 19:41 Dose: 75 mg Artificial Tears (Artificial Tears 15 Ml Drops) 1 drop EYE-BOTH BID [facility] Last Admin: 12/02/23 08:22 Dose: 1 drop Aspirin (Aspirin 325 Mg Tablet) 325 mg PO BID [facility] Atenolol (Atenolol 50 Mg Tablet) 50 mg PO DAILY [facility]; Protocol Last Admin: 12/02/23 08:19 Dose: 50 mg Celecoxib (Celecoxib 200 Mg Capsule) 200 mg PO BID [facility] Last Admin: 12/02/23 08:19 Dose: 200 mg Docusate Sodium (Docusate Sodium 100 Mg Capsule) 100 mg PO BID [facility] Last Admin: 12/02/23 08:19 Dose: 100 mg Hydromorphone HCl (Hydromorphone Hcl 0.5 Mg/0.5 Ml Syringe) 0.25 mg IVPUSH Q4H PRN; Protocol PRN Reason: Pain, Severe (Pain Scale 7-10) Hydroxyzine HCl (Hydroxyzine Hcl 25 Mg Tablet) 25 mg PO BID [facility] Last Admin: 12/02/23 08:20 Dose: 25 mg Promethazine HCl 6.25 mg/ (Sodium Chloride) 50.25 mls @ 201 mls/hr IV Q4H PRN PRN Reason: Unrelenting nausea Lactated Ringer's (Lr) 1,000 mls @ 100 mls/hr IVCONT .Q10H [facility] Last Admin: 12/02/23 06:14 Dose: 100 mls/hr Losartan Potassium (Losartan Potassium 50 Mg Tablet) 50 mg PO DAILY [facility]; Protocol Last Admin: 12/02/23 08:19 Dose: 50 mg Lurasidone HCl (Lurasidone Hcl 20 Mg Tablet) 60 mg PO DAILY [facility] Last Admin: 12/02/23 08:19 Dose: 60 mg Magnesium Oxide (Magnesium Oxide 400 Mg Tablet) 400 mg PO DAILY [facility] Last Admin: 12/02/23 08:19 Dose: 400 mg Meclizine HCl (Meclizine Hcl 25 Mg Tablet) 25 mg PO DAILY PRN PRN Reason: motion sickness Metoclopramide HCl (Metoclopramide Hcl 5 Mg Tablet) 5 mg PO QID PRN PRN Reason: Nausea Non-Formulary Medication (Linaclotide [Linzess]) 290 mcg PO DAILY [facility] Omeprazole (Omeprazole 20 Mg Capsule.Dr) 20 mg PO DAILY [facility] Last Admin: 12/02/23 08:19 Dose: 20 mg Ondansetron HCl (Ondansetron Hcl 4 Mg/2 Ml Vial) 4 mg IVPUSH Q8H PRN PRN Reason: Nausea and Vomiting Last Admin: 12/01/23 20:17 Dose: 4 mg Oxycodone HCl (Oxycodone Hcl Immed Release 5 Mg Tablet) 5 mg PO Q4H PRN PRN Reason: Pain, Moderate(Pain Scale 4-6) Last Admin: 12/02/23 03:15 Dose: 5 mg Oxycodone HCl (Oxycodone Hcl Er 10 Mg Tab.Er.12h) 10 mg PO BID [facility] Last Admin: 12/02/23 08:20 Dose: 10 mg Simethicone (Simethicone 80 Mg Tab.Chew) 160 mg PO QID [facility] Last Admin: 12/02/23 08:19 Dose: 160 mg Sodium Chloride (0.9 % Sodium Chloride Flush 3 Ml Syringe) 3 ml IVFLUSH QSHIFT [facility] Last Admin: 12/02/23 08:20 Dose: 3 ml Venlafaxine HCl (Venlafaxine Hcl Er 150 Mg Cap.Er.24h) 150 mg PO DAILY [facility] Last Admin: 12/02/23 08:19 Dose: 150 mg Home Medications Medication Instructions Recorded Confirmed Last Taken Type amitriptyline 75 mg tablet 75 mg PO BEDTIME 07/31/20 11/24/23 11/30/23 History propylene glycol 1 %-glycerin 0.3 1 drp ophthalmic (eye) BID 02/05/22 11/24/23 11/30/23 History % eye drops (Artificial Tears (glycerin-peg)) venlafaxine 150 mg 150 mg PO DAILY 07/10/22 12/01/23 12/01/23 08:30 History capsule,extended release 24 hr hydroxyzine HCl 25 mg tablet 25 mg PO BID 06/25/23 11/24/23 11/30/23 History amantadine HCl 100 mg tablet 100 mg PO DAILY 10/13/23 11/24/23 12/01/23 08:30 History lurasidone 60 mg tablet 60 mg PO DAILY 11/17/23 11/24/23 12/01/23 08:30 History metoclopramide HCl 5 mg tablet 5 mg PO QID PRN Nausea 11/24/23 11/24/23 Unknown History Physical Exam 2 Vital Signs and Narrative: Vital Signs: Last Vital Signs Temp 97.3 F 12/02/23 11:35 Pulse 83 12/02/23 11:35 Resp 18 12/02/23 11:35 BP 117/61 12/02/23 11:35 Pulse Ox 100 12/02/23 11:35 O2 Del Method Nasal Cannula 12/02/23 11:35 O2 Flow Rate 1 12/02/23 11:35 FiO2 55 12/01/23 15:30 Oxygen Flow Rate 2 12/01/23 14:39 BMI result Body Mass Index 35.1 Const: Other: General awake alert x3 sitting comfortably, in no acute distress. Anicteric sclera Neck supple no JVD. CVS regular rate rhythm, Respiratory lungs clear to auscultation, no respiratory distress, no wheeze, no rhonchi. Gastrointestinal abdomen soft, non tender, bowel sounds audible Extremities no edema. Neuro non focal Skin warm and dry, no rash Psych appropriate affect. Results Labs 12/02/23 06:52 12/02/23 06:52 Labs: Laboratory Results - last 24 hr 12/02/23 06:52 MCV 94.4 MCH 30.0 MCHC 31.8 RDW 13.8 Plt Count 350 MPV 10.1 Immature Gran % (Auto) 0.5 H Neut % (Auto) 78.8 H Lymph % (Auto) 12.5 L [place] % (Auto) 8.0 Eos % (Auto) 0.0 Baso % (Auto) 0.2 Lymph # (Auto) 2.2 [place] # (Auto) 1.4 H Eos # (Auto) 0.0 Baso # (Auto) 0.0 Abs Immat Gran (auto) 0.09 H Absolute Neuts (auto) 14.1 H Absolute Nucleated RBC 0.000 Nucleated RBC % (auto) 0.0 Anion Gap 10 L Estim Creat Clear Calc 104.1 Estimated GFR > 60 Fasting Glucose 131 H Calcium 8.3 L D Imaging Radiologist's Impressions: Impressions Pelvis X-Ray 12/01/23 15:04 IMPRESSION: Satisfactory appearance of left hip replacement. Assessment and Plan (1) Status post total replacement of left hip: Status: Acute Plan 53-year-old female with multiple medical issues including sleep apnea on CPAP at night, hypertension, GERD, spinal stenosis, status post laparoscopic sleeve gastrectomy /gastropexy, depression and anxiety admitted to Orthopedic surgery for elective left total hip arthroplasty postoperative day 1, medical consult obtained for medical management for hypertension, chronic back pain GERD and obstructive sleep apnea. Status post LTHA POD #1 Good pain control Continue oxycodone, OxyContin and Celebrex will DC IV Dilaudid Tolerating diet DC IV fluid H&H dropped but above transfusion threshold follow CBC Further care as per Orthopedic surgery. Acute normocytic anemia multifactorial likely dilutional and due to blood loss from hip surgery follow CBC, hematocrit above transfusion threshold Leukocytosis reactive no evidence of infection follow CBC, no urinary , or GI symptoms no URI symptoms. Hypertension Stable blood pressure continue atenolol and losartan. Mood disorder continue all home medications no acute decompensation Obesity class 2 recommend weight reduction and low-calorie diet Chronic back pain stable on current medications Obstructive sleep apnea continue CPAP DVT prophylaxis on aspirin as per Orthopedic surgery. Thank you for allowing us to participate in the care of this patient.
[2023-12-02] MEDS: Aspirin 325 MG TABLET PO ×2 (14:13→20:26)
--- NOTE | 2023-12-02 15:01 | HO.POSTANES ---
Post Anesthesia Evaluation Post Anesthesia Evaluation Date of Service: 12/02/23 Vital Signs: Vital Signs Temp Pulse Resp BP Pulse Ox O2 Del Method O2 Flow Rate 12/02/23 14:58 98.2 F 93 18 134/64 93 Room Air 12/02/23 13:42 83 117/61 100 12/02/23 11:35 97.3 F 83 18 117/61 100 Nasal Cannula 1 12/02/23 09:47 86 139/67 99 12/02/23 07:25 96.9 F 86 16 139/67 99 Nasal Cannula 1 12/02/23 04:15 18 12/02/23 04:00 98.0 F 81 16 135/67 96 Room Air Anesthesia: General Mental Status: Awake Pain Control: Satisfactory Nausea/Vomiting: None Hydration: Adequate Anesthesia-Related Issues: No Anes. Related Issues
--- NOTE | 2023-12-02 16:21 | MHC.CM.PN ---
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
[2023-12-02] MEDS: Amitriptyline HCl 25 MG TABLET 75 MG PO (20:27)
[2023-12-03 04:00] VITALS: BP 109/59; PULSE 103; RESP 16; TEMP 37.4; O2SAT 95
--- NOTE | 2023-12-03 06:02 | PC.NURSE ---
pt pain controlled by oxycodone. no other issues, using the bedside commode 2 times. slept most of night. will cont. monitor.
[2023-12-03] MEDS: oxyCODONE HCl Immed Release 5 MG TABLET PO ×2 (06:15→09:51)
[2023-12-03 06:18] LABS: Basophils Absolute Auto 0.1 X10*3/uL (0.0-0.2); Basophils Percent Auto 0.4 % (0-2); Eosinophils Absolute Auto 0.2 X10*3/uL (0.0-0.4); Eosinophils Percent Auto 1.2 % (0-4); Hematocrit 31.3 % (37.0-47.0); Imm Gran Abs Auto 0.08 X10*3/uL (0.00-0.03); Imm Gran Pct Auto 0.5 % (0.0-0.4); Lymphocytes Absolute Auto 4.9 X10*3/uL (1.2-4.9); Lymphocytes Percent Auto 27.9 % (20-40); MANUAL DIFF FLAG SCAN; Mean Corpuscular HGB Conc 31.9 g/dl (31.0-35.0); Mean Corpuscular Hemoglobin 29.9 pg (27.0-33.0); Mean Corpuscular Volume 93.4 fL (80.0-98.0); Mean Platelet Volume 9.8 fL (9.4-12.3); Monocytes Absolute Auto 1.7 X10*3/uL (0.1-1.2); Monocytes Percent Auto 9.8 % (2-11); Neutrophils Absolute Auto 10.7 x10*3/uL (2.0-8.3); Neutrophils Percent Auto 60.2 % (45-73); Platelet Count 320 X10*3/uL (160-400); Red Blood Count 3.35 X10*6/uL (4.20-5.50); Red Cell Distribution Width 14.2 % (11.0-16.0); SCAN SMEAR FLAG 1; White Blood Count 17.7 X10*3/uL (4.8-10.8)
[2023-12-03 06:33] LABS: Anion Gap 11 (12-20); Blood Urea Nitrogen 8 mg/dL (9-16); Calcium 8.2 mg/dL (8.4-10.2); Carbon Dioxide 30 mmol/L (22-29); Chloride 104 mmol/L (96-108); Estimated Glomerular Filt Rate > 60; Glucose Fasting 108 mg/dL (60-99); Potassium 3.9 mmol/L (3.3-5.1); Sodium 141 mmol/L (135-145)
[2023-12-03 06:37] LABS: SLIDE REVIEW VERIFIED
[2023-12-03 07:31] VITALS: BP 120/66; PULSE 110; RESP 20; TEMP 36.4; O2SAT 97
[2023-12-03] MEDS: oxyCODONE HCl ER 10 MG TAB.ER.12H PO (07:33)
[2023-12-03] MEDS: 0.9 % Sodium Chloride Flush 3 ML SYRINGE IVFLUSH (07:33)
[2023-12-03] MEDS: Omeprazole 20 MG CAPSULE.DR PO (07:33)
[2023-12-03] MEDS: Aspirin 325 MG TABLET PO (07:34)
[2023-12-03] MEDS: Docusate Sodium 100 MG CAPSULE PO (07:34)
[2023-12-03] MEDS: Lurasidone HCl 20 MG TABLET 60 MG PO (07:34)
[2023-12-03] MEDS: Celecoxib 200 MG CAPSULE PO (07:34)
[2023-12-03] MEDS: atenoloL 50 MG TABLET PO (07:34)
[2023-12-03] MEDS: Magnesium Oxide 400 MG TABLET PO (07:35)
[2023-12-03] MEDS: amantadine HCL 100 MG CAPSULE PO (07:35)
[2023-12-03] MEDS: Simethicone 80 MG TAB.CHEW 160 MG PO (07:35)
[2023-12-03] MEDS: Losartan Potassium 50 MG TABLET PO (07:35)
[2023-12-03] MEDS: hydrOXYzine HCL 25 MG TABLET PO (07:35)
[2023-12-03] MEDS: Venlafaxine HCl ER 150 MG CAP.ER.24H PO (07:35)
[2023-12-03 09:50] VITALS: BP 120/66; PULSE 110; O2SAT 97
[2023-12-03] MEDS: Artificial Tears 15 ML DROPS 1 DROP EYE-BOTH (09:51)
[2023-12-03] MEDS: Acetaminophen 325 MG TABLET 650 MG PO (09:51)
[2023-12-03 10:47] VITALS: BP 120/66; PULSE 110; O2SAT 97
[2023-12-03 11:10] VITALS: BP 100/70; PULSE 88; RESP 16; TEMP 36.5; O2SAT 97
--- NOTE | 2023-12-03 12:37 | P.F2F_ITS ---
Service Date Service Date: 12/03/23 Encounter Date of encounter: 12/03/23 Reasons for Services Signs and symptoms assessed: s/p LTHA. Pt. is considered homebound due to recent surgery. Unable to drive, poor balance, poor gait mechanics. Reason for physical therapy: home safety and mobility, therapeutic exercises, restore joint function, gait/transfer training, assess need for DME and ADL training Reason for occupational therapy: home safety and mobility, therapeutic exercises, restore joint function, gait/transfer training, assess need for DME and ADL training Homebound: Leaving the home is medically contraindicated at this time without the asist of a device and/or another person due th the listed conditions above and below. Reason homebound: unsteady gait / fall risk, leg weakness, pain with ambulation, pain with transfers, poor balance / fall risk and unable to drive Certification: Based on the above findings, I certify that this patient is confined to the home and needs intermittent long-term care, physical therapy and/or speech therapy, or continues to need occupational therapy. The patient is under my care, and I have initiated the establishment of the plan of care. The patient will be followed by a physician who will periodically review the plan of care. Time Spent With Patient Time: Total time managing care of this patient today ____ minutes.
--- NOTE | 2023-12-03 12:47 | MHC.CM.PN ---
pt dcd home with vna
--- NOTE | 2023-12-03 15:04 | P.DS_ITS ---
DS: Providers Provider Date of Service: 12/03/23 Date of admission: 12/01/23 08:58 Primary care physician: Nas Suh MD Consults: 12/01/23 16:04 Consult to Hospitalist Routine Comment: Consulting Provider: Hospitalist Reason For Exam: Routine medical management DS: Diagnosis Discharge Diagnosis (1) Status post total replacement of left hip: Status: Acute DS: Summary Hospital Course Hospital Course: The patient underwent a successful left total hip arthroplasty on 12/01/[address] Medina, was transferred to PACU and then to the floor to recover. During t heir stay, their vitals were stable, afebrile at 97.7 . Labs were unremarkable, H/H 10.0/31.3. POD 1 she was started on ASA a day for DVT ppx, they also received Physical Therapy services twice a day. Physical therapy should include gait training, core and lumbar strength, glute strength. Posterior precautions intact. WBAT. Prior to discharge, her dressing was changed, incision clean dry and intact, new Aquacel dressing applied. The Aquacel dressing should remain intact and dry at all times. Any concerns with the dressing, please contact orthopedic office. No showering. The plan is to be discharged home with VNA Time Attestation Discharge Coordination Time (in mins): 30 min Quality: Safe Use of Opioids Does Pt have an Active Cancer Diagnosis on the Problem List?: No Quality: Stroke Does the patient have a stroke diagnosis?: No Physical Exam Vital Signs: Vital Signs: Last Vital Signs Temp 97.7 F 12/03/23 11:10 Pulse 88 12/03/23 11:10 Resp 16 12/03/23 11:10 BP 100/70 12/03/23 11:10 Pulse Ox 97 12/03/23 11:10 O2 Del Method Room Air 12/03/23 11:10 O2 Flow Rate 1 12/02/23 11:35 FiO2 55 12/01/23 15:30 Oxygen Flow Rate 2 12/01/23 14:39 BMI result Body Mass Index 35.1 DS: Data Data Completed and Pending Completed studies during hospitalization [Text1]: Procedures Excision of Stomach, Percutaneous Endoscopic Approach, Vertical (01/16/21) Repair Diaphragm, Percutaneous Endoscopic Approach (01/16/21) Pending studies at discharge: Pending at discharge 12/01/23 13:27 Surgical [PTH] Routine Labs on day of discharge: Laboratory Results - last 24 hr 12/03/23 05:45 WBC 17.7 H RBC 3.35 L Hgb 10.0 L Hct 31.3 L MCV 93.4 MCH 29.9 MCHC 31.9 RDW 14.2 Plt Count 320 MPV 9.8 Immature Gran % (Auto) 0.5 H Neut % (Auto) 60.2 Lymph % (Auto) 27.9 Wallace % (Auto) 9.8 Eos % (Auto) 1.2 Baso % (Auto) 0.4 Lymph # (Auto) 4.9 Wallace # (Auto) 1.7 H Eos # (Auto) 0.2 Baso # (Auto) 0.1 Abs Immat Gran (auto) 0.08 H Absolute Neuts (auto) 10.7 H Absolute Nucleated RBC 0.000 Nucleated RBC % (auto) 0.0 Smear Tech's Comments VERIFIED Sodium 141 Potassium 3.9 Chloride 104 Carbon Dioxide 30 H Anion Gap 11 L BUN 8 L Creatinine 0.74 Estim Creat Clear Calc 90.0 Estimated GFR > 60 Fasting Glucose 108 H Calcium 8.2 L Discharge Plan Discharge Anticipated Discharge Date/Time: 12/03/23 12:03 Patient Disposition: Home Health Service Discharge Diagnosis: LT DOT Referrals: hvns [Other] - 1 Week Socrates Anderson PA-C [Physician Gear Hobber Operator] - 2 Weeks (12/17/23 10:00 Physical Therapy Lamar Butterfield PA-C) Discharge Medications: New celecoxib 200 mg Capsule 200 mg PO BID 30 Days Qty: 60 0RF acetaminophen 325 mg Tablet 650 mg PO Q6H PRN (Reason: Pain, Mild (Pain Scale 1-3)) 30 Days Qty: 240 0RF aspirin 325 mg Tablet 325 mg PO BID 42 Days Qty: 84 0RF docusate sodium 100 mg Capsule 100 mg PO BID 14 Days Qty: 28 0RF oxycodone 5 mg Tablet 5 mg PO Q4H PRN (Reason: Pain, Moderate(Pain Scale 4-6)) 7 Days Qty: 42 0RF Rx Instructions: Partial Fill upon patient request. Continued (DME) GRAB BAR for bathroom with suction cups See Rx Instructions .Route .MEDSUPPLY Qty: 1 0RF Rx Instructions: As directed magnesium oxide 400 mg (241.3 mg magnesium) tablet 400 mg PO DAILY 30 Days Qty: 30 3RF losartan 50 mg tablet 50 mg PO DAILY 90 Days Qty: 90 1RF meclizine 25 mg tablet 25 mg PO DAILY PRN (Reason: motion sickness) 30 Days Qty: 30 1RF atenolol 50 mg tablet 50 mg PO DAILY Qty: 90 0RF (DME) Raised toilet seat See Rx Instructions .ROUTE .MEDSUPPLY Qty: 1 0RF Rx Instructions: As directed (DME) walker Misc See Rx Instructions .MEDSUPPLY Qty: 1 0RF Rx Instructions: Folding Front wheeled walker metoclopramide HCl 5 mg tablet 5 mg PO QID PRN (Reason: Nausea) amitriptyline 75 mg tablet 75 mg PO BEDTIME Artificial Tears(glycerin-peg) 1-0.3 % drops 1 drp ophthalmic (eye) BID venlafaxine 150 mg capsule,extended release 24hr 150 mg PO DAILY amantadine HCl 100 mg tablet 100 mg PO DAILY simethicone 180 mg capsule 180 mg PO QID 30 Days Qty: 120 3RF Rx Instructions: after meals Linzess 290 mcg capsule 290 mcg PO QAM Qty: 30 6RF pantoprazole 40 mg tablet,delayed release (DR/EC) 40 mg PO DAILY Qty: 90 2RF lurasidone 60 mg tablet 60 mg PO DAILY hydroxyzine HCl 25 mg tablet 25 mg PO BID Discharge Orders: Discharge Order (Routine); Ordered 12/03/23 Ordered By: Socrates Anderson Diet: Regular diet Activity on Discharge: Use cane or walker Stand Alone Forms: Patient Portal Discharge page Care Plan Goals: Restore function of joint Health Concerns: none Plan of Treatment: Physical Therapy Pain management DVT prophylaxis Assessment: * Physical Therapy for Total hip arthroplasty: wbat, posterior precautions, gait training, ROM, strength * Limit stair climbing * No showering, no tub bath-keep dressing clean, dry and intact * No driving x6 weeks * Continue Aspirin twice a day x 6 weeks * Follow up with [facility] Orthopedics in 2 weeks: * --you will also have your first out patient PT eval on the day of your post op appt-so please plan on being in the office that day for an extended period of time. Discharge Date/Time: 12/03/23 13:21
--- NOTE | 2023-12-10 16:18 | W.PM.OPN ---
Operative Note Operative Note Date of Service: 12/01/23 Narrative: Date of Service: 12/01/23 Pre-op diagnosis: Left hip OA Post-op diagnosis: same Procedure: Left DOT Implants: Formoso Trident2 44 Antony Accolade2 #2 127 deg with + 0 32 Ceramic head Surgeon: Jayden Medina MD Anesthesia: GETA and local Was an Engineer Automated Equipment used for this Procedure?: Yes Engineer Automated Equipment: Lamar Butterfield Estimated blood loss (mL): 250 IV fluids (mL): 850 Pathology: other Condition: stable Disposition: PACU Procedure in detail: Patient was brought into the operating room and placed in the right lateral decubitus position. All bony prominences were well padded and the limb was prepped and draped in standard sterile fashion. A time-out was called to identify proper site procedure proper surgeon IV antibiotics and 1 g of transaxemic acid were administered. I began by making a curvilinear incision over the posterolateral aspect of the greater trochanter. Dissection was taken down to the tensor fascia which was incised in line with the incision and a Charnley retractor was placed. Cautery was used to maintain hemostasis. The hip was internally rotated and the external rotators were identified. The vessels were cauterized and a full-thickness capsular/external rotator layer was developed starting just proximal to the piriformis. This layer was tagged and a dull Hohmann retractor was placed underneath the neck in the hip was dislocated. A neck cut was made 1 cm proximal to the lesser trochanter and the head and neck were removed and measured 50mm on the back table. There was eburnation of the acetabular roof. I then removed the labrum and cauterized the fovea. I started with a 40 reamer and medialized to the inner table. I sequentially reamed up to a size 44 and impacted a 44mm cup at 45 degrees of inclination and 25 degrees of version. I then placed a liner and turned my attention to the femur. I identified the piriformis insertion and used this as a starting point for my promise cutter. The medius tendon was protected with a Hibs retractor. A Charnley awl was inserted in the canal and a curved curette used to remove the lateral bone. I irrigated copiously. I then sequentially broached in the patient's natural version to a size 5 and placed my trial implants. I used a #2/127/+0 based on my pre-operative template. Using a trail head I took the hip through range of motion. I was satisfied with the stability. I removed all instrumentation and copiously irrigated. I placed my final femoral implant and again took the hip through range of motion and was satisfied with the stability and length. The final +0/32 implant was impacted in place and the hip reduced. I then irrigated copiously and placed 1 g of local transaxemic acid. I performed a capsular closure with 2.0 fiberwire, River's fascia with 0 Vicryl, subcuticular with 2-0 Vicryl and the skin with butch. Patient was placed into a sterile dressing. Patient was extubated brought to the recovery room in stable condition. There were no known complications.
== END 2023-12-03 13:21 | disposition home health service (06) | DRG 470 ==
LOC: HO.SSSA 09:00 → HO.S3 10:27
PROVIDERS: Nurse Practitioner; Orthopaedic Surgery; Admitting Provider Physician Assistant; PCP Internal Medicine; Visit Provider Physician Assistant
PROC: 0SRB03A Replacement of Left Hip Joint with Ceramic Synthetic Substitute, Uncemented, Open Approach (ICD-10-PCS; CPT 27130; principal; 2023-12-01 12:00)
DX: M16.12 Unilateral primary osteoarthritis, left hip (principal); D50.0 Iron deficiency anemia secondary to blood loss (chronic); G47.33 Obstructive sleep apnea (adult) (pediatric); I10 Essential (primary) hypertension; E66.8 Other obesity; Z68.35 Body mass index [BMI] 35.0-35.9, adult; M54.9 Dorsalgia, unspecified; G89.29 Other chronic pain; Z98.84 Bariatric surgery status; Z79.899 Other long term (current) drug therapy
CPT/HCPCS: 36415; 72170; 80048; 85025; 86850; 86900; 86901; 87081; 87640; 87641; 88304; 88311; 97110; 97116; 97162; 97165; 97530; C1776; J0131; J0736; J1100; J1170; J1885; J2250; J2405; J2704; J2795; J3010; J7120

== ENCOUNTER → 2023-12-01 08:58 | Outpatient (BNV) | payer OTHER, SELFPAY | PROVIDERS: Admitting Provider Physician Assistant; PCP Internal Medicine; Visit Provider Hospitalist | DX: M16.12 Unilateral primary osteoarthritis, left hip (principal); Z96.642 Presence of left artificial hip joint | CPT/HCPCS: 99222 ==

== ENCOUNTER → 2023-12-01 08:58 | Outpatient (BNV) | payer OTHER, SELFPAY | PROVIDERS: Admitting Provider Physician Assistant; PCP Internal Medicine; Visit Provider Orthopaedic Surgery | DX: Z47.1 Aftercare following joint replacement surgery (principal); Z96.642 Presence of left artificial hip joint | CPT/HCPCS: 27130; 99024; G0180 ==

== ENCOUNTER 2023-12-16 13:49 | Outpatient (AMB) | payer OTHER, SELFPAY ==
--- NOTE | 2023-12-16 14:00 | A.OFFVIS_ITS ---
Intake Intake Visit Reasons: PO left DOT 12/01/23 with NE Intake Note: Jacqueline a 53 year old female who presents today for a post operative left DOT on 12/01/23 with NE. Patient reports she is doing well, states improvement in pain after the first 3 days. Allergies amoxicillin Allergy (Severe, Verified 12/16/23 14:07) severe hives-total body cat dander [cats] Allergy (Verified 12/16/23 14:07) Difficulty Breathing mold Allergy (Verified 12/16/23 14:07) Difficulty Breathing oxycodone [From Percocet] Allergy (Verified 12/16/23 14:07) Itching lamotrigine [From Lamictal] Adverse Reaction (Intermediate, Verified 12/16/23 14:07) Itching Penicillins Adverse Reaction (Mild, Verified 12/16/23 14:07) Abdominal Pain prednisone Adverse Reaction (Mild, Verified 12/16/23 14:07) Itching Medication List - Last Reconciled 12/16/23 by Socrates Anderson PA-C acetaminophen 650 mg (2 x 325 mg) PO Q6H PRN 30 days amantadine HCl 100 mg PO DAILY amitriptyline 75 mg PO BEDTIME aspirin 325 mg PO BID 42 days atenolol 50 mg PO DAILY celecoxib 200 mg PO BID 30 days docusate sodium 100 mg PO BID 14 days [GRAB BAR for bathroom with suction cups As directed] hydroxyzine HCl 25 mg PO BID linaclotide (Linzess) 290 mcg PO QAM losartan 50 mg PO DAILY 90 days lurasidone 60 mg PO DAILY magnesium oxide 400 mg PO DAILY 30 days meclizine 25 mg PO DAILY PRN 30 days metoclopramide HCl 5 mg PO QID PRN oxycodone 5 mg PO Q4H PRN 7 days pantoprazole 40 mg PO DAILY propylene glycol-glycerin 1-0.3 % (Artificial Tears (glycerin-peg)) 1 drp ophthalmic (eye) BID [Raised toilet seat As directed] simethicone 180 mg PO QID 30 days venlafaxine ER 150 mg PO DAILY walker Folding Front wheeled walker HPI PO left DOT 12/01/23 with NE HPI Details 53-year-old female who returns to the [facility] today for post-op left DOT, 12/01/[address] Medina. She is doing well, ambulates with a walker. She states she is starting outpatient PT tomorrow. 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 pylori infection Vitamin D deficiency Vitamin B1 deficiency Vitamin B12 deficiency Anxiety Depression Spinal cord stimulator status Sciatica GERD (gastroesophageal reflux disease) Frequent headaches Surgical History History of esophagogastroduodenoscopy (EGD) H/O colonoscopy History of carpal tunnel release H/O gastric sleeve S/P repair of paraesophageal hernia S/P laparoscopic sleeve gastrectomy Hx of mammogram History of cholecystectomy Tubal ligation status H/O laparoscopy S/P endometrial ablation H/O arthroscopy of knee Family History Mother Hypertension Osteoporosis Father Epilepsia Atrophic emphysema Son Asthma Daughter Asthma Daughter Panic attacks Anxiety Thyroid adenoma Maternal Aunt History of breast cancer Family/Other Colon cancer Paternal Aunt Uterine cancer Social History Household Members: Spouse Housing: Apartment Are you a primary infant caregiver to a significant other at home: No Do you presently have visiting nurse or other home services: No Alcohol intake: never Comment: Oxycodone 5 mg PO given at 13:50. Pain 6/10 with OOB/movement. 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 No erythema or drainage. No pain with ROM of hip or hip flexion. NVI. Assessment & Plan Assessment & Plan (1) Status post total replacement of left hip: Code(s): Z96.642 - Presence of left artificial hip joint Plan Ani removed, steri strips applied. She will begin to transition to Outpatient PT to continue working on Gait training, ROM and quad strength. No driving for another 4 weeks. She will require ppx abx for dental procedures. She will f/u in 4 weeks, sooner if needed. Patient Instructions: Scribed for Socrates Anderson PA-C, by Steffen Almeida medical research scientist, on 12/16/2023 at 2:00 PM EST. I, Socrates Anderson PA-C, have personally reviewed and agree with the information entered by the scribe. Coding Level of Care Code Global (93008) Diagnoses Status post total replacement of left hip Z96.642
== END 2023-12-16 14:39 | disposition home or self-care (01) ==
PROVIDERS: PCP Internal Medicine; Visit Provider Physician Assistant
DX: Z96.642 Presence of left artificial hip joint (principal)
CPT/HCPCS: 99024

== ENCOUNTER → 2023-12-16 13:49 | Outpatient (BNVA) | payer OTHER, SELFPAY | PROVIDERS: PCP Internal Medicine; Visit Provider Physician Assistant | DX: Z47.1 Aftercare following joint replacement surgery (principal); Z96.642 Presence of left artificial hip joint | CPT/HCPCS: 99212 ==

== ENCOUNTER 2024-01-06 11:44 | Outpatient (REF) | payer OTHER, SELFPAY ==
--- NOTE | ~2024-01-06 | XR_ITS ---
EXAMINATION: XR PELVIS CLINICAL INFORMATION: Pain in unspecified hip. COMPARISON: 12/01/2023. TECHNIQUE: AP view of the pelvis. FINDINGS: Redemonstration of left total hip arthroplasty in satisfactory position. Hardware appears intact. Right hip preserved. Bilateral sacroiliac joints are symmetric. Electronic device overlies left iliac wing. XR/XR pelvis 1-2V IMPRESSION: Left total hip arthroplasty in satisfactory position.
== END 2024-01-06 11:45 | disposition home or self-care (01) ==
LOC: HO.HOSX 11:44
PROVIDERS: Visit Provider Orthopaedic Surgery
DX: Z96.642 Presence of left artificial hip joint (principal)
CPT/HCPCS: 72170; 99212

== ENCOUNTER 2024-01-06 12:28 | Outpatient (AMB) | payer OTHER, SELFPAY ==
--- NOTE | 2024-01-06 12:40 | MHC.OFFVIS ---
Vital Signs 01/06/24 12:46 Height 5 ft 2 in Weight 196 lb BMI 35.8 Intake Visit Reasons: 6 wk PO left DOT 12/01/23 with NE Intake Note: Jacqueline is a 53 year old female who presents using a cane and with her today for a post operative appointment s/p Left DOT 12/01/23. Patient express she is having pain in her groin area with prolonged ambulation and sitting. She continue working with PT until 01/17/24. Accompanied by: Spouse Allergies amoxicillin Allergy (Severe, Verified 01/06/24 12:47) severe hives-total body cat dander [cats] Allergy (Verified 01/06/24 12:47) Difficulty Breathing mold Allergy (Verified 01/06/24 12:47) Difficulty Breathing oxycodone [From Percocet] Allergy (Verified 01/06/24 12:47) Itching lamotrigine [From Lamictal] Adverse Reaction (Intermediate, Verified 01/06/24 12:47) Itching Penicillins Adverse Reaction (Mild, Verified 01/06/24 12:47) Abdominal Pain prednisone Adverse Reaction (Mild, Verified 01/06/24 12:47) Itching HPI HPI 6 wk PO left DOT 12/01/23 with NE: Details: Jacqueline is a 53 year old female who presents using a cane and with her today for a post operative appointment s/p Left DOT 12/01/23. Patient express she is having pain in her groin area with prolonged ambulation and sitting. She continue working with PT until 01/17/24. 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 pylori infection Vitamin D deficiency Vitamin B1 deficiency Vitamin B12 deficiency Anxiety Depression Spinal cord stimulator status Sciatica GERD (gastroesophageal reflux disease) Frequent headaches Surgical History History of esophagogastroduodenoscopy (EGD) H/O colonoscopy History of carpal tunnel release H/O gastric sleeve S/P repair of paraesophageal hernia S/P laparoscopic sleeve gastrectomy Hx of mammogram History of cholecystectomy Tubal ligation status H/O laparoscopy S/P endometrial ablation H/O arthroscopy of knee Family History Mother Hypertension Osteoporosis Father Epilepsia Atrophic emphysema Son Asthma Daughter Asthma Daughter Panic attacks Anxiety Thyroid adenoma Maternal Aunt History of breast cancer Family/Other Colon cancer Paternal Aunt Uterine cancer Social History Household Members: Spouse Housing: Apartment Are you a primary child care specialist to a significant other at home: No Do you presently have visiting nurse or other home services: No Alcohol intake: never Comment: Oxycodone 5 mg PO given at 13:50. Pain 6/10 with OOB/movement. 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 Left DOT in expected post operative position with no hardware complications or evidence of loosening Assessment & Plan Assessment & Plan (1) Status post total replacement of left hip: Code(s): Z96.642 - Presence of left artificial hip joint Category: Surgical Plan: Continue PT No complications Chronic pain patient so progress slower than usual Orders: Orders XR pelvis 1-2V 01/06/24 M25.559 - Pain in unspecified hip Coding Level of Care Code Global (99792) Diagnoses Status post total replacement of left hip Z96.642
[2024-01-06 12:46] VITALS: BMI 35.8
== END 2024-01-06 15:26 | disposition home or self-care (01) ==
PROVIDERS: PCP Internal Medicine; Visit Provider Orthopaedic Surgery
DX: Z96.642 Presence of left artificial hip joint (principal)
CPT/HCPCS: 99024

== ENCOUNTER 2024-01-07 12:12 | Outpatient (AMB) | payer OTHER, SELFPAY ==
--- NOTE | 2024-01-07 12:20 | A.OFFVIS_ITS ---
Vital Signs 01/07/24 12:23 Height 5 ft 2 in Weight 189 lb BMI 34.6 BP 120/60 Blood Pressure Location Lt brachial Position Sitting Pulse 77 Intake Visit Reasons: S/P EGD Intake Note: Patient is seen in office for post op assessment post EGD. Pt c/o: admits to bloating denies any other concerns Exchange Architect Required: No Accompanied by: Other Relationship Allergies amoxicillin Allergy (Severe, Verified 01/07/24 12:21) severe hives-total body cat dander [cats] Allergy (Verified 01/07/24 12:21) Difficulty Breathing mold Allergy (Verified 01/07/24 12:21) Difficulty Breathing oxycodone [From Percocet] Allergy (Verified 01/07/24 12:21) Itching lamotrigine [From Lamictal] Adverse Reaction (Intermediate, Verified 01/07/24 12:21) Itching Penicillins Adverse Reaction (Mild, Verified 01/07/24 12:21) Abdominal Pain prednisone Adverse Reaction (Mild, Verified 01/07/24 12:21) Itching HPI HPI S/P EGD: Details: Assessment & Plan (1) GERD (gastroesophageal reflux disease): Code(s): K21.9 - Gastro-esophageal reflux disease without esophagitis Qualifiers: Esophagitis presence: esophagitis presence not specified Qualified Code(s): K21.9 - Gastro-esophageal reflux disease without esophagitis (2) Chronic idiopathic constipation: Code(s): K59.04 - Chronic idiopathic constipation (3) Upper abdominal pain: Code(s): R10.10 - Upper abdominal pain, unspecified Plan She is taking the metoclopramide faithfully, and it has not effected the pain in her epigastrum, but she is moving her bowels better along with the Linzess 290 micro g. Since restoring her bowel motility she has also had less heartburn although she still will have breakthrough at times even taking her pantoprazole every day. This is to be expected depending on what is going on with the bowels and what she is eaten. 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 ? While this is possible I think we should do an endoscopy at this point to really see what is going on as the differential diagnosis could include an esophageal ulcer/gastric ulcer, musculoskeletal causes, gallbladder is ruled out since she is status post cholecystectomy. She is agreeable to this plan. For now we are going to not make any other changes in her medicines except to try to get her on some simethicone since she still has a lot of gas pains the get trapped in her belly. I am uncertain if her insurance will cover it so I write out for her the [id number] equivalent so that she can get that is inexpensively as possible. Going forward depending on her response we can also consider things like Creon. ROV 4 weeks. Orders: Orders EGD with [facility] - GI Use Only 10/13/23 R10.10 - Upper abdominal pain, unspecified Medications: New simethicone after meals 180 mg PO QID 30 days 120 caps 3RF Refilled linaclotide (Linzess) 290 mcg PO QAM 30 caps 6RF K59.04 - Chronic idiopathic constipation pantoprazole 40 mg PO DAILY 90 tabs 2RF K21.9 - Gastro-esophageal reflux disease without esophagitis metoclopramide HCl 5 mg PO QID 120 tabs 6RF R11.2 - Nausea with vomiting, unspecified EGD 10/18/23 Findings: Larynx: Normal Esophagus: Mildly tortuous esophagus with increased tertiary contrations without stricture or ring. Biopsies were obtained from proximal esophagus to check for EOE. GE junction at 36 cms. No esophagitis or Kulkarni's. Stomach: Mild gastric erythema with a few linear erosions in the gastric body. Biopsies were obtained from the gastric antrum and body. Grade 2 flap valve on retroflexed examination of the cardia. Duodenum: Normal bulb and descending duodenum. Biopsies were obtained from 3rd part of the duodenum to check for celiac sprue Intervention: Biopsies as noted above Impression and Post Procedure Diagnosis: Endoscopy Findings: ESOPHAGUS: Mildly tortuous esophagus with increased tertiary contrations without stricture or ring. Biopsies were obtained from proximal esophagus to check for EOE. STOMACH: Mild gastric erythema with a few linear erosions in the gastric body. DUODENUM: Normal - biopsied to check for celiac sprue. Plan: Await pathology results Biopsy Received: 10/18/23 Diagnosis A. Small bowel, biopsy: Small bowel mucosa with preserved villi and no specific change; no evidence of celiac disease. B. Gastric antrum, biopsy: Gastric antral mucosa with congestion, mild reactive changes, and minimal chronic inactive gastritis; negative for H pylori, intestinal metaplasia and dysplasia. C. Gastric body, biopsy: Gastric body mucosa with congestion and minimal chronic inactive gastritis; negative for H pylori, intestinal metaplasia and dysplasia. D. Esophagus, proximal, biopsy: Squamous mucosa with no specific change; no evidence of eosinophilic esophagitis TODAY'S VISIT She is here today with her who is supportive. She is on Linzess 290, pantoprazole 40 mg once a day, simethicone and Reglan. She just had hip replacement surgery r/t OA of the hip. She was really constipated for a while, and when she finally did move her bowels it was very large. She is is still on intermittent pain medications. ROV 6 mos. 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 pylori infection Vitamin D deficiency Vitamin B1 deficiency Vitamin B12 deficiency Anxiety Depression Spinal cord stimulator status Sciatica GERD (gastroesophageal reflux disease) Frequent headaches Surgical History History of esophagogastroduodenoscopy (EGD) H/O colonoscopy History of carpal tunnel release H/O gastric sleeve S/P repair of paraesophageal hernia S/P laparoscopic sleeve gastrectomy Hx of mammogram History of cholecystectomy Tubal ligation status H/O laparoscopy S/P endometrial ablation H/O arthroscopy of knee Family History Mother Hypertension Osteoporosis Father Epilepsia Atrophic emphysema Son Asthma Daughter Asthma Daughter Panic attacks Anxiety Thyroid adenoma Maternal Aunt History of breast cancer Family/Other Colon cancer Paternal Aunt Uterine cancer Social History Household Members: Spouse Housing: Apartment Are you a primary career development engineer to a significant other at home: No Do you presently have visiting nurse or other home services: No Alcohol intake: never Comment: Oxycodone 5 mg PO given at 13:50. Pain 6/10 with OOB/movement. 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 Cognitive needs: No Hearing needs: No Vision needs: No Review of Systems Const Denies fatigue, Denies fever(s), Denies night sweats, Denies poor appetite and Denies weight loss ENT Reports Normal hearing present, Denies dental pain, Denies dysphagia, Denies hearing loss, Denies mouth pain, Denies odynophagia, Denies throat swelling, Denies tongue swelling and Reports other (Dentition adequate) Card Reports no additional complaints Resp Reports no additional complaints GI Details: Denies abdominal pain, Denies melena, Denies bloating, Denies hematochezia, Reports constipation, Denies GI cramping, Denies dysphagia, Denies excessive flatus, Reports early satiety, Reports heartburn, Denies diarrhea, Denies nausea, Denies odynophagia, Denies vomiting and Denies hematemesis Skin/Breast Denies pruritus, Denies lesions, Denies rash and Denies jaundice Neuro Reports Normal hearing present and Denies Abnormal speech present Endo Denies fatigue Aller/Immun Denies throat swelling and Denies tongue swelling Physical Exam Vital Signs: Last Vital Signs Pulse 77 01/07/24 12:23 BP 120/60 01/07/24 12:23 BMI result Body Mass Index 34.6 Const General: cooperative, no acute distress, well developed and well groomed Nutritional Appearance: well nourished and obese Orientation/consciousness: oriented to person, oriented to place and oriented to time Limitations: No language barrier and ambulation with cane HEENT Head: Yes normocephalic and Yes atraumatic Eyes General: appearance normal, both eyes and all related structures Pupils: Equal, round and reactive pupils present Neck Neck: Yes normal visual inspection and Yes no lymphadenopathy Thyroid: Thyroid normal Resp Effort & Inspection: normal respiratory effort and able to speak in complete sentences Auscultation: clear to auscultation bilaterally Cardio Rate: regular rate Rhythm: regular rhythm Heart sounds: Normal, physiologic split S2 sound present Peripheral pulses: radial pulses present and posterior tibial pulses present GI Inspection: No distended, Yes Abdominal panniculus present and Yes obesity Palpation (GI): Soft to palpation, nontender, no guarding, not rigid and No hepatosplenomegaly present Percussion: Yes normal to percussion Auscultation: normal bowel sounds Rectal Exam - Female: deferred Skin General skin exam: no rashes or lesions noted, turgor normal, skin not dry, no jaundice, No spider nevi and no striae Rashes: no rashes Nails: normal Neuro General: oriented to person, oriented to place and oriented to time Cranial nerves: Yes Equal, round and reactive pupils present and Yes Normal hearing present Speech: No Abnormal speech present Extrem General: Yes normal to inspection, No clubbing, No cyanosis and No edema Psych Appearance: grossly normal and well kempt Mental Status: mental status grossly normal Speech and movement: Normal speech and movement present Affect: normal affect Attitude: cooperative Thought process: Normal thought process present and not confabulating Thought content: Normal thought content present Insight: Limited insight present (Psych) Judgement: Limited judgement present (Psych) Results Reviewed Results Reviewed: EGD 10/18/23 Findings: Larynx: Normal Esophagus: Mildly tortuous esophagus with increased tertiary contrations without stricture or ring. Biopsies were obtained from proximal esophagus to check for EOE. GE junction at 36 cms. No esophagitis or Kulkarni's. Stomach: Mild gastric erythema with a few linear erosions in the gastric body. Biopsies were obtained from the gastric antrum and body. Grade 2 flap valve on retroflexed examination of the cardia. Duodenum: Normal bulb and descending duodenum. Biopsies were obtained from 3rd part of the duodenum to check for celiac sprue Intervention: Biopsies as noted above Impression and Post Procedure Diagnosis: Endoscopy Findings: ESOPHAGUS: Mildly tortuous esophagus with increased tertiary contrations without stricture or ring. Biopsies were obtained from proximal esophagus to check for EOE. STOMACH: Mild gastric erythema with a few linear erosions in the gastric body. DUODENUM: Normal - biopsied to check for celiac sprue. Plan: Await pathology results Biopsy Received: 10/18/23 Diagnosis A. Small bowel, biopsy: Small bowel mucosa with preserved villi and no specific change; no evidence of celiac disease. B. Gastric antrum, biopsy: Gastric antral mucosa with congestion, mild reactive changes, and minimal chronic inactive gastritis; negative for H pylori, intestinal metaplasia and dysplasia. C. Gastric body, biopsy: Gastric body mucosa with congestion and minimal chronic inactive gastritis; negative for H pylori, intestinal metaplasia and dysplasia. D. Esophagus, proximal, biopsy: Squamous mucosa with no specific change; no evidence of eosinophilic esophagitis Assessment & Plan Assessment & Plan (1) GERD (gastroesophageal reflux disease): Code(s): K21.9 - Gastro-esophageal reflux disease without esophagitis Category: Medical Qualifiers: Esophagitis presence: esophagitis presence not specified Qualified Code(s): K21.9 - Gastro-esophageal reflux disease without esophagitis (2) Upper abdominal pain: Code(s): R10.10 - Upper abdominal pain, unspecified Category: Medical (3) Chronic idiopathic constipation: Code(s): K59.04 - Chronic idiopathic constipation Category: Medical Plan She is here today with her who is supportive. She is on Linzess 290, pantoprazole 40 mg once a day, simethicone and Reglan. She just had hip replacement surgery r/t OA of the hip. She was really constipated for a while, and when she finally did move her bowels it was very large. She is is still on intermittent pain medications. ROV 6 mos. Medications: New metoclopramide HCl 5 mg PO QID 120 tabs 6RF gastroaesis Refilled pantoprazole 40 mg PO DAILY 90 tabs 2RF K21.9 - Gastro-esophageal reflux disease without esophagitis simethicone after meals 180 mg PO QID 120 caps 6RF 30 days linaclotide (Linzess) 290 mcg PO QAM 30 caps 6RF K59.04 - Chronic idiopathic constipation Coding Level of Care Code Est Pt Level 3 (19645) Diagnoses Gastroesophageal reflux disease, unspecified whether esophagitis present K21.9 Esophagitis presence: esophagitis presence not specified Upper abdominal pain R10.10 Chronic idiopathic constipation K59.04
[2024-01-07 12:23] VITALS: BP 120/60; PULSE 77; BMI 34.6
== END 2024-01-07 12:48 | disposition home or self-care (01) ==
PROVIDERS: PCP Internal Medicine; Visit Provider Nurse Practitioner
DX: K21.9 Gastro-esophageal reflux disease without esophagitis (principal); R10.10 Upper abdominal pain, unspecified; K59.04 Chronic idiopathic constipation
CPT/HCPCS: 99213

== ENCOUNTER → 2024-01-07 12:12 | Outpatient (BNVA) | payer OTHER, SELFPAY | PROVIDERS: PCP Internal Medicine; Visit Provider Nurse Practitioner | DX: K21.9 Gastro-esophageal reflux disease without esophagitis (principal); K59.04 Chronic idiopathic constipation; R10.10 Upper abdominal pain, unspecified; Z79.899 Other long term (current) drug therapy | CPT/HCPCS: 99212 ==

== ENCOUNTER 2024-01-19 10:23 | Outpatient (AMB) | payer OTHER, SELFPAY ==
[2024-01-19 10:26] VITALS: BP 122/66; BMI 34.9
--- NOTE | 2024-01-19 10:26 | A.OFFVIS_ITS ---
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 [employer] Required: No Information Interpreted: non-clinical & clinical Director Of Gift Planning: Director Of Gift Planning Present (Toño) Allergies amoxicillin Allergy (Severe, Verified 01/19/24 10:28) severe hives-total body cat dander [cats] Allergy (Verified 01/19/24 10:28) Difficulty Breathing mold Allergy (Verified 01/19/24 10:28) Difficulty Breathing oxycodone [From Percocet] Allergy (Verified 01/19/24 10:28) Itching lamotrigine [From Lamictal] Adverse Reaction (Intermediate, Verified 01/19/24 10:) Itching Penicillins Adverse Reaction (Mild, Verified 01/19/24 10:) Abdominal Pain prednisone Adverse Reaction (Mild, Verified 01/19/24 10:) Itching Is last menstrual period known: No Post menopausal: Yes Patient : No HPI Comments Details: 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 She is doing well with no concerns. Attempting to eat a healthy diet with calcium and vitamin D, S/p hip replacement, in rehab. Currently sexually active. Denies any vaginal dryness or irritation. STI testing offered; she declines. Last pap smear; 2019. Last mammogram; 2023. Colonoscopy is UTD. Denies any family history of breast, ovarian or colon cancer. 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 pylori infection Vitamin D deficiency Vitamin B1 deficiency Vitamin B12 deficiency Anxiety Depression Spinal cord stimulator status Sciatica GERD (gastroesophageal reflux disease) Frequent headaches Surgical History (Updated 01/19/24 @ 10:30 by GARCIA Narayan) Hx of bilateral hip replacements History of esophagogastroduodenoscopy (EGD) H/O colonoscopy History of carpal tunnel release H/O gastric sleeve S/P repair of paraesophageal hernia S/P laparoscopic sleeve gastrectomy Hx of mammogram History of cholecystectomy Tubal ligation status H/O laparoscopy S/P endometrial ablation H/O arthroscopy of knee Family History (Updated 01/19/24 @ 10:30 by GARCIA aNrayan) Mother Hypertension Osteoporosis Father Epilepsia Atrophic emphysema Son Asthma Daughter Asthma Daughter Panic attacks Anxiety Thyroid adenoma Maternal Aunt History of breast cancer Family/Other Colon cancer Paternal Aunt Uterine cancer Family/Other Breast cancer Social History Household Members: Spouse Housing: Apartment Are you a primary nurse behavioral health care to a significant other at home: No Do you presently have visiting nurse or other home services: No Alcohol intake: never Comment: Oxycodone 5 mg PO given at 13:50. Pain 6/10 with OOB/movement. 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 Cognitive needs: No Hearing needs: No Vision needs: No Female Reproductive History Menstrual Age of Menarche: 9 control method: permanent sterilization Total pregnancies: 3 Full term: 2 Number of Living Children: 2 Date of last pap smear: 01/01/20 (negative) Date of Mammogram: 11/01/23 Review of Systems Const All systems reviewed & are unremarkable except as noted in HPI and below Reports as per HPI Eyes Reports no additional complaints ENT Reports no additional complaints Card Reports no additional complaints Resp Reports no additional complaints GI Reports as per HPI and Reports no additional complaints Reports as per HPI Musc Reports no additional complaints Skin/Breast Reports as per HPI Neuro Reports no additional complaints Psych Reports no additional complaints Endo Reports no additional complaints Smith/Lymph Reports no additional complaints Aller/Immun Reports no additional complaints Physical Exam Vital Signs: Last Vital Signs BP 122/66 01/19/24 10:26 BMI result Body Mass Index 34.9 Const General: cooperative, healthy appearing, no acute distress, well developed and alert Orientation/consciousness: patient oriented x3 HEENT Head: Yes normal to inspection Eyes General: appearance normal, both eyes and all related structures Neck Neck: Yes normal visual inspection Thyroid: Thyroid normal Chest Chest palpation & inspection: normal inspection of the chest and other (no puckering, dimpling, peau de orange, retraction, discharge, masses) Breast/axilla inspection: normal inspection of the breasts Breast/axilla palpation: normal palpation of the breasts Resp Effort & Inspection: normal respiratory effort GI Inspection: Yes normal to inspection Palpation (GI): Soft to palpation Rectal Exam - Female: deferred General: Yes bladder normal to palpation External Female Exam: normal external appearance and normal appearance of the ur ethra Speculum Exam - Vagina: normal appearance of the vagina, normal palpation and normal vaginal discharge Speculum Exam - Cervix: normal appearance of the cervix and normal palpation Bimanual exam- vagina & uterus: normal bimanual exam, normal palpation, uterine size normal, bladder normal to palpation, normal palpation and non-tender Bimanual Exam- Adnexa, other: no masses Skin General skin exam: no rashes or lesions noted Rashes: no rashes Neuro General: patient oriented x3 Cognition (Neuro): normal cognition Extrem General: Yes normal to inspection Psych Attitude: cooperative Thought process: Normal thought process present Assessment & Plan Assessment & Plan (1) Encounter for well woman exam with routine gynecological exam: Code(s): Z01.419 - Encounter for gynecological examination (general) (routine) without abnormal findings Plan Discussed: Current recommendations for pap smears per ASCCP guidelines. Breast awareness, periodic self breast exams and yearly mammogram. Maintain a healthy lifestyle, well balanced diet including Calcium 1,200 mg and Vitamin D 600 IU daily, and routine exercise. Contact the office with any postmenopausal bleeding. Patient verbalizes understanding and agrees to the plan of care. She was given opportunity to ask questions and all questions were answered to the best of my ability. 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 This note is constructed using voice recognition software. While every effort has been made to ensure accuracy, operations management professionals errors may have been included. Coding Level of Care Code Est Pt Prev Care 40-64y(58219) Diagnoses Encounter for well woman exam with routine gynecological exam Z01.419
== END 2024-01-19 11:01 | disposition home or self-care (01) ==
PROVIDERS: PCP Internal Medicine; Visit Provider Advanced Practice Midwife
DX: Z01.419 Encounter for gynecological examination (general) (routine) without abnormal findings (principal)
CPT/HCPCS: 99396

== ENCOUNTER → 2024-01-19 10:23 | Outpatient (BNVA) | payer OTHER, SELFPAY | PROVIDERS: PCP Internal Medicine; Visit Provider Advanced Practice Midwife ==

== ENCOUNTER 2024-02-14 10:00 | Outpatient (RCR) | payer OTHER, SELFPAY ==
[2023-12-17 10:10] VITALS: BP 136/71
--- NOTE | 2023-12-17 13:29 | MHC.PT.EP ---
[facility] [place] Office [place] Office [place] Office [address] Mik Martines [address] [phone] F: [phone] F: [phone] F: [phone] F: [phone] Physical Therapy Plan of Care Date of Evaluation: 12/17/23 Date of Surgery: 12/01/23 Diagnosis: S/P Lt DOT W DR BOWLING Assessment: 53 YO FEMALE REF TO PT S/P LEFT DOT ON 12/01/23. 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 SHE HAS AN IMPLANTED SPINAL CORE STIMULATOR. OBJECTIVE FINDINGS: PO ROM DEFICITS LEFT HIP, TIGHT HIP FLEXORS/ CALF MM, (+) STRENGTH DEFICITS, AND MILD LEFT PROX LE PAIN. Pt IS AWARE OF POSTERIOR APPROACH RESTRICTIONS/ PRECAUTIONS. FUNCTIONALLY, Pt IS LIMITED WITH BED MOB, DECR STANDING KATRIN, ALTERED GAIT MECHANICS, STAIR MGMT, AND RESTRICTED WITH MORE PHYSICALLY DEMANDING ADLs. Pt WOULD BENEFIT FROM PT AT THIS TIME TO GUIDE HER IN HER POST-OP COURSE, DEV A PROGR HEP, ADDRESS PAIN MGMT, AND OBTAINING MAXIMAL LEVEL OF FUNCTIONAL INDEPENDENCE. Frequency and Duration: The patient will be seen 2 x WK x 5 WKS Short Term Goals: *Pt INDEP W DOT POSTERIOR APPROACH PRECAUTIONS AND SELF-MGMT OF POST-OP STATUS TO PROMOTE OPTIMAL HEALING *Pt WILL DEMON EFFICIENT GAIT MECHANICS W LEAST RESTRICTIVE ASST DEVICE ON LEVEL GROUND AND STAIRS *Pt'S LEFT HIP PAIN WILL DECR TO 2-3/10 *Pt DEMON APPROP BED MOB/ POSITIONING/ SIT <-> STAND/ CAR TRANSFERS Nursing Home Goals: *Pt WILL IMPROVE LUMBOPELVIC/ Lt LE STRENGTH TO AT LEAST 5-/5 *Pt RESUME AT LEAST PLOF EVIDENT W IMPROVED LEFI SCORE (AT EVAL 20/80 ) *Pt INDEP W PROGR HEP AND SELF-SX MGMT TECHN *Lt LE SLS x 10 SEC Treatment Plan: Modalities to reduce pain, spasms and effusion. Manual therapy to restore motion and function. Therapeutic exercise to improve strength and flexibility. Neuromuscular re-education for posture and balance. Therapeutic activities to return to functional activities of daily living. Electronically signed by: LAVONNE FINNEGAN,PT Please sign and return to therapist. Thank you for your referral.
--- NOTE | 2024-02-14 11:06 | MHC.PT.DC ---
[facility] [place] Office [place] Office [place] Office [address] Mik Martines [address] [phone] F: [phone] F: [phone] F: [phone] F: [phone] Physical Therapy Discharge Report Diagnosis: S/P Lt DOT W DR BOWLING Date of Surgery: 12/01/23 Date of Evaluation: 12/17/23 Date of Discharge: 02/14/24 Treatments to Date: 15 Cancellations to Date: 0 No Shows to Date: 0 Discharge Status: Achieved Goals Improved Function Independent with HEP Discharge Summary: THE Pt MET HER PT GOALS-> INDEP GAIT AND RECIPROCAL TECHN ON STAIRS- SHE IS INDEP W HEP, AND , SHE IS TRYING TO INCR HER FITNESS WALKING- SHE MET HER PT GOALS, LEFI IMPROVED TO 33/80 (WAS 20/80 AT EVAL) Electronically signed by: LAVONNE FINNEGAN,PT Please sign and return to therapist. Thank you for your referral.
== END 2024-02-14 11:06 | disposition home or self-care (01) ==
LOC: HO.PT 10:00
PROVIDERS: PCP Internal Medicine; Visit Provider Physician Assistant
DX: Z96.642 Presence of left artificial hip joint (principal)
CPT/HCPCS: 97110; 97162; 97530

== ENCOUNTER 2024-02-22 08:44 | Outpatient (REF) | payer OTHER, SELFPAY ==
[2024-02-22 11:45] LABS: Parathyroid Hormone Intact 252.3 pg/mL (8.7-77.1)
[2024-02-22 11:52] LABS: Albumin Level 3.7 g/dL (3.5-5.0); Calcium 8.5 mg/dL (8.4-10.2)
[2024-02-22 12:02] LABS: Vitamin D 25-OH Total 17.4 ng/mL (>30)
== END 2024-02-22 08:45 | disposition home or self-care (01) ==
LOC: HO.10HDL 08:44
PROVIDERS: Visit Provider Internal Medicine Endocrinology, Diabetes & Metabolism
DX: E21.0 Primary hyperparathyroidism (principal)
CPT/HCPCS: 36415; 82040; 82306; 82310; 83970

== ENCOUNTER 2024-03-02 10:54 | Outpatient (AMB) | payer OTHER, SELFPAY ==
--- NOTE | 2024-03-02 11:07 | A.OFFVIS_ITS ---
Vital Signs 03/02/24 11:09 Height 5 ft 2 in Weight 191 lb BMI 34.9 Intake Visit Reasons: ov-left DOT 12/01/23 with NE Intake Note: Jacqueline is a Patient reports that she is doing well she has increased pain with prolonged activity or sitting. Allergies amoxicillin Allergy (Severe, Verified 03/02/24 11:09) severe hives-total body cat dander [cats] Allergy (Verified 03/02/24 11:09) Difficulty Breathing mold Allergy (Verified 03/02/24 11:09) Difficulty Breathing oxycodone [From Percocet] Allergy (Verified 03/02/24 11:09) Itching lamotrigine [From Lamictal] Adverse Reaction (Intermediate, Verified 03/02/24 11:09) Itching Penicillins Adverse Reaction (Mild, Verified 03/02/24 11:09) Abdominal Pain prednisone Adverse Reaction (Mild, Verified 03/02/24 11:09) Itching HPI HPI ov-left DOT 12/01/23 with NE: Details: 3 mo post op feeling well. She has no complaints today. She has been using a cane occasionally. She is walking well. Her ROM feels slightly restricted but it is improving with PT> She denies pain, fevers of chills. 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 pylori infection Vitamin D deficiency Vitamin B1 deficiency Vitamin B12 deficiency Anxiety Depression Spinal cord stimulator status Sciatica GERD (gastroesophageal reflux disease) Frequent headaches Surgical History (Updated 01/19/24 @ 10:30 by GARCIA Narayan) Hx of bilateral hip replacements History of esophagogastroduodenoscopy (EGD) H/O colonoscopy History of carpal tunnel release H/O gastric sleeve S/P repair of paraesophageal hernia S/P laparoscopic sleeve gastrectomy Hx of mammogram History of cholecystectomy Tubal ligation status H/O laparoscopy S/P endometrial ablation H/O arthroscopy of knee Family History (Updated 01/19/24 @ 10:30 by GARCIA Narayan) Mother Hypertension Osteoporosis Father Epilepsia Atrophic emphysema Son Asthma Daughter Asthma Daughter Panic attacks Anxiety Thyroid adenoma Maternal Aunt History of breast cancer Family/Other Colon cancer Paternal Aunt Uterine cancer Family/Other Breast cancer Social History Household Members: Spouse Housing: Apartment Are you a primary child care lead teacher to a significant other at home: No Do you presently have visiting nurse or other home services: No Alcohol intake: never Comment: Oxycodone 5 mg PO given at 13:50. Pain 6/10 with OOB/movement. 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 Reviewed dental prophylaxis and recommend she continue activity as tolerated and may follow up in 9 months or sooner if there are any issues. Coding Level of Care Code Global (14729) Diagnoses Status post total replacement of left hip Z96.642
[2024-03-02 11:09] VITALS: BMI 34.9
== END 2024-03-02 11:12 | disposition home or self-care (01) ==
LOC: HO.HOS 10:54
PROVIDERS: PCP Internal Medicine; Visit Provider Orthopaedic Surgery
DX: Z47.1 Aftercare following joint replacement surgery (principal); Z96.642 Presence of left artificial hip joint
CPT/HCPCS: 99212

== ENCOUNTER → 2024-03-02 10:54 | Outpatient (BNVA) | payer OTHER, SELFPAY | PROVIDERS: PCP Internal Medicine; Visit Provider Orthopaedic Surgery | DX: Z96.642 Presence of left artificial hip joint (principal) | CPT/HCPCS: 99212 ==

== ENCOUNTER 2024-06-09 09:48 | Outpatient (REF) | payer OTHER, SELFPAY ==
[2024-06-09 11:29] LABS: Vitamin D 25-OH Total 49.2 ng/mL (>30)
[2024-06-09 11:51] LABS: Parathyroid Hormone Intact 219.8 pg/mL (8.7-77.1)
== END 2024-06-09 09:49 | disposition home or self-care (01) ==
LOC: HO.10HDL 09:48
PROVIDERS: Visit Provider Internal Medicine Endocrinology, Diabetes & Metabolism
DX: E21.0 Primary hyperparathyroidism (principal)
CPT/HCPCS: 36415; 82040; 82306; 82310; 83970

== ENCOUNTER 2024-06-13 10:31 | Outpatient (AMB) | payer OTHER, SELFPAY ==
[2024-06-13 10:46] VITALS: BP 124/68; PULSE 84; BMI 33.7
--- NOTE | 2024-06-13 10:46 | MHC.OFFVIS ---
Vital Signs 06/13/24 10:46 Height 5 ft 2 in Weight 184 lb 4.903 oz BMI 33.7 BP 124/68 Blood Pressure Location Lt brachial Position Sitting Pulse 84 Pulse Source Pulse Oximeter Intake Visit Reasons: f/u secondary hyperparathyroidism-conf Intake Note: Patient present today for secondary hyperparathyroidism follow up visit. Degreaser Required: No Accompanied by: Self / Same As Patient Allergies amoxicillin Allergy (Severe, Verified 06/13/24 10:53) severe hives-total body cat dander [cats] Allergy (Verified 06/13/24 10:53) Difficulty Breathing mold Allergy (Verified 06/13/24 10:53) Difficulty Breathing oxycodone [From Percocet] Allergy (Verified 06/13/24 10:53) Itching lamotrigine [From Lamictal] Adverse Reaction (Intermediate, Verified 06/13/24 10:53) Itching Penicillins Adverse Reaction (Mild, Verified 06/13/24 10:53) Abdominal Pain prednisone Adverse Reaction (Mild, Verified 06/13/24 10:53) Itching Medication List - Last Reconciled 06/13/24 by Reddy William MD acetaminophen 650 mg (2 x 325 mg) PO Q6H PRN 30 days amantadine HCl 100 mg PO DAILY amitriptyline 75 mg PO BEDTIME atenolol 50 mg PO DAILY celecoxib 100 mg PO BID cholecalciferol (vitamin D3) 125 mcg PO DAILY clindamycin HCl 600 mg (2 x 300 mg) PO ONCE 1 day [GRAB BAR for bathroom with suction cups As directed] hydroxyzine HCl 25 mg PO BID linaclotide (Linzess) 290 mcg PO QAM losartan 50 mg PO DAILY 90 days lurasidone 60 mg PO DAILY magnesium oxide 400 mg PO DAILY 30 days meclizine 25 mg PO DAILY PRN 30 days metoclopramide HCl 5 mg PO QID pantoprazole 40 mg PO DAILY propylene glycol-glycerin 1-0.3 % (Artificial Tears (glycerin-peg)) 1 drp ophthalmic (eye) BID [Raised toilet seat As directed] simethicone 180 mg PO QID 30 days venlafaxine ER 150 mg PO DAILY walker Folding Front wheeled walker HPI Comments Details: 52-year-old female today for follow-up visit for hyperparathyroidism evaluation. Patient is feeling better she had sleeve gastrectomy on 01/16/2021, She has been taking any vitamin-D IU since bariatric surgery.Not sure of dose of vitamin D She has past medical history of obesity, multiple vitamin deficiencies including vitamin-D. sleep apnea, Jeannette's disease. Denies prior fragility fractures, positive GERD, denies FH of fractures or osteoporosis, denies nephrolithiasis, denies steroids used, never smoker. She has negative History of head or neck irradiation. She does not take calcium but she has at least 2-3 servings of calcium every day in the diet. Calcium trended since 2007 to 2019 range is 8.4-9.5 mg/dL Albumin trended since 2004 range 3.9-5.2 grams/deciliter She had genetic testing for celiac disease on 12/16/2020 she is heterozygous DQ 8 2 X increased risk for celiac disease could this is a relatively risk moderate Currently on 5000 I units once a day. Laboratory Tests 06/03/20 06/03/20 08/05/20 07:10 07:10 08:50 Creatinine Calcium AST ALT Albumin Triglycerides Cholesterol LDL Cholesterol, Calc HDL Cholesterol 25-OH Vitamin D Total TSH Free T4 TSH 3rd Generation 1.38 Free Estradiol Total Estradiol FSH Luteinizing Hormone Prolactin Sex Hormone Bind Glob Somatomedin-C PTH Intact 73 H Calcium (PTH Intact) 9.0 Cortisol ACTH Endomysial Ab Titer Endomysial IgA Ab Thyroglobulin Antibody 527 H Thyroid Peroxidase Ab <1 Tiss Transglutamin IgG 12/13/20 12/13/20 12/13/20 08:32 08:32 08:32 Creatinine Calcium AST ALT Albumin Triglycerides Cholesterol LDL Cholesterol, Calc HDL Cholesterol 25-OH Vitamin D Total 41.7 TSH 0.79 Free T4 0.83 TSH 3rd Generation Free Estradiol 0.33 Total Estradiol 14 FSH 87.9 Luteinizing Hormone 56.0 Prolactin 7.6 Sex Hormone Bind Glob 19 Somatomedin-C 82 PTH Intact 72 H Calcium (PTH Intact) 9.4 Cortisol ACTH 17 Endomysial Ab Titer Endomysial IgA Ab Thyroglobulin Antibody Thyroid Peroxidase Ab Tiss Transglutamin IgG 12/13/20 12/13/20 01/09/21 08:32 08:32 08:03 Creatinine Calcium AST ALT Albumin Triglycerides Cholesterol LDL Cholesterol, Calc HDL Cholesterol 25-OH Vitamin D Total TSH Free T4 TSH 3rd Generation Free Estradiol Total Estradiol FSH Luteinizing Hormone Prolactin Sex Hormone Bind Glob Somatomedin-C PTH Intact Calcium (PTH Intact) Cortisol 12.6 ACTH <5 L Endomysial Ab Titer TNP Endomysial IgA Ab Negative Thyroglobulin Antibody Thyroid Peroxidase Ab Tiss Transglutamin IgG 4 01/09/21 01/11/21 03/11/21 08:03 09:10 06:40 Creatinine 0.71 Calcium 9.5 D AST 37 H ALT 54 H Albumin 3.7 Triglycerides 94 Cholesterol 189 LDL Cholesterol, Calc 121 HDL Cholesterol 50 25-OH Vitamin D Total TSH 0.69 Free T4 TSH 3rd Generation Free Estradiol Total Estradiol FSH Luteinizing Hormone Prolactin Sex Hormone Bind Glob Somatomedin-C PTH Intact Calcium (PTH Intact) Cortisol 0.8 L ACTH Endomysial Ab Titer Endomysial IgA Ab Thyroglobulin Antibody Thyroid Peroxidase Ab Tiss Transglutamin IgG Laboratory Tests 09/14/18 09/14/18 10/05/19 08:45 08:45 08:28 Calcium 9.0 8.9 8.7 Albumin 25-OH Vitamin D Total 12.8 10.2 TSH Free T4 0.91 Free T3 TSH 3rd Generation 0.72 0.52 PTH Intact 52 Calcium (PTH Intact) Thyroglobulin Antibody Thyroid Peroxidase Ab 10/05/19 06/03/20 06/03/20 08:28 07:10 07:10 Calcium 8.8 Albumin 4.0 25-OH Vitamin D Total TSH Free T4 Free T3 2.7 TSH 3rd Generation 1.38 PTH Intact Calcium (PTH Intact) Thyroglobulin Antibody 527 H Thyroid Peroxidase Ab <1 08/05/20 08/05/20 08/23/20 08:50 08:50 08:40 Calcium 8.6 8.9 Albumin 4.2 3.8 25-OH Vitamin D Total TSH 1.22 Free T4 Free T3 TSH 3rd Generation PTH Intact 73 H Calcium (PTH Intact) 9.0 Thyroglobulin Antibody Thyroid Peroxidase Ab . On ergocalciferol 94652 IU once a week as well as calcium supplementation. 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 pylori infection Vitamin D deficiency Vitamin B1 deficiency Vitamin B12 deficiency Anxiety Depression Spinal cord stimulator status Sciatica GERD (gastroesophageal reflux disease) Frequent headaches Surgical History (Updated 01/19/24 @ 10:30 by GARCIA Narayan) Hx of bilateral hip replacements History of esophagogastroduodenoscopy (EGD) H/O colonoscopy History of carpal tunnel release H/O gastric sleeve S/P repair of paraesophageal hernia S/P laparoscopic sleeve gastrectomy Hx of mammogram History of cholecystectomy Tubal ligation status H/O laparoscopy S/P endometrial ablation H/O arthroscopy of knee Family History (Updated 01/19/24 @ 10:30 by GARCIA Narayan) Mother Hypertension Osteoporosis Father Epilepsia Atrophic emphysema Son Asthma Daughter Asthma Daughter Panic attacks Anxiety Thyroid adenoma Maternal Aunt History of breast cancer Family/Other Colon cancer Paternal Aunt Uterine cancer Family/Other Breast cancer Social History Household Members: Spouse Housing: Apartment Are you a primary complex care nurse to a significant other at home: No Do you presently have visiting nurse or other home services: No Alcohol intake: never Comment: Oxycodone 5 mg PO given at 13:50. Pain 6/10 with OOB/movement. 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 IU . Less likely but possible is the presence of normocalcemic primary hyperparathyroidism but this cannot be established until patient is vitamin-D replete for some time and still has persistent elevation PTH. Other differential diagnosis includes various elevation of PTH Plan is to recheck calcium, albumin, PTH, 25 hydroxy vitamin-D, 24 hour urine for calcium and creatinine at [facility] ([facility]). If PTH remains persistently elevated or is not trending correct direction at outside lab with normal 25 hydroxy vitamin-D and 24 hour urine for calcium will obtain DEXA bone density of hip, spine distal forearm and if consistent with normocalcemic primary hyperparathyroidism will assess if osteoporosis is present and warrants parathyroid exploration Orders: Orders Calcium 2 Months N25.81 - Secondary hyperparathyroidism of renal origin Albumin Level 2 Months N25.81 - Secondary hyperparathyroidism of renal origin Parathyroid Hormone Intact 2 Months N2.81 - Secondary hyperparathyroidism of renal origin Vitamin D 25-OH Total 2 Months N2.81 - Secondary hyperparathyroidism of renal origin Creatinine, 24 Hr Group 2 Months N2.81 - Secondary hyperparathyroidism of renal origin Calcium, 24 Hr Ur 2 Months N2.81 - Secondary hyperparathyroidism of renal origin XR DEXA appendicular skeleton Today N25.81 - Secondary hyperparathyroidism of renal origin Coding Level of Care Code Est Pt Level 3 (04922) Diagnoses Secondary hyperparathyroidism N25.81
== END 2024-06-13 11:13 | disposition home or self-care (01) ==
PROVIDERS: PCP Internal Medicine; Visit Provider Internal Medicine Endocrinology, Diabetes & Metabolism
DX: N25.81 Secondary hyperparathyroidism of renal origin (principal)
CPT/HCPCS: 99213

== ENCOUNTER → 2024-06-13 10:31 | Outpatient (BNVA) | payer OTHER, SELFPAY | PROVIDERS: PCP Internal Medicine; Visit Provider Internal Medicine Endocrinology, Diabetes & Metabolism | DX: N25.81 Secondary hyperparathyroidism of renal origin (principal) | CPT/HCPCS: 99212 ==

== ENCOUNTER 2024-06-30 13:11 | Outpatient (REF) | payer OTHER, SELFPAY ==
--- NOTE | ~2024-06-30 | MM_ITS ---
EXAMINATION: BONE DENSITOMETRY CLINICAL INDICATION: Secondary hyperparathyroidism of renal origin. COMPARISON: This is the patient's baseline examination. TECHNIQUE: Using a [employer] DXA System (software version: 13.1) manufactured by [employer], dual-energy x-ray absorptiometry was performed of the lumbar spine, right hip and left forearm radius 33%. The patient has had a left hip replacement. The images are of good technical quality. Summary results are attached. FINDINGS: AP SPINE L1-L2 (excluding L3 and L4): The data of L1-L4 has been changed to exclude the L3 and L4 vertebral bodies, because degenerative sclerosis at these levels may cause overestimation of lumbar spine density. BMD 1.122 g/cm2, Z-score -0.2, T-score -0.4, normal. RIGHT FEMUR, NECK: BMD 0.909 g/cm2, Z-score -0.3, T-score -0.9, normal. RIGHT FEMUR, TOTAL: BMD 0.922 g/cm2, Z-score -0.5, T-score -0.7, normal. LEFT FOREARM RADIUS 33%: BMD 0.824 g/cm2, Z-score -0.3, T-score -0.6, normal. IDENTIFIED RISK FACTORS: Rheumatoid arthritis. Hyperparathyroidism. Secondary osteoporosis (part of stomach removed, early menopause). HISTORY OF FRACTURE: None listed. MEDICATIONS: Vitamin D. MM/XR DEXA appendicular skeleton IMPRESSION: 1. DIAGNOSIS: Normal bone density based on the lowest T-score value of -0.9 in the femoral neck applying World Health Organization criteria. 2. 10-YEAR FRACTURE RISK PREDICTION, FRAX: According to the guidelines, FRAX calculation should only be performed on patients in the osteopenia bone density category. Therefore, FRAX was not performed on this patient. 3. Treatment Recommendations: NOF guidelines recommend consideration for treatment in postmenopausal women and men age 50 and older presenting with the following: -A hip or vertebral (clinical or morphometric) fracture. -T-score less than or equal to -2.5 at the femoral neck or spine after appropriate evaluation to exclude secondary causes. -Low bone mass at the hip or spine and a 10-year fracture probability by FRAX of greater than or equal to 3% for hip fracture or greater than or equal to 20% for major osteoporotic fracture based on the [place] adapted WHO algorithm. 4. Other Recommendations: All treatment decisions require clinical judgment and consideration of individual patient factors, including patient preferences, comorbidities, previous drug use, risk factors not captured in the FRAX model (e.g. frailty, falls, vitamin D deficiency, increased bone turnover, interval significant decline in bone density) and possible under or overestimation of fracture risk by FRAX. FUTURE SCAN RECOMMENDATION: People with diagnosed cases of osteoporosis or at high risk for fracture should have regular bone mineral density tests. For patients eligible for Medicare, routine testing is allowed once every 2 years. The testing frequency can be increased to one year for patients who have rapidly progressing disease, those who are receiving or discontinuing medical therapy to restore bone mass, or have additional risk factors. Electronically signed by: Roland Lorenz MD 07/03/2024 02:41 PM EDT RP
== END 2024-06-30 13:12 | disposition home or self-care (01) ==
LOC: HO.MAMMO 13:11
PROVIDERS: PCP Internal Medicine; Visit Provider Internal Medicine Endocrinology, Diabetes & Metabolism
DX: N25.81 Secondary hyperparathyroidism of renal origin (principal)
CPT/HCPCS: 77081

== ENCOUNTER 2024-07-06 11:33 | Outpatient (AMB) | payer OTHER, SELFPAY ==
[2024-07-06 11:34] VITALS: BP 126/80; PULSE 88; O2SAT 97; BMI 32.8
--- NOTE | 2024-07-06 11:34 | MHC.PC.OV ---
Vital Signs 07/06/24 11:34 Height 5 ft 2 in Weight 179 lb 8 oz BMI 32.8 BP 126/80 Blood Pressure Location Lt brachial Position Sitting Pulse 88 Pulse Source Pulse Oximeter Pulse Oximetry (%) 97 Oxygen Delivery Method Room Air Intake Visit Reasons: f/u Hypothyroid/ HTN Dishtank Operator Required: No Accompanied by: Self / Same As Patient Allergies amoxicillin Allergy (Severe, Verified 07/06/24 12:25) severe hives-total body cat dander [cats] Allergy (Verified 07/06/24 12:25) Difficulty Breathing mold Allergy (Verified 07/06/24 12:25) Difficulty Breathing oxycodone [From Percocet] Allergy (Verified 07/06/24 12:25) Itching lamotrigine [From Lamictal] Adverse Reaction (Intermediate, Verified 07/06/24 12:25) Itching Penicillins Adverse Reaction (Mild, Verified 07/06/24 12:25) Abdominal Pain prednisone Adverse Reaction (Mild, Verified 07/06/24 12:25) Itching Medication List - Last Reconciled 07/06/24 by Nas Suh MD acetaminophen 650 mg (2 x 325 mg) PO Q6H PRN 30 days amantadine HCl 100 mg PO DAILY amitriptyline 75 mg PO BEDTIME atenolol 50 mg PO DAILY celecoxib 100 mg PO BID cholecalciferol (vitamin D3) 125 mcg PO DAILY clindamycin HCl 600 mg (2 x 300 mg) PO ONCE 1 day [GRAB BAR for bathroom with suction cups As directed] hydroxyzine HCl 25 mg PO BID linaclotide (Linzess) 290 mcg PO QAM losartan 50 mg PO DAILY 90 days lurasidone 60 mg PO DAILY magnesium oxide 400 mg PO DAILY 30 days meclizine 25 mg PO DAILY PRN 30 days metoclopramide HCl 5 mg PO QID pantoprazole 40 mg PO DAILY propylene glycol-glycerin 1-0.3 % (Artificial Tears (glycerin-peg)) 1 drp ophthalmic (eye) BID [Raised toilet seat As directed] simethicone 180 mg PO QID 30 days venlafaxine ER 150 mg PO DAILY walker Folding Front wheeled walker Tobacco use date assessed: 07/06/24 Dental Screening Dental Screen Date: 07/06/24 Did you have a dental visit in the last 12 months?: Yes Did you have a dental problem in the last 6 months where you did not have access to dental care?: No Was dental information given to patient?: Patient has dentist HPI f/u Hypothyroid/ HTN HPI Details Patient comes in today for her follow-up visit States that she feels okay and that her left hip pain has completely resolved with her left hip arthroplasty back on 12/01/2023 She denies any headaches or dizziness Denies any chest pains, no shortness of breath No nausea/vomiting, no abdominal pain No change in bowel habits noted Needs her Amitriptyline Rx refilled She has not had any follow-up labs done in about a year now She is currently interested in trying out one of the GLP-1 RA to help her lose weight - states that she has already had the gastric sleeve surgery done but she eventually gained most of the weight that she lost after her surgery back over the past couple of years [facility] Medical History (Updated 07/06/24 @ 23:07 by Nas Suh MD) Anemia Fibromyalgia Obesity (BMI 30-39.9) Jeannette's disease Arthritis Back pain Bipolar 1 disorder Left hip pain First degree burn injury Osteoarthritis Migraine Nocturia Fibroids History of COVID-19 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 pylori infection Vitamin D deficiency Vitamin B1 deficiency Vitamin B12 deficiency Anxiety Depression Spinal cord stimulator status Sciatica GERD (gastroesophageal reflux disease) Frequent headaches Surgical History (Updated 07/06/24 @ 22:58 by Nas Suh MD) Hx of bilateral hip replacements History of esophagogastroduodenoscopy (EGD) H/O colonoscopy History of carpal tunnel release H/O gastric sleeve S/P repair of paraesophageal hernia S/P laparoscopic sleeve gastrectomy Hx of mammogram History of cholecystectomy Tubal ligation status H/O laparoscopy S/P endometrial ablation H/O arthroscopy of knee Family History Mother Hypertension Osteoporosis Father Epilepsia Atrophic emphysema Son Asthma Daughter Asthma Daughter Panic attacks Anxiety Thyroid adenoma Maternal Aunt History of breast cancer Family/Other Colon cancer Paternal Aunt Uterine cancer Family/Other Breast cancer Social History Household Members: Spouse Housing: Apartment Are you a primary inspector health care facilities to a significant other at home: No Do you presently have visiting nurse or other home services: No Alcohol intake: never Comment: Oxycodone 5 mg PO given at 13:50. Pain 6/10 with OOB/movement. 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 1. Little interest or pleasure in doing things: not at all 2. Feeling down, depressed, or hopeless: not at all 3. Trouble falling or staying asleep, or sleeping too much: not at all 4. Feeling tired or having little energy: not at all 5. Poor appetite or overeating: not at all 6. Feeling bad about yourself - or that you are a failure or have let yourself or your family down: not at all 7. Trouble concentrating on things, such as reading the newspaper or watching television: not at all 8. Moving or speaking so slowly that other people could have noticed. Or the opposite - being so fidgety or restless that you have been moving around a lot more than usual: not at all 9. Thoughts that you would be better off or of hurting yourself in some way: not at all Total score: 0 Depression Screening Interpretation: Negative Depression Screening Done: Yes 55073 - PHQ-9 Billing: Yes Source: Developed by Drs. Reddy Oconnell, Libra Gaspar, Lake Martínez and colleagues, with an educational roberto from [employer]. Thrive Questionnaire Date Thrive assessed: 07/06/24 I am a: Patient What is your living situation today?: I have a steady place to live Within the past 12 months, did the food you bought not last and you didn't have the money to get more?: Never true Within the past 12 months, did you worry whether your food would run out before you got money to buy more?: Never true Do you have trouble paying for medicines?: No Do you have trouble getting transportation to medical appointments?: No Do you have trouble paying your heating and electricity bill?: No Do you have trouble taking care of your child, family member or friend?: No Do you have trouble with day-to-day activities such as bathing, preparing meals, shopping, managing finances, etc.?: No Are you currently unemployed and looking for a job?: No Are you interested in more education?: No Please select the resources that you would like help with: None Currently or been in a relationship where the following occur: No concerns reported THRIVE Score: 0 AUDIT C Alcohol Use Questionnaire (AUDIT-C) 1. How often do you have a drink containing alcohol?: Never 3. How often do you have six or more drinks on one occasion?: Never Total Score: 0 Score Reviewed/Action Taken: Yes ELISA-7 AMB Questionnaire ELISA-7 Date ELISA - 7 assessed: 07/06/24 Feeling nervous, anxious, or on edge: 0 = Not at all Not being able to stop or control worryin = Not at all Worrying too much about different things: 0 = Not at all Trouble relaxin = Not at all Being so restless that it is hard to sit still: 0 = Not at all Becoming easily annoyed or irritable: 0 = Not at all Feeling afraid as if something awful might happen: 0 = Not at all Total ELISA-7 score (0-4 normal; 5-9 mild; 10-14 moderate; 15-21 severe): 0 Source: Developed by Drs. Reddy Oconnell, Libra Gaspar, Lake Martínez and colleagues, with an educational roberto from [employer]. Review of Systems Const Denies chills, Reports difficulty sleeping (Amitriptyline helps), Denies fatigue, Denies fever(s) and Denies headache(s) ENT Denies dysphagia, Denies dizziness, Denies otalgia, Denies headache(s), Reports neck pain, Denies odynophagia and Denies sore throat Card Denies chest pain, Denies palpitations and Denies dyspnea Resp Denies chest congestion, Denies cough and Denies dyspnea GI Denies abdominal pain, Denies constipation, Denies dysphagia, Denies heartburn, Denies diarrhea, Denies nausea, Denies odynophagia and Denies vomiting Denies difficulty voiding, Denies nocturia, Denies dysuria and Denies urinary urgency Musc Reports back pain, Reports myalgias (diffuse, on and off), Reports arthralgias (involving multiple joints, but increased over left hip recently), Reports neck pain and Reports stiffness Skin/Breast Denies rash Neuro Denies dizziness and Denies headache(s) Psych Reports depression Endo Denies fatigue and Denies palpitations Physical exam (Primary Care) Vital Signs: Last Vital Signs Pulse 88 07/06/24 11:34 BP 126/80 07/06/24 11:34 Pulse Ox 97 07/06/24 11:34 Oxygen Delivery Method Room Air 07/06/24 11:34 BMI result Body Mass Index 32.8 Tobacco/Smoking Status: Tobacco use Status Tobacco use date assessed 07/06/24 07/06/24 11:42 Patient Tobacco Use Status Never used Tobacco 07/06/24 11:42 e-Cigarette/Vaping Use Never Used 07/06/24 11:42 PHQ-9: PHQ-9 Score PHQ-9: Total score 0 07/06/24 12:30 Depression Screening Interpretation: Negative Thrive Assessment: Date of Thrive Assessment Date Thrive assessed 07/06/24 07/06/24 11:42 Currently or been in a relationship where the following occur: No concerns reported Const General: no acute distress and alert HENMT Ears: TM's normal bilaterally and EAC's normal Throat: Yes posterior oropharynx normal and Yes tonsils normal (no TP congestion noted) Neck Neck: Yes no lymphadenopathy and Yes supple Thyroid: Thyroid normal Resp Auscultation: clear to auscultation bilaterally, no rales and no wheezes Cardio Rate: regular rate Rhythm: regular rhythm Heart sounds: no murmurs GI Palpation (GI): Soft to palpation and nontender Auscultation: normal bowel sounds Back/Spine/Pelvis Cervical Spine: cervical muscular tenderness and Cervical spine tenderness Thoracic/Lumbar Spine: lumbar spinal tenderness Skin Rashes: no rashes Extrem General: Yes no clubbing, cyanosis or edema Left lower extremity: hip/thigh Details: tenderness Location: of the hip Coding Level of Care Code Est Pt Level 4 (06807) Diagnoses Leukocytosis, unspecified type D72.829 Leukocytosis type: unspecified Anemia, unspecified type D64.9 Anemia type: unspecified type Essential hypertension I10 MITZY (obstructive sleep apnea) G47.33 Migraine without status migrainosus, not intractable, unspecified migraine type G43.909 Migraine type: unspecified Status migrainosus presence: without status migrainosus Intractability: not intractable Gastroesophageal reflux disease, unspecified whether esophagitis present K21.9 Esophagitis presence: esophagitis presence not specified Jeannette's disease E06.3 Secondary hyperparathyroidism N25.81 Vitamin D deficiency E55.9 Lumbosacral spondylosis with radiculopathy M47.27 Fibromyalgia M79.7 Chronic idiopathic constipation K59.04 Episode of recurrent major depressive disorder, unspecified depression episode severity F33.9 Depression Type: major depressive disorder Major depression recurrence: recurrent Active/Remission status: currently active Major depression episode severity: unspecified Obesity (BMI 30-39.9) E66.9 Assessment & Plan Assessment & Plan (1) Leukocytosis: Code(s): D72.829 - Elevated white blood cell count, unspecified Category: Medical Qualifiers: Leukocytosis type: unspecified Qualified Code(s): D72.829 - Elevated white blood cell count, unspecified Plan: Her WBC count was significantly elevated back in late November 2023 - this is most likely related to her left hip arthroplasty at the time Will have her recheck her CBC LATANYA for follow up and if her leucocytosis persists, will need further evaluation (2) Anemia: Code(s): D64.9 - Anemia, unspecified Category: Medical Qualifiers: Anemia type: unspecified type Qualified Code(s): D64.9 - Anemia, unspecified Plan: Patient was also anemic when her CBC was last checked in late November 2023, with her H/H at 10.0/31.3 then This is again likely related to her post-op condition then - had left hip arthroplasty Will recheck her CBC for follow up and will include iron function test/anemia work up as well (3) Essential hypertension: Code(s): I10 - Essential (primary) hypertension Category: Medical Plan: Reinforced low sodium diet - goal is systolic BP of at least 130 mm or less Continue Losartan 50 mg QD and Atenolol 50 mg QD (4) MITZY (obstructive sleep apnea): Comment: uses CPAP Code(s): G47.33 - Obstructive sleep apnea (adult) (pediatric) Category: Medical Plan: Continue using her CPAP device when sleeping at night Follow up with Sleep Medicine as scheduled (5) Migraine: Code(s): G43.909 - Migraine, unspecified, not intractable, without status migrainosus Category: Medical Qualifiers: Migraine type: unspecified Status migrainosus presence: without status migrainosus Intractability: not intractable Qualified Code(s): G43.909 - Migraine, unspecified, not intractable, without status migrainosus Plan: Controlled on prophylactic Rx Reinforced avoidance of potential migraine triggers Continue Amitriptyline 75 mg Q HS for headache prophylaxis - patient states that this also helps her sleep better at night (6) GERD (gastroesophageal reflux disease): Code(s): K21.9 - Gastro-esophageal reflux disease without esophagitis Category: Medical Qualifiers: Esophagitis presence: esophagitis presence not specified Qualified Code(s): K21.9 - Gastro-esophageal reflux disease without esophagitis Plan: Dietary restrictions reinforced Continue Pantoprazole 40 mg QD (7) Jeannette's disease: Code(s): E06.3 - Autoimmune thyroiditis Category: Medical Plan: Will recheck her TFTs LATANYA for follow up (8) Secondary hyperparathyroidism: Code(s): N25.81 - Secondary hyperparathyroidism of renal origin Category: Medical Plan: This appears to be primarily a result of her gastric sleeve surgery in 2020, as well as Vitamin D deficiency Continue Vitamin D2 1250 mcg twice a week and Calcium Citrate 500 mg BID Follow up with endocrinology as scheduled (9) Vitamin D deficiency: Code(s): E55.9 - Vitamin D deficiency, unspecified Category: Medical Plan: Continue Vitamin D 1250 mcg BIW (10) Lumbosacral spondylosis with radiculopathy: Code(s): M47.27 - Other spondylosis with radiculopathy, lumbosacral region Category: Medical Plan: Reinforced activity and weight-lifting restrictions States that she currently has an SCS, which helps with her chronic low back pain Follow [place] [facility] as [place] (11) Fibromyalgia: Code(s): M79.7 - Fibromyalgia Category: Medical Plan: Reinforced regular exercise and physical activity to help manage her fibromyalgia symptoms Continue Tizanidine 2 mg Q 8 hours PRN Follow up with rheumatology as scheduled (12) Chronic idiopathic constipation: Code(s): K59.04 - Chronic idiopathic constipation Category: Medical Plan: Patient is encouraged again on increased oral fluids and dietary fiber Continue Linzess 290 mcg QD Follow up with GI as scheduled (13) Depression: Code(s): F32.9 - Major depressive disorder, single episode, unspecified Category: Medical Qualifiers: Depression Type: major depressive disorder Major depression recurrence: recurrent Active/Remission status: currently active Major depression episode severity: unspecified Qualified Code(s): F33.9 - Major depressive disorder, recurrent, unspecified Plan: Continue Latuda 60 mg QD and Venlafaxine ER 150 mg QD Follow up with psychiatry as scheduled (14) Obesity (BMI 30-39.9): Comment: S/P sleeve gastrectomy in 2020 Code(s): E66.9 - Obesity, unspecified Category: Medical Plan: Reinforced diet/exercise as tolerated/lose weight Follow up with weight management as scheduled She is currently inquiring if the GLP-1s would help her lose weight and if they would be appropriate for her Have advised her to get her follow up labs done LATANYA to help us assess if she would be a good candidate for the GLP-1s but have cautioned patient that as she has already tried and failed bariatric surgery, they may not necessarily help her lose as much weight as expected Plan Follow up in 4 months Orders: Orders Comprehensive [place]. Panel Fast Today E78.00 - Pure hypercholesterolemia, unspecified Hemoglobin A1c Today E11.9 - Type 2 diabetes mellitus without complications Vitamin B12 and Folate Today E53.8 - Deficiency of other specified B group vitamins UA CC w/rflx Micro + Cult Today R30.0 - Dysuria Complete Blood Count Auto Diff Today D64.9 - Anemia, unspecified Lipid Panel Today E78.00 - Pure hypercholesterolemia, unspecified IRON PROFILE Today D50.9 - Iron deficiency anemia, unspecified Ferritin Today E83.119 - Hemochromatosis, unspecified TSH reflex Free T4 Today E78.00 - Pure hypercholesterolemia, unspecified Medications: Changed From amitriptyline 75 mg PO BEDTIME To amitriptyline 75 mg PO BEDTIME 30 days 30 tabs 0RF
== END 2024-07-06 12:38 | disposition home or self-care (01) ==
LOC: HO.HMCH 11:33
PROVIDERS: PCP Internal Medicine; Visit Provider Internal Medicine
DX: D64.9 Anemia, unspecified (principal); N25.81 Secondary hyperparathyroidism of renal origin; F33.9 Major depressive disorder, recurrent, unspecified; D72.829 Elevated white blood cell count, unspecified; I10 Essential (primary) hypertension; G47.33 Obstructive sleep apnea (adult) (pediatric); G43.909 Migraine, unspecified, not intractable, without status migrainosus; K21.9 Gastro-esophageal reflux disease without esophagitis; E06.3 Autoimmune thyroiditis; E55.9 Vitamin D deficiency, unspecified; M47.27 Other spondylosis with radiculopathy, lumbosacral region; M79.7 Fibromyalgia

== ENCOUNTER → 2024-07-06 11:33 | Outpatient (BNVA) | payer OTHER, SELFPAY | PROVIDERS: PCP Internal Medicine; Visit Provider Internal Medicine | DX: D72.829 Elevated white blood cell count, unspecified (principal); D64.9 Anemia, unspecified; I10 Essential (primary) hypertension; G47.33 Obstructive sleep apnea (adult) (pediatric); G43.909 Migraine, unspecified, not intractable, without status migrainosus; K21.9 Gastro-esophageal reflux disease without esophagitis; E06.3 Autoimmune thyroiditis; E55.9 Vitamin D deficiency, unspecified; M47.24 Other spondylosis with radiculopathy, thoracic region; K59.04 Chronic idiopathic constipation; F33.9 Major depressive disorder, recurrent, unspecified; E66.9 Obesity, unspecified | CPT/HCPCS: 96127; 99212 ==

== ENCOUNTER 2024-07-10 07:25 | Outpatient (REF) | payer OTHER, SELFPAY ==
[2024-07-10 07:55] LABS: MANUAL DIFF FLAG NO
[2024-07-10 08:25] LABS: Basophils Absolute Auto 0.1 X10*3/uL (0.0-0.2); Basophils Percent Auto 0.7 % (0-2); Eosinophils Absolute Auto 0.5 X10*3/uL (0.0-0.4); Eosinophils Percent Auto 4.4 % (0-4); Hematocrit 33.5 % (37.0-47.0); Hemoglobin 10.5 g/dl (12.0-16.0); Imm Gran Abs Auto 0.04 X10*3/uL (0.00-0.03); Imm Gran Pct Auto 0.4 % (0.0-0.4); Lymphocytes Absolute Auto 4.1 X10*3/uL (1.2-4.9); Lymphocytes Percent Auto 36.1 % (20-40); Mean Corpuscular HGB Conc 31.3 g/dl (31.0-35.0); Mean Corpuscular Hemoglobin 25.5 pg (27.0-33.0); Mean Corpuscular Volume 81.3 fL (80.0-98.0); Mean Platelet Volume 10.5 fL (9.4-12.3); Monocytes Absolute Auto 0.7 X10*3/uL (0.1-1.2); Monocytes Percent Auto 6.3 % (2-11); Neutrophils Absolute Auto 5.9 x10*3/uL (2.0-8.3); Neutrophils Percent Auto 52.1 % (45-73); Platelet Count 335 X10*3/uL (160-400); Red Blood Count 4.12 X10*6/uL (4.20-5.50); Red Cell Distribution Width 17.1 % (11.0-16.0); White Blood Count 11.3 X10*3/uL (4.8-10.8)
[2024-07-10 08:28] LABS: Estimated Average Glucose 117 mg/dL; Hemoglobin A1C 103.9362 umol/L; Hemoglobin A1c % 5.7 % (<6.0)
[2024-07-10 08:56] LABS: Alanine Aminotransferase 18 U/L (0-31); Alkaline Phosphatase 129 U/L (39-117); Anion Gap 11 (12-20); Aspartate Amino Transferase 20 U/L (5-31); Bilirubin Total 0.4 mg/dL (0.0-1.0); Blood Urea Nitrogen 12 mg/dL (9-16); Calcium 9.6 mg/dL (8.4-10.2); Carbon Dioxide 28 mmol/L (22-29); Chloride 105 mmol/L (96-108); Cholesterol 181 mg/dL (<200); Estimated Glomerular Filt Rate > 60; Glucose Fasting 118 mg/dL (60-99); HDL Cholesterol 55 mg/dL (>40); Iron 40 mcg/dL (30-160); LDL Cholesterol Calculated 109 mg/dL (<100); Percent Iron Saturation 11 % (15-50); Sodium 140 mmol/L (135-145); Total Iron Binding Capacity 350 mcg/dL (228-428); Total Protein 7.6 g/dL (6.5-8.0); Triglycerides 85 mg/dL (<150); Unsaturated Iron Binding 310 ug/dL
[2024-07-10 09:14] LABS: Ferritin 11 ng/mL (10-250); TSH reflex Free T4 1.38 uIU/mL (0.32-4.0)
[2024-07-10 09:26] LABS: Folate 8.8 ng/mL (> or = 4.0); Vitamin B12 305 pg/mL (200-900)
[2024-07-10 09:55] LABS: Appearance Urine Clear; Color Urine Yellow; Glucose Urine UA Negative (Negative); Leukocyte Esterase Urine Moderate (2+) (Negative); Nitrite Urine Negative (Negative); UMIC TRIGGER UACC YES; Urine Blood Negative (Negative); Urine Ketones Negative (Negative); Urine Protein Negative (Neg-Trace)
[2024-07-10 09:59] LABS: Bacteria Urine Trace (None Seen); Hyaline Casts Urine 0-2 /LPF (0-2); RBC Urine 0-2 /HPF (0-2); UACC Culture Trigger YES
== END 2024-07-10 07:26 | disposition home or self-care (01) ==
LOC: HO.10HDL 07:25
PROVIDERS: Visit Provider Internal Medicine
DX: E78.00 Pure hypercholesterolemia, unspecified (principal); E11.9 Type 2 diabetes mellitus without complications; E53.8 Deficiency of other specified B group vitamins; E83.119 Hemochromatosis, unspecified; R82.90 Unspecified abnormal findings in urine
CPT/HCPCS: 36415; 80053; 80061; 81001; 81003; 82607; 82728; 82746; 83036; 83540; 84443; 85025; 87086; 87147

== ENCOUNTER 2024-07-13 09:59 | Outpatient (AMB) | payer OTHER, SELFPAY ==
[2024-07-13 10:04] VITALS: BP 147/72; PULSE 76; BMI 33.1
--- NOTE | 2024-07-13 10:04 | A.OFFVIS_ITS ---
Vital Signs 07/13/24 10:04 Height 5 ft 2 in Weight 181 lb 3.52 oz BMI 33.1 BP 147/72 H Blood Pressure Location Lt brachial Position Sitting Pulse 76 Intake Visit Reasons: 6 month follow up Intake Note: Jacqueline returns to office in 6 months follow up of CIC and GERD. CC: Patient c/o hearburn, nausea, and constipation because she ran out of her Linzess. V/Stol Landing Signal Officer Required: No Accompanied by: Self / Same As Patient Allergies amoxicillin Allergy (Severe, Verified 07/13/24 10:08) severe hives-total body cat dander [cats] Allergy (Verified 07/13/24 10:08) Difficulty Breathing mold Allergy (Verified 07/13/24 10:08) Difficulty Breathing oxycodone [From Percocet] Allergy (Verified 07/13/24 10:08) Itching lamotrigine [From Lamictal] Adverse Reaction (Intermediate, Verified 07/13/24 10:08) Itching Penicillins Adverse Reaction (Mild, Verified 07/13/24 10:08) Abdominal Pain prednisone Adverse Reaction (Mild, Verified 07/13/24 10:08) Itching HPI HPI 6 month follow up: Details: Assessment & Plan (1) GERD (gastroesophageal reflux disease): Code(s): K21.9 - Gastro-esophageal reflux disease without esophagitis Category: Medical Qualifiers: Esophagitis presence: esophagitis presence not specified Qualified Code(s): K21.9 - Gastro-esophageal reflux disease without esophagitis (2) Upper abdominal pain: Code(s): R10.10 - Upper abdominal pain, unspecified Category: Medical (3) Chronic idiopathic constipation: Code(s): K59.04 - Chronic idiopathic constipation Category: Medical Plan She is here today with her who is supportive. She is on Linzess 290, pantoprazole 40 mg once a day, simethicone and Reglan. She just had hip replacement surgery r/t OA of the hip. She was really constipated for a while, and when she finally did move her bowels it was very large. She is is still on intermittent pain medications. ROV 6 mos. Medications: New metoclopramide HCl 5 mg PO QID 120 tabs 6RF gastroaesis Refilled pantoprazole 40 mg PO DAILY 90 tabs 2RF K21.9 - Gastro-esophageal reflux disea se without esophagitis simethicone after meals 180 mg PO QID 120 caps 6RF 30 days linaclotide (Linzess) 290 mcg PO QAM 30 caps 6RF K59.04 - Chronic idiopathic constipation TODAY'S VISIT She ran out of the LInzess although she was calling and leaving multiple mess ages through the phone tree. She does feel that once we restart her at the same dose it will resolve any of her current problems. ROV 6 mos and will call if no better. 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 pylori infection Vitamin D deficiency Vitamin B1 deficiency Vitamin B12 deficiency Anxiety Depression Spinal cord stimulator status Sciatica GERD (gastroesophageal reflux disease) Frequent headaches Surgical History Hx of bilateral hip replacements History of esophagogastroduodenoscopy (EGD) H/O colonoscopy History of carpal tunnel release H/O gastric sleeve S/P repair of paraesophageal hernia S/P laparoscopic sleeve gastrectomy Hx of mammogram History of cholecystectomy Tubal ligation status H/O laparoscopy S/P endometrial ablation H/O arthroscopy of knee Family History Mother Hypertension Osteoporosis Father Epilepsia Atrophic emphysema Son Asthma Daughter Asthma Daughter Panic attacks Anxiety Thyroid adenoma Maternal Aunt History of breast cancer Family/Other Colon cancer Paternal Aunt Uterine cancer Family/Other Breast cancer Social History Household Members: Spouse Housing: Apartment Are you a primary child care provider to a significant other at home: No Do you presently have visiting nurse or other home services: No Alcohol intake: never Comment: Oxycodone 5 mg PO given at 13:50. Pain 6/10 with OOB/movement. 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 Cognitive needs: No Hearing needs: No Vision needs: No Female Reproductive History Menstrual Age of Menarche: 9 Review of Systems Const Denies fatigue, Denies fever(s), Denies night sweats, Denies poor appetite and Denies weight loss Eyes Details: glasses Reports requires corrective lenses ENT Reports Normal hearing present, Denies dental pain, Denies dysphagia, Denies hearing loss, Denies mouth pain, Denies odynophagia, Denies throat swelling, Denies tongue swelling and Reports other (Dentition adequate) Card Reports no additional complaints Resp Reports no additional complaints GI Details: Denies abdominal pain, Denies melena, Reports bloating, Denies hematochezia, Reports constipation, Reports GI cramping, Denies dysphagia, Denies excessive flatus, Denies early satiety, Reports heartburn, Denies diarrhea, Denies nausea, Denies odynophagia, Denies vomiting and Denies hematemesis Skin/Breast Denies pruritus, Denies lesions, Denies rash and Denies jaundice Neuro Reports Normal hearing present and Denies Abnormal speech present Endo Denies fatigue Aller/Immun Denies throat swelling and Denies tongue swelling Physical Exam Vital Signs: Last Vital Signs Pulse 76 07/13/24 10:04 BP 147/72 H 07/13/24 10:04 BMI result Body Mass Index 33.1 Const General: cooperative, no acute distress, well developed and well groomed Nutritional Appearance: well nourished and obese Orientation/consciousness: oriented to person, oriented to place and oriented to time Limitations: No language barrier HEENT Head: Yes normocephalic and Yes atraumatic Eyes General: appearance normal, both eyes and all related structures Pupils: Equal, round and reactive pupils present Neck Neck: Yes normal visual inspection and Yes no lymphadenopathy Thyroid: Thyroid normal Resp Effort & Inspection: normal respiratory effort and able to speak in complete sentences Auscultation: clear to auscultation bilaterally Cardio Rate: regular rate Rhythm: regular rhythm Heart sounds: Normal, physiologic split S2 sound present Peripheral pulses: radial pulses present and posterior tibial pulses present GI Inspection: No distended, No Abdominal panniculus present and Yes obesity Palpation (GI): Soft to palpation, nontender, no guarding, not rigid and No hepatosplenomegaly present Percussion: Yes normal to percussion Auscultation: normal bowel sounds Rectal Exam - Female: deferred Skin General skin exam: no rashes or lesions noted, turgor normal, skin not dry, no jaundice, No spider nevi and no striae Rashes: no rashes Nails: normal Neuro General: oriented to person, oriented to place and oriented to time Cranial nerves: Yes Equal, round and reactive pupils present and Yes Normal hearing present Speech: No Abnormal speech present Extrem General: Yes normal to inspection, No clubbing, No cyanosis and No edema Psych Appearance: grossly normal and well kempt Mental Status: mental status grossly normal Speech and movement: Normal speech and movement present Affect: normal affect Attitude: cooperative Thought process: Normal thought process present and not confabulating Thought content: Normal thought content present Insight: Fair insight present (Psych) Judgement: Fair judgement present (Psych) Assessment & Plan Assessment & Plan (1) Chronic idiopathic constipation: Code(s): K59.04 - Chronic idiopathic constipation Category: Medical (2) Upper abdominal pain: Code(s): R10.10 - Upper abdominal pain, unspecified Category: Medical (3) GERD (gastroesophageal reflux disease): Code(s): K21.9 - Gastro-esophageal reflux disease without esophagitis Category: Medical Qualifiers: Esophagitis presence: esophagitis presence not specified Qualified Code(s): K21.9 - Gastro-esophageal reflux disease without esophagitis Plan She ran out of the Playviews although she was calling and leaving multiple messages through the phone tree. She does feel that once we restart her at the same dose it will resolve any of her current problems. She continues on her pantoprazole and simethicone. She also takes a magnesium supplement. ROV 6 mos and will call if no better. Medications: Refilled linaclotide (Linzess) 290 mcg PO QAM 30 caps 6RF K59.04 - Chronic idiopathic constipation metoclopramide HCl 5 mg PO QID 120 tabs 6RF gastroaesis amitriptyline 75 mg PO BEDTIME 30 tabs 0RF 30 days pantoprazole 40 mg PO DAILY 90 tabs 2RF K21.9 - Gastro-esophageal reflux disease without esophagitis simethicone after meals 180 mg PO QID 120 caps 6RF 30 days Coding Level of Care Code Est Pt Level 3 (11059) Diagnoses Chronic idiopathic constipation K59.04 Upper abdominal pain R10.10 Gastroesophageal reflux disease, unspecified whether esophagitis present K21.9 Esophagitis presence: esophagitis presence not specified
== END 2024-07-13 10:48 | disposition home or self-care (01) ==
LOC: HO.HGI 10:00
PROVIDERS: PCP Internal Medicine; Visit Provider Nurse Practitioner
DX: K59.04 Chronic idiopathic constipation (principal); R10.10 Upper abdominal pain, unspecified; K21.9 Gastro-esophageal reflux disease without esophagitis
CPT/HCPCS: 99213

== ENCOUNTER → 2024-07-13 09:59 | Outpatient (BNVA) | payer OTHER, SELFPAY | PROVIDERS: PCP Internal Medicine; Visit Provider Nurse Practitioner | DX: K59.04 Chronic idiopathic constipation (principal); K21.9 Gastro-esophageal reflux disease without esophagitis; R10.10 Upper abdominal pain, unspecified | CPT/HCPCS: 99212 ==

== ENCOUNTER 2024-11-01 12:47 | Outpatient (AMB) | payer OTHER, SELFPAY ==
--- NOTE | 2024-11-01 12:51 | A.OFFVIS_ITS ---
Vital Signs 11/01/24 12:57 Height 5 ft 2 in Weight 163 lb 6 oz BMI 29.9 BP 112/56 L Blood Pressure Location Lt brachial Position Sitting Pulse 64 Pulse Source Monitor Temp 99.5 F Temp Source Axillary Intake Visit Reasons: (OV) PO LSG 01/14/21 Intake Note: Pt followup last seen in 2020, wanted to follow up for continued weight loss and check in about her GERD. Pt states she has not had symptoms of GERD and is taking omeprazole. Customer Contact Specialist Required: No Accompanied by: Self / Same As Patient Allergies amoxicillin Allergy (Severe, Verified 11/01/24 13:04) severe hives-total body cat dander [cats] Allergy (Verified 11/01/24 13:04) Difficulty Breathing mold Allergy (Verified 11/01/24 13:04) Difficulty Breathing oxycodone [From Percocet] Allergy (Verified 11/01/24 13:04) Itching lamotrigine [From Lamictal] Adverse Reaction (Intermediate, Verified 11/01/24 13:04) Itching Penicillins Adverse Reaction (Mild, Verified 11/01/24 13:04) Abdominal Pain prednisone Adverse Reaction (Mild, Verified 11/01/24 13:04) Itching Medication List - Last Reconciled 11/01/24 by ERIN Odom amantadine HCl 100 mg PO DAILY atenolol 50 mg PO DAILY cholecalciferol (vitamin D3) 125 mcg PO DAILY ergocalciferol (vitamin D2) 1,250 mcg PO 2XW [GRAB BAR for bathroom with suction cups As directed] hydroxyzine HCl 25 mg PO BID linaclotide (Linzess) 290 mcg PO QAM losartan 50 mg PO DAILY 90 days lurasidone 60 mg PO DAILY magnesium oxide 400 mg PO DAILY 30 days meclizine 25 mg PO DAILY PRN 30 days metoclopramide HCl 5 mg PO QID pantoprazole 40 mg PO DAILY propylene glycol-glycerin 1-0.3 % (Artificial Tears (glycerin-peg)) 1 drp ophthalmic (eye) BID [Raised toilet seat As directed] Saccharomyces boulardii (Daily Probiotic (S. boulardii)) 250 mg PO DAILY simethicone 180 mg PO QID 30 days venlafaxine ER 150 mg PO DAILY walker Folding Front wheeled walker HPI Comments Details: This?is a?53?yo female who is s/p LSG 01/14/2021. Presents for 3 year 9 month p ost op visit. She was last seen in the office on 01/26/2023 and at that time, her weight was 173.8 pounds, with a BMI today of 31.8.? Weight today is 163.6 lb with a BMI of 29.9. No complaints of nausea, emesis, abdominal pain or reflux, or constipation. Present meal plan includes: not following a meal plan. 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 pylori infection Vitamin D deficiency Vitamin B1 deficiency Vitamin B12 deficiency Anxiety Depression Spinal cord stimulator status Sciatica GERD (gastroesophageal reflux disease) Frequent headaches Surgical History Hx of bilateral hip replacements History of esophagogastroduodenoscopy (EGD) H/O colonoscopy History of carpal tunnel release H/O gastric sleeve S/P repair of paraesophageal hernia S/P laparoscopic sleeve gastrectomy Hx of mammogram History of cholecystectomy Tubal ligation status H/O laparoscopy S/P endometrial ablation H/O arthroscopy of knee Family History Mother Hypertension Osteoporosis Father Epilepsia Atrophic emphysema Son Asthma Daughter Asthma Daughter Panic attacks Anxiety Thyroid adenoma Maternal Aunt History of breast cancer Family/Other Colon cancer Paternal Aunt Uterine cancer Family/Other Breast cancer Social History Household Members: Spouse Housing: Apartment Are you a primary direct support professional caregiver to a significant other at home: No Do you presently have visiting nurse or other home services: No Alcohol intake: never Comment: Oxycodone 5 mg PO given at 13:50. Pain 6/10 with OOB/movement. 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 Cognitive needs: No Hearing needs: No Vision needs: No Female Reproductive History Menstrual Age of Menarche: 9 Physical Exam Vital Signs: Last Vital Signs Temp 99.5 F 11/01/24 12:57 Pulse 64 11/01/24 12:57 BP 112/56 L 11/01/24 12:57 BMI result Body Mass Index 29.9 Const General: healthy appearing and no acute distress Resp Effort & Inspection: normal respiratory effort Auscultation: clear to auscultation bilaterally Cardio Rate: regular rate Rhythm: regular rhythm GI Auscultation: normal bowel sounds Extrem General: Yes normal to inspection Assessment & Plan Assessment & Plan (1) Obesity (BMI 30-39.9): Comment: S/P sleeve gastrectomy in 2020 Code(s): E66.9 - Obesity, unspecified Category: Medical Plan: Patient wishes to restart a structured meal plan and exercise plan: 7-9 am premier protein ready to drink shake, 6 oz mixed with 4 oz of unsweetened almond milk 11-1 pm another shake or Maltese yogurt 5 pm meal with 6 forks protein and 6 forks vegetables 7 pm an apple or half cup fresh berries Instructed to use treadmill or stationary bike at home daily, monitoring calories, goal burn 300 calories per day. Check yearly follow-up labs She is going to discuss with her psychiatrist the medications that she is on as she feels over medicated and is very drowsy in the morning. Return to clinic 1 month Orders: Orders Insulin Today D64.9 - Anemia, unspecified, E06.3 - Autoimmune thyroiditis, E55.9 - Vitamin D deficiency, unspecified, E66.9 - Obesity, unspecified, E83.39 - Other disorders of phosphorus metabolism, I10 - Essential (primary) hypertension Hemoglobin A1c Today D64.9 - Anemia, unspecified, E06.3 - Autoimmune thyroiditis, E55.9 - Vitamin D deficiency, unspecified, E66.9 - Obesity, unspecified, E83.39 - Other disorders of phosphorus metabolism, I10 - Essential (primary) hypertension Lipid Panel Today D64.9 - Anemia, unspecified, E06.3 - Autoimmune thyroiditis, E55.9 - Vitamin D deficiency, unspecified, E66.9 - Obesity, unspecified, E83.39 - Other disorders of phosphorus metabolism, I10 - Essential (primary) hypertension Vitamin B12 and Folate Today D64.9 - Anemia, unspecified, E06.3 - Autoimmune thyroiditis, E55.9 - Vitamin D deficiency, unspecified, E66.9 - Obesity, unspecified, E83.39 - Other disorders of phosphorus metabolism, I10 - Essential (primary) hypertension Zinc Today D64.9 - Anemia, unspecified, E06.3 - Autoimmune thyroiditis, E55.9 - Vitamin D deficiency, unspecified, E66.9 - Obesity, unspecified, E83.39 - Other disorders of phosphorus metabolism, I10 - Essential (primary) hypertension Vitamin B1 Today D64.9 - Anemia, unspecified, E06.3 - Autoimmune thyroiditis, E55.9 - Vitamin D deficiency, unspecified, E66.9 - Obesity, unspecified, E83.39 - Other disorders of phosphorus metabolism, I10 - Essential (primary) hypertension Vitamin D 25-OH Total Today D64.9 - Anemia, unspecified, E06.3 - Autoimmune thyroiditis, E55.9 - Vitamin D deficiency, unspecified, E66.9 - Obesity, unspecified, E83.39 - Other disorders of phosphorus metabolism, I10 - Essential (primary) hypertension Complete Blood Count Auto Diff Today D64.9 - Anemia, unspecified, E06.3 - Autoimmune thyroiditis, E55.9 - Vitamin D deficiency, unspecified, E66.9 - Obesity, unspecified, E83.39 - Other disorders of phosphorus metabolism, I10 - Essential (primary) hypertension IRON PROFILE Today D64.9 - Anemia, unspecified, E06.3 - Autoimmune thyroiditis, E55.9 - Vitamin D deficiency, unspecified, E66.9 - Obesity, unspecified, E83.39 - Other disorders of phosphorus metabolism, I10 - Essential (primary) hypertension Comprehensive Met. Panel Today D64.9 - Anemia, unspecified, E06.3 - Autoimmune thyroiditis, E55.9 - Vitamin D deficiency, unspecified, E66.9 - Obesity, unspecified, E83.39 - Other disorders of phosphorus metabolism, I10 - Essential (primary) hypertension C Reactive Protein Today D64.9 - Anemia, unspecified, E06.3 - Autoimmune thyroiditis, E55.9 - Vitamin D deficiency, unspecified, E66.9 - Obesity, unspecified, E83.39 - Other disorders of phosphorus metabolism, I10 - Essential (primary) hypertension Vitamin A Today D64.9 - Anemia, unspecified, E06.3 - Autoimmune thyroiditis, E55.9 - Vitamin D deficiency, unspecified, E66.9 - Obesity, unspecified, E83.39 - Other disorders of phosphorus metabolism, I10 - Essential (primary) hypertension Ferritin Today D64.9 - Anemia, unspecified, E06.3 - Autoimmune thyroiditis, E55.9 - Vitamin D deficiency, unspecified, E66.9 - Obesity, unspecified, E83.39 - Other disorders of phosphorus metabolism, I10 - Essential (primary) hypertension Coding Level of Care Code Est Pt Level 4 (30233) Complex EM visit Add On G2211 Diagnoses Obesity (BMI 30-39.9) E66.9 Time Spent (min) 40
[2024-11-01 12:57] VITALS: BP 112/56; PULSE 64; TEMP 37.5; BMI 29.9
--- OUTSIDE RECORDS SUMMARY | 2024-11-01 15:38 | XMS_ITS | Clinical Summary ---
Author Organization [email or web address] [facility] Address [address] [place] [address] Care Team Providers Care Brick Setter Operator Name Role Phone Unavailable Primary Care Provider Unavailabl e Social History Tobacco Use Types Packs/Day Years Used Date Smoking Tobacco: Never Assessed Sex and Gender Information Value Date Recorded Sex Assigned at Not on file Gender Identity Not on file Sexual Orientation Not on file Plan of Treatment Not on file
--- OUTSIDE RECORDS SUMMARY | 2024-11-01 15:38 | XMS_ITS | Clinical Summary ---
Author Organization [facility] Address [address] [place] [address] [place] [address] Phone Care Team Providers Care Qa Tech Name Role Phone Nicki Carlos MD Primary Care Provider [phone] Allergies Active Allergy Reactions Criticality Noted Date Comments Penicillins 08/21/2021 Medications amitriptyline (ELAVIL) 75 MG tablet 06/15/2021 Active Calcium Citrate 250 MG tablet 06/15/2021 Activ e meclizine (ANTIVERT) 25 MG tablet 07/12/2021 Active atenolol (TENORMIN) 50 MG tablet Take 50 mg by mouth 1 (one) time each day 09/04/2021 Active FLUoxetine (PROzac) 20 MG capsule Take 20 mg by mouth every morning 09/30/2021 Active losartan (COZAAR) 50 MG tablet TAKE 1 TABLET BY MOUTH EVERY DAY FOR 90 DAYS 09/10/2021 Active pantoprazole (PROTONIX) 40 MG EC tablet Take 40 mg by mouth 1 (one) time each day 09/24/2021 Active sucralfate (CARAFATE) 1 GM/10ML suspension TAKE 10 ML BY MOUTH TWICE A DAY 09/24/2021 Active tiZANidine (ZANAFLEX) 2 MG tablet TAKE 1 TABLET Y MOUTH 3 TIMES DAILY NEEDED FOR MUSCLE SPASMS- STARW/ /2 TABLET MAY BE SEDATING 10/06/2021 Active celecoxib (CeleBREX) 100 MG capsule Take 100 mg by mouth in the morning and 100 mg in the evening. 01/14/2022 Active Linzess 290 MCG capsule Take 1 capsule by mouth 1 (one) time each day 01/26/2022 Active Active Problems Problem Noted Date Diagnosed Date Anxiety 02/11/2022 Gastroesophageal reflux disease 02/11/2022 Jeannette's thyroiditis 02/11/2022 Myofascial pain 02/11/2022 Bipolar disorder 02/11/2022 Cervico-occipital neuralgia 02/11/2022 Obstructive sleep apnea syndrome 02/11/2022 Essential hypertension 08/20/2021 Family History Medical History Relation Comments Heart disease Father Hypertension Mother Relation Status Comments Father Mother Alive Social History Tobacco Use Types Packs/Day Years Used Date Smoking Tobacco: Never Smokeless Tobacco: Never Alcohol Use Standard Drinks/Week Comments No 0 (1 standard drink = 0.6 oz pur e alcohol) Comments Unknown Sex and Gender Information Value Date Recorded Sex Assigned at Not on file Legal Sex Female 5:10 PM EST Gender Identity Not on file Sexual Orientation Not on file Last Filed Vital Signs Vital Sign Reading Time Taken Comments Blood Pressure 140/80 02/12/2022 12:40 PM EDT Pulse 75 02/12/2022 12:40 PM EDT Temperature - - Respiratory Rate - - Oxygen Saturation 90% 02/12/2022 12:40 PM EDT Inhaled Oxygen Concentration - - Weight 71.7 kg (158 lb) 02/12/2022 12:40 PM EDT Height - - Body Mass Index - - Plan of Treatment Health Maintenance Due Date Last Done Comments Breast Cancer Screening 1970 Pneumococcal Vaccine: Pediat rics (0 to 5 Years) and At-Risk Patients (6 to 64 Years) (1 of 2 - PCV) 1976 Hepatitis B Vaccine (1 of 3 - 19+ 3-dose series) 11/06 Colorectal Cancer Screening: Annual FOBT 11/07/2019 Colorectal Cancer Screening: Colonoscopy 11/07/2019 Colorectal Cancer Screening: Sigmoidoscopy 11/07/2019 Influenza Vaccine (#1) 2024 Insurance [facility] ([id number]) [facility] ([id number]) Care Teams Qa Tech Relationship Specialty Start Date End Date Nicki Carlos MD [address] [place] PCP - General Internal Medicine 07/21/21
== END 2024-11-01 13:47 | disposition home or self-care (01) ==
PROVIDERS: PCP Internal Medicine; Visit Provider Physician Assistant Surgical
DX: E66.9 Obesity, unspecified (principal)
CPT/HCPCS: 99214; G2211

== ENCOUNTER → 2024-11-01 12:47 | Outpatient (BNVA) | payer OTHER, SELFPAY | PROVIDERS: PCP Internal Medicine; Visit Provider Physician Assistant Surgical | DX: E66.9 Obesity, unspecified (principal); Z68.29 Body mass index [BMI] 29.0-29.9, adult; Z98.84 Bariatric surgery status | CPT/HCPCS: 99212 ==

== ENCOUNTER 2024-11-20 09:25 | Outpatient (AMB) | payer OTHER, SELFPAY ==
--- NOTE | 2024-11-20 09:36 | A.OFFVIS_ITS ---
Intake Visit Reasons: OV- left DOT 12/01/23 - One year Intake Note: Jacqueline is a 54 year old female who presents today for a follow up of her left hip about one year s/p Left DOT 12/01/23. Patient reports that she is doing well, she has no concerns. She reports that she has pain when her fibromyalgia flairs up. She reports that her right hip is painful now. Allergies amoxicillin Allergy (Severe, Verified 11/20/24 09:38) severe hives-total body cat dander [cats] Allergy (Verified 11/20/24 09:38) Difficulty Breathing mold Allergy (Verified 11/20/24 09:38) Difficulty Breathing oxycodone [From Percocet] Allergy (Verified 11/20/24 09:38) Itching lamotrigine [From Lamictal] Adverse Reaction (Intermediate, Verified 11/20/24 09:38) Itching Penicillins Adverse Reaction (Mild, Verified 11/20/24 09:38) Abdominal Pain prednisone Adverse Reaction (Mild, Verified 11/20/24 09:38) Itching HPI HPI OV- left DOT 12/01/23 - One year: Details: Jacqueline is a 54 year old female who presents today for a follow up of her left hip about one year s/p Left DOT 12/01/23. Patient reports that she is doing well, she has no concerns. She reports that she has pain when her fibromyalgia flairs up. She reports that her right hip is painful now. Her pain is lateral. She continues to walk without an issue. 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 pylori infection Vitamin D deficiency Vitamin B1 deficiency Vitamin B12 deficiency Anxiety Depression Spinal cord stimulator status Sciatica GERD (gastroesophageal reflux disease) Frequent headaches Surgical History Hx of bilateral hip replacements History of esophagogastroduodenoscopy (EGD) H/O colonoscopy History of carpal tunnel release H/O gastric sleeve S/P repair of paraesophageal hernia S/P laparoscopic sleeve gastrectomy Hx of mammogram History of cholecystectomy Tubal ligation status H/O laparoscopy S/P endometrial ablation H/O arthroscopy of knee Family History Mother Hypertension Osteoporosis Father Epilepsia Atrophic emphysema Son Asthma Daughter Asthma Daughter Panic attacks Anxiety Thyroid adenoma Maternal Aunt History of breast cancer Family/Other Colon cancer Paternal Aunt Uterine cancer Family/Other Breast cancer Social History Household Members: Spouse Housing: Apartment Are you a primary primary care physician to a significant other at home: No Do you presently have visiting nurse or other home services: No Alcohol intake: never Comment: Oxycodone 5 mg PO given at 13:50. Pain 6/10 with OOB/movement. 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 No groin pain with range of motion. Normal gait. Results Reviewed Results Reviewed: I personally reviewed relevant radiographs. Left DOT in expected post operative position with no hardware complications or evidence of loosening Assessment & Plan Assessment & Plan (1) Status post total replacement of left hip: Code(s): Z96.642 - Presence of left artificial hip joint Category: Surgical Plan: Doing very well status post left hip replacement. Fibromyalgia occasionally complicates things but no groin pain and no loss of function. May follow up every other year or as needed. Orders: Orders XR pelvis 1-2V Today M25.559 - Pain in unspecified hip Coding Level of Care Code Est Pt Level 3 (89289) Diagnoses Status post total replacement of left hip Z96.642
== END 2024-11-20 09:45 | disposition home or self-care (01) ==
LOC: HO.HOS 09:25
PROVIDERS: PCP Internal Medicine; Visit Provider Orthopaedic Surgery
DX: Z47.1 Aftercare following joint replacement surgery (principal); Z96.642 Presence of left artificial hip joint
CPT/HCPCS: 99213

== ENCOUNTER → 2024-11-20 09:27 | Outpatient (BNV) | payer OTHER, SELFPAY | PROVIDERS: Visit Provider Radiology Diagnostic Radiology | DX: Z96.642 Presence of left artificial hip joint (principal) | CPT/HCPCS: 72170 ==

== ENCOUNTER 2024-11-20 09:33 | Outpatient (REF) | payer OTHER, SELFPAY ==
--- NOTE | ~2024-11-20 | XR_ITS ---
EXAMINATION: XR PELVIS 1-2 VIEWS HISTORY: M25.559 - Pain in unspecified hip COMPARISON: Comparison is made with the prior examination dated 01/06/2024. FINDINGS: A single AP view of the pelvis is submitted. The patient is status post left total hip arthroplasty. The orthopedic elements are unchanged in position and apparent anatomic alignment on this single AP view. There is no radiographic evidence of loosening. There is no fracture or dislocation. The right hip joint is maintained. XR/XR pelvis 1-2V IMPRESSION: Status post left total hip arthroplasty without change. Electronically signed by: Reddy Norwood MD 11/20/2024 02:22 PM EDT
== END 2024-11-20 09:34 | disposition home or self-care (01) ==
LOC: HO.HOSX 09:33
PROVIDERS: Visit Provider Orthopaedic Surgery
DX: M25.559 Pain in unspecified hip (principal); Z96.642 Presence of left artificial hip joint
CPT/HCPCS: 72170; 99212

== ENCOUNTER 2024-11-22 14:45 | Outpatient (AMB) | payer OTHER, SELFPAY ==
--- NOTE | 2024-11-22 15:14 | MHC.OFFVIS ---
Vital Signs 11/22/24 15:17 Height 5 ft 2 in Weight 160 lb BMI 29.3 BP 131/66 Blood Pressure Location Lt brachial Position Sitting Pulse 66 Intake Visit Reasons: linzess not working december pt Intake Note: Patient complex follow up linzess is not work for her/December pt. Patient cc: dizziness, nauseas, abdominal pain with food and bloating, acid reflex, constipation and denies an other GI issues. [facility] Required: No Accompanied by: Self / Same As Patient Allergies amoxicillin Allergy (Severe, Verified 11/22/24 15:13) severe hives-total body cat dander [cats] Allergy (Verified 11/22/24 15:13) Difficulty Breathing mold Allergy (Verified 11/22/24 15:13) Difficulty Breathing oxycodone [From Percocet] Allergy (Verified 11/22/24 15:13) Itching lamotrigine [From Lamictal] Adverse Reaction (Intermediate, Verified 11/22/24 15:13) Itching Penicillins Adverse Reaction (Mild, Verified 11/22/24 15:13) Abdominal Pain prednisone Adverse Reaction (Mild, Verified 11/22/24 15:13) Itching HPI HPI linzess not working december pt: Details: LAST VISIT WITH MARY RAMIREZ JULY 2024 TODAY'S VISIT She ran out of the LInzess although she was calling and leaving multiple messages through the phone tree. She does feel that once we restart her at the same dose it will resolve any of her current problems. TODAY'S VISIT: Patient is here today for requested visit. This is a patient of Mary Ramirez, however she is on family leave and will not be back for couple more weeks. Patient states that she him not longer weight and needs to be seen by someone. Patient reports that she has been constipated. Patient reports that Linzess stopped working for her. Patient reports that she is drinking plenty fluids about 16 oz daily, takes Linzess every day and she continues to be constipated. Patient admits to drinking lots of protein shakes as recommended by bariatric surgery. Reviewed patient's chart and record from both bariatric and GI. Patient had gastric emptying study done that was normal. No longer is taking Reglan as it was not helping her, patient reports that she had epigastric pain after taking it. Patient denies any nausea or vomiting. Reports that acid reflux is suppressed with PPI, currently she is taking pantoprazole daily. Patient denies any melena, hematochezia. Abdominal pain, cramping and bloating postprandially and throughout the day. 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 pylori infection Vitamin D deficiency Vitamin B1 deficiency Vitamin B12 deficiency Anxiety Depression Spinal cord stimulator status Sciatica GERD (gastroesophageal reflux disease) Frequent headaches Surgical History Hx of bilateral hip replacements History of esophagogastroduodenoscopy (EGD) H/O colonoscopy History of carpal tunnel release H/O gastric sleeve S/P repair of paraesophageal hernia S/P laparoscopic sleeve gastrectomy Hx of mammogram History of cholecystectomy Tubal ligation status H/O laparoscopy S/P endometrial ablation H/O arthroscopy of knee Family History Mother Hypertension Osteoporosis Father Epilepsia Atrophic emphysema Son Asthma Daughter Asthma Daughter Panic attacks Anxiety Thyroid adenoma Maternal Aunt History of breast cancer Family/Other Colon cancer Paternal Aunt Uterine cancer Family/Other Breast cancer Social History Household Members: Spouse Housing: Apartment Are you a primary career development engineer to a significant other at home: No Do you presently have visiting nurse or other home services: No Alcohol intake: never Comment: Oxycodone 5 mg PO given at 13:50. Pain 6/10 with OOB/movement. 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 Cognitive needs: No Hearing needs: No Vision needs: No Female Reproductive History Menstrual Age of Menarche: 9 Review of Systems Const Denies weight gain and Denies weight loss ENT Reports no additional complaints, Denies dysphagia and Denies odynophagia Card Reports no additional complaints Resp Reports no additional complaints GI Reports abdominal pain, Denies belching, Denies melena, Denies bloating, Denies change in bowel habits, Reports constipation, Denies dysphagia, Denies excessive flatus, Denies dyspepsia, Denies heartburn, Denies diarrhea, Denies loose stools, Denies nausea, Denies odynophagia and Denies vomiting Reports no additional complaints Musc Reports no additional complaints Neuro Reports no additional complaints Psych Reports no additional complaints Endo Reports no additional complaints Physical Exam Vital Signs: Last Vital Signs Pulse 66 11/22/24 15:17 BP 131/66 11/22/24 15:17 BMI result Body Mass Index 29.3 Const General: healthy appearing and no acute distress Nutritional Appearance: obese Orientation/consciousness: patient oriented x3 Resp Effort & Inspection: normal respiratory effort, able to speak in complete sentences, no tracheal deviation and symmetric chest movement Auscultation: clear to auscultation bilaterally Cardio Rate: regular rate GI Inspection: Yes normal to inspection and No distended Palpation (GI): Soft to palpation, not firm, nontender and No hepatosplenomegaly present Auscultation: normal bowel sounds General: Yes no CVA tenderness Back/Spine/Pelvis Back: no CVA tenderness Skin General skin exam: elasticity normal, turgor normal and dry skin Neuro General: patient oriented x3 Psych Appearance: grossly normal Mental Status: mental status grossly normal Assessment & Plan Assessment & Plan (1) Obesity (BMI 30-39.9): Comment: S/P sleeve gastrectomy in 2020 Code(s): E66.9 - Obesity, unspecified Category: Medical (2) Upper abdominal pain: Code(s): R10.10 - Upper abdominal pain, unspecified Category: Medical (3) GERD (gastroesophageal reflux disease): Code(s): K21.9 - Gastro-esophageal reflux disease without esophagitis Category: Medical Qualifiers: Esophagitis presence: esophagitis presence not specified Qualified Code(s): K21.9 - Gastro-esophageal reflux disease without esophagitis (4) Chronic idiopathic constipation: Code(s): K59.04 - Chronic idiopathic constipation Category: Medical (5) Postprandial abdominal bloating: Code(s): R14.0 - Abdominal distension (gaseous) Plan Patient was encouraged to increase fluid intake. Change protein shakes to something different. Patient can start taking Dulcolax at bedtime to see if that will help. Patient was encouraged to increase activity to promote better bowel motility. Continue pantoprazole daily. Avoid dietary triggers and late night snacking. Staying upright for minimum 3 hours after meals discussed with patient. Patient will follow-up in 4 weeks to re-evaluate. She was encouraged to call in 1 week if she will continue to have symptoms. Patient is agreeable to current plan in verbalizes understanding of instructions. She was given the opportunity to ask questions and all questions answered. Thank you for allowing me to participate in her care Medications: New bisacodyl (Dulcolax (bisacodyl)) 10 mg (2 x 5 mg) PO BEDTIME 60 tabs 4RF Discontinued metoclopramide HCl Discontinued Reason: Patient no longer taking 5 mg PO QID 120 tabs 6RF gastroaesis Coding Level of Care Code Est Pt Level 4 (19340) Complex EM visit Add On G2211 Diagnoses Obesity (BMI 30-39.9) E66.9 Upper abdominal pain R10.10 Gastroesophageal reflux disease, unspecified whether esophagitis present K21.9 Esophagitis presence: esophagitis presence not specified Chronic idiopathic constipation K59.04 Postprandial abdominal bloating R14.0 Time Spent (min) 40 Comment 30 minutes spent with patient and additional 10 minutes spent reviewing her records
[2024-11-22 15:17] VITALS: BP 131/66; PULSE 66; BMI 29.3
== END 2024-11-22 16:00 | disposition home or self-care (01) ==
LOC: HO.HGI 14:46
PROVIDERS: PCP Internal Medicine; Visit Provider Nurse Practitioner Family
DX: E66.9 Obesity, unspecified (principal); R10.10 Upper abdominal pain, unspecified; K21.9 Gastro-esophageal reflux disease without esophagitis; K59.04 Chronic idiopathic constipation; R14.0 Abdominal distension (gaseous)
CPT/HCPCS: 99214; G2211

== ENCOUNTER → 2024-11-22 14:45 | Outpatient (BNVA) | payer OTHER, SELFPAY | PROVIDERS: PCP Internal Medicine; Visit Provider Nurse Practitioner Family | DX: K21.9 Gastro-esophageal reflux disease without esophagitis (principal); K59.04 Chronic idiopathic constipation; R10.10 Upper abdominal pain, unspecified; E66.9 Obesity, unspecified; R14.0 Abdominal distension (gaseous); Z68.29 Body mass index [BMI] 29.0-29.9, adult | CPT/HCPCS: 99212 ==

== ENCOUNTER 2025-01-09 16:16 | Outpatient (AMB) | payer OTHER, SELFPAY ==
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
[2025-01-09 16:21] VITALS: BP 126/65; PULSE 78; BMI 29.4
--- OUTSIDE RECORDS SUMMARY | 2025-01-09 17:05 | XMS_ITS | Clinical Summary ---
Author Organization [facility] Address [address] [place] [address] [place] [address] Phone Care Team Providers Care Blankbook Forwarder Name Role Phone Nicki Carlos MD Primary Care Provider [phone] Allergies Active Allergy Reactions Criticality Noted Date [...] Last Done Comments Breast Cancer Screening 1970 Hepatitis B Vaccine (1 of 3 - 19+ 3-dose series) 11/06 Pneumococcal Vaccine: 50+ Years (1 of 2 - PCV) 990 Colorectal Cancer Screening: Annual FOBT 11/07/2019 Colorectal Cancer Screening: Colonoscopy 11/07/2019 Colorectal Cancer Screening: Sigmoidoscopy 11/07/2019 Influenza Vaccine (Season Ended) 2025 Insurance [facility] ([id number]) [facility] ([id number]) Care Teams Blankbook Forwarder Relationship Specialty Start Date End Date Nicki Carlos MD [address] [place] PCP - General Internal Medicine 07/21/21
--- OUTSIDE RECORDS SUMMARY | 2025-01-09 17:05 | XMS_ITS | Clinical Summary ---
Author Organization [facility] Address [address] [place] [address] Care Team Providers Care Pile Driving Superintendent Name Role Phone Unavailable Primary Care Provider Unavailabl e Social History Tobacco Use Types Packs/Day Years Used Date Smoking Tobacco: Never Assessed Sex and Gender Information Value Date Recorded Sex Assigned at Not on file Gender Identity Not on file Sexual Orientation Not on file Plan of Treatment Not on file
== END 2025-01-09 17:08 | disposition home or self-care (01) ==
LOC: HO.HGI 16:17
PROVIDERS: PCP Internal Medicine; Visit Provider Nurse Practitioner
DX: K21.9 Gastro-esophageal reflux disease without esophagitis (principal); K59.04 Chronic idiopathic constipation
CPT/HCPCS: 99213

== ENCOUNTER → 2025-01-09 16:16 | Outpatient (BNVA) | payer OTHER, SELFPAY | PROVIDERS: PCP Internal Medicine; Visit Provider Nurse Practitioner | DX: K59.04 Chronic idiopathic constipation (principal); K21.9 Gastro-esophageal reflux disease without esophagitis | CPT/HCPCS: 99212 ==

== ENCOUNTER 2025-01-18 12:04 | Outpatient (REF) | payer OTHER, SELFPAY ==
--- OUTSIDE RECORDS SUMMARY | 2025-01-18 13:02 | XMS_ITS | Clinical Summary ---
Author Organization [facility] Address [address] [place] [address] [place] [address] Phone Care Team Providers Care Continuous Drier Helper Name Role Phone Nicki Carlos MD Primary Care Provider [phone] Allergies Active Allergy Reactions Criticality Noted Date [...] 11/07/2019 Influenza Vaccine (Season Ended) 2025 Insurance [facility] ([id number]) [facility] ([id number]) Care Teams Continuous Drier Helper Relationship Specialty Start Date End Date Nciki Calros MD [address] [place] PCP - General Internal Medicine 07/21/21
[2025-01-18 15:07] LABS: TSH reflex Free T4 0.94 uIU/mL (0.32-4.0)
== END 2025-01-18 12:05 | disposition home or self-care (01) ==
LOC: HO.10HDL 12:04
PROVIDERS: Visit Provider Nurse Practitioner
DX: K59.04 Chronic idiopathic constipation (principal)
CPT/HCPCS: 36415; 84443

== ENCOUNTER 2025-03-14 14:57 | Outpatient (AMB) | payer OTHER, SELFPAY ==
--- NOTE | 2025-03-14 15:05 | A.OFFPC_ITS ---
Vital Signs 03/14/25 15:06 Height 5 ft 2 in Weight 164 lb BMI 30.0 BP 124/80 Blood Pressure Location Lt brachial Position Sitting Pulse 86 Pulse Source Pulse Oximeter Pulse Oximetry (%) 98 Oxygen Delivery Method Room Air Intake Visit Reasons: 4months f/u Orthodontic Technician Assistant Required: No Accompanied by: Self / Same As Patient Allergies amoxicillin Allergy (Severe, Verified 03/14/25 15:30) severe hives-total body cat dander (cats) Allergy (Verified 03/14/25 15:30) Difficulty Breathing mold Allergy (Verified 03/14/25 15:30) Difficulty Breathing oxycodone (From Percocet) Allergy (Verified 03/14/25 15:30) Itching lamotrigine (From Lamictal) Adverse Reaction (Intermediate, Verified 03/14/25 15:30) Itching Penicillins Adverse Reaction (Mild, Verified 03/14/25 15:30) Abdominal Pain prednisone Adverse Reaction (Mild, Verified 03/14/25 15:30) Itching Medication List - Last Reconciled 03/14/25 by Nas Suh MD amantadine HCl 100 mg PO DAILY amitriptyline 25 mg PO BEDTIME atenolol 50 mg PO DAILY bisacodyl (Dulcolax (bisacodyl)) 2 tabs qhs and 1 qam with LInzess orally bedtime; celecoxib 100 mg PO BID cholecalciferol (vitamin D3) 125 mcg PO DAILY famotidine (Pepcid) 40 mg PO BEDTIME [GRAB BAR for bathroom with suction cups As directed] hydroxyzine HCl 25 mg PO BID linaclotide (Linzess) 290 mcg PO QAM losartan 50 mg PO DAILY 90 days lurasidone 60 mg PO DAILY magnesium oxide 400 mg PO DAILY 30 days meclizine 25 mg PO DAILY PRN 30 days metoclopramide HCl 5 mg PO QID pantoprazole 40 mg PO DAILY propylene glycol-glycerin 1-0.3 % (Artificial Tears (glycerin-peg)) 1 drp ophthalmic (eye) BID [Raised toilet seat As directed] simethicone 180 mg PO QID 30 days topiramate 50 mg PO DAILY venlafaxine ER 150 mg PO DAILY walker Folding Front wheeled walker Tobacco use date assessed: 03/14/25 Dental Screening Dental Screen Date: 03/14/25 Did you have a dental visit in the last 12 months?: Yes Did you have a dental problem in the last 6 months where you did not have access to dental care?: No Was dental information given to patient?: Patient has dentist HPI 4months f/u HPI Details Patient comes in today for her follow up visit States that she continues to experience increased / frequent thirst and dry mouth She recalls being advised by her dentist that she may be diabetic or prediabetic as she has reportedly been tried on Biotene and other Rx but they do not seem to be helping with her oral symptoms States that she is concerned that she has progressed lately and is now a diabetic so she would like to have some tests done to look into this further She continues to experience recurrent/frequent abdominal pain and cramping and chronic constipation issues and continues to follow up with GI for this although she states that she has been calling GI for a while now to schedule her follow up appointment with them unsuccessfully She is also interested in starting on some medications like the GLP-1s to potentially help her lose some weight She denies any headaches or dizziness Denies any chest pains, no increased SOB Reports that her stomach feels bloated at times but denies any symptoms of nausea or vomiting lately She continues to follow up with her psychiatrist regularly for her depression and mood disorder [facility] Medical History (Updated 03/18/25 @ 18:58 by Nas Suh MD) Vaginal odor Upper abdominal pain Preoperative examination Anemia Fibromyalgia Obesity (BMI 30-39.9) Jeannette's disease Arthritis Back pain Bipolar 1 disorder Left hip pain First degree burn injury Osteoarthritis Migraine Nocturia Fibroids History of COVID-19 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 pylori infection Vitamin D deficiency Vitamin B1 deficiency Vitamin B12 deficiency Anxiety Depression Spinal cord stimulator status Sciatica GERD (gastroesophageal reflux disease) Frequent headaches Surgical History Status post total replacement of left hip Hx of bilateral hip replacements History of esophagogastroduodenoscopy (EGD) H/O colonoscopy History of carpal tunnel release H/O gastric sleeve S/P repair of paraesophageal hernia S/P laparoscopic sleeve gastrectomy Hx of mammogram History of cholecystectomy Tubal ligation status H/O laparoscopy S/P endometrial ablation H/O arthroscopy of knee Family History Mother Hypertension Osteoporosis Father Epilepsia Atrophic emphysema Son Asthma Daughter Asthma Daughter Panic attacks Anxiety Thyroid adenoma Maternal Aunt History of breast cancer Family/Other Colon cancer Paternal Aunt Uterine cancer Family/Other Breast cancer Social History Household Members: Spouse Housing: Apartment Are you a primary caregiver services home to a significant other at home: No Do you presently have visiting nurse or other home services: No Alcohol intake: never Comment: Oxycodone 5 mg PO given at 13:50. Pain 6/10 with OOB/movement. 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 1. Little interest or pleasure in doing things: not at all 2. Feeling down, depressed, or hopeless: not at all 3. Trouble falling or staying asleep, or sleeping too much: not at all 4. Feeling tired or having little energy: not at all 5. Poor appetite or overeating: not at all 6. Feeling bad about yourself - or that you are a failure or have let yourself or your family down: not at all 7. Trouble concentrating on things, such as reading the newspaper or watching television: not at all 8. Moving or speaking so slowly that other people could have noticed. Or the opposite - being so fidgety or restless that you have been moving around a lot more than usual: not at all 9. Thoughts that you would be better off or of hurting yourself in some way: not at all Total score: 0 Depression Screening Interpretation: Negative Depression Screening Done: Yes 62351 - PHQ-9 Billing: Yes Source: Developed by Drs. Reddy Oconnell, Libra Gaspar, Lake Martínez and colleagues, with an educational roberto from [employer]. Thrive Questionnaire Date Thrive assessed: 03/14/25 I am a: Patient What is your living situation today?: I have a steady place to live Within the past 12 months, did the food you bought not last and you didn't have the money to get more?: Never true Within the past 12 months, did you worry whether your food would run out before you got money to buy more?: Never true Do you have trouble paying for medicines?: No Do you have trouble getting transportation to medical appointments?: No Do you have trouble paying your heating and electricity bill?: No Do you have trouble taking care of your child, family member or friend?: No Do you have trouble with day-to-day activities such as bathing, preparing meals, shopping, managing finances, etc.?: No Are you currently unemployed and looking for a job?: No Are you interested in more education?: No Please select the resources that you would like help with: None Currently or been in a relationship where the following occur: No concerns reported THRIVE Score: 0 AUDIT C Alcohol Use Questionnaire (AUDIT-C) 1. How often do you have a drink containing alcohol?: Never 3. How often do you have six or more drinks on one occasion?: Never Total Score: 0 Score Reviewed/Action Taken: Yes ELISA-7 AMB Questionnaire ELISA-7 Date ELISA - 7 assessed: 03/14/25 Feeling nervous, anxious, or on edge: 0 = Not at all Not being able to stop or control worryin = Not at all Worrying too much about different things: 0 = Not at all Trouble relaxin = Not at all Being so restless that it is hard to sit still: 0 = Not at all Becoming easily annoyed or irritable: 0 = Not at all Feeling afraid as if something awful might happen: 0 = Not at all Total ELISA-7 score (0-4 normal; 5-9 mild; 10-14 moderate; 15-21 severe): 0 Source: Developed by Drs. Reddy Oconnell, Libra Gaspar, Lake Martínez and colleagues, with an educational roberto from [employer]. Review of Systems Const Denies chills, Reports difficulty sleeping (Amitriptyline reportedly helps), Denies fatigue, Denies fever(s) and Denies headache(s) ENT Denies dysphagia, Denies dizziness, Denies otalgia, Denies headache(s), Reports neck pain, Denies odynophagia and Denies sore throat Card Denies chest pain, Denies palpitations and Denies dyspnea Resp Denies chest congestion, Denies cough and Denies dyspnea GI Reports abdominal pain (on and off lower abdominal cramping), Reports bloating, Reports constipation (current Rx help), Denies dysphagia, Denies heartburn, Denies diarrhea, Denies nausea, Denies odynophagia and Denies vomiting Denies difficulty voiding, Denies nocturia, Denies dysuria and Denies urinary urgency Musc Reports back pain, Reports myalgias (diffuse, on and off), Reports arthralgias (involving multiple joints, but increased over left hip recently), Reports neck pain and Reports stiffness Skin/Breast Denies rash Neuro Denies dizziness and Denies headache(s) Psych Reports depression Endo Denies fatigue and Denies palpitations Physical exam (Primary Care) Vital Signs: Last Vital Signs Pulse 86 03/14/25 15:06 BP 124/80 03/14/25 15:06 Pulse Ox 98 03/14/25 15:06 Oxygen Delivery Method Room Air 03/14/25 15:06 BMI result Body Mass Index 30.0 Tobacco/Smoking Status: Tobacco use Status Tobacco use date assessed 03/14/25 03/14/25 15:11 Patient Tobacco Use Status Never used Tobacco 03/14/25 15:11 e-Cigarette/Vaping Use Never Used 03/14/25 15:11 PHQ-9: PHQ-9 Score PHQ-9: Total score 0 03/14/25 15:59 Depression Screening Interpretation: Negative Thrive Assessment: Date of Thrive Assessment Date Thrive assessed 03/14/25 03/14/25 15:11 Currently or been in a relationship where the following occur: No concerns reported Const General: no acute distress and alert HENMT Ears: TM's normal bilaterally and EAC's normal Throat: Yes posterior oropharynx normal and Yes tonsils normal (no TP congestion noted) Neck Neck: Yes supple and No lymphadenopathy Thyroid: Thyroid normal Resp Auscultation: clear to auscultation bilaterally, no rales and no wheezes Cardio Rate: regular rate Rhythm: regular rhythm Heart sounds: no murmurs GI Palpation (GI): Soft to palpation and nontender Auscultation: normal bowel sounds Back/Spine/Pelvis Cervical Spine: cervical muscular tenderness and Cervical spine tenderness Thoracic/Lumbar Spine: lumbar spinal tenderness Skin Rashes: no rashes Extrem General: Yes no clubbing, cyanosis or edema Left lower extremity: hip/thigh Details: tenderness Location: of the hip Coding Level of Care Code Est Pt Level 4 (09729) Complex EM visit Add On G2211 Diagnoses Leukocytosis, unspecified type D72.829 Leukocytosis type: unspecified Anemia, unspecified type D64.9 Anemia type: unspecified type Essential hypertension I10 Dry mouth R68.2 MITZY (obstructive sleep apnea) G47.33 Migraine without status migrainosus, not intractable, unspecified migraine type G43.909 Intractability: not intractable Migraine type: unspecified Status migrainosus presence: without status migrainosus Gastroesophageal reflux disease, unspecified whether esophagitis present K21.9 Esophagitis presence: esophagitis presence not specified Jeannette's disease E06.3 Secondary hyperparathyroidism N25.81 Vitamin D deficiency E55.9 Lumbosacral spondylosis with radiculopathy M47.27 Fibromyalgia M79.7 Chronic idiopathic constipation K59.04 Episode of recurrent major depressive disorder, unspecified depression episode severity F33.9 Active/Remission status: currently active Depression Type: major depressive disorder Major depression episode severity: unspecified Major depression recurrence: recurrent Obesity (BMI 30-39.9) E66.9 Additional Codes PHQ-9 - 94024 - PHQ-9 Billing: Yes ([id number]) Assessment & Plan Assessment & Plan (1) Leukocytosis: Code(s): D72.829 - Elevated white blood cell count, unspecified Category: Medical Qualifiers: Leukocytosis type: unspecified Qualified Code(s): D72.829 - Elevated white blood cell count, unspecified Plan: Her WBC count was significantly elevated (17581) back in late November 2023 and was most likely related to her left hip arthroplasty at the time Repeat CBC done back in July 2024 [place] [address] Discussed with patient that her current Rx (possibly Amitriptyline) may also likely be contributing to her leucocytosis WIll have her recheck her labs/CBC for follow up Will also have her get a serum protein electrophoresis done for further evaluation (2) Anemia: Code(s): D64.9 - Anemia, unspecified Category: Medical Qualifiers: Anemia type: unspecified type Qualified Code(s): D64.9 - Anemia, unspecified Plan: Patient was also still anemic when her CBC was last checked in July 2024, with her H/H at 10.5/33.5 then Will recheck her CBC for follow up; will also include anemia work up again as well as Hgb electrophoresis for further evaluation (3) Essential hypertension: Code(s): I10 - Essential (primary) hypertension Category: Medical Plan: Reinforced low sodium diet - goal is systolic BP of at least 130 mm or less Continue Losartan 50 mg QD and Atenolol 50 mg QD (4) Dry mouth: Code(s): R68.2 - Dry mouth, unspecified Category: Medical Plan: Patient is advised that her recent labs so far have not shown any evidence of diabetes Have advised patient that her frequent dry mouth and increased thirst may actually be due to side effects from some of her medications - possible contributing medications include amitriptyline, atenolol and hydroxyzine and have advised her to discuss these further with the psychiatrist before stopping any medications (5) MITZY (obstructive sleep apnea): Comment: uses CPAP Code(s): G47.33 - Obstructive sleep apnea (adult) (pediatric) Category: Medical Plan: Continue using her CPAP device when sleeping at night Follow up with Sleep Medicine as scheduled (6) Migraine: Code(s): G43.909 - Migraine, unspecified, not intractable, without status migrainosus Category: Medical Qualifiers: Intractability: not intractable Migraine type: unspecified Status migrainosus presence: without status migrainosus Qualified Code(s): G43.909 - Migraine, unspecified, not intractable, without status migrainosus Plan: Controlled on prophylactic Rx Reinforced avoidance of potential migraine triggers Continue Amitriptyline 25 mg Q HS for headache prophylaxis - patient states that this also helps her sleep better at night (7) GERD (gastroesophageal reflux disease): Code(s): K21.9 - Gastro-esophageal reflux disease without esophagitis Category: Medical Qualifiers: Esophagitis presence: esophagitis presence not specified Qualified Code(s): K21.9 - Gastro-esophageal reflux disease without esophagitis Plan: Dietary restrictions reinforced Continue Pantoprazole 40 mg QD (8) Jeannette's disease: Code(s): E06.3 - Autoimmune thyroiditis Category: Medical Plan: Will recheck her TFTs for follow up (9) Secondary hyperparathyroidism: Code(s): N25.81 - Secondary hyperparathyroidism of renal origin Category: Medical Plan: This appears to be primarily a result of her gastric sleeve surgery in 2020, as well as Vitamin D deficiency Continue Vitamin D2 1250 mcg twice a week and Calcium Citrate 500 mg BID Follow up with endocrinology as scheduled (10) Vitamin D deficiency: Code(s): E55.9 - Vitamin D deficiency, unspecified Category: Medical Plan: Continue Vitamin D 1250 mcg BIW (11) Lumbosacral spondylosis with radiculopathy: Code(s): M47.27 - Other spondylosis with radiculopathy, lumbosacral region Category: Medical Plan: Reinforced activity and weight-lifting restrictions States that she currently has an SCS, which helps with her chronic low back pain Follow up with [facility] [place] [place] Pain Management as scheduled (12) Fibromyalgia: Code(s): M79.7 - Fibromyalgia Category: Medical Plan: Reinforced regular exercise and physical activity to help manage her fibromyalgia symptoms Continue Tizanidine 2 mg Q 8 hours PRN Follow up with rheumatology as scheduled (13) Chronic idiopathic constipation: Code(s): K59.04 - Chronic idiopathic constipation Category: Medical Plan: Patient is encouraged again on increased oral fluids and dietary fiber Continue Linzess 290 mcg QD Follow up with GI as scheduled (14) Depression: Code(s): F32.9 - Major depressive disorder, single episode, unspecified Category: Medical Qualifiers: Active/Remission status: currently active Depression Type: major depressive disorder Major depression episode severity: unspecified Major depression recurrence: recurrent Qualified Code(s): F33.9 - Major depressive disorder, recurrent, unspecified Plan: Continue Latuda 60 mg QD and Venlafaxine ER 150 mg QD Follow up with psychiatry as scheduled (15) Obesity (BMI 30-39.9): Comment: S/P sleeve gastrectomy in 2020 Code(s): E66.9 - Obesity, unspecified Category: Medical Plan: Reinforced diet/exercise as tolerated/lose weight Follow up with weight management as scheduled She is currently inquiring if the GLP-1s would help her lose weight and if they would be appropriate for her Have advised her to get her follow up labs done LATANYA to help us assess if she would be a good candidate for the GLP-1s but have cautioned patient that as she has already tried and failed bariatric surgery, they may not necessarily help her lose as much weight as expected Plan To return in August 2025 for her annual physical examination Orders: Orders Complete Blood Count Auto Diff 03/14/25 D64.9 - Anemia, unspecified, D72.829 - Elevated white blood cell count, unspecified Comprehensive [place]. Panel Fast 03/14/25 E78.00 - Pure hypercholesterolemia, unspecified Hemoglobin A1c 03/14/25 R73.01 - Impaired fasting glucose TSH reflex Free T4 03/14/25 E78.00 - Pure hypercholesterolemia, unspecified UA CC w/rflx Micro + Cult 03/14/25 R30.0 - Dysuria Vitamin D 25-OH Total 03/14/25 E55.9 - Vitamin D deficiency, unspecified Vitamin B12 and Folate 03/14/25 E53.8 - Deficiency of other specified B group vitamins Protein Electrophoresis, Serum 03/14/25 D72.829 - Elevated white blood cell count, unspecified IRON PROFILE 03/14/25 D50.9 - Iron deficiency anemia, unspecified Erythropoietin (EPO) 03/14/25 D64.9 - Anemia, unspecified Reticulocyte Count 03/14/25 D64.9 - Anemia, unspecified Hemoglobin Electrophoresis 03/14/25 R71.8 - Other abnormality of red blood cells Thyroid Peroxidase Antibodies 03/14/25 R79.89 - Other specified abnormal findings of blood chemistry Lipid Panel 03/14/25 E78.00 - Pure hypercholesterolemia, unspecified
[2025-03-14 15:06] VITALS: BP 124/80; PULSE 86; O2SAT 98
--- OUTSIDE RECORDS SUMMARY | 2025-03-14 15:24 | XMS_ITS | Clinical Summary ---
Author Organization [facility] Address [address] [place] [address] [place] [id number] Phone Care Team Providers Care Machinist First Class Name Role Phone Nicki Carlos MD Primary Care Provider [phone] Allergies Active Allergy Reactions Criticality Noted Date [...] Cancer Screening: Sigmoidoscopy 11/07/2019 Influenza Vaccine (#1) 2025 Insurance [facility] ([id number]) [facility] ([id number]) Care Teams Machinist First Class Relationship Specialty Start Date End Date Nicki Carlos MD [address] [place] PCP - General Internal Medicine 07/21/21
== END 2025-03-14 15:46 | disposition home or self-care (01) ==
LOC: HO.HMCH 14:58
PROVIDERS: PCP Internal Medicine; Visit Provider Internal Medicine
DX: D64.9 Anemia, unspecified (principal); I10 Essential (primary) hypertension; E66.9 Obesity, unspecified; Z68.30 Body mass index [BMI] 30.0-30.9, adult; R68.2 Dry mouth, unspecified; G47.33 Obstructive sleep apnea (adult) (pediatric); G43.909 Migraine, unspecified, not intractable, without status migrainosus; K21.9 Gastro-esophageal reflux disease without esophagitis; E06.3 Autoimmune thyroiditis; N25.81 Secondary hyperparathyroidism of renal origin; E55.9 Vitamin D deficiency, unspecified; M47.27 Other spondylosis with radiculopathy, lumbosacral region

== ENCOUNTER → 2025-03-14 14:57 | Outpatient (BNVA) | payer OTHER, SELFPAY | PROVIDERS: PCP Internal Medicine; Visit Provider Internal Medicine | DX: I10 Essential (primary) hypertension (principal); D72.829 Elevated white blood cell count, unspecified; D64.9 Anemia, unspecified; R68.2 Dry mouth, unspecified; G47.33 Obstructive sleep apnea (adult) (pediatric); G43.909 Migraine, unspecified, not intractable, without status migrainosus; K21.9 Gastro-esophageal reflux disease without esophagitis; E06.3 Autoimmune thyroiditis; N25.81 Secondary hyperparathyroidism of renal origin; E55.9 Vitamin D deficiency, unspecified; M47.27 Other spondylosis with radiculopathy, lumbosacral region; M79.7 Fibromyalgia; K59.04 Chronic idiopathic constipation; F33.9 Major depressive disorder, recurrent, unspecified; E66.9 Obesity, unspecified; Z68.30 Body mass index [BMI] 30.0-30.9, adult | CPT/HCPCS: 96127; 99212 ==

== ENCOUNTER 2025-05-09 10:39 | Outpatient (AMB) | payer OTHER, SELFPAY ==
--- NOTE | 2025-05-09 10:50 | A.OFFVIS_ITS ---
Vital Signs 05/09/25 11:04 Height 5 ft 2 in Weight 167 lb 1.766 oz BMI 30.6 BP 123/75 Blood Pressure Location Lt brachial Position Sitting Pulse 72 Intake Visit Reasons: Follow up XR results Intake Note: Patient is seen in office for follow up visit, X-ray results. Pt c/o: per pt did not have the xrays done, states she is not taking the Metoclopramide is causing her more bloating, continued heartburn Supervisor Feed House Required: No Accompanied by: Self / Same As Patient Allergies amoxicillin Allergy (Severe, Verified 05/09/25 11:02) severe hives-total body cat dander (cats) Allergy (Verified 05/09/25 11:02) Difficulty Breathing mold Allergy (Verified 05/09/25 11:02) Difficulty Breathing oxycodone (From Percocet) Allergy (Verified 05/09/25 11:02) Itching lamotrigine (From Lamictal) Adverse Reaction (Intermediate, Verified 05/09/25 11:02) Itching Penicillins Adverse Reaction (Mild, Verified 05/09/25 11:02) Abdominal Pain prednisone Adverse Reaction (Mild, Verified 05/09/25 11:02) Itching HPI HPI Follow up XR results: Details: Assessment & Plan (1) GERD (gastroesophageal reflux disease): Code(s): K21.9 - Gastro-esophageal reflux disease without esophagitis Category: Medical Qualifiers: Esophagitis presence: esophagitis presence not specified Qualified Code(s): K21.9 - Gastro-esophageal reflux disease without esophagitis (2) Chronic idiopathic constipation: Code(s): K59.04 - Chronic idiopathic constipation Category: Medical Plan She is not doing well despite addition of bisacodyl and miralax....BUT MIKKI STOPPED HER REGLAN!!!! Restart her reglan, continue LIjnzess 290 and take 2 bisa qhs and 1 qam with LInzess. ordering TSH and abd xray. ROV 4 weeks. Orders: Orders TSH reflex Free T4 Today K59.04 - Chronic idiopathic constipation XR abdomen w decubitus Today K59.04 - Chronic idiopathic constipation Medications: New famotidine (Pepcid) 40 mg PO BEDTIME 30 tabs 3RF K21.9 - Gastro-esophageal reflux disease without esophagitis metoclopramide HCl 5 mg PO QID 120 tabs 6RF K21.9 - Gastro-esophageal reflux disease without esophagitis Changed From bisacodyl (Dulcolax (bisacodyl)) 10 mg (2 x 5 mg) PO BEDTIME 60 tabs 4RF To bisacodyl (Dulcolax (bisacodyl)) 2 tabs qhs and 1 qam with LInzess orally bedtime; 90 tabs 4RF Refilled pantoprazole 40 mg PO DAILY 90 tabs 2RF K21.9 - Gastro-esophageal reflux disease without esophagitis simethicone after meals 180 mg PO QID 120 caps 6RF 30 days linaclotide (Linzess) 290 mcg PO QAM 30 caps 6RF K59.04 - Chronic idiopathic constipation LABS: Laboratory Tests 01/18/25 12:11 TSH 0.94 X-RAY OF THE ABDOMEN NOT OBTAINED TODAY'S VISIT [facility] Medical History (Updated 05/09/25 @ 13:35 by AILEEN Porter) Vaginal odor Upper abdominal pain Preoperative examination Anemia Fibromyalgia Obesity (BMI 30-39.9) Jeannette's disease Arthritis Back pain Bipolar 1 disorder Left hip pain First degree burn injury Osteoarthritis Migraine Nocturia Fibroids History of COVID-19 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 pylori infection Vitamin D deficiency Vitamin B1 deficiency Vitamin B12 deficiency Anxiety Depression Spinal cord stimulator status Sciatica GERD (gastroesophageal reflux disease) Frequent headaches Surgical History Status post total replacement of left hip Hx of bilateral hip replacements History of esophagogastroduodenoscopy (EGD) H/O colonoscopy History of carpal tunnel release H/O gastric sleeve S/P repair of paraesophageal hernia S/P laparoscopic sleeve gastrectomy Hx of mammogram History of cholecystectomy Tubal ligation status H/O laparoscopy S/P endometrial ablation H/O arthroscopy of knee Family History Mother Hypertension Osteoporosis Father Epilepsia Atrophic emphysema Son Asthma Daughter Asthma Daughter Panic attacks Anxiety Thyroid adenoma Maternal Aunt History of breast cancer Family/Other Colon cancer Paternal Aunt Uterine cancer Family/Other Breast cancer Social History Household Members: Spouse Housing: Apartment Are you a primary cardiac care nurse to a significant other at home: No Do you presently have visiting nurse or other home services: No Alcohol intake: never Comment: Oxycodone 5 mg PO given at 13:50. Pain 6/10 with OOB/movement. 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al exposures/hazards: No Cognitive needs: No Hearing needs: No Vision needs: No Female Reproductive History Menstrual Age of Menarche: 9 Review of Systems Const Denies fatigue, Denies fever(s), Denies night sweats, Denies poor appetite and Denies weight loss Eyes Details: glasses Reports requires corrective lenses ENT Reports Normal hearing present, Denies dental pain, Denies dysphagia, Denies hearing loss, Denies mouth pain, Denies odynophagia, Denies throat swelling, Denies tongue swelling and Reports other (Dentition adequate) Card Reports no additional complaints Resp Reports no additional complaints GI Details: Reports abdominal pain, Denies melena, Reports bloating, Denies hematochezia, Reports constipation, Denies GI cramping, Denies dysphagia, Denies excessive flatus, Denies early satiety, Reports heartburn, Denies diarrhea, Denies nausea, Denies odynophagia, Denies vomiting and Denies hematemesis Skin/Breast Denies pruritus, Denies lesions, Denies rash and Denies jaundice Neuro Reports Normal hearing present and Denies Abnormal speech present Endo Denies fatigue Aller/Immun Denies throat swelling and Denies tongue swelling Physical Exam Vital Signs: Last Vital Signs Pulse 72 05/09/25 11:04 BP 123/75 05/09/25 11:04 BMI result Body Mass Index 30.6 Const General: cooperative, no acute distress, well developed and well groomed Nutritional Appearance: well nourished and obese Orientation/consciousness: oriented to person, oriented to place and oriented to time Limitations: No language barrier HEENT Head: Yes normocephalic and Yes atraumatic Eyes General: appearance normal, both eyes and all related structures Pupils: Equal, round and reactive pupils present Neck Neck: Yes normal visual inspection and Yes no lymphadenopathy Thyroid: Thyroid normal Resp Effort & Inspection: normal respiratory effort and able to speak in complete sentences Auscultation: clear to auscultation bilaterally Cardio Rate: regular rate Rhythm: regular rhythm Heart sounds: Normal, physiologic split S2 sound present Peripheral pulses: radial pulses present and posterior tibial pulses present GI Inspection: No distended, No Abdominal panniculus present and Yes obesity Palpation (GI): Soft to palpation, nontender, no guarding, not rigid and No hepatosplenomegaly present Percussion: Yes normal to percussion Auscultation: normal bowel sounds Rectal Exam - Female: deferred Skin General skin exam: no rashes or lesions noted, turgor normal, skin not dry, no jaundice, No spider nevi and no striae Rashes: no rashes Nails: normal Neuro General: oriented to person, oriented to place and oriented to time Cranial nerves: Yes Equal, round and reactive pupils present and Yes Normal hearing present Speech: No Abnormal speech present Extrem General: Yes normal to inspection, No clubbing, No cyanosis and No edema Psych Appearance: grossly normal and well kempt Mental Status: mental status grossly normal Speech and movement: Normal speech and movement present Affect: normal affect Attitude: cooperative Thought process: Normal thought process present and not confabulating Thought content: Normal thought content present Insight: Good insight present (Psych) Judgement: Good judgement present (Psych) Results Reviewed Results Reviewed: Laboratory Tests 01/18/25 12:11 TSH 0.94 Assessment & Plan Assessment & Plan (1) Chronic idiopathic constipation: Code(s): K59.04 - Chronic idiopathic constipation Category: Medical (2) GERD (gastroesophageal reflux disease): Code(s): K21.9 - Gastro-esophageal reflux disease without esophagitis Category: Medical Qualifiers: Esophagitis presence: esophagitis presence not specified Qualified Code(s): K21.9 - Gastro-esophageal reflux disease without esophagitis (3) Abdominal bloating: Code(s): R14.0 - Abdominal distension (gaseous) Category: Medical Plan Restart her reglan 5 MG 4 TIMES A DAY, continue LIjnzess 290 and take 2 bisa qhs and 1 qam with LInzess. ordering TSH and abd xray. - The patient is a 54-year-old female presenting with constipation and bloating. - Reports persistent constipation, with Linzess 290 micro g and bisacodyl 2 at bedtime regimen of two pills at night yielding inadequate results. Unfortunately, the metoclopramide only caused her worse bloating, and did not help her to move her bowels so we will discontinue this medication. - Experiences bloating and distension significantly postprandial, with episodes of feeling considerably distended. - Notes occasional [id number] periods with no successful bowel movements. - Attempts dietary modification to clear fluids with inconsistent improvements on bloating. - Constipation involves an initial passage of hard stools followed by a watery consistency. - She continues on her pantoprazole with good control of her GERD. -We decide that will add some MiraLax to her evening dosing (he takes the Linzess at night) and increase the bisacodyl to 3 along with the Linzess 290 micro g. I do not think we can drive the bowel any harder in terms of motility but we may need to add some osmotic effect to soften the initially hard stool, as it seems that the body me be trying to ?lubricate? the stool bolus out and that is what is causing the resultant diarrhea. I also encouraged her to go and get the abdominal x-ray so I can evaluate the stool burden. Return office visit in 6 weeks Medications: New polyethylene glycol 3350 (Miralax) 17 grams PO DAILY 510 grams 6RF 30 days Refilled linaclotide (Linzess) 290 mcg PO QAM 30 caps 6RF K59.04 - Chronic idiopathic constipation bisacodyl (Dulcolax (bisacodyl)) 2 tabs qhs and 1 qam with LInzess orally bedtime; 90 tabs 4RF pantoprazole 40 mg PO DAILY 90 tabs 2RF K21.9 - Gastro-esophageal reflux disease without esophagitis Discontinued metoclopramide HCl Discontinued Reason: Doctor's Order 5 mg PO QID 120 tabs 6RF K21.9 - Gastro-esophageal reflux disease without esophagitis Coding Level of Care Code Est Pt Level 3 (11539) Diagnoses Chronic idiopathic constipation K59.04 Gastroesophageal reflux disease, unspecified whether esophagitis present K21.9 Esophagitis presence: esophagitis presence not specified Abdominal bloating R14.0
[2025-05-09 11:04] VITALS: BP 123/75; PULSE 72; BMI 30.6
--- OUTSIDE RECORDS SUMMARY | 2025-05-09 12:23 | XMS_ITS | Clinical Summary ---
Author Organization [facility] Address [address] [place] [address] [place] [address] Phone Care Team Providers Care Hotel Operation Manager Name Role Phone Nicki Carlos MD Primary Care Provider [phone] Allergies Active Allergy Reactions Criticality Noted Date [...] Sigmoidoscopy 11/07/2019 Influenza Vaccine (#1) 2025 Insurance [facility] ([id number]) [facility] ([id number]) Care Teams Hotel Operation Manager Relationship Specialty Start Date End Date Nicki Carlos MD [address] [place] PCP - General Internal Medicine 07/21/21
--- OUTSIDE RECORDS SUMMARY | 2025-05-09 12:23 | XMS_ITS | Clinical Summary ---
Author Organization [facility] Address [address] [facility] [address] [place] [phone] Phone Care Team Providers Care Set Decorator Name Role Phone Nas Suh MD Primary Care Provider [phone] Allergies Active Allergy Reactions Criticality Noted Date Comments Penicillins 07/10/2024 Medications meclizine (ANTIVERT) 25 mg tablet Take 25 mg by mouth as needed for nausea or dizziness. Active clindamycin (CLEOCIN) 300 MG capsule Take 300 mg by mouth as needed. Active atenolol (TENORMIN) 50 mg tablet Take 50 mg by mouth daily. Active celecoxib (CELEBREX) 100 MG capsule Take 100 mg by mouth 2 (two) times a day. Active magnesium oxide 400 mg magnesium Tab Take 400 mg by mouth daily. Active acetaminophen (TYLENOL) 325 mg tablet Take 650 mg by mouth every 6 (six) hours as needed for pain (specific location in comments). Active amitriptyline (ELAVIL) 75 MG tablet Take 75 mg by mouth nightly at bedtime. Active propylene glycoL (SYSTANE BALANCE) 0.6 % Drop Place 1 drop into each eye every hour as needed. Active venlafaxine (EFFEXOR-ER,) 150 mg TR24 Take 150 mg by mouth daily. Active lurasidone (LATUDA) 60 mg tablet Take 60 mg by mouth daily. Active linaCLOtide (LINZESS) 290 mcg Cap capsule Take 290 mcg by mouth daily. Active pantoprazole (PROTONIX) 40 MG tablet Take 40 mg by mouth daily. Active simethicone (MYLICON,GAS-X) 180 mg capsule Take 180 mg by mouth 4 (four) times a day. Active metoclopramide HCl (REGLAN) 5 MG tablet Take 5 mg by mouth 4 (four) times a day. Active amantadine HCl (SYMMETREL) 100 mg tablet TAKE 1 TABLET BY MOUTH ONCE A DAY FOR AKATHESIA 5 Active famotidine (PEPCID) 40 MG tablet take 1 tablet by mouth everyday at bedtime Active hydrOXYzine (ATARAX) 25 MG tablet Take 25 mg by mouth 2 (two) times a day. 5 Active topiramate (TOPAMAX) 50 MG tablet Take 1 tablet by mouth every morning. 5 Active losartan (COZAAR) 100 MG tabletIndications :Essential hypertension Take 1 tablet (100 mg total) by mouth daily. 90 tablet 3 5 Active cholecalciferol (VITAMIN D3) 2,000 unit capsuleIndication s:Hyperparathyroi dism, unspecified Take 1 capsule (2,000 Units total) by mouth daily. 90 capsule 3 5 Active Active Problems Problem Noted Date Diagnosed Date Prediabetes 10/17/2024 Assessment & Plan (02/02/2025 12:09 PM EDT): Based on hemoglobin A1c of 5.7% she is in the prediabetic range and she should just diet and exercise and have hemoglobin A1c monitored yearly. Assessment & Plan (10/17/2024 10:41 AM EST): Based on fasting glucose of 119 [address] her in the prediabetic range. Since she is going to do lab work today I will request hemoglobin A1c. Healthcare maintenance 07/10/2024 Assessment & Plan (10/17/2024 10:40 AM EST): The patient said that she was told she had Jeannette's thyroiditis. I do not know if this is true or not. But I did check TPO thyroglobulin antibodies and there is no evidence that she has Jeannette's thyroiditis furthermore thyroid function studies are in the normal reference range so I would not work this up further. I also checked a cortisol level which was in the normal reference range. Assessment & Plan (07/10/2024 1:57 PM EST): She informs me that construction carpenter Dr. Solitario told her that she had Jeannette's thyroiditis. But she does not know why she was say this because as far she knows she did not have biochemical workup for this. She at the time did have symptoms consistent with hypothyroidism. Again it is unclear what thyroid function studies showed. So at this point I will check thyroid antibodies and thyroid function studies. 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 However calcium intake is good vitamin D levels are good and she should continue cholecalciferol 2000 units daily because it is working for her. My recommendation it would be to monitor serum calcium levels GFR PTH and vitamin D levels yearly and to do DXA scan every 2 years. Assessment & Plan (10/17/2024 10:40 AM EST): The patient has hyperparathyroidism and it does not appear to be normocalcemic primary hyperparathyroidism based on the fact that serum calcium levels are low normal 24-hour urine calcium and elevated and 1, 25 dihydroxy vitamin D is not elevated. This is most likely secondary to sleeve gastrectomy possibly decreased vitamin D intake but to 24 urine calcium output is adequate so that means that she is getting adequate calcium intake. Unfortunately vitamin D levels were not checked so cannot say that this is in the normal reference range. After vitamin D levels are replete it could take up to a year further intact PTH to normalize. She is taking 5000 units of vitamin D daily. This is quite a high dose but maybe this is what she needs. I asked her to obtain the vitamin D level downstairs because for some reason it was not done with both previous lab work. Assessment & Plan (07/10/2024 2:01 PM EST): From reviewing notes I see documentation that the patient has secondary hyperparathyroidism which can be secondary to sleeve gastrectomy is usually more common to see this with gastric bypass in which there is hyperplastic parathyroid glands. Secondary hyperparathyroidism can also occur from vitamin D deficiency and the patient has history of vitamin D deficiency and is currently on high doses of vitamin D supplementation. So it is possible that she may have had secondary hyperparathyroidism due to vitamin D deficiency. She does not have renal insufficiency so hyperparathyroidism is not secondary to this condition. She is currently on hydrochlorothiazide it would be nice to obtain 24-hour urine to see what her calcium output is but with hydrochlorothiazide this will not be an accurate study. If she can stop hydrochlorothiazide for a few weeks and do a 24-hour urine calcium output this would be a good idea. Essential hypertension 07/10/2024 Assessment & Plan (02/02/2025 12:12 PM EDT): Her blood pressure today is elevated systolic. She is taking losartan 100 is maximum dose and she is already taking metoprolol. Will observe. I did discuss whether she wanted to go back to hydrochlorothiazide because she said that she was taking it for fluid retention and anxiety. If this is the case then she can ask her primary care physician to switch her back to hydrochlorothiazide and stop the losartan but for now I renewed the losartan for 1 year. Assessment & Plan (10/17/2024 10:38 AM EST): Controlled. Losartan seems to be working personally every 4 to continue this medication for blood pressure control. But the patient states that she was placed on hydrochlorothiazide for anxiety as well as I know this is not an anxiolytic medication. Then she states that she had swelling of extremities but only on the left foot. There is no pitting of the left lower extremity. So maybe she needs to discuss this with her primary care physician. But personally if we do have to repeat 24- hour urine calcium studies in the future then I would recommend that she continue on losartan. The patient does wonder if she ever needed to be on an antihypertensive. This is something that she needs to discuss with her primary. Assessment & Plan (07/10/2024 2:07 PM EST): I would like to obtain 24-hour urine calcium output studies and she is taking hydrochlorothiazide so I stopped the hydrochlorothiazide increase losartan to 100 mg so that she can have adequate blood pressure control. Family History Medical History Relation Comments Emphysema Father Epilepsy Father Hypertension Mother Osteoporosis Mother Relation Status Comments Father Mother Alive Social History Tobacco Use Types Packs/Day Years Used Date Smoking Tobacco: Never Smokeless Tobacco: Never Tobacco Cessation:Counseling Given: Not Answered Alcohol Use Standard Drinks/Week Comments Never 0 (1 standard drink = 0.6 oz pur e alcohol) Education Answer Date Recorded Are you interested in more education? Not on rashad e 10/01/2023 Are you concerned about learning? Not on file 10/01/2023 No 10/01/2023 No 10/01/2023 Digital Access Answer Date Recorded No 10/01/2023 No 10/01/2023 Reliable internet access at home? Not on file 10/01/2023 Device with a working camera? Not on file Comments Unknown Sex and Gender Information Value Date Recorded Sex Assigned at Not on file Legal Sex Female 9:32 AM EDT Gender Identity Not on file Sexual Orientation Not on file Last Filed Vital Signs Vital Sign Reading Time Taken Comments Blood Pressure 140/70 02/02/2025 11:48 AM EDT Pulse 87 02/02/2025 11:48 AM EDT Temperature - - Respiratory Rate - - Oxygen Saturation 98% 02/02/2025 11: 48 AM EDT Inhaled Oxygen Concentration - - Weight 72.5 kg (159 lb 12.8 oz) 025 11:48 AM EDT Height 157 cm (5' 1.81 ) 10/17/2024 10: 13 AM EST Body Mass Index 29.41 10/17/2024 10:13 AM EST Plan of Treatment Upcoming Encounters Date Type Department Care Team (Late st Contact Info) Description 02/04/2026 10:30 AM EDT Office Visit [facility] [address] [place] [phone] Nicola Burkett DO [address] [place] [phone] Health Maintenance Due Date Last Done Comments Adult Td,Tdap Booster 1970 LIPID PANEL 1970 DEPRESSION SCREENING 1982 HEPATITIS C SCREENING 1988 HIV ONE-TIME SCREENING (18-6 5 YEARS) 1988 PAP SMEAR 11/07/1991 MAMMOGRAM 2010 COLOGUARD 11/07/2015 COLONOSCOPY 11/07/2015 COLORECTAL CANCER SCREENING 11/07/2015 FIT TEST 11/07/2015 FOBT 11/07/2015 SIGMOIDOSCOPY 11/07/2015 VIRTUAL COLONOSCOPY 11/07/2015 PNEUMOCOCCAL VACCINES (50+ years) (1 of 1 - PCV) 2020 ZOSTER VACCINES (1 of 2) 2020 COVID-19 VACCINE (1 - 2023-2 5 season) 2024 BLOOD PRESSURE 08/05/2025 02/02/2025 CREATININE LEVEL 10/09/2025 10/09/2024, 10/01/2024 POTASSIUM LEVEL 10/09/2025 10/09/2024 SCREENING FOR DIABETES 10/17/2027 , 10/09/2024 SMOKING STATUS SCREENING (On ce After 26 Yrs) Completed 10/17/2024 HEPATITIS A VACCINES Aged Out No long er eligible based on patient's age to complete this topic HIB VACCINES Aged Out No longer eligi ble based on patient's age to complete this topic MENINGOCOCCAL VACCINES (ACWY) Aged Out No longer eligible based on patient's age to complete this topic MENINGOCOCCAL VACCINES (B) Aged Out N o longer eligible based on patient's age to complete this topic Medical Devices Not on file Procedures Procedure Name Priority Date/Time Associated Diagnosis Comments COMPREHENSIVE METABOLIC PANEL Routine 10/09/2024 8:27 AM EST Hyperparathyroidism , unspecified from Last 3 Months or Most Recently Relevant to Health Maintenance Results * (ABNORMAL) Comprehensive metabolic panel (10/09/2024 8:27 AM EST) SODIUM 143 133 - 146 mmol/L [facility] POTASSIUM 3.9 3.3 - 5.1 mmol/L [facility] CHLORIDE 106 96 - 108 mmol/L [facility] CO2 27 21 - 35 mmol/L [facility] BUN 10 6 - 19 mg/dL [facility] CREATININE 0.70 0.5 - 1.5 mg/dL [facility] GLUCOSE 119(H) 70 - 99 mg/dL [facility] ALBUMIN 3.7(L) 3.9 - 4.8 g/dL [facility] TOTAL PROTEIN 7.0 6.5 - 8.0 g/dL [facility] CALCIUM 8.7 8.4 - 10.3 mg/dL [facility] ALKALINE PHOSPHATASE 125(H) 39 - 117 U/L [facility] TOTAL BILIRUBIN 0.3 0.0 - 1.2 mg/dL [facility] AST 20 0 - 37 U/L [facility] ALT 12 0 - 40 U/L [facility] GLOBULIN 3.3 1 - 4.8 g/dL [facility] EGFR 103 >59 mL/min/1.7 3m2 [facility] Comment:Estimated glomerular filtration rate calculated using the CKD-EPI refit equation. ANION GAP 14 10 - 20 mmol/L [facility] Blood 10/09/2024 8:27 AM EST 10/09/2024 8:33 AM EST us Nicola Burkett DO LAB BLOOD ORDERABLES Final Resul t [address] [address] from Last 3 Months or Most Recently Relevant to Health Maintenance Insurance CARE MEDICARE REPLACEMENT ERIN RAMOS [id number] MEDICARE REPLACEMENT ERIN RAMOS [id number] MEDICARE REPLACEMENT [facility] [employer] [facility] CARE MEDICARE REPLACEMENT ERIN RAMOS [id number] Care Teams Set Decorator Relationship Specialty Start Date End Date Nas Suh MD [address] [place] [address] Dr Wolfe, [place] [address] PCP - General Internal Medicine 10/01/23 Additional Source Comments The information contained in this document represents components of the legal health record. It is not the complete legal health record.[facility]
--- OUTSIDE RECORDS SUMMARY | 2025-05-09 12:23 | XMS_ITS | Clinical Summary ---
Author Organization [employer] [facility] Address [address] [place] [address] Care Team Providers Care Therapeutic Assistant Name Role Phone Unavailable Primary Care Provider Unavailabl e Social History Tobacco Use Types Packs/Day Years Used Date Smoking Tobacco: Never Assessed Sex and Gender Information Value Date Recorded Sex Assigned at Not on file Gender Identity Not on file Sexual Orientation Not on file Plan of Treatment Not on file
== END 2025-05-09 11:31 | disposition home or self-care (01) ==
LOC: HO.HGI 10:40
PROVIDERS: PCP Internal Medicine; Visit Provider Nurse Practitioner
DX: K59.04 Chronic idiopathic constipation (principal); K21.9 Gastro-esophageal reflux disease without esophagitis; R14.0 Abdominal distension (gaseous)
CPT/HCPCS: 99213

== ENCOUNTER → 2025-05-09 10:39 | Outpatient (BNVA) | payer OTHER, SELFPAY | PROVIDERS: PCP Internal Medicine; Visit Provider Nurse Practitioner | DX: Z71.2 Person consulting for explanation of examination or test findings (principal); K21.9 Gastro-esophageal reflux disease without esophagitis; K59.04 Chronic idiopathic constipation; R14.0 Abdominal distension (gaseous) | CPT/HCPCS: 99212 ==

== ENCOUNTER 2025-05-24 10:53 | Outpatient (AMB) | payer OTHER, SELFPAY ==
[2025-05-24 10:55] VITALS: BP 83/55; PULSE 90; TEMP 36.8; O2SAT 100; BMI 29.8
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
--- OUTSIDE RECORDS SUMMARY | 2025-05-24 13:00 | XMS_ITS | Clinical Summary ---
Author Organization [employer] [facility] Address [address] [place] [address] Care Team Providers Care Payroll Accounting Clerk Name Role Phone Unavailable Primary Care Provider Unavailabl e Social History Tobacco Use Types Packs/Day Years Used Date Smoking Tobacco: Never Assessed Sex and Gender Information Value Date Recorded Sex Assigned at Not on file Gender Identity Not on file Sexual Orientation Not on file Plan of Treatment Not on file
--- OUTSIDE RECORDS SUMMARY | 2025-05-24 13:00 | XMS_ITS | Clinical Summary ---
Author Organization [facility] Address [address] [facility] [address] [place] [address] Phone Care Team Providers Care Laundry Agent Name Role Phone Nas Suh MD Primary Care Provider [phone] Allergies Active Allergy Reactions Criticality Noted Date [...] 1:57 PM EST): She informs me that practicing md anesthesiologist Dr. Solitario told her that she had [...] 10:30 AM EDT Office Visit [facility] [address] [place] [phone] Nicola Burkett DO [address] [place] [phone] Health Maintenance Due Date Last Done Comments [...] 2020 ZOSTER VACCINES (1 of 2) 2020 INFLUENZA VACCINE (#1) 2025 COVID-19 VACCINE (1 - 2023-2 5 season) 2025 BLOOD PRESSURE 08/05/2025 02/02/2025 CREATININE LEVEL 10/09/2025 [...] EST) SODIUM 143 133 - 146 mmol/L [facility] POTASSIUM 3.9 3.3 - 5.1 mmol/L [facility] CHLORIDE 106 96 - 108 mmol/L [facility] CO2 27 21 - 35 mmol/L [facility] BUN 10 6 - 19 mg/dL [facility] CREATININE 0.70 0.5 - 1.5 mg/dL [facility] GLUCOSE 119(H) 70 - 99 mg/dL [facility] ALBUMIN 3.7(L) 3.9 - 4.8 g/dL [facility] TOTAL PROTEIN 7.0 6.5 - 8.0 g/dL [facility] CALCIUM 8.7 8.4 - 10.3 mg/dL [facility] ALKALINE PHOSPHATASE 125(H) 39 - 117 U/L [facility] TOTAL BILIRUBIN 0.3 0.0 - 1.2 mg/dL [facility] AST 20 0 - 37 U/L [facility] ALT 12 0 - 40 U/L [facility] GLOBULIN 3.3 1 - 4.8 g/dL [facility] EGFR 103 >59 mL/min/1.7 3m2 [facility] Comment:Estimated glomerular filtration rate calculated using the CKD-EPI refit equation. ANION GAP 14 10 - 20 mmol/L [facility] Blood 10/09/2024 8:27 AM EST 10/09/2024 8:33 AM EST us Nicola Burkett DO LAB BLOOD ORDERABLES Final Resul t [facility] [address] [place] [address] from Last 3 Months or Most Recently Relevant to Health Maintenance Insurance CARE MEDICARE REPLACEMENT ERIN RAMOS [id number] [place] [address] CARE MEDICARE REPLACEMENT [facility] MEDICARE REPLACEMENT MEDICARE REPLACEMENT [facility] MEDICARE REPLACEMENT [facility] ONE CARE MEDICARE REPLACEMENT ERIN RAMOS [facility] Care Teams Laundry Agent Relationship Specialty Start Date End Date Nas Suh MD [address] [place] [phone] PCP - General Internal Medicine 10/01/23 Additional Source Comments The information contained in this document represents components of the legal health record. It is not the complete legal health record.[facility]
--- OUTSIDE RECORDS SUMMARY | 2025-05-24 13:00 | XMS_ITS | Clinical Summary ---
Author Organization [facility] Address [address] [place] [address] [place] [address] Phone Care Team Providers Care Organ Tuner Name Role Phone Nicki Carlos MD Primary Care Provider Allergies Active Allergy Reactions Criticality Noted Date [...] Sigmoidoscopy 11/07/2019 Influenza Vaccine (#1) 2025 Insurance [facility] ([id number]) [facility] ([id number]) Care Teams Organ Tuner Relationship Specialty Start Date End Date Nicki Carlos MD [address] [place] PCP - General Internal Medicine 07/21/21
== END 2025-05-24 11:36 | disposition home or self-care (01) ==
PROVIDERS: PCP Internal Medicine; Visit Provider Physician Assistant Medical
DX: J02.9 Acute pharyngitis, unspecified (principal); J06.9 Acute upper respiratory infection, unspecified; Z13.9 Encounter for screening, unspecified

== ENCOUNTER 2025-05-24 10:53 | Outpatient (REF) | payer OTHER, SELFPAY ==
[2025-05-24 15:22] LABS: Chlamydia pneumoniae PCR Not Detected (Not Detect.); Coronavirus 229E PCR Not Detected (Not Detect.); Coronavirus HKU1 PCR Not Detected (Not Detect.); Coronavirus NL63 PCR Not Detected (Not Detect.); Coronavirus OC43 PCR Not Detected (Not Detect.); RSV PCR Not Detected (Not Detect.); Rhino/Enterovirus PCR Not Detected (Not Detect.)
[2025-05-24 15:33] LABS: Influenza A H1 PCR Not Detected (Not Detect.); Influenza A H1-2009 PCR Not Detected (Not Detect.); Influenza A H3 PCR Not Detected (Not Detect.); SARS-CoV-2 PCR Detected (Not Detect.)
== END 2025-05-24 10:54 | disposition home or self-care (01) ==
LOC: HO.LNP 10:53
PROVIDERS: PCP Internal Medicine; Visit Provider Physician Assistant Medical
DX: J02.9 Acute pharyngitis, unspecified (principal); I95.9 Hypotension, unspecified; R53.83 Other fatigue; R50.9 Fever, unspecified; R51.9 Headache, unspecified
CPT/HCPCS: 87633; 87880; 99212

== ENCOUNTER 2025-06-19 09:29 | Outpatient (REF) | payer OTHER, SELFPAY ==
--- NOTE | ~2025-06-19 | XR_ITS ---
EXAMINATION: XR ABDOMEN 2 VIEWS SUPINE ERECT HISTORY: K59.04 - Chronic idiopathic constipation COMPARISON: There are no prior studies available for comparison. FINDINGS: Supine and upright views of the abdomen are submitted. There is a large amount of gas in the right upper quadrant which may represent colonic interposition. There is no evidence of bowel obstruction. There is a small amount of stool in the colon. There are surgical clips in the left upper quadrant compatible with a history of gastric sleeve surgery. Surgical clips in the right upper quadrant are compatible with prior cholecystectomy. There are phleboliths in the right hemipelvis. There are no abnormal soft tissue masses. A spinal stimulator is seen in place. The patient is status post right total hip arthroplasty. XR/XR abdomen min 2V IMPRESSION: Nonspecific bowel gas pattern. Probable colonic interposition in the right upper quadrant. Small amount of stool in the colon. Electronically signed by: Reddy Norwood MD 06/19/2025 10:58 AM EDT
--- OUTSIDE RECORDS SUMMARY | 2025-06-19 10:30 | XMS_ITS | Clinical Summary ---
Author Organization [facility] Address [address] [place] [id number] Phone Care Team Providers Care Tester [employer] Name Role Phone Nas Suh MD Primary Care Provider [phone] Allergies Active Allergy Reactions Criticality Noted Date [...] 1:57 PM EST): She informs me that scales inspector Dr. Solitario told her that she had [...] you interested in more education? Not on rashda e 10/01/2023 Are you concerned about learning? [...] 10:30 AM EDT Office Visit [facility] [address] [place] [phone] Nicola Burkett DO [address] [place] [phone] [email or web address] Health Maintenance Due Date Last Done Comments [...] VACCINE (#1) 2025 COVID-19 VACCINE (1 - 2024-2 6 season) 2025 BLOOD PRESSURE 08/05/2025 02/02/2025 CREATININE LEVEL 10/09/2025 10/09/2024, 10/01/2024 POTASSIUM LEVEL 10/09/2025 10/09/2024 SCREENING FOR DIABETES 10/17/2027 , 10/09/2024 RSV VACCINE (1 - 1-dose 75+ series) 2045 SMOKING STATUS SCREENING (On ce After 26 [...] EST) SODIUM 143 133 - 146 mmol/L [facility] POTASSIUM 3.9 3.3 - 5.1 mmol/L [facility] CHLORIDE 106 96 - 108 mmol/L [facility] CO2 27 21 - 35 mmol/L [facility] BUN 10 6 - 19 mg/dL [facility] CREATININE 0.70 0.5 - 1.5 mg/dL [facility] GLUCOSE 119(H) 70 - 99 mg/dL [facility] ALBUMIN 3.7(L) 3.9 - 4.8 g/dL [facility] TOTAL PROTEIN 7.0 6.5 - 8.0 g/dL [facility] CALCIUM 8.7 8.4 - 10.3 mg/dL [facility] ALKALINE PHOSPHATASE 125(H) 39 - 117 U/L [facility] TOTAL BILIRUBIN 0.3 0.0 - 1.2 mg/dL [facility] AST 20 0 - 37 U/L [facility] ALT 12 0 - 40 U/L [facility] GLOBULIN 3.3 1 - 4.8 g/dL [facility] EGFR 103 >59 mL/min/1.7 3m2 [facility] Comment:Estimated glomerular filtration rate calculated using the CKD-EPI refit equation. ANION GAP 14 10 - 20 mmol/L [facility] Blood 10/09/2024 8:27 AM EST 10/09/2024 8:33 AM EST Nicola Burkett DO LAB BLOOD ORDERABLES Final Resul t [address] [id number] from Last 3 Months or Most Recently Relevant to Health Maintenance Insurance [place] [place] [address] CARE MEDICARE REPLACEMENT ERIN RAMOS [id number] [place] [address] MEDICARE REPLACEMENT MEDICARE REPLACEMENT MEDICARE REPLACEMENT MEDICARE REPLACEMENT [facility] ONE CARE MEDICARE REPLACEMENT ERIN RAMOS [id number] Care Teams [employer] Relationship Specialty Start Date End Date Nas Suh MD [address] [place] [address] [place] [address] PCP - General Internal Medicine 10/01/23 Additional Source Comments The information contained in this document represents components of the legal health record. It is not the complete legal health record.[facility]
--- OUTSIDE RECORDS SUMMARY | 2025-06-19 10:30 | XMS_ITS | Clinical Summary ---
Author Organization [facility] Address [address] [place] [address] [place] [address] Phone Care Team Providers Care Senior [employer] Developer Name Role Phone Nicki Carlos MD Primary Care Provider [phone] Allergies Active Allergy Reactions Criticality Noted Date [...] Sigmoidoscopy 11/07/2019 Influenza Vaccine (#1) 2025 Insurance [facility] ([id number]) [facility] ([id number]) Care Teams Senior [employer] Developer Relationship Specialty Start Date End Date Nicki Carlos MD [address] [place] PCP - General Internal Medicine 07/21/21
--- OUTSIDE RECORDS SUMMARY | 2025-06-19 10:30 | XMS_ITS | Continuity of Care Document ---
Author Name [facility] Address [address] [place] [id number] Organization Unknown Address [address] [place], [place] [id number] Medications No known medications Problems No known problems
--- OUTSIDE RECORDS SUMMARY | 2025-06-19 10:30 | XMS_ITS | Clinical Summary ---
Author Organization [facility] Address [address] [place] [address] Care Team Providers Care Senior Microstrategy Developer Name Role Phone Unavailable Primary Care Provider Unavailabl e Social History Tobacco Use Types Packs/Day Years Used Date Smoking Tobacco: Never Assessed Sex and Gender Information Value Date Recorded Sex Assigned at Not on file Gender Identity Not on file Sexual Orientation Not on file Plan of Treatment Not on file
--- OUTSIDE RECORDS SUMMARY | 2025-06-19 10:30 | XMS_ITS | Encounter Summary ---
Author Organization [facility] Address [address] [place] [address] Encounters * CPT with Medical [facility] at [facility] on 2025-05-30 Amor and her called into the [facility]. She states that last week she was sick and went to the clinic and they told her she tested positive for Covid. Amor states now she is experiencing she believes to be low blood pressure. She states that on Wednesday she remembers getting a water out of the frig and woke up on the floor in her bedroom and only remembers everything went black". She states that she does not know if she hit her head but states she had pain in her left leg where she had a past hip surgery. She was told her BP was low at the out patient clinic but does not know the value. She states she has not taken her blood pressure medication since Wednesday. She states she is afraid of passing out again. Amor denies any known heart conditions, and believes that shemy be drinking plenty of fluids. Acquisition Marketing Manager advised her to change position slowly and when rising to doso in a very slow motion as her BP my be possibly dropping when standing so she my remain safe, Amor agreed and verbalized understanding. { reasonForRequest : , patientReports : , denies&quot ;:[], chiefComplaints : Low Blood Pressure , pmh : , allergies : No Known Drug Allergies , otherAllergies : , kevyn nAssessment : , visitOutcome : , additionalComments : HPI reviewed } AIDE responds to the listed address for a 54 yof w/ a c/c of low blood pressure. Upon arrival on scene, pt's opens the door and invites [facility] inside. Pt is found seated on the sofa in the living room of their small and cluttered apartment. She is wearing a mask and appears to be tired. She is not in acute respiratory distress, no stridor or sonorous respirations are present. Upon pulling her mask down, no facial droop, one-side weakness, or slurred speech are observed and she is not bleeding anywhere. Pt is endorsing a positive COVID dx since Wednesday when she went to because she had not been feeling well for a couple days. advised her to stay hydrated and sent her home w/o any further testing. She began to feel worse over the weekend w/ dizziness and feeling brain fog and fatigue. Wednesday she says she went to the little fridge in her bedroom to get a bottle of water and the next thing she remembers was her standing over her. She does not know how long she was out and she does not remember the syncope. Her symptoms of fatigue, body aches, and dizziness have continued and been constant, so her neighbor advised her to call for [facility] visit. She has not taken her HTN medications since Wednesday. She says she has had some heaviness in her chest when coughing, but her cough has been dry and unproductive. She has had some chills, but no reported fevers. Pt is endorsing good PO fluid intake, but thinks she may still be dehydrated. She consents to evaluation and tx today. Ddx: COVID, dehydration, cardiac involvement [facility] obtains pt consent and vital signs are obtained. Pt is found to be normotensive, not hypoxic, tachycardic, and afebrile at this time. [facility] swabs her for COVID/flu and orthostatic vital signs are obtained. Pt becomes significantly tachycardic and blood pressure did drop about 20 points, but remained in the normal range. [facility] places pulse ox on her finger and walks her about the room providing support in case she became light headed or fainted in order to observe for O2 desaturation. Pt was walked about 12 feet to the front door and upon returning to the sofa, she became very weak and dizzy and needed full support and assistance to the sofa. She is laid semi fowlers on the sofa and a 12-lead EKG is performed. EKG is not concerning and COVID test still shows positive result, negative for flu. [facility] contacts [facility] and discusses the above. [facility] orders a BMP and IV fluids (1L NS). Two attempts at IV access in the L and R ACs using aseptic technique were unsuccessful. IV access is obtained using aseptic technique in the R hand w/ a 21ga butterfly and blood is drawn for BMP. Butterfly is secured and flushed and locked w/ saline lock. Pt's K+ is low and [facility] orders 40mEq K+ PO. [facility] [id number] K+ x2 tablets to pt and she takes both w/ fluids. 1L NS is administered and the butterfly is removed post fluids and pressure bandage applied w/ 2x2 and tape. Pt is endorsing feeling less light headed and foggy and generally feeling better. [facility] advises pt to seek emergency care ifshe develops cp, severe sob, uncontrolled n/v/d, high fever, ams, or seizures. Pt and are grateful for the visit and give their verbal understanding. [facility] is clear. Report completed by VASU Muniz [id number]. IV_(FLUIDS_AND/OR_MEDICATION), POC_BLOODWORK, ORTHOSTATIC_VITAL_SIGNS, IV_MEDICATION Written by Medical [facility] on 2025-05-30
== END 2025-06-19 09:30 | disposition home or self-care (01) ==
LOC: HO.XRAY 09:29
PROVIDERS: PCP Internal Medicine; Visit Provider Nurse Practitioner
DX: K59.04 Chronic idiopathic constipation (principal)
CPT/HCPCS: 74019

== ENCOUNTER → 2025-06-19 09:34 | Outpatient (BNV) | payer OTHER, SELFPAY | PROVIDERS: PCP Internal Medicine; Visit Provider Radiology Diagnostic Radiology | DX: K59.04 Chronic idiopathic constipation (principal) | CPT/HCPCS: 74019 ==

== ENCOUNTER 2025-06-20 11:15 | Outpatient (AMB) | payer OTHER, SELFPAY ==
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
[2025-06-20 11:35] VITALS: BP 128/80; PULSE 72; BMI 30.9
--- OUTSIDE RECORDS SUMMARY | 2025-06-20 13:57 | XMS_ITS | Clinical Summary ---
Author Organization [facility] Address [address] [facility] [address] [place] [phone] Phone Care Team Providers Care [employer] Inspector Name Role Phone Nas Suh MD Primary Care Provider [phone] Allergies Active Allergy Reactions Criticality Noted Date [...] 1:57 PM EST): She informs me that cake froster Dr. Solitario told her that she had [...] 10:30 AM EDT Office Visit [facility] [address] [place] [id number] Nicola Burkett DO [address] [place] [id number] Health Maintenance Due Date Last Done Comments [...] EST) SODIUM 143 133 - 146 mmol/L [facility] POTASSIUM 3.9 3.3 - 5.1 mmol/L [facility] CHLORIDE 106 96 - 108 mmol/L [facility] CO2 27 21 - 35 mmol/L [facility] BUN 10 6 - 19 mg/dL [facility] CREATININE 0.70 0.5 - 1.5 mg/dL [facility] GLUCOSE 119(H) 70 - 99 mg/dL [facility] ALBUMIN 3.7(L) 3.9 - 4.8 g/dL [facility] TOTAL PROTEIN 7.0 6.5 - 8.0 g/dL [facility] CALCIUM 8.7 8.4 - 10.3 mg/dL [facility] ALKALINE PHOSPHATASE 125(H) 39 - 117 U/L [facility] TOTAL BILIRUBIN 0.3 0.0 - 1.2 mg/dL [facility] AST 20 0 - 37 U/L [facility] ALT 12 0 - 40 U/L [facility] GLOBULIN 3.3 1 - 4.8 g/dL [facility] EGFR 103 >59 mL/min/1.7 3m2 [facility] Comment:Estimated glomerular filtration rate calculated using the CKD-EPI refit equation. ANION GAP 14 10 - 20 mmol/L [facility] Blood 10/09/2024 8:27 AM EST 10/09/2024 8:33 AM EST Nicola Burkett DO LAB BLOOD ORDERABLES Final Resul t [address] [id number] from Last 3 Months or Most Recently Relevant to Health Maintenance [place] [address] CARE MEDICARE REPLACEMENT ERIN RAMOS [id number] [place] [address] MEDICARE REPLACEMENT MEDICARE REPLACEMENT MEDICARE REPLACEMENT MEDICARE REPLACEMENT [facility] ONE CARE MEDICARE REPLACEMENT ERIN RAMOS [id number] Care Teams [employer] Inspector Relationship Specialty Start Date End Date Nas Suh MD [address] [place] [address] [place] [address] PCP - General Internal Medicine 10/01/23 Additional Source Comments The information contained in this document represents components of the legal health record. It is not the complete legal health record.[facility]
--- OUTSIDE RECORDS SUMMARY | 2025-06-20 13:57 | XMS_ITS | Clinical Summary ---
Author Organization [employer] [facility] Address [address] [place] [address] Care Team Providers Care Manager Of Merchandising Name Role Phone Unavailable Primary Care Provider Unavailabl e Social History Tobacco Use Types Packs/Day Years Used Date Smoking Tobacco: Never Assessed Sex and Gender Information Value Date Recorded Sex Assigned at Not on file Gender Identity Not on file Sexual Orientation Not on file Plan of Treatment Not on file
== END 2025-06-20 12:33 | disposition home or self-care (01) ==
LOC: HO.HGI 11:16
PROVIDERS: PCP Internal Medicine; Visit Provider Nurse Practitioner
DX: K59.04 Chronic idiopathic constipation (principal); K21.9 Gastro-esophageal reflux disease without esophagitis; R14.0 Abdominal distension (gaseous)
CPT/HCPCS: 99213

== ENCOUNTER → 2025-06-20 11:15 | Outpatient (BNVA) | payer OTHER, SELFPAY | PROVIDERS: PCP Internal Medicine; Visit Provider Nurse Practitioner | DX: K59.04 Chronic idiopathic constipation (principal); K21.9 Gastro-esophageal reflux disease without esophagitis; R14.0 Abdominal distension (gaseous) | CPT/HCPCS: 99212 ==

== ENCOUNTER 2025-06-26 09:38 | Outpatient (AMB) | payer OTHER, SELFPAY ==
--- NOTE | 2025-06-26 09:40 | MHC.OFFVIS ---
Intake Visit Reasons: 6 month f/u Allergies amoxicillin Allergy (Severe, Verified 05/24/25 10:55) severe hives-total body cat dander (cats) Allergy (Verified 05/24/25 10:55) Difficulty Breathing mold Allergy (Verified 05/24/25 10:55) Difficulty Breathing oxycodone (From Percocet) Allergy (Verified 05/24/25 10:55) Itching lamotrigine (From Lamictal) Adverse Reaction (Intermediate, Verified 05/24/25 10:55) Itching Penicillins Adverse Reaction (Mild, Verified 05/24/25 10:55) Abdominal Pain prednisone Adverse Reaction (Mild, Verified 05/24/25 10:55) Itching Medication List - Last Reconciled 06/26/25 by Avril Vail CNP amitriptyline 100 mg PO BEDTIME atenolol 50 mg PO DAILY bisacodyl (Dulcolax (bisacodyl)) 2 tabs qhs and 1 qam with LInzess orally bedtime; celecoxib 100 mg PO BID cholecalciferol (vitamin D3) (Vitamin D3) 50 mcg PO DAILY famotidine 40 mg PO BEDTIME [GRAB BAR for bathroom with suction cups As directed] linaclotide (Linzess) 290 mcg PO QAM losartan 100 mg PO DAILY lurasidone 60 mg PO DAILY magnesium oxide 400 mg PO DAILY 30 days pantoprazole 40 mg PO DAILY polyethylene glycol 3350 (Miralax) 17 grams PO DAILY PRN propylene glycol-glycerin 1-0.3 % (Artificial Tears (glycerin-peg)) 1 drp ophthalmic (eye) BID [Raised toilet seat As directed] topiramate 50 mg PO BID 90 days walker Folding Front wheeled walker HPI Comments Details: She was doing okay. Headaches have been okay. She was taking amitriptyline 100mg and topiramate 50mg at bedtime. No medication side effects. She would take extra dose of topiramate in the morning on rare occasion when she felt a migraine coming on. She got Botox for migraines from [facility] around 01/2025 and was told to follow up as needed. She was under some stress related to health and care of her uncle. She was unable to tolerate topiramate twice a day due to daytime drowsiness.? Previously, headaches were happening 2-3x/week, usually to back of head, throbbing-type pain, and were associated with photophobia, sonophonia, dizziness, and nausea. Headaches became more frequent when she ran out of amitriptyline 75mg for period of time. In the past, she was treated with Botox by pain management in [place] which helped and headaches resolved for period of time. Previously, had numbness in right big toe. LLE numb and drags left leg. Has spinal cord stimulator. 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 Pain in leg, is weak, and numb from lateral butt to foot. Right hand pain and numbness gone after CTS release 2021. Headaches are frontal and occipital. Had 6 occipital nerve blocks and Botox injections in 09/2020. Was having headaches 5-6 days/week which mostly started from back of head and then to front and settled behind either eye. Pressure and throbbing. Nausea, no vomiting. Sometimes has sonophobia. Tried Motrin, coffee, and Fioricet without relief. CAT scan of head was normal. Long history of sleep disturbance with difficulty initiating and maintaining sleep. 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 pylori infection Vitamin D deficiency Vitamin B1 deficiency Vitamin B12 deficiency Anxiety Depression Spinal cord stimulator status Sciatica GERD (gastroesophageal reflux disease) Frequent headaches Surgical History Status post total replacement of left hip Hx of bilateral hip replacements History of esophagogastroduodenoscopy (EGD) H/O colonoscopy History of carpal tunnel release H/O gastric sleeve S/P repair of paraesophageal hernia S/P laparoscopic sleeve gastrectomy Hx of mammogram History of cholecystectomy Tubal ligation status H/O laparoscopy S/P endometrial ablation H/O arthroscopy of knee Family History Mother Hypertension Osteoporosis Father Epilepsia Atrophic emphysema Son Asthma Daughter Asthma Daughter Panic attacks Anxiety Thyroid adenoma Maternal Aunt History of breast cancer Family/Other Colon cancer Paternal Aunt Uterine cancer Family/Other Breast cancer Social History Household Members: Spouse Housing: Apartment Are you a primary customer care representative to a significant other at home: No Do you presently have visiting nurse or other home services: No Alcohol intake: never Comment: Oxycodone 5 mg PO given at 13:50. Pain 6/10 with OOB/movement. 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al exposures/hazards: No Cognitive needs: No Hearing needs: No Vision needs: No Female Reproductive History Menstrual Age of Menarche: 9 Review of Systems Const Denies chills, Denies daytime sleepiness, Reports difficulty sleeping, Denies fatigue, Denies fever(s), Denies frequent falls, Reports headache(s), Denies increased appetite, Denies poor appetite, Denies snoring, Denies weakness, Denies weight gain and Denies weight loss Eyes Denies loss of vision ENT Denies vertigo, Denies dizziness, Reports headache(s) and Denies neck pain Card Denies chest pain at rest, Denies chest pain with activity, Denies syncope, Denies leg edema, Denies palpitations, Denies dyspnea and Denies dyspnea on exertion Resp Denies cough, Denies dyspnea, Denies dyspnea on exertion and Denies snoring GI Denies abdominal pain, Denies constipation, Denies heartburn, Denies diarrhea and Denies nausea Denies urinary frequency, Denies urinary incontinence and Denies urinary urgency Musc Denies abnormal gait, Reports back pain, Denies myalgias, Denies arthralgias, Denies neck pain, Reports numbness and Reports tingling Neuro Denies abnormal gait, Denies vertigo, Denies dizziness, Denies syncope, Denies frequent falls, Reports headache(s), Denies lack of coordination, Denies loss of vision, Denies memory loss, Reports numbness, Denies Other visual disturbances, Denies restless legs, Denies seizure-like activity, Reports tingling, Denies paresthesias, Denies tremor(s) and Denies weakness Psych Reports anxiety, Reports depression, Denies auditory hallucinations, Denies memory loss and Denies visual hallucinations Endo Denies fatigue and Denies palpitations Physical Exam Const Other: General Appearance:? normal, in no acute distress. Heart:? S1, S2 normal, no murmurs. Lungs:? clear anteriorly and posteriorly. Musculoskeletal:? normal. Extremities:? no edema. Psych:? alert, oriented, cognitive function intact, cooperative with exam. Neuro Other: Abnormal Neurological Findings:?none.? Mental Status: alert and oriented X 3. Normal attention, orientation, memory, and affect. Cranial Nerves: Pupils are equal, round, and reactive to light. External ocular muscles are intact. Visual palacios are full, no ptosis. Face is symmetrical, no facial weakness or droop. Facial sensations are normal. Tongue protrudes in midline. Palate elevates symmetrically. Shoulder shrugging is normal Motor Examination: Normal muscle tone, bulk and strength. No atrophy or fasciculations. No drift of the extended upper extremities. DTR 2+. Plantars are flexor. Sensory Exam: Normal light touch, temperature, pinprick, vibration, and joint-position sensations. Rhomberg sign is absent. Coordination: No ataxia. No titubation. Gait Exam: Within normal limits. Cerebellar Signs: [id number] is okay. Extrapyramidal System: No tremor, rigidity with normal facial expressions. No bradykinesia. No bradyphrenia. Normal arm swing and posture. No propulsion or retropulsion. Speech: Normal. Results Reviewed Results Reviewed: 10/19/22 NCV/EMG LE Normal motor and sensory nerve conduction velocities in the lower extremities. Normal EMG in the left L4-S1 innervated muscles. Jun 2022 : Lumbar CT degen disc disease 01/09/23 NCV UE showed moderate left CTS. Assessment & Plan Assessment & Plan (1) Migraine: Code(s): G43.909 - Migraine, unspecified, not intractable, without status migrainosus Category: Medical Qualifiers: Intractability: not intractable Migraine type: unspecified Status migrainosus presence: without status migrainosus Qualified Code(s): G43.909 - Migraine, unspecified, not intractable, without status migrainosus Plan: Continue amitriptyline 100mg 1 tablet at bedtime. Continue topiramate 50mg 1 tablet at bedtime. Start sumatriptan 50mg 1 tablet as needed for migraines, use/side effects reviewed. (2) Lumbar radiculopathy: Code(s): M54.16 - Radiculopathy, lumbar region Category: Medical (3) Carpal tunnel syndrome of left wrist: Code(s): G56.02 - Carpal tunnel syndrome, left upper limb Category: Medical Plan Meds tried: Topiramate (unable to tolerate 50mg BID due to drowsiness) Medications: New sumatriptan succinate take 1 tab at onset of headache; if no relief may repeat 1 tab after at least 2 hrs; PO 10 tabs 5RF 30 days Coding Level of Care Code Est Pt Level 4 (98369) Diagnoses Migraine without status migrainosus, not intractable, unspecified migraine type G43.909 Intractability: not intractable Migraine type: unspecified Status migrainosus presence: without status migrainosus Lumbar radiculopathy M54.16 Carpal tunnel syndrome of left wrist G56.02
--- OUTSIDE RECORDS SUMMARY | 2025-06-26 10:52 | XMS_ITS | Data Portability ---
Author Organization [facility], [facility] Address [address] [place] [address] Assessment Encounter Date Assessment Date Assessment LastModified by Organization Details LastModified Time 05/29/2025 05/29/2025 Mrs. Garsia wa s evaluated for generalized weakness, dizziness, and syncope in the setting of recent diagnosis of COVID-19. She is afebrile and saturating well on room air in no respiratory distress. She has a normal heart rate at rest but positive orthostatic vitals with increased HR with ambulation or exertion. She is without shortness of breath or chest pain. Her EKG demonstrates a normal sinus rhythm without acute ischemic changes or dysrhythmia. She would prefer to stay home if possible. We will treat patient with 1L NS and obtain a BMP as well. BMP demonstrates normal renal function but slightly low bicarb of 19 and K of 3.0. Patient administered 40meq PO K. She reported improved symptoms after hydration. Overall low clinical suspicion for sepsis, PE, ACS, myocarditis, or other emergent pathology that would require hospitalization or further ED workup. Reasons to seek further care discussed. I provided real -time medical direction via phone for this encounter, and was available for additional phone based assistance as needed. I have reviewed and agree with the Assessment and Plan as documented by the Stud Setter. We discussed the diagnostic uncertainty of home visits and the risk associated with this. In this case the patient and I felt this to be an acceptable and reasonable amount of risk given the benefit of avoiding an ED visit. The patient given the opportunity to ask questions. Advised if develops CP/severe SOB/turning blue/uncontrolled n/v/d or black/bloody emesis or stool/ AMS/ syncope/ hi fever unresponsive to APAP to call 911- verbalized understanding of instruction [email or web address] Not available 05/29/2025 21:23:04 Plan of Treatment Reminders Order Date Submit Date Provider Last Modified By Organization Details Last Modified Time Details Appointments None recorded. Lab rapid SARS CoV 2 Ag, QL IA, respiratory specimen 2024 [facility], [address] [place] [address], [id number] 21:30:57 BMP, serum or plasma 2024 [facility], [address] [place] [address], [id number] 21:30:34 Referral None recorded. Procedures None recorded. Surgeries None recorded. Imaging electrocard iogram 2024 [facility], [address] [place] [address], [id number] 20:36:30 Medication Orders sodium chloride 0.9 % intravenous solution 2024 025 [email or web address] Not available 17:28:15 potassium chloride 20 mEq oral packet 2024 [email or web address] Not available 18:06:22 Patient TargetsNo targets recorded. Patient InstructionsNo instructions recorded. Reason for Referral None Reported. Results Created Date Observation Date Name Description Value Unit Range Abnormal Flag Note LastModifiedBy Organization Detail LastModifiedTime 05/29/2005/29/2025 francisco carrasquillo am No observ ation record ed. [email or web address] [address], [phone] 05/29/2025 21:28:38 Result Notes None recorded. Medical Equipment None Reported. Allergies No known drug allergies Medications Name Sig Start Date Stop Date Status Note LastModified by Organization Details LastModified Time amantadine HCl 100 mg tablet TAKE 1 TABLET BY MOUTH ONCE A DAY FOR AKATHESIA active Not Available Not Available No t Available clindamycin HCl 300 mg capsule TAKE 2 CAPSULES BY MOUTH 1 HOUR PRIOR TO DENTAL PROCEDURES FOR 1 DAY active Not Available Not Available No t Available amitriptylin e 75 mg tablet TAKE 1 TABLET BY MOUTH EVERYDAY AT BEDTIME active Not Available Not Available No t Available simethicone 180 mg capsule TAKE 1 CAPSULE BY MOUTH FOUR TIMES A DAY AFTER MEALS active Not Available Not Available Not Available famotidine 40 mg tablet TAKE 1 TABLET BY MOUTH AT BEDTIME active Not Available Not Available No t Available venlafaxine ER 150 mg capsule,exte nded release 24 hr TAKE 1 CAPSULE BY MOUTH EVERY DAY IN THE MORNING active Not Available Not Available No t Available amitriptylin e 25 mg tablet TAKE 2 TABLETS BY MOUTH EVERY DAY AT BEDTIME 90 DAYS active Not Available Not Available No t Available magnesium oxide 400 mg (241.3 mg magnesium) tablet TAKE 1 TABLET BY MOUTH EVERY DAY active Not Available Not Available No t Available metocloprami de 5 mg tablet TAKE 1 TABLET BY MOUTH FOUR TIMES A DAY active Not Available Not Available Not Available trazodone 100 mg tablet TAKE 1/2-1 TABLET BY MOUTH EVERY NIGHT AT BEDTIME NEEDED FOR INSOMNIA active Not Available Not Available No t Available pantoprazole 40 mg tablet,delay ed release TAKE 1 TABLET BY MOUTH EVERY DAY active Not Available Not Available No t Available hydroxyzine HCl 25 mg tablet TAKE 1 TABLET BY MOUTH TWICE A DAY NEEDED FOR ANXIETY active Not Available Not Available No t Available ergocalcifer ol (vitamin D2) 1,250 mcg (50,000 unit) capsule TAKE 1 CAPSULE BY MOUTH 2 TIMES A WEEK active Not Available Not Available No t Available celecoxib 100 mg capsule TAKE 1 CAPSULE BY MOUTH TWICE A DAY active Not Available Not Available No t Available losartan 100 mg tablet TAKE 1 TABLET BY MOUTH EVERY DAY active Not Available Not Available No t Available amitriptylin e 100 mg tablet TAKE 1 TABLET BY MOUTH EVERYDAY AT BEDTIME active Not Available Not Available No t Available cholecalcife rol (vitamin D3) 125 mcg (5,000 unit) capsule TAKE 1 CAPSULE BY MOUTH EVERY DAY active Not Available Not Available No t Available atenolol 50 mg tablet TAKE 1 TABLET BY MOUTH EVERY DAY active Not Available Not Available No t Available Laxative (bisacodyl) 5 mg tablet,delay ed release TAKE 2 TABLETS BY MOUTH AT BEDTIME active Not Available Not Available No t Available topiramate 50 mg tablet TAKE 1 TABLET BY MOUTH EVERY DAY FOR 90 DAYS active Not Available Not Available No t Available Gavilax 17 gram/dose oral powder MIX AND DRINK 17 GRAMS WITH BEVERAGE ORALLY DAILY FOR 30 DAYS active Not Available Not Available No t Available lurasidone 80 mg tablet TAKE 1 TABLET BY MOUTH EVERY EVENING WITH AT LEAST 350 CALORIES WORTH OF FOOD. active Not Available Not Available No t Available Vitamin D3 50 mcg (2,000 unit) capsule TAKE 1 CAPSULE BY MOUTH EVERY DAY active Not Available Not Available No t Available Linzess 290 mcg capsule TAKE 1 CAPSULE BY MOUTH EVERY DAY IN THE MORNING active Not Available Not Available No t Available lurasidone 60 mg tablet 1 TABLET(S) ONCE A DAY IN THE EVENING WITH MEALS [350 MENA], ORAL ROUTE active Not Available Not Available N ot Available Vitals Date Recorded Body temperature Oxygen saturation Oxygen saturation in Arterial blood by Pulse oximetry Body height Respiratory rate Heart rate Heart rate Body weight Systolic And Diastolic Systolic And Diastolic Provider Name and Address Organization Details Last Updated DateTime 5 98.4 [degF] 100 % 100 % 157.48 cm 18 /min 130 /min 101 /min 67370.7 2 g 117/76 mm[Hg] 136/85 mm[Hg] Not Available [facility] - production 5 17:25:53 Social History None recorded. Functional Status None recorded. Mental Status None recorded. Family History Nothing Reported. Medical History No medical history recorded. Gynecological HistoryNo gynecological history recorded. Obstetrics History GPAL:G 0 P 0 0 0 0 Past Encounters Encounter ID Performer Location Encounter Start Date Encounter Closed Date Diagnosis/Indication Diagnosis SNOMED-CT Code Diagnosis ICD10 Code Diagnosis IMO Codes Diagnosis Note [id number] KENNETH YANES MD [facility] ED Medical [facility] [address] [place] [address] 05/29/2025 17:25:41 05/29/2025 22:22:22 Acute COVID-19 [id number] U07.8 [id number] Health Concerns Section Related Observation LastModified by Organization Detai ls LastModified Time None Recorded Concern Status LastModified by Organization Details LastModified Time None Recorded Advance Directives Directive None Recorded Payers Insurance Date Sequence Insurance Name Policy Number Policy Grimaldo Covered Member ID Grimaldo Member ID Guarantor Name 05/29/2025 1 [facility] - DOS ON OR AFTER 2022 - DUAL ELIGIBLE - FDC OPTIONS AND ONE CARE (MEDICARE REPLACEMENT/ADV ANTAGE - HMO) Jacqueline Ady [id number] Jacqueline Garsia Notes Date Note Type Note Provider Name and Address Organization Details Recorded Time 05/29/2025 text/html ROS as noted in the HPI HPI: Jacqueline and her called into the [facility]. She states that last week she was sick and went to the clinic and they told her she tested positive for Covid. Jacqueline states now she is experiencing she believes to be low blood pressure. She states that on Wednesday she remembers getting a water out of the frig and woke up on the floor in her bedroom and only remembers everything went black . She states that she does not know [...] she is afraid of passing out again. Jacqueline denies any known heart conditions, and believes that she my be drinking plenty of fluids. Orderlies Teacher advised her to change position slowly and when rising to do so in a very slow motion as her BP my be possibly dropping when standing so she my remain safe, Jacqueline agreed and verbalized understanding. ................... ................... ................... ................... ................... ................... ................... ........ [facility] Nurse Triage Notes (Rose Mary Bhardwaj): Chief Complaints: Low Blood Pressure PMH Reviewed at 05/29/2025 - 16: Allergies Reviewed at 05/29/2025 - 16: Comments: HPI reviewed Stud Setter Organization Information for [employer] Business Legal Name: [employer]. Address: [address] [place] [id number], Public Safety Director: Ralph Hutchinson MD CLIA No.: [id number] Stud Setter POC Test Results from [employer] Rapid COVID antigen (17:20:26) COVID: + Attachments uploaded as part of this test result can be found under Documents section. Rapid influenza antigen (17:20:27) Flu: - EKG (17:21:13) EKG test performed. Attachments uploaded as part of this test result can be found under Documents section. iSTAT Chem8+ (17:59:58) Na: 145mEq/L K: 3.0mEq/L Cl: 111mEq/L iCa: 1.27mmol/L TCO2: 19mmol/L Glu: 96mg/dL BUN: 11mg/dL Crea: 0.8mg/dL Hct: 37% Hb: 12.6g/dL Ammol/L Cartridge Number: [id number] Attachments uploaded as part of this test result can be found under Documents section. EKG (17:21:13) - This test has been updated by the oil tank car cleaner, Mik Muniz at (05/29/2025 20:15:57). The changes are marked in bold. EKG test performed. Attachments uploaded as part of this test result can be found under Documents section. ................... ................... ................... ................... ................... ................... ................... ........ Stud Setter Note From Mik Muniz: [facility] responds to the listed address for a 54 yof w/ a c/c of low blood pressure. Upon arrival on scene, pt's opens the door and invites [facility] inside. Pt is found seated on the [...] her neighbor advised her to call for [facility] visit. She has not taken her HTN [...] tx today. Ddx: COVID, dehydration, cardiac involvement [facility] obtains pt consent and vital signs are obtained. Pt is found to be normotensive, not hypoxic, tachycardic, and afebrile at this time. [facility] swabs her for COVID/flu and orthostatic vital signs are obtained. Pt becomes significantly tachycardic and blood pressure did drop about 20 points, but remained in the normal range. [facility] places pulse ox on her finger and [...] still shows positive result, negative for flu. [facility] contacts [facility] and discusses the above. [facility] orders a BMP and IV fluids (1L NS). Two attempts at IV access in the L and R ACs using aseptic technique were unsuccessful. IV access is obtained using aseptic technique in the R hand w/ a 21ga butterfly and blood is drawn for BMP. Butterfly is secured and flushed and locked w/ saline lock. Pt's K+ is low and [facility] orders 40mEq K+ PO. [facility] administers 20mEq K+ x2 tablets to pt and she takes both w/ fluids. 1L NS is administered and the butterfly is removed post fluids and pressure bandage applied w/ 2x2 and tape. Pt is endorsing feeling less light headed and foggy and generally feeling better. [facility] advises pt to seek emergency care if she develops cp, severe sob, uncontrolled n/v/d, high fever, ams, or seizures. Pt and are grateful for the visit and give their verbal understanding. [facility] is clear. Report completed by VASU Muniz [id number]. [facility] Lab Orders: rapid SARS CoV 2 Ag, QL IA, respiratory specimen: Performed BMP, serum or plasma: Performed electrocardiogram: Performed [facility] Medication Orders: sodium chloride 0.9 % intravenous solution: Performed potassium chloride 20 mEq oral packet: Performed ................... ................... ................... ................... ................... ................... ................... ........ [facility] Consulted: Kenneth Yanes ................... ................... ................... ................... ................... ................... ................... ........ Disposition: Kathrin YANES MD [address] [facility],[address], [place], [address], Xero 05/29/2025 21:23:19 OBGyn Episode No OBEpisode recorded.
--- OUTSIDE RECORDS SUMMARY | 2025-06-26 10:52 | XMS_ITS | Clinical Summary ---
Author Organization [facility] Address [address] [place] [address] Care Team Providers Care Gas Brazer Name Role Phone Unavailable Primary Care Provider Unavailabl e Social History Tobacco Use Types Packs/Day Years Used Date Smoking Tobacco: Never Assessed Sex and Gender Information Value Date Recorded Sex Assigned at Not on file Gender Identity Not on file Sexual Orientation Not on file Plan of Treatment Not on file
--- OUTSIDE RECORDS SUMMARY | 2025-06-26 10:52 | XMS_ITS | Clinical Summary ---
Author Organization [facility] Address [address] [place] [address] [place] [address] Phone Care Team Providers Care Cellar Packer Name Role Phone Nicki Carlos MD Primary [...] Sigmoidoscopy 11/07/2019 Influenza Vaccine (#1) 2025 Insurance [facility] ([id number]) [facility] ([id number]) Care Teams Cellar Packer Relationship Specialty Start Date End Date Nicki Carlos MD [address] [place] PCP - General Internal Medicine 07/21/21
--- OUTSIDE RECORDS SUMMARY | 2025-06-26 10:52 | XMS_ITS | Clinical Summary ---
Author Organization 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 Solitario told her that she had [...] 10:30 AM EDT Office Visit [facility] [address] [place] [phone] Nicola Burkett DO [address] [place] [phone] Health Maintenance Due Date Last Done Comments [...] EST) SODIUM 143 133 - 146 mmol/L [facility] POTASSIUM 3.9 3.3 - 5.1 mmol/L [facility] CHLORIDE 106 96 - 108 mmol/L [facility] CO2 27 21 - 35 mmol/L [facility] BUN 10 6 - 19 mg/dL [facility] CREATININE 0.70 0.5 - 1.5 mg/dL [facility] GLUCOSE 119(H) 70 - 99 mg/dL [facility] ALBUMIN 3.7(L) 3.9 - 4.8 g/dL [facility] TOTAL PROTEIN 7.0 6.5 - 8.0 g/dL [facility] CALCIUM 8.7 8.4 - 10.3 mg/dL [facility] ALKALINE PHOSPHATASE 125(H) 39 - 117 U/L [facility] TOTAL BILIRUBIN 0.3 0.0 - 1.2 mg/dL [facility] AST 20 0 - 37 U/L [facility] ALT 12 0 - 40 U/L [facility] GLOBULIN 3.3 1 - 4.8 g/dL [facility] EGFR 103 >59 mL/min/1.7 3m2 [facility] Comment:Estimated glomerular filtration rate calculated using the CKD-EPI refit equation. ANION GAP 14 10 - 20 mmol/L [facility] Blood 10/09/2024 8:27 AM EST 10/09/2024 8:33 AM EST Nicola Burkett DO LAB BLOOD ORDERABLES Final Resul t [address] [address] from Last 3 Months or Most Recently Relevant to Health Maintenance [place] [address] [place] [address] CARE MEDICARE REPLACEMENT ERIN RAMOS [id number] [place] [address] MEDICARE REPLACEMENT MEDICARE REPLACEMENT MEDICARE REPLACEMENT MEDICARE REPLACEMENT [facility] MEDICARE REPLACEMENT ERIN RAMOS [id number] Care Teams Recreational Therapy Aide Relationship Specialty Start Date End Date Nas Suh MD [address] [place] [address] [place] [address] PCP - General Internal Medicine 10/01/23 Additional Source Comments The information contained in this document represents components of the legal health record. It is not the complete legal health record.[facility]
== END 2025-06-26 10:02 | disposition home or self-care (01) ==
LOC: HO.HSM 09:39
PROVIDERS: PCP Internal Medicine; Referring Provider Internal Medicine; Visit Provider Registered Nurse
DX: G43.909 Migraine, unspecified, not intractable, without status migrainosus (principal); M54.16 Radiculopathy, lumbar region; G56.02 Carpal tunnel syndrome, left upper limb
CPT/HCPCS: 99214

== ENCOUNTER → 2025-06-26 09:38 | Outpatient (BNVA) | payer OTHER, SELFPAY | PROVIDERS: PCP Internal Medicine; Referring Provider Internal Medicine; Visit Provider Registered Nurse | DX: G56.02 Carpal tunnel syndrome, left upper limb (principal); G43.909 Migraine, unspecified, not intractable, without status migrainosus | CPT/HCPCS: 99212 ==

== ENCOUNTER 2025-07-24 09:30 | Outpatient (AMB) | payer OTHER, SELFPAY ==
[2025-07-24 09:44] VITALS: BP 116/66; BMI 31.6
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
== END 2025-07-24 11:54 | disposition home or self-care (01) ==
LOC: HO.HWSM 09:30
PROVIDERS: PCP Internal Medicine; Visit Provider Advanced Practice Midwife
DX: Z01.419 Encounter for gynecological examination (general) (routine) without abnormal findings (principal); Z12.4 Encounter for screening for malignant neoplasm of cervix; Z12.39 Encounter for other screening for malignant neoplasm of breast; N89.8 Other specified noninflammatory disorders of vagina
CPT/HCPCS: 99396; 99459

== ENCOUNTER 2025-07-24 09:30 | Outpatient (REF) | payer OTHER, SELFPAY ==
[2025-07-25 12:18] LABS: Bacterial Vaginosis PCR NEGATIVE (Negative); Candida Group PCR NOT DETECTED (Not Detect); Candida glab krusei PCR NOT DETECTED (Not Detect); Trichomonas vaginalis PCR NOT DETECTED (Not Detect)
== END 2025-07-24 09:31 | disposition home or self-care (01) ==
LOC: HO.LNP 09:30
PROVIDERS: PCP Internal Medicine; Visit Provider Advanced Practice Midwife
DX: Z01.419 Encounter for gynecological examination (general) (routine) without abnormal findings (principal); Z12.39 Encounter for other screening for malignant neoplasm of breast; N89.8 Other specified noninflammatory disorders of vagina; Z98.51 Tubal ligation status; Z11.51 Encounter for screening for human papillomavirus (HPV)
CPT/HCPCS: 81515; 87626; 88175

== ENCOUNTER 2025-08-13 08:49 | Outpatient (AMB) | payer OTHER, SELFPAY ==
[2025-08-13 08:54] VITALS: BP 120/72; PULSE 75; O2SAT 98; BMI 31.3
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
== END 2025-08-13 09:41 | disposition home or self-care (01) ==
LOC: HO.RHES 08:50
PROVIDERS: PCP Internal Medicine; Visit Provider Student in an Organized Health Care Education/Training Program
DX: M79.7 Fibromyalgia (principal); M25.562 Pain in left knee; G89.29 Other chronic pain
CPT/HCPCS: 99214

== ENCOUNTER → 2025-08-13 08:49 | Outpatient (BNVA) | payer OTHER, SELFPAY | PROVIDERS: PCP Internal Medicine; Visit Provider Student in an Organized Health Care Education/Training Program | DX: G89.29 Other chronic pain (principal); M25.562 Pain in left knee; M79.7 Fibromyalgia; Z79.1 Long term (current) use of non-steroidal anti-inflammatories (NSAID) | CPT/HCPCS: 99212 ==

== ENCOUNTER 2025-08-22 | Outpatient (REF) | payer OTHER, SELFPAY ==
--- OUTSIDE RECORDS SUMMARY | 2025-09-27 12:41 | XMS_ITS | Data Portability ---
Author Organization [employer] [facility], [facility] Address [address] [place] [address] Assessment Encounter Date Assessment Date Assessment LastModified [...] Assessment and Plan as documented by the Mine Administrator Supervisor. We discussed the diagnostic uncertainty of home [...] 2 Ag, QL IA, respiratory specimen 2024 [facility], [address] [place] [address], [phone] 21:30:57 BMP, serum or plasma 2024 [facility], [address] [place] [address], [address] 21:30:34 Referral None recorded. Procedures None recorded. Surgeries None recorded. Imaging electrocard iogram 2024 [facility], [address] [place] [address], [phone] 20:36:30 Medication Orders sodium chloride 0.9 % intravenous solution 2024 025 [email or web address] Not available 17:28:15 potassium chloride 20 mEq oral packet 2024 [email or web address] Not available 18:06:22 Patient TargetsNo targets recorded. Patient InstructionsNo instructions recorded. Reason for Referral None Reported. Results Created Date Observation Date Name Description Value Unit Range Abnormal Flag Note LastModifiedBy Organization Detail LastModifiedTime 05/29/2005/29/2025 farncisco carrasquillo am No observ ation record ed. [email or web address] [address], [address] 05/29/2025 21:28:38 Result Notes None recorded. Medical [...] cm 18 /min 130 /min 101 /min 80074.7 2 g 117/76 mm[Hg] 136/85 mm[Hg] Not [...] ICD10 Code Diagnosis IMO Codes Diagnosis Note 22205 KENNETH YANES MD [facility] ED Medical [facility] [address] [place] [address] 05/29/2025 17:25:41 05/29/2025 22:22:22 Acute COVID-19 [id number] U07.9 [id number] Health Concerns Section Related Observation LastModified by Organization Detai ls LastModified Time None Recorded Concern Status LastModified by Organization Details LastModified Time None Recorded Advance Directives Directive None Recorded Payers Insurance Date Sequence Insurance Name Policy Number Policy Grimaldo Covered Member ID Grimaldo Member ID Guarantor Name 05/29/[address] [facility] - DOS ON OR AFTER 2022 - DUAL ELIGIBLE - SNF OPTIONS AND ONE CARE (MEDICARE REPLACEMENT/ADV ANTAGE - HMO) Jacquelineyoana Garsia [id number] Jacqueline Garsia Notes Date Note Type Note [...] she my be drinking plenty of fluids. Sports Internship advised her to change position slowly and when rising to do so in a very slow motion as her BP my be possibly dropping when standing so she my remain safe, Jacqueline agreed and verbalized understanding. ................... ................... ................... ................... ................... ................... ................... ........ [facility] Nurse Triage Notes (Rose Mary Bhardwaj): Chief Complaints: Low Blood Pressure PMH Reviewed at 05/29/2025 - 16: Allergies Reviewed at 05/29/2025 - 16:01 Comments: [facility] reviewed Mine Administrator Supervisor Organization Information for Mik Muniz Business Legal Name: [employer]. Address: [address] [place] [address], Project/Production Manager Imaging: Ralph MCNULTYIA No.: [id number] Mine Administrator Supervisor POC Test Results from Mik Muniz Screen Tonic ROSETTE Rapid COVID antigen (17:20:26) COVID: + [...] Hct: 37% Hb: 12.6g/dL Ammol/L Cartridge Number: [id number] Attachments uploaded as part of this test result can be found under Documents section. EKG (17:21:13) - This test has been updated by the manager night, Mik Muniz at (05/29/2025 20:15:57). The changes are marked in bold. EKG test performed. Attachments uploaded as part of this test result can be found under Documents section. ................... ................... ................... ................... ................... ................... ................... ........ Mine Administrator Supervisor Note From Mik Muniz: SC6 responds to the listed address for a 54 yof w/ a c/c of low blood pressure. Upon arrival on scene, pt's opens the door and invites [facility] inside. Pt is found seated on the [...] her neighbor advised her to call for [facility] visit. She has not taken her [...] tx today. Ddx: COVID, dehydration, cardiac involvement [facility] obtains pt consent and vital signs are obtained. Pt is found to be normotensive, not hypoxic, tachycardic, and afebrile at this time. [facility] swabs her for COVID/flu and orthostatic vital signs are obtained. Pt becomes significantly tachycardic and blood pressure did drop about 20 points, but remained in the normal range. [facility] places pulse ox on her finger [...] still shows positive result, negative for flu. [facility] contacts [facility] and discusses the above. [facility] orders a BMP and IV fluids (1L NS). Two attempts at IV access in the L and R ACs using aseptic technique were unsuccessful. IV access is obtained using aseptic technique in the R hand w/ a 21ga butterfly and blood is drawn for BMP. Butterfly is secured and flushed and locked w/ saline lock. Pt's K+ is low and [facility] orders 40mEq K+ PO. [facility] administers 20mEq K+ x2 tablets to pt and she takes both w/ fluids. 1L NS is administered and the butterfly is removed post fluids and pressure bandage applied w/ 2x2 and tape. Pt is endorsing feeling less light headed and foggy and generally feeling better. [facility] advises pt to seek emergency care if she develops cp, severe sob, uncontrolled n/v/d, high fever, ams, or seizures. Pt and are grateful for the visit and give their verbal understanding. [facility] is clear. Report completed by VASU Muniz [id number]. [facility] Lab Orders: rapid SARS CoV 2 Ag, QL IA, respiratory specimen: Performed BMP, serum or plasma: Performed electrocardiogram: Performed [facility] Medication Orders: sodium chloride 0.9 % intravenous solution: Performed potassium chloride 20 mEq oral packet: Performed ................... ................... ................... ................... ................... ................... ................... ........ [facility] Consulted: Kenneth Yanes ................... ................... ................... ................... ................... ................... ................... ........ Disposition: Fulfilled KENNETH YANES MD [address] [facility],[address], [place], [address], [employer] Justrite ManufacturingVINCENT 05/29/2025 21:23:19 OBGyn Episode No OBEpisode recorded.
--- OUTSIDE RECORDS SUMMARY | 2025-09-27 12:41 | XMS_ITS | Clinical Summary ---
Author Organization [facility] Address [address] [facility] [address] [place] [address] Phone Care Team Providers Care Mud Trucker Name Role Phone Nas Suh MD Primary Care Provider [phone] Allergies Active Allergy Reactions Criticality Noted Date [...] 1:57 PM EST): She informs me that needle grader Dr. Solitario told her that she had [...] Description 02/04/2026 10:30 AM EDT Office Visit [facility] [address] [place] [address] Nicola Burkett DO [address] [place] [address] [email or web address] Health Maintenance Due [...] EST) SODIUM 143 133 - 146 mmol/L [facility] POTASSIUM 3.9 3.3 - 5.1 mmol/L [facility] CHLORIDE 106 96 - 108 mmol/L [facility] CO2 27 21 - 35 mmol/L [facility] BUN 10 6 - 19 mg/dL [facility] CREATININE 0.70 0.5 - 1.5 mg/dL [facility] GLUCOSE 119(H) 70 - 99 mg/dL [facility] ALBUMIN 3.7(L) 3.9 - 4.8 g/dL [facility] TOTAL PROTEIN 7.0 6.5 - 8.0 g/dL [facility] CALCIUM 8.7 8.4 - 10.3 mg/dL [facility] ALKALINE PHOSPHATASE 125(H) 39 - 117 U/L [facility] TOTAL BILIRUBIN 0.3 0.0 - 1.2 mg/dL [facility] AST 20 0 - 37 U/L [facility] ALT 12 0 - 40 U/L [facility] GLOBULIN 3.3 1 - 4.8 g/dL [facility] EGFR 103 >59 mL/min/1.7 3m2 [facility] Comment:Estimated glomerular filtration rate calculated using the CKD-EPI refit equation. ANION GAP 14 10 - 20 mmol/L [facility] Blood 10/09/2024 8:27 AM EST 10/09/2024 8:33 AM EST iNcola Burkett DO LAB BLOOD BKR ORDERABLES Final R esult Performing Organization Address City/State/[facility] Co de Phone Number [address] [address] from Last 3 Months or Most Recently Relevant to Health Maintenance Insurance MEDICARE REPLACEMENT ERIN RAMOS [id number] [place] [address] MEDICARE REPLACEMENT MEDICARE REPLACEMENT MEDICARE REPLACEMENT MEDICARE REPLACEMENT [facility] ONE CARE MEDICARE REPLACEMENT ERIN RAMOS [id number] Care Teams Mud Trucker Relationship Specialty Start Date End Date Nas Suh MD [address] [place] [address] [place] [address] PCP - General Internal Medicine 10/01/23 Additional Source Comments The information contained in this document represents components of the legal health record. It is not the complete legal health record.[facility]
--- OUTSIDE RECORDS SUMMARY | 2025-09-27 12:41 | XMS_ITS | Clinical Summary ---
Author Organization [facility] Prior to 02/03/25 Address [address] [place] [address] Care Team Providers Care Torch Solderer Name Role Phone Unavailable Primary Care Provider Unavailabl e Social History Tobacco Use Types Packs/Day Years Used Date Smoking Tobacco: Never Assessed Sex and Gender Information Value Date Recorded Sex Assigned at Not on file Gender Identity Not on file Sexual Orientation Not on file Plan of Treatment Not on file
--- OUTSIDE RECORDS SUMMARY | 2025-09-27 12:41 | XMS_ITS | Clinical Summary ---
Author Organization [facility] Address [address] [place] [address] [place] [address] Phone Care Team Providers Care Refractory Manager Name Role Phone Nicki Carlos MD Primary Care Provider [phone] Allergies Active Allergy Reactions Criticality Noted Date [...] PCV) 021 Influenza Vaccine (#1) [address] [facility] ([id number]) [facility] ([id number]) Care Teams Refractory Manager Relationship Specialty Start Date End Date Nicki Carlos MD [address] [place] PCP - General Internal Medicine 07/21/21
== END 2025-08-22 00:01 ==
LOC: CF
PROVIDERS: PCP Internal Medicine; Visit Provider Nurse Practitioner
DX: K21.9 Gastro-esophageal reflux disease without esophagitis (principal); K59.04 Chronic idiopathic constipation; R14.0 Abdominal distension (gaseous); Z79.899 Other long term (current) drug therapy
CPT/HCPCS: 99212

== ENCOUNTER 2025-08-22 10:41 | Outpatient (AMB) | payer OTHER, SELFPAY ==
[2025-08-22 10:45] VITALS: BP 134/70; PULSE 80; BMI 31.6
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
--- OUTSIDE RECORDS SUMMARY | 2025-08-22 13:38 | XMS_ITS | Clinical Summary ---
Author Organization [facility] Address [address] [facility] [address] [place] [address] Phone Care Team Providers Care Drawing Operator Name Role Phone Nas Suh MD Primary Care Provider [phone] Allergies Active Allergy Reactions Criticality Noted Date [...] 1:57 PM EST): She informs me that drawbridge operator Dr. Solitario told her that she had [...] Description 02/04/2026 10:30 AM EDT Office Visit [facility] [address] [place] [address] Nicola Burkett DO [address] [place] [address] [email or web address] Health Maintenance Due Date Last Done Comments [...] Date/Time Associated Diagnosis Comments COMPREHENSIVE METABOLIC PANEL (CMP) Routine 10/09/2024 8:27 AM EST Hyperparathyroidism , unspecified from Last 3 Months or Most Recently Relevant to Health Maintenance Results * (ABNORMAL) Comprehensive metabolic panel (10/09/2024 8:27 AM EST) SODIUM 143 133 - 146 mmol/L [facility] POTASSIUM 3.9 3.3 - 5.1 mmol/L [facility] CHLORIDE 106 96 - 108 mmol/L [facility] CO2 27 21 - 35 mmol/L [facility] BUN 10 6 - 19 mg/dL [facility] CREATININE 0.70 0.5 - 1.5 mg/dL [facility] GLUCOSE 119(H) 70 - 99 mg/dL [facility] ALBUMIN 3.7(L) 3.9 - 4.8 g/dL [facility] TOTAL PROTEIN 7.0 6.5 - 8.0 g/dL [facility] CALCIUM 8.7 8.4 - 10.3 mg/dL [facility] ALKALINE PHOSPHATASE 125(H) 39 - 117 U/L [facility] TOTAL BILIRUBIN 0.3 0.0 - 1.2 mg/dL [facility] AST 20 0 - 37 U/L [facility] ALT 12 0 - 40 U/L [facility] GLOBULIN 3.3 1 - 4.8 g/dL [facility] EGFR 103 >59 mL/min/1.7 3m2 [facility] Comment:Estimated glomerular filtration rate calculated using the CKD-EPI refit equation. ANION GAP 14 10 - 20 mmol/L [facility] Blood 10/09/2024 8:27 AM EST 10/09/2024 8:33 AM EST Nicola Burkett DO LAB BLOOD BKR ORDERABLES Final R esult Performing Organization Address City/State/[facility] Co de Phone Number [address] [address] from Last 3 Months or Most Recently Relevant to Health Maintenance Insurance MEDICARE REPLACEMENT ERIN RAMOS [id number] [place] [address] MEDICARE REPLACEMENT MEDICARE REPLACEMENT MEDICARE REPLACEMENT MEDICARE [facility]PLACEMENT [facility] ONE CARE MEDICARE REPLACEMENT ERIN RAMOS [id number] Care Teams Drawing Operator Relationship Specialty Start Date End Date Nas Suh MD [address] [place] [address] [place] [address] PCP - General Internal Medicine 10/01/23 Additional Source Comments The information contained in this document represents components of the legal health record. It is not the complete legal health record.[facility]
--- OUTSIDE RECORDS SUMMARY | 2025-08-22 13:38 | XMS_ITS | Clinical Summary ---
Author Organization [facility] Prior to 02/03/25 Address [address] [place] [address] Care Team Providers Care Hotshot Superintendent Name Role Phone Unavailable Primary Care Provider Unavailabl e Social History Tobacco Use Types Packs/Day Years Used Date Smoking Tobacco: Never Assessed Sex and Gender Information Value Date Recorded Sex Assigned at Not on file Gender Identity Not on file Sexual Orientation Not on file Plan of Treatment Not on file
== END 2025-08-22 11:21 | disposition home or self-care (01) ==
LOC: HO.HGI 10:42
PROVIDERS: PCP Internal Medicine; Visit Provider Nurse Practitioner
DX: K21.9 Gastro-esophageal reflux disease without esophagitis (principal); K59.04 Chronic idiopathic constipation; R14.0 Abdominal distension (gaseous)
CPT/HCPCS: 99213

== ENCOUNTER 2025-08-28 12:07 | Outpatient (REF) | payer OTHER, SELFPAY ==
--- OUTSIDE RECORDS SUMMARY | 2025-08-28 13:19 | XMS_ITS | Clinical Summary ---
Author Organization [facility] Address [address] [place] [address] Phone Care Team Providers Care Weight Analyst Name Role Phone Nicki Carlos MD Primary Care Provider [phone] Allergies Active Allergy Reactions Criticality Noted Date [...] Colonoscopy 11/07/2019 Colorectal Cancer Screening: Sigmoidoscopy 11/07/2019 Pneumococcal Vaccine: 50+ Years (1 of 1 - PCV) 021 Influenza Vaccine (#1) 2025 Insurance [facility] ([id number]) [facility] ([id number]) Care Teams Weight Analyst Relationship Specialty Start Date End Date Nicki Carlos MD [address] [place] PCP - General Internal Medicine 07/21/21
--- OUTSIDE RECORDS SUMMARY | 2025-08-28 13:19 | XMS_ITS | Clinical Summary ---
Author Organization [facility] Prior to 02/03/25 Address [address] [place] [address] Care Team Providers Care Animal Skinner Name Role Phone Unavailable Primary Care Provider Unavailabl e Social History Tobacco Use Types Packs/Day Years Used Date Smoking Tobacco: Never Assessed Sex and Gender Information Value Date Recorded Sex Assigned at Not on file Gender Identity Not on file Sexual Orientation Not on file Plan of Treatment Not on file
--- OUTSIDE RECORDS SUMMARY | 2025-08-28 13:19 | XMS_ITS | Clinical Summary ---
Author Organization [facility] Address [address] [facility] [address] [place] [address] Phone Care Team Providers Care Vehicle Service Agent Name Role Phone Nas Suh MD Primary Care Provider [phone] Allergies Active Allergy Reactions Criticality Noted Date [...] 1:57 PM EST): She informs me that monorail operator Dr. Solitario told her that she [...] Description 02/04/2026 10:30 AM EDT Office Visit [facility] [address] [place] [address] Nicola Burkett DO [address] [place] [phone] [email or web address] Health Maintenance Due Date [...] EST) SODIUM 143 133 - 146 mmol/L [facility] POTASSIUM 3.9 3.3 - 5.1 mmol/L [facility] CHLORIDE 106 96 - 108 mmol/L [facility] CO2 27 21 - 35 mmol/L [facility] BUN 10 6 - 19 mg/dL [facility] CREATININE 0.70 0.5 - 1.5 mg/dL [facility] GLUCOSE 119(H) 70 - 99 mg/dL [facility] ALBUMIN 3.7(L) 3.9 - 4.8 g/dL [facility] TOTAL PROTEIN 7.0 6.5 - 8.0 g/dL [facility] CALCIUM 8.7 8.4 - 10.3 mg/dL [facility] ALKALINE PHOSPHATASE 125(H) 39 - 117 U/L [facility] TOTAL BILIRUBIN 0.3 0.0 - 1.2 mg/dL [facility] AST 20 0 - 37 U/L [facility] ALT 12 0 - 40 U/L [facility] GLOBULIN 3.3 1 - 4.8 g/dL [facility] EGFR 103 >59 mL/min/1.7 3m2 [facility] Comment:Estimated glomerular filtration rate calculated using the CKD-EPI refit equation. ANION GAP 14 10 - 20 mmol/L [facility] Blood 10/09/2024 8:27 AM EST 10/09/2024 8:33 AM EST Nicola Burkett DO LAB BLOOD BKR ORDERABLES Final R esult Performing Organization Address City/State/[facility] Co de Phone Number [address] [address] from Last 3 Months or Most Recently Relevant to Health Maintenance Insurance MEDICARE REPLACEMENT ERIN RAMOS [id number] [place] [address] MEDICARE REPLACEMENT MEDICARE REPLACEMENT MEDICARE REPLACEMENT MEDICARE REPLACEMENT [facility] ONE CARE MEDICARE REPLACEMENT ERIN RAMOS [id number] Care Teams Vehicle Service Agent Relationship Specialty Start Date End Date Nas Suh MD [address] [place] [address] [place] [address] PCP - General Internal Medicine 10/01/23 Additional Source Comments The information contained in this document represents components of the legal health record. It is not the complete legal health record.[facility]
--- OUTSIDE RECORDS SUMMARY | 2025-08-28 13:20 | XMS_ITS | Continuity of Care Document ---
Author Organization [employer] [facility], [facility] Address [address] [place] [address] Assessment Encounter Date Assessment Date Assessment LastModified [...] Assessment and Plan as documented by the Tearer Press Clipping. We discussed the diagnostic uncertainty of home [...] 2 Ag, QL IA, respiratory specimen 2024 [facility], [address] [place] [address], [phone] 21:30:57 BMP, serum or plasma 2024 [facility], [address] [place] [address], [phone] 21:30:34 Referral None recorded. Procedures None recorded. Surgeries None recorded. Imaging electrocard iogram 2024 [facility], [address] [place] [address], [phone] 20:36:30 Medication Orders sodium chloride 0.9 % [...] am No observ ation record ed. [email or web address] [address], [address] 05/29/2025 21:28:38 Result Notes None recorded. Medical [...] Vitals Date Recorded Body temperature Oxygen saturation Body height Respiratory rate Heart rate Heart rate Body weight Systolic And Diastolic Systolic And Diastolic Provider Name and Address Organization Details Last Updated DateTime 5 98.4 [degF] 100 % 157.48 cm 18 /min 130 /min 101 /min 00258.7 2 g 117/76 mm[Hg] 136/85 mm[Hg] Not [...] ICD10 Code Diagnosis IMO Codes Diagnosis Note 79303 KENNETH YANES MD [facility] ED Medical [facility] [address] [place] [address] 05/29/2025 17:25:41 05/29/2025 22:22:22 Acute COVID-19 [id number] U07.6 [id number] Health Concerns Section Related Observation LastModified by Organization Detai ls LastModified Time None Recorded Concern Status LastModified by Organization Details LastModified Time None Recorded Payers Encounter Date Sequence Insurance Name Policy Number Policy Grimaldo Covered Member ID Grimaldo Member ID Guarantor Name 05/29/2025 1 [facility] - DOS ON OR AFTER 2022 - DUAL ELIGIBLE - CORRECTION OPTIONS AND ONE CARE (MEDICARE REPLACEMENT/ADV ANTAGE - HMO) Jacqueline Ady [id number] Jacqueline Garsia Notes Date Note Type Note [...] she my be drinking plenty of fluids. Dub Room Engineer advised her to change position slowly and when rising to do so in a very slow motion as her BP my be possibly dropping when standing so she my remain safe, Jacqueline agreed and verbalized understanding. ................... ................... ................... ................... ................... ................... ................... ........ [facility] Nurse Triage Notes (Rose Mary Bhardwaj): Chief Complaints: Low Blood Pressure PMH Reviewed at 05/29/2025 - 16: Allergies Reviewed at 05/29/2025 - 16: Comments: [facility] reviewed Tearer Press Clipping Organization Information for Mik Muniz Business Legal Name: [email or web address]. Address: [address] [place] [address], Transit Authority Police Officer: Ralph Hutchinson MD CLIA No.: [id number] [employer] Clipping POC Test Results from Mik Muniz Rapid [...] Hct: 37% Hb: 12.6g/dL Ammol/L Cartridge Number: [id number] Attachments uploaded as part of this test result can be found under Documents section. EKG (17:21:13) - This test has been updated by the surplus property disposal agent, Mik Muniz at (05/29/2025 20:15:57). The changes are marked in bold. EKG test performed. Attachments uploaded as part of this test result can be found under Documents section. ................... ................... ................... ................... ................... ................... ................... ........ [employer] Note From Mik Muniz: SC6 responds to the listed address for a 54 yof w/ a c/c of low blood pressure. Upon arrival on scene, pt's opens the door and invites [facility] inside. Pt is found seated on the [...] her neighbor advised her to call for [facility] visit. She has not taken her HTN [...] tx today. Ddx: COVID, dehydration, cardiac involvement [facility] obtains pt consent and vital signs are obtained. Pt is found to be normotensive, not hypoxic, tachycardic, and afebrile at this time. [facility] swabs her for COVID/flu and orthostatic vital signs are obtained. Pt becomes significantly tachycardic and blood pressure did drop about 20 points, but remained in the normal range. [facility] places pulse ox on her finger and [...] still shows positive result, negative for flu. [facility] contacts [facility] and discusses the above. [facility] orders a BMP and IV fluids (1L NS). Two attempts at IV access in the L and R ACs using aseptic technique were unsuccessful. IV access is obtained using aseptic technique in the R hand w/ a 21ga butterfly and blood is drawn for BMP. Butterfly is secured and flushed and locked w/ saline lock. Pt's K+ is low and [facility] orders 40mEq K+ PO. [facility] administers 20mEq K+ x2 tablets to pt and she takes both w/ fluids. 1L NS is administered and the butterfly is removed post fluids and pressure bandage applied w/ 2x2 and tape. Pt is endorsing feeling less light headed and foggy and generally feeling better. [facility] advises pt to seek emergency care if she develops cp, severe sob, uncontrolled n/v/d, high fever, ams, or seizures. Pt and are grateful for the visit and give their verbal understanding. [facility] is clear. Report completed by VASU Muniz [id number]. [facility] Lab Orders: rapid SARS CoV 2 Ag, QL IA, respiratory specimen: Performed BMP, serum or plasma: Performed electrocardiogram: Performed [facility] Medication Orders: sodium chloride 0.9 % intravenous solution: Performed potassium chloride 20 mEq oral packet: Performed ................... ................... ................... ................... ................... ................... ................... ........ [facility] Consulted: Kenneth Yanes ................... ................... ................... ................... ................... ................... ................... ........ Disposition: Fulfilled KENNETH YANES MD [address] [facility],[address], [place], [address], SHERLY - VINCENT YEPEZ 05/29/2025 21:23:19 OBGyn Episode No OBEpisode recorded.
--- OUTSIDE RECORDS SUMMARY | 2025-08-28 13:20 | XMS_ITS | Data Portability ---
Author Organization [employer] [facility], [facility] Address [address] [place] [address] Assessment Encounter Date Assessment Date Assessment LastModified [...] Assessment and Plan as documented by the Websphere Architect. We discussed the diagnostic uncertainty of home [...] 2 Ag, QL IA, respiratory specimen 2024 [facility], [address] [place] [address], [phone] 21:30:57 BMP, serum or plasma 2024 [facility], [address] [place] [address], [address] 21:30:34 Referral None recorded. Procedures None recorded. Surgeries None recorded. Imaging electrocard iogram 2024 [facility], [address] [place] [address], [phone] 20:36:30 Medication Orders sodium chloride 0.9 % [...] am No observ ation record ed. [email or web address] [address], [address] 05/29/2025 21:28:38 Result Notes None recorded. Medical [...] cm 18 /min 130 /min 101 /min 91130.7 2 g 117/76 mm[Hg] 136/85 mm[Hg] Not [...] ICD10 Code Diagnosis IMO Codes Diagnosis Note 69861 KENNETH YANES MD [facility] ED Medical [facility] [address] [place] [address] 05/29/2025 17:25:41 05/29/2025 22:22:22 Acute COVID-19 [id number] U07.0 [id number] Health Concerns Section Related Observation LastModified by Organization Detai ls LastModified Time None Recorded Concern Status LastModified by Organization Details LastModified Time None Recorded Advance Directives Directive None Recorded Payers Insurance Date Sequence Insurance Name Policy Number Policy Grimaldo Covered Member ID Grimaldo Member ID Guarantor Name 05/29/2025 1 [facility] - DOS ON OR AFTER 2022 - DUAL ELIGIBLE - SNF OPTIONS AND ONE CARE (MEDICARE REPLACEMENT/ADV ANTAGE - HMO) Jacquelineyoana Garsia [id number] Jacqueline Garsia Notes Date Note Type Note [...] she my be drinking plenty of fluids. Forestry Aid Technician advised her to change position slowly and when rising to do so in a very slow motion as her BP my be possibly dropping when standing so she my remain safe, Jacqueline agreed and verbalized understanding. ................... ................... ................... ................... ................... ................... ................... ........ [facility] Nurse Triage Notes (Rose Mary Bhardwaj): Chief Complaints: Low Blood Pressure PMH Reviewed at 05/29/2025 - 16: Allergies Reviewed at 05/29/2025 - 16:01 Comments: [facility] reviewed Websphere Architect Organization Information for Mik Muniz Business Legal Name: [email or web address]. Address: [address] [place] [address], Enterprise Software Engineer: Ralph MCNULTYIA No.: [id number] Websphere Architect POC Test Results from Mik Muniz Nanali ROSETTE Rapid COVID antigen (17:20:26) COVID: + Attachments [...] Hct: 37% Hb: 12.6g/dL Ammol/L Cartridge Number: [id number] Attachments uploaded as part of this test result can be found under Documents section. EKG (17:21:13) - This test has been updated by the city secretary, Mik Muniz at (05/29/2025 20:15:57). The changes are marked in bold. EKG test performed. Attachments uploaded as part of this test result can be found under Documents section. ................... ................... ................... ................... ................... ................... ................... ........ Websphere Architect Note From Mik Muniz: SC6 responds to the listed address for a 54 yof w/ a c/c of low blood pressure. Upon arrival on scene, pt's opens the door and invites [facility] inside. Pt is found seated on the [...] her neighbor advised her to call for [facility] visit. She has not taken her HTN [...] tx today. Ddx: COVID, dehydration, cardiac involvement [facility] obtains pt consent and vital signs are obtained. Pt is found to be normotensive, not hypoxic, tachycardic, and afebrile at this time. [facility] swabs her for COVID/flu and orthostatic vital signs are obtained. Pt becomes significantly tachycardic and blood pressure did drop about 20 points, but remained in the normal range. [facility] places pulse ox on her finger and [...] still shows positive result, negative for flu. [facility] contacts [facility] and discusses the above. [facility] orders a BMP and IV fluids (1L NS). Two attempts at IV access in the L and R ACs using aseptic technique were unsuccessful. IV access is obtained using aseptic technique in the R hand w/ a 21ga butterfly and blood is drawn for BMP. Butterfly is secured and flushed and locked w/ saline lock. Pt's K+ is low and [facility] orders 40mEq K+ PO. [facility] administers 20mEq K+ x2 tablets to pt and she takes both w/ fluids. 1L NS is administered and the butterfly is removed post fluids and pressure bandage applied w/ 2x2 and tape. Pt is endorsing feeling less light headed and foggy and generally feeling better. [facility] advises pt to seek emergency care if she develops cp, severe sob, uncontrolled n/v/d, high fever, ams, or seizures. Pt and are grateful for the visit and give their verbal understanding. [facility] is clear. Report completed by VASU Muniz [id number]. [facility] Lab Orders: rapid SARS CoV 2 Ag, QL IA, respiratory specimen: Performed BMP, serum or plasma: Performed electrocardiogram: Performed [facility] Medication Orders: sodium chloride 0.9 % intravenous solution: Performed potassium chloride 20 mEq oral packet: Performed ................... ................... ................... ................... ................... ................... ................... ........ [facility] Consulted: Kenneth Yanes ................... ................... ................... ................... ................... ................... ................... ........ Disposition: Fulfilled KENNETH YANES MD [address] [facility],[address], [place], [address], Xierkang bunkersofaVINCENT 05/29/2025 21:23:19 OBGyn Episode No OBEpisode recorded.
== END 2025-08-28 12:08 ==
LOC: HO.MAMMO 12:07
PROVIDERS: Visit Provider Internal Medicine
DX: Z12.31 Encounter for screening mammogram for malignant neoplasm of breast (principal)
CPT/HCPCS: 77063; 77067

== ENCOUNTER → 2025-08-28 12:45 | Outpatient (BNV) | payer OTHER, SELFPAY | PROVIDERS: Visit Provider Internal Medicine | DX: Z12.31 Encounter for screening mammogram for malignant neoplasm of breast (principal) | CPT/HCPCS: 77063; 77067 ==